=== PATIENT | female | born 1950 | race Caucasian/White ===

== ENCOUNTER 2025-02-07 11:35 | Outpatient (CLI) | payer MEDICARE, SELFPAY ==
--- NOTE | ~2025-02-07 | CT_ITS ---
EXAMINATION: CT LE LT wo con DATE: 02/07/2025 12:34 INDICATION: Left knee osteoarthritis for preoperative planning TECHNIQUE: High resolution computed tomography (CT) of the left lower extremity from the hip through the ankle was performed without intravenous contrast. Additional sagittal and coronal reconstructions were performed. Automated exposure control and iterative reconstruction technique were employed. The dose-length product was 1709.15 mGy-cm. COMPARISON: None FINDINGS: Alignment is normal. No fracture. Severe osteoarthritis at the left hip and at the medial compartment of the left knee were there some remodeling along the anterior aspect of the medial tibial plateau. Additional mild osteoarthritis at the lateral and patellofemoral compartments of the left knee. Small left hip and knee joint effusions. Moderate osteoarthritis at the second and third tarsal metatarsal joints with mild polyarticular osteoarthritis at the left ankle and remaining joints in the left earl t. IMPRESSION: 1. 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 Reviewed, dictated and finalized at location A. IMPRESSION: 1. Polyarticular osteoarthritis, severe at the medial compartment of the left k nee and at the left hip, both with small joint effusions.
--- NOTE | 2025-02-07 11:51 | ECG_ITS ---
Test Date: 2025-02-07 12:10:20 Measurements Intervals [place] Rate: 57 P: 19 ND: 182 QRS: -8 QRSD: 85 T: -3 QT: 395 QTc: 387 Interpretive Statements SINUS BRADYCARDIA BORDERLINE T WAVE ABNORMALITY- INFERIOR LEADS BORDERLINE ECG No previous ECG available for comparison Electronically Signed On 02-07-2025 12:55:31 CDT by Laci Fine D.O.
--- OUTSIDE RECORDS SUMMARY | 2025-02-07 13:09 | XMS_ITS | Encounter Summary ---
Author Organization [facility] Address [address] [place] [address] Phone Care Team Providers Care Cad Librarian Name Role Phone Yuni Resendiz APRN, CNP Primary Care [facility] Reason for Visit * Reason Comments Medication Refill Encounter Details Date Type Department Care Team (Late st Contact Info) Description 12/24/2021 Refill [facility] - [place] [address] [place] [address] Yuni Resendiz APRN, CNP [address] [place] [address] Medication Refill Social History Tobacco Use Types Packs/Day Years Used Date Smoking Tobacco: Former Cigarettes 0.5 27 1 - 11/07/2004 Smokeless Tobacco: Never Comments:chews nicorette gum Alcohol Use Standard Drinks/Week Comments No 0 (1 standard drink = 0.6 oz pur e alcohol) PHQ-2 Answer Date Recorded Total Score - Questions 1-9 1 11/09 Comments No Sex and Gender Information Value Date Recorded Sex Assigned at Not on file Legal Sex Female 10:48 PM CDT Gender Identity Not on file Sexual Orientation Not on file 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 Not on file Not on file Not on file documented as of this encounter Plan of Treatment Upcoming Encounters Date Type Department Care Team (Late st Contact Info) Description 03/08/2025 8:30 AM CDT Lab [facility] [place] [address] [place] [address] [facility] 03/15/2025 9:15 AM CDT Office Visit [facility] [place] [address] [facility] [place] [address] Yuni Resendiz APRN, HAT BLOCK MAKER [address] [place] [address] documented as of this encounter Visit Diagnoses Diagnosis Seasonal allergic rhinitis, unspecified trigger documented in this encounter Additional Health Concerns Infection Onset Date Last Indicated Resolved Time COVID - 19 01/16/2023 01/16/2023 01/26/2023 12:1 6 AM CDT COVID - 19 Confirmed 01/16/2023 01/16/202302/05/ 023 12:16 AM CDT Assessment Noted Time PHQ-9 Depression Total Score: 1 12/03/19 21 8:00 AM [employer] documented as of this encounter Care Teams Cad Librarian Relationship Specialty Start Date End Date Yuni Resendiz APRN, HAT BLOCK MAKER [address] [place] [address] PCP - General Advanced Practice Nurse 07/23/20 documented as of this encounter
--- OUTSIDE RECORDS SUMMARY | 2025-02-07 13:09 | XMS_ITS ---
Care Plan - [facility] Created on: February 07, 2025 ARLENE ENGLE : 1950 Sex: Female Author Organization [facility] Address [address] [place] [address] Phone Care Team Providers Care Gimp Buttonhole Machine Operator Name Role Phone LILIANA PATEL DO Unavailable [phone] MURALI MORRIS MD Unavailable [phone]
--- OUTSIDE RECORDS SUMMARY | 2025-02-07 13:09 | XMS_ITS | Clinical Summary ---
Author Organization [facility] Address [address] [place] [address] Care Team Providers Care Marine Water Tender Name Role Phone Unavailable Primary Care Provider Unavailabl e Source Comments [facility],non-owned Affiliates and Associated Physician Practices is amultiple site organization consisting of ambulatory clinics and hospital sitesin [place], [place], [place] and [place]. This disclosure is being madepursuant to the Care Everywhere program and may not contain all information available regarding this patient. Last updated 18.[facility] Allergies Active Allergy Reactions Criticality Noted Date Comments Paroxetine Psychiatric Medium 08/11/2017 Medications * Be aware that medications may not be up to date on this document. Alwaysverify current medications with the patient. Medication Sig Dispensed Refills Start Date End Date Status rosuvastatin (CRESTOR) 10 MG tablet Take 10 mg by mouth once daily Active lisinopril (PRINIVIL; ZESTRIL) 20 MG tablet Take 20 mg by mouth once daily Active amLODIPine (NORVASC) 5 MG tablet Take 5 mg by mouth once daily Active buPROPion XL 24hr (WELLBUTRIN-XL) 150 MG tablet Take 150 mg by mouth 05/26/2018 Active omeprazole EC (PRILOSEC OTC) 20 MG tablet Take 20 mg by mouth once daily 03/16/2019 Active raNITIdine HCl (ZANTAC PO) Active Active Problems No known active problems Social History Tobacco Use Types Packs/Day Years Used Date Smoking Tobacco: Former Smokeless Tobacco: Never Sex and Gender Information Value Date Recorded Sex Assigned at Not on file Gender Identity Not on file Sexual Orientation Not on file Last Filed Vital Signs Vital Sign Reading Time Taken Comments Blood Pressure 122/80 06/01/2019 2:48 PM CDT Pulse 86 06/01/2019 2:48 PM CDT Temperature 36.8 C (98.3 F) 06/01/2019 2:48 PM CDT Respiratory Rate 17 06/01/2019 2:48 PM CDT Oxygen Saturation - - Inhaled Oxygen Concentration - - Weight 70.3 kg (155 lb) 06/01/2019 2:48 PM CDT Height 152.4 cm (5') 06/01/2019 2:48 PM CDT Body Mass Index 30.27 06/01/2019 2:48 PM CDT Plan of Treatment Health Maintenance Due Date Last Done Comments BONE DENSITY TESTING 1950 COLOGUARD (AGES 45-75) - COLON CA SCREENING 1950 COLON MONITORING 1950 COLONOSCOPY - COLON CA SCREENING 1950 CT COLONOGRAPHY - COLON CA SCREENING 1950 Colorectal Cancer Screening 1950 FIT - COLON CA SCREENING 1950 FLEX SIG - COLON CA SCREENING 1950 MAMMOGRAM 1950 HEPATITIS C SCREENING 04/27/1968 DTAP/TDAP/TD VACCINES (1 - Tdap) 1969 PNEUMOCOCCAL VACCINE 50+ (1 of 1 - PCV) 2000 ZOSTER VACCINE (1 of 2) 2000 SCREENING FOR DIABETES 06/01/2019 COVID-19 VACCINE (1 - 2023- season) 2024 INFLUENZA VACCINE (#1) 2024 8, 08/11/2017, 08/18/2016, Additional history exists DEPRESSION SCREENING 11/08/2024 MEDICARE AWV CALENDAR YEAR 2024 Respiratory Syncytial Virus (RSV) Vaccine Pt: or over 60 yrs (1 - 1-dose 75+ series) 2025 HEPATITIS B VACCINE Aged Out No longe r eligible based on patient's age to complete this topic HIB VACCINE Aged Out No longer eligi ble based on patient's age to complete this topic HPV VACCINE Aged Out No longer eligi ble based on patient's age to complete this topic MENINGOCOCCAL (Group B) VACCINE SHARED DECISION-MAKING Aged Out No longer eligible based on patient's age to complete this topic MENINGOCOCCAL GROUPS A/C/Y/W VACCINE Aged Out No longer eligible based on patient's age to complete this topic
--- OUTSIDE RECORDS SUMMARY | 2025-02-07 13:09 | XMS_ITS | Referral Summary ---
Author Organization [facility] Address [address] [place] [address] Care Team Providers Care Biometrics Head Name Role Phone Jocelyn Vázquez MD Primary Care Provider [phone] Allergies Active Allergy Reactions Criticality Noted Date Comments Paroxetine Hcl Delusions Medium 08/11/2017 Sulfa (Sulfonamide Antibiotics) Unknown Low 08/11/2017 Just doesn't help (no allergic reaction) Medications b complex vitamins capsule Take 1 capsule by mouth daily. Active amLODIPine (NORVASC) 5 mg tablet Take 5 mg by mouth daily. Active lisinopril (PRINIVIL,ZESTRIL ) 20 mg tablet Take 20 mg by mouth daily. Active rosuvastatin (CRESTOR) 10 mg tablet Take 10 mg by mouth daily. Active aspirin 81 mg tablet Take 81 mg by mouth daily. Active fluticasone (FLONASE) 50 mcg/actuation nasal spray Administer 1 spray into each nostril daily. Active aspirin-calcium carbonate 81 mg-300 mg calcium(777 mg) tablet Take 81 mg by mouth. Active cyclobenzaprine (FLEXERIL) 10 mg tabletIndications :Lumbar spondylolysis Take 1 tablet (10 mg total) by mouth 3 (three) times a day as needed for muscle spasms. 30 tablet 7 Active omeprazole (PriLOSEC) 20 mg capsuleIndication s:Functional dyspepsia Take 1 capsule (20 mg total) by mouth daily as needed (heartburn or indigestion). 30 capsule 2 7 Active Active Problems Problem Noted Date Diagnosed Date Hyperlipidemia, mixed 08/11/2017 Assessment & Plan (08/11/2017 1:51 PM CDT): Labs for monitoring today Cont statin Essential hypertension 08/11/2017 Assessment & Plan (08/11/2017 1:51 PM CDT): Hypertension is controlled. Continue current treatment regimen. Blood pressure will be reassessed at the next regular appointment. Lumbar spondylolysis 08/11/2017 Overview (08/11/2017): MRI 10/2016 - diffuse lumbar DDD; disc bulging at multiple levels; multilevel facet OA bilaterally; mild secondary spinal stenosis at L4-5, L5-S1 along with some foraminal narrowing; minimal retrolisthesis L2 on L3 as well as anterolisthesis L4 on L5 and L5 on S1 Assessment & Plan (08/11/2017 1:55 PM CDT): Reviewed prior MRI from Oct 2016 Has done PT in the past, but it didn't help Pain mgmt injections did help, but now the pain is back Discussed importance of core stability in retirement relief of pain Handout given Refill flexeril Obesity (BMI 30-39.9) 08/11/2017 Assessment & Plan (08/11/2017 1:25 PM CDT): Obesity is newly identified. Discussed the patient's BMI. The BMI is above average; BMI management plan is completed. General weight loss/lifestyle modification strategies discussed (elicit support from others; identify saboteurs; non-food rewards, etc). BMI 33.0-33.9,adult 08/11/2017 Assessment & Plan (08/11/2017 1:25 PM CDT): BMI - discussed healthy diet, exercise and adequate sleep Elevated fasting glucose 08/11/2017 Assessment & Plan (08/11/2017 1:52 PM CDT): Has been controlled with metformin and diet changes in the past. Labs today for monitoring. Release for prior records. Heartburn 08/11/2017 Assessment & Plan (08/11/2017 1:52 PM CDT): Stable on as needed use of PPI Chronic constipation 08/11/2017 Immunizations Immunization Administration Dates Next Due Influenza, Quadrivalent, Spl it, Preservative Free, Intramuscular 08/11/2017 Influenza, Trivalent, High D ose, Split, Preservative Free, Intramuscular 08/18/2016,07/16/2015 Pneumococcal Polysaccharide PPV23 02/06/2009 Td, adsorbed 02/06/2010 Social History Tobacco Use Types Packs/Day Years Used Date Smoking Tobacco: Former Cigarettes 1 974 - 2003 Smokeless Tobacco: Never Alcohol Use Standard Drinks/Week Comments No 0 (1 standard drink = 0.6 oz pur e alcohol) Personal Safety Answer Date Recorded Getting School Help Needed Not on file 01/21 Comments Unknown Sex and Gender Information Value Date Recorded Sex Assigned at Not on file Legal Sex Female 5:09 PM [employer] Gender Identity Not on file Sexual Orientation Not on file Last Filed Vital Signs Vital Sign Reading Time Taken Comments Blood Pressure 126/74 08/11/2017 12:32 PM CDT Pulse 67 08/11/2017 12:32 PM CDT Temperature 36.3 C (97.3 F) 08/11/2017 12:32 PM CDT Respiratory Rate - - Oxygen Saturation - - Inhaled Oxygen Concentration - - Weight 75.8 kg (167 lb) 08/11/2017 12:32 PM CDT Height 149.9 cm (4' 11 ) 08/11/2017 12:32 PM CDT Body Mass Index 33.73 08/11/2017 12:32 PM CDT Plan of Treatment Not on file Insurance MEDICARE Care Teams Biometrics Head Relationship Specialty Start Date End Date Jocelyn Vázquez [place] [address] [address] [address] PCP - General Family Medicine 05/28/17
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
--- OUTSIDE RECORDS SUMMARY | 2025-02-07 13:09 | XMS_ITS | Encounter Summary ---
Author Organization [facility] Address [address] [place] [address] Phone Care Team Providers Care Commercial Collections Driver Name Role Phone Yuni Resendiz APRN, CNP Primary Care Chauncey espinal Reason for Visit * Reason Comments Medication Refill Encounter Details Date Type Department Care Team (Late st Contact Info) Description 05/13/2021 Refill [facility] [address] [place] [address] Evita Cid Rosalie, PAC [address] [place] [address] Medication Refill Social History Tobacco Use Types [...] on file documented as of this encounter Miscellaneous Notes * Telephone Encounter - Chino Guillory PAC - 05/13/2021 10:19 PM CDT Rx refill approved. * Telephone Encounter - Annamarie Bar RN - 05/13/2021 1:44 PM CDT Medication not on pt's current med list. Please advise. Medication failed the protocol, provider to review and approve the medication order if appropriate. Requested Prescriptions Pending Prescriptions Disp Refills rosuvastatin (CRESTOR) 10 MG Tablet [Pharmacy Med Name: ROSUVASTATIN 10MG] 90 Tablet 3 Sig: TAKE 1 TABLET BY MOUTH DAILY. Hmg CoA Reductase Inhibitors Protocol Failed - 05/13/2021 1:43 PM Failed - Active on medication list Passed - Visit with relevant provider in past 12 months or upcoming 90 days Recent Visits Date Type Provider Dept 03/07/21 Office Visit Yuni Resendiz APN, VALE [address] 12/20/20 Office Visit Yuni Resendiz APN, VALE [address] 12/03/20 Office Visit Yuni Resendiz APN, VALE [address] 07/26/20 Office Visit Yuni Resendiz APN, BUSINESS SERVICES SALES AGENT [address] Showing recent visits within past 365 days and meeting all other requirements Future Appointments No visits were found meeting these conditions. Showing future appointments within next 90 days and meeting all other requirements Passed - Lipid panel in past 12 months LDL Date Value Ref Range Status 11/29/2020 124 5 - 130 mg/dL Final HDL CHOLESTEROL Date Value Ref Range Status 11/29/2020 49.4 >40 mg/dL Final CHOLESTEROL Date Value Ref Range Status 11/29/2020 213 (H) <=200 mg/dL Final TRIGLYCERIDES Date Value Ref Range Status 11/29/2020 199 (H) <150 mg/dL Final VLDL Date Value Ref Range Status 11/29/2020 40 5 - 55 mg/dL Final CHOL/HDL RATIO Date Value Ref Range Status 11/29/2020 4.3 0.0 - 4.4 Final NON-HDL CHOLESTEROL Date Value Ref Range Status 11/29/2020 163.6 (H) <130 mg/dL Final * Telephone Encounter - Laurence Newell CMA - 05/13/2021 9:25 AM CDT Not a GI medication, forwarded to primary documented in this encounter Plan of Treatment Upcoming Encounters Date Type Department Care Team (Late st Contact Info) Description 03/08/2025 8:30 AM CDT Lab [facility] [place] [address] [place] [address] [facility] 03/15/2025 9:15 AM CDT Office Visit [facility] [place] [address] [place] [address] Yuni Resendiz APRN, BUSINESS SERVICES SALES AGENT [address] [place] [address] documented as of this encounter Visit Diagnoses Not on filedocumented in this encounter Additional Health Concerns Infection Onset Date Last Indicated Resolved Time COVID - 19 01/16/2023 01/16/2023 01/26/2023 12:1 6 AM CDT COVID - 19 Confirmed 01/16/2023 01/16/202302/05/ 023 12:16 AM CDT Assessment Noted Time PHQ-9 Depression Total Score: 1 12/03/19 21 8:00 AM PROGRAM SPECIALIST documented as of this encounter Care Teams Commercial Collections Driver Relationship Specialty Start Date End Date Yuni Resendiz APRN, BUSINESS SERVICES SALES AGENT [address] [place] [address] PCP - General Advanced Practice Nurse 07/23/20 documented as of this encounter
--- OUTSIDE RECORDS SUMMARY | 2025-02-07 13:09 | XMS_ITS | Clinical Summary ---
Author Organization [facility] Address [address] [place] [address] Phone Care Team Providers Care Schedule Analyst Name Role Phone LILIANA PATEL DO Unavailable [phone] MURALI MORRIS MD Unavailable [phone] Reason for Visit and Chief Complaint The Chief Complaint is: WWE, no c/o, no new partners Problems Includes: Problems addressed during this encounter and other active Problems All Visits Onset Date Resolved Date Provider Condition S tatus Skin Neoplasm Malignant 06/13/2020 SANDI REYES WHNP-BC Active Last Documented On 06/13/2020 9:06AM ; [facility] Note: Removed June 04, 2020 - Lucy Mulligan - [place], [place] - squamous cell ca URGE INCONTINENCE 06/03/2012 LYN MYERS M.D. Active Last Documented On 2 9:41AM ; [facility] Diabetes Mellitus 05/26/2012 SANDI REYES WHNP -BC Active Last Documented On 2 10:23AM ; [facility] Note: Type II Hyperlipidemia 05/22/2011 SANDI REYES WHNP-BC Active Last Documented On 1 10:34AM ; [facility] Hypertension Systemic 05/22/2011 SANDI REYES WHNP-BC Active Last Documented On 1 10:34AM ; [facility] Plan of Treatment - Follow-up visit 1 year or as needed - Last Documented On 06/19/2022 10:25AM ; [facility] - Clinical summary provided to patient - Last Documented On 06/19/2022 10:25AM ; [facility] Instructions to patient Instructions for patient : B reast Self Exam discussed Last Documented On 2 10:09AM ; [facility] Lose weight Last Documented On 2 10:10AM ; [facility] Education and Decision Aids were provided during visit for: Patient Education: Daily perez cium and vitamin D Last Documented On 2 10:09AM ; [facility] Patient Education: weight be aring exercise Last Documented On 2 10:09AM ; [facility] Assessments Includes: Assessments from this encounter Findings - NORMAL FEMALE EXAM [Z01.419 - Encounter for gynecological examination (general) (routine) without abnormal findings] - Last Documented On 06/19/2022 10:25AM ; [facility] - Screening Malig. Neoplasm Rectum [Z12.12 - Encounter for screening for malignant neoplasm of rectum] - Last Documented On 06/19/2022 10:25AM ; [facility] Instructions Includes: Instructions from this encounter Instructions to patient Instructions for patient : B reast Self Exam discussed Last Documented On 2 10:09AM ; [facility] Lose weight Last Documented On 2 10:10AM ; [facility] Education and Decision Aids were provided during visit for: Patient Education: Daily perez cium and vitamin D Last Documented On 2 10:09AM ; [facility] Patient Education: weight be aring exercise Last Documented On 2 10:09AM ; [facility] Medical Equipment - Implanted Devices Includes: Current Devices No Medical Equipment Recorded Medications Includes: Medications discussed during this encounter and other current Medications Discontinued / Stopped on this date on 06/18/2021 hydroCHLOROthiazide 12.5 MG Oral Capsule Provider: Diagnosis: Last Documented On 06/19/2022 10:12AM By Annalee Hale MA ; [facility] Current Medications (continue as prescribed) [facility] Magnesium 200 MG Oral Tablet Chewable 06/23/2023 Provider: Diagnosis: Last Documented On 06/23/2023 8:17AM By Cinthia URIARTE ; [facility] CeleBREX 100 MG Oral Capsule 06/19/2022 Provider: Diagnosis: Last Documented On 06/19/2022 10:12AM By Annalee Hale MA ; [facility] Flonase 50 MCG/ACT Nasal Suspension 06/19/2022 Provi tino: Diagnosis: Last Documented On 06/19/2022 10:13AM By Annalee Hale MA ; [facility] Omeprazole 20 MG Oral Tablet Delayed Release 06/19 Provider: Diagnosis: Last Documented On 06/19/2022 10:13AM By Annalee Hale MA ; [facility] Singulair 10 MG Oral Tablet 06/19/2022 Provider: Diagnosis: Last Documented On 06/19/2022 10:13AM By Annlaee Hale MA ; [facility] Montelukast Sodium 10 MG Oral Tablet 06/12/2022 Prov ider: YUNI THOMSON NP Diagnosis: Last Documented On 06/23/2023 8:18AM By Cinthia URIARTE ; [facility] buPROPion HCl ER (XL) 150 MG Oral Tablet Extended Release 24 Hour 05/12/2022 Provider: YUNI THOMSON NP Diagnosis: Last Documented On 06/23/2023 8:18AM By Cinthia URIARTE ; [facility] Ocuvite Eye + Multi Oral Tablet 06/13/2020 Provider: Diagnosis: Last Documented On 06/13/2020 8:53AM By REEMA URIARTE ; [facility] Adult Aspirin Regimen 81MG Oral Tablet Delayed Release 05/10/2019 Provider: Diagnosis: Last Documented On 05/10/2019 9:16AM By REEMA URIARTE ; [facility] EQL Vitamin D3 1000UNIT Oral Capsule 05/10/2019 Prov ider: Diagnosis: Last Documented On 05/10/2019 9:15AM By REEMA URIARTE ; [facility] Wellbutrin SR 150MG Oral Tablet Extended Release 12 Ho ur 05/10/2019 Provider: Diagnosis: Last Documented On 05/10/2019 9:15AM By REEMA URIARTE ; [facility] Crestor 10 MG OR TABS 04/09/2014 Provider: Diagnosis: Last Documented On 04/09/2014 8:34AM By REEMA URIARTE ; [facility] amLODIPine Besylate 10 MG OR TABS 05/12/2012 Provide r: Diagnosis: Last Documented On 2 2:12PM By DR. LYN MYERS ; [facility] Past Medications on file Vitamin D (Ergocalciferol) 1.25 MG (77234 UT) OR CAPS 06/20/2014 - 07/20/2014 Provider: SADNI MAYEN Diagnosis: VITAMIN D DEFICI ENCY NOS one po q week x 12 weeks, then call for labs Last Documented On 4 2:19PM By SADNI MAYEN ; [facility] Dialyvite Vitamin D3 Max 1.2 5 MG (29467 UT) OR TABS 06/20/2012 - 09/18/2012 Provider: SANDI MAYEN Diagnosis: one po q week x 12 weeks Last Documented On 2 10:45AM By SANDI MAYEN ; [facility] Estrace 0.1 MG/GM VA CREA 05/26/2012 - 05/21/2013 Prov ider: SANDI MAYEN Diagnosis: Insert vaginally 3x/week (1/2 applicator) Last Documented On 2 1:13PM By SANDI MAYEN ; [facility] Medications Administered Includes: Administered Medications from this encounter No Administered Medications Recorded Vital Signs Includes: Vital Signs from this encounter Vital Name 06/19/2022 10:10A Blood Pressure Sitting L 160/90 BP Cuff Size Large Temp-Temporal 97.3 Height (in) 59 Weight (lb) 167 Body Mass Index (kg/m2) 33.7 Body Surface Area (m2) 1.7 Last Documented: On 06/19/2022 10:17A M ; [facility] Results Includes: Results discussed during this encounter No Results Recorded For Specified Dates History of Present Illness Includes: History of Present Illness from this encounter TIM ENGLE is a 72 year old female. - Allergy list reviewed - Medication list reviewed - Primary Care Provider: Yuni Martinez Social History Description Last Updated Former smoker 06/18/2021 Last Documented On 2 10:09AM ; [facility] Not using alcohol 06/13/2020 Last Documented On 2 10:09AM ; [facility] Not using drugs 06/13/2020 Last Documented On 2 10:09AM ; [facility] Social history unchanged 06/13/2020 Last Documented On 2 10:09AM ; [facility] Lutheran: Mu-Ism 04/12/2017 Last Documented On 2 10:09AM ; [facility] Druze affiliation 04/12/2017 Last Documented On 2 10:09AM ; [facility] Smoking Status Unknown Procedures and Surgical History Includes: Procedures from this encounter Procedures Code Diagnosis Performing Provider Service L ocation Service Date low fat diet Last Documented On 2 10:10AM ; [facility] use of tobacco assessment performed 1000F Last Documented On 2 10:15AM ; [facility] patient screened for future fall risk: documentation of any fall with injury in past year 1100F Last Documented On 2 10:18AM ; [facility] review of medications documented 1160F Last Documented On 2 10:15AM ; [facility] Pap smear done 50913 Last Documented On 2 10:10AM ; [facility] history of cervical Pap smear 2019 08332 Last Documented On 2 10:15AM ; [facility] fecal occult blood test was negative 42361 Last Documented On 2 10:09AM ; [facility] patient recently had a dexa scan 05-25-19 Last Documented On 2 10:15AM ; [facility] Cervical Pap Smear performed Q0091 Last Documented On 2 10:10AM ; [facility] Surgical History Last Updated Surgical / procedural histor y cancer spot removed from her [id number] ~bilateral cateract 06/13/2020 Last Documented On 2 10:09AM ; [facility] History of tubal ligation 05/10/2019 Last Documented On 2 10:09AM ; [facility] History of appendectomy 04/12/2017 Last Documented On 2 10:09AM ; [facility] Medical History Includes: Medical History addressed during this encounter Description Last Updated Last pap smear date 201806/23/2023 Last Documented On 2 10:09AM ; [facility] History of screening mammogram was perfo rmed 06/17/2022 06/19/2022 Last Documented On 2 10:25AM ; [facility] History of cervical Pap smear 06/18 Last Documented On 2 10:09AM ; [facility] History of colonoscopy fiberoptic was pe rformed 201806/18/2021 Last Documented On 2 10:09AM ; [facility] No recent change in medical history 04/2020 Last Documented On 2 10:09AM ; [facility] History of a DXA of the lateral lumbar s pine was performed 05/25/2019 wnl 06/13/2020 Last Documented On 2 10:09AM ; [facility] History of complete colonoscopy 2019 Dr Agustin 06/13/2020 Last Documented On 2 10:09AM ; [facility] History of Pap smear done 05/10/201904/2020 Last Documented On 2 10:09AM ; [facility] LMP: 1992 06/13/2020 Last Documented On 2 10:09AM ; [facility] Result: normal 06/13/2020 Last Documented On 2 10:09AM ; [facility] History of type 2 diabetes mellitus diet controled 04/12/2017 Last Documented On 2 10:09AM ; [facility] Aborta 04/12/2017 Last Documented On 2 10:09AM ; [facility] 4 04/12/2017 Last Documented On 2 10:09AM ; [facility] History of benign essential hypertension 04/12/2017 Last Documented On 2 10:09AM ; [facility] History of hyperlipidemia 04/12/2017 Last Documented On 2 10:09AM ; [facility] History of menopause 04/12/2017 Last Documented On 2 10:09AM ; [facility] Para 4 04/12/2017 Last Documented On 2 10:09AM ; [facility] Status post tubal ligation 04/12/2017 Last Documented On 2 10:09AM ; [facility] Family History Includes: Family History addressed during this encounter Description Last Updated Maternal history of pure hypercholestero lemia Parents 06/13/2020 Last Documented On 2 10:09AM ; [facility] Maternal history of uterine cancer mom 0 06/13/2020 Last Documented On 2 10:09AM ; [facility] Paternal grandmother's histo ry of malignant neoplasm of the ovary paternal grandma 06/13/2020 Last Documented On 2 10:09AM ; [facility] Paternal history of diabetes mellitus Da d 06/13/2020 Last Documented On 2 10:09AM ; [facility] Paternal history of family history of he art disease Dad 06/13/2020 Last Documented On 2 10:09AM ; [facility] Paternal history of hypertension Dad 04/2020 Last Documented On 2 10:09AM ; [facility] mother had padgets 04/12/2017 Last Documented On 2 10:09AM ; [facility] Spouse name: Inez 05/22/2011 Last Documented On 2 10:09AM ; [facility] Family history of diabetes mellitus Dad 05/22/2011 Last Documented On 2 10:09AM ; [facility] Family history of hypercholesterolemia P arents 05/22/2011 Last Documented On 2 10:09AM ; [facility] Family history of hypertension Dad 05/22 Last Documented On 2 10:09AM ; [facility] Family history of uterine cancer mom Last Documented On 2 10:09AM ; [facility] Heart disease Dad 05/22/2011 Last Documented On 2 10:09AM ; [facility] Family history unchanged 05/22/2011 Last Documented On 2 10:09AM ; [facility] Family history of malignant neoplasm of the ovary paternal grandma 05/14/2010 Last Documented On 2 10:09AM ; [facility] Family history of Cancer 01/14/2010 Last Documented On 2 10:09AM ; [facility] Family history of Diabetes 01/14/2010 Last Documented On 2 10:09AM ; [facility] Family medical history of high blood pre ssure 01/14/2010 Last Documented On 2 10:09AM ; [facility] Review of Systems Includes: Review of Systems from this encounter Gastrointestinal: No pelvic pain. Genitourinary: No postmenopausal bleeding. No vaginal discharge. Neurological: No ataxia. Psychological: No fear of falling. Past Medical: No fall in the past 6 months. Mental Status Includes: Mental Status from this encounter No Mental Status Recorded Functional Status Includes: Functional Status from this encounter No Functional Status Recorded Physical Exam Includes: Physical Exam from this encounter Allergies Includes: Active Allergies Substance Type Reaction Onset Date Resolved Date Statu s Sulfa Antibiotics Allergy 04/09/2014 R esolved Last Documented On 9 9:14AM ; [facility] Encounters Encounter Provider Location Date Check-In Time Check-Out Time Diagnosis WELL WOMAN - ESTABLISHED PT SANDI REYES [facility] 06/19/20 22 10:07AM 10:29AM Screening Malig. Neoplasm Rectum,Normal Female Exam Insurance Includes: Active Insurance Policies Plan Name Member ID Group # Subscriber Relationship Effect robin Dates 1 - [facility]/MEDICARE ADV/AARP [id number] INEZ ENGLE M Clinical Notes Includes: Clinical Notes from this encounter No Clinical Notes Recorded
--- OUTSIDE RECORDS SUMMARY | 2025-02-07 13:09 | XMS_ITS | Encounter Summary ---
Author Organization [facility] Address [address] [place] [address] Phone Care Team Providers Care Car Porter Name Role Phone Yuni Resendiz APRN, CNP Primary Care P rovitino Reason for Visit * Reason Comments Medication Refill Encounter Details Date Type Department Care Team (Late st Contact Info) Description 02/15/2022 Refill [facility] - [place] [address] [place] [address] Yuni Resendiz APRN, CNP [address] [place] [address] Medication Refill Social History Tobacco [...] encounter Miscellaneous Notes * Telephone Encounter - Marlee Gardner RN - 02/16/2022 9:53 AM CDT Refill request too soon. documented in this encounter Plan of Treatment Upcoming Encounters Date Type Department Care Team (Late st Contact Info) Description 03/08/2025 8:30 AM CDT Lab [facility] [address] [place] [phone] [facility] 03/15/2025 9:15 AM CDT Office Visit [facility] [place] [address] [place] [address] Yuni Resendiz APRN, CUT OUT STITCHER [address] [place] [address] documented as of this encounter Visit Diagnoses Diagnosis Seasonal allergic rhinitis, unspecified trigger documented in this encounter Additional Health Concerns Infection Onset Date Last Indicated Resolved Time COVID - 19 01/16/2023 01/16/2023 01/26/2023 12:1 6 AM CDT COVID - 19 Confirmed 01/16/2023 01/16/2023 023 12:16 AM CDT Assessment Noted Time PHQ-9 Depression Total Score: 1 12/03/19 21 8:00 AM 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
--- OUTSIDE RECORDS SUMMARY | 2025-02-07 13:09 | XMS_ITS | Encounter Summary ---
Author Organization [facility] Address [address] [address] Care Team Providers Care Carbonator Name Role Phone Unavailable Primary Care Provider Unavailabl e Encounter Details Date Type Department Care Team (Late st Contact Info) Description 05/13/2020 Lab Requisition [facility] [address] [place] [address] [place] [address] [place] [address] Social History Tobacco Use Types Packs/Day Years Used Date Smoking Tobacco: Former Smokeless Tobacco: Never Sex and Gender Information Value Date Recorded Sex Assigned at Not on file Gender Identity Not on file Sexual Orientation Not on file documented as of this encounter Plan of Treatment Not on file documented as of this encounter Procedures Procedure Name Priority Date/Time Associated Diagnosis Comments DERMATOPATHOLOGY Routine 05/09/2020 12:0 0 AM CDT documented in this encounter Results * DERMATOPATHOLOGY (05/09/2020 12:00 AM CDT) Case Report Dermatopathology Report Case: [id number] Authorizing Provider: Kathya Thomas MD Collected: 05/09/2020 12:00 AM Ordering Location: [facility] Received: 05/13/2020 01:12 PM Pathologist: Jaswant Smith MD Specimen: Skin, nasal dorsum 0 1:01 PM CDT DERMATOPATHOLOGY LABORATORY Final Diagnosis Specimen A. 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 . 0 1:01 PM CDT DERMATOPATHOLOGY LABORATORY Gross Description Specimen A: Received is one formalin filled container labeled with the patient's name and designated nasal dorsum. The specimen consists of a shave biopsy measuring [id number]. Jar 0. 0 1:01 PM CDT DERMATOPATHOLOGY LABORATORY Microscopic Description Specimen A. SKIN, nasal dorsum: The epidermis shows parakeratosis, full thickness disorderly maturation of keratinocytes, mitoses at different levels, and dyskeratotic cells. The lesion extends to the base of the biopsy.COMMENT: An invasive squamous cell carcinoma cannot be ruled out. 0 1:01 PM CDT DERMATOPATHOLOGY LABORATORY Disclaimer An external and internal positive and negative controls are appropriate for the histochemical, immunohistochemical and immunofluorescence stain(s) in this case (if any), except where stated explicitly. The performance characteristics of the stain(s) cited in this report were developed and its performance characteristic determined by the Dermatopathology Laboratory at [facility], directed by Dr. Nicky Smith. These tests need not be, and therefore are not, approved by the [place] Food and Drug Administration. The tests are used for clinical purposes. Billing Codes Specimen Charges Stain Charges 04511 1 0 1:01 PM CDT DERMATOPATHOLOGY LABORATORY Embedded Images 0 1:01 PM CDT DERMATOPATHOLOGY LABORATORY Pathology/Cytolog y TISSUE SPECIMEN FROM SKIN / Unknown 05/09/2020 05/13/2020 1:12 PM CDT Kathya Thomas MD LAB - PATHOLOGY/C YTOLOGY ORDERABLES DERMATOPATHOLOGY LABORATORY [facility] - Department of Dermatology [employer] [place] [address], [facility] [phone] documented in this encounter Visit Diagnoses Not on filedocumented in this encounter
--- OUTSIDE RECORDS SUMMARY | 2025-02-07 13:09 | XMS_ITS ---
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 Active Last Documented On 2 9:41AM ; [facility] Diabetes Mellitus 05/26/2012 SANDI REYES WHNP -BC Active Last Documented On 2 10:23AM ; [facility] Note: Type II Hyperlipidemia 05/22/2011 SANDI REYES WHNP-BC Active Last Documented On 1 10:34AM ; [facility] Hypertension Systemic 05/22/2011 SANDI REYES WHNP-BC Active Last Documented On 1 10:34AM ; [facility] Plan of Treatment Findings Encounter Date Ordered Clinical summary pro vided to patient WELL WOMAN - ESTABLISHED PT with SANDI REYES WHNP-BC 06/23/2023 Last Documented On 3 8:31AM ; [facility] Ordered follow-up visit 1 ye ar or as needed WELL WOMAN - ESTABLISHED PT with SANDI REYES WHNP-BC 06/23/2023 Last Documented On 3 8:31AM ; [facility] Ordered Clinical summary pro vided to patient WELL WOMAN - ESTABLISHED PT with SANDI REYES WHNP-BC 06/19/2022 Last Documented On 2 10:25AM ; [facility] Ordered follow-up visit 1 ye ar or as needed WELL WOMAN - ESTABLISHED PT with SANDI REYES WHNP-BC 06/19/2022 Last Documented On 2 10:25AM ; [facility] Ordered follow-up visit 1 ye ar or as needed WELL WOMAN - ESTABLISHED PT with SANDI REYES WHNP-BC 06/18/2021 Last Documented On 1 9:14AM ; [facility] Ordered follow-up visit 1 ye ar or as needed ANNUAL HALFTONE OPERATOR EXAM with SANDI REYES WHNP-BC 06/13/2020 Last Documented On 0 9:07AM ; [facility] Ordered Clinical summary pro vided to patient ANNUAL HALFTONE OPERATOR EXAM with SANDI REYES WHNP-BC 05/10/2019 Last Documented On 9 9:32AM ; [facility] Ordered follow-up visit 1 ye ar or as needed ANNUAL HALFTONE OPERATOR EXAM with SANDI REYES WHNP-BC 05/10/2019 Last Documented On 9 9:32AM ; [facility] Ordered Clinical summary pro vided to patient ANNUAL HALFTONE OPERATOR EXAM with SANDI REYES WHNP-BC 04/12/2017 Last Documented On 7 11:01AM ; [facility] Ordered Transition in care, clinical summary provided ANNUAL HALFTONE OPERATOR EXAM with SANDI REYES WHNP-BC 04/12/2017 Last Documented On 7 11:01AM ; [facility] Requested Referred to: GI - [place] - screening colonoscopy due! ANNUAL HALFTONE OPERATOR EXAM with SANDI REYES [facility] 04/12/2017 Last Documented On 7 11:01AM ; [facility] Ordered Clinical summary pro vided to patient ANNUAL PHYSICAL EXAM with SANDI REYES [facility]- 04/10/2015 Last Documented On 5 8:26AM ; [facility] Ordered follow-up visit 1 ye ar or as needed ANNUAL PHYSICAL EXAM with SANDI REYES [facility]- 04/10/2015 Last Documented On 5 8:26AM ; [facility] Ordered Clinical summary pro vided to patient ANNUAL HALFTONE OPERATOR EXAM with SANDI REYES [facility]- 04/09/2014 Last Documented On 4 8:48AM ; [facility] Ordered follow-up visit 1 ye ar or as needed ANNUAL HALFTONE OPERATOR EXAM with SANDI REYES [facility]- 04/09/2014 Last Documented On 4 8:48AM ; [facility] Ordered Transition in care, clinical summary provided ANNUAL HALFTONE OPERATOR EXAM with SANDI REYES [facility] 04/09/2014 Last Documented On 4 8:48AM ; [facility] Enc. kegal exercises for mix ed incontinence - pt. is agreeable to consult with Dr. Myers for treatment options ANNUAL HALFTONE OPERATOR EXAM with SANDI REYES [facility] 05/26/2012 Last Documented On 2 11:51AM ; [facility] Ordered follow-up visit 1 ye ar or as needed ANNUAL HALFTONE OPERATOR EXAM with SANDI REYES [facility] 05/26/2012 Last Documented On 2 11:51AM ; 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 Referrals To Diagnosis Urologist KIMBERLEY GUTIERREZ Last Documented On 4 4:31PM ; [facility] Urologist KIMBERLEY PRICE MD MIXED INCONTI JUANNCE Last Documented On 4 4:12PM ; [facility] Instructions to patient Instructions for patient : B reast Self Exam discussed Last Documented On 3 8:07AM ; [facility] Lose weight Last Documented On 3 8:08AM ; [facility] Colonoscopy Handout given to patient Last Documented On 3 8:08AM ; [facility] Instructions for patient : B reast Self Exam discussed Last Documented On 2 10:09AM ; [facility] Lose weight Last Documented On 2 10:10AM ; [facility] Instructions for patient : B reast Self Exam discussed Last Documented On 1 8:55AM ; [facility] Lose weight Last Documented On 1 8:56AM ; [facility] Instructions for patient : B reast Self Exam discussed Last Documented On 0 8:45AM ; [facility] Colonoscopy Handout given to patient Last Documented On 0 8:47AM ; [facility] Instructions for patient : B reast Self Exam discussed Last Documented On 9 9:03AM ; [facility] Colonoscopy Handout given to patient Last Documented On 9 9:03AM ; [facility] Instructions for patient : B reast Self Exam discussed Last Documented On 7 10:36AM ; [facility] Lose weight Last Documented On 7 10:37AM ; [facility] Colonoscopy Handout given to patient Last Documented On 7 10:37AM ; [facility] Instructions for patient : B reast Self Exam discussed Last Documented On 5 8:01AM ; [facility] Lose weight Last Documented On 5 8:03AM ; [facility] Colonoscopy Handout given to patient Last Documented On 5 8:03AM ; [facility] Instructions for patient : B reast Self Exam discussed Last Documented On 4 8:30AM ; [facility] Lose weight Last Documented On 4 8:33AM ; [facility] Colonoscopy Handout given to patient Last Documented On 4 8:33AM ; [facility] Instructions for patient : B reast Self Exam discussed Last Documented On 2 10:05AM ; [facility] Lose weight Last Documented On 2 10:05AM ; [facility] Colonoscopy Handout given to patient Last Documented On 2 10:05AM ; [facility] Instructions for patient : B reast Self Exam discussed Last Documented On 1 10:33AM ; [facility] Lose weight Last Documented On 1 10:52AM ; [facility] Instructions for patient : B reast Self Exam discussed Last Documented On 0 9:03AM ; [facility] Colonoscopy Handout given to patient Last Documented On 0 9:03AM ; [facility] Education and Decision Aids were provided during visit for: Patient Education: Daily perez cium and vitamin D Last Documented On 3 8:07AM ; [facility] Patient Education: weight be aring exercise Last Documented On 3 8:07AM ; [facility] Patient Education: Daily perez cium and vitamin D Last Documented On 2 10:09AM ; [facility] Patient Education: weight be aring exercise Last Documented On 2 10:09AM ; [facility] Patient Education: Daily perez cium and vitamin D Last Documented On 1 8:55AM ; [facility] Patient Education: weight be aring exercise Last Documented On 1 8:55AM ; [facility] Patient Education: Daily perez cium and vitamin D Last Documented On 0 8:45AM ; [facility] Patient Education: weight be aring exercise Last Documented On 0 8:45AM ; [facility] Patient Education: Daily perez cium and vitamin D Last Documented On 9 9:03AM ; [facility] Patient Education: weight be aring exercise Last Documented On 9 9:03AM ; [facility] Patient Education: Daily perez cium and vitamin D Last Documented On 7 10:36AM ; [facility] Patient Education: weight be aring exercise Last Documented On 7 10:36AM ; [facility] Patient Education: Daily perez cium and vitamin D Last Documented On 5 8:01AM ; [facility] Patient Education: weight be aring exercise Last Documented On 5 8:01AM ; [facility] Patient Education: Daily perez cium and vitamin D Last Documented On 4 8:30AM ; [facility] Patient Education: weight be aring exercise Last Documented On 4 8:30AM ; [facility] Patient Education: Daily perez cium and vitamin D Last Documented On 2 10:05AM ; [facility] Patient Education: weight be aring exercise Last Documented On 2 10:05AM ; [facility] Patient Education: Daily perez cium and vitamin D Last Documented On 1 10:33AM ; [facility] Patient Education: weight be aring exercise Last Documented On 1 10:33AM ; [facility] Patient Education: Daily perez cium and vitamin D Last Documented On 0 9:03AM ; [facility] Patient Education: weight be aring exercise Last Documented On 0 9:03AM ; [facility] Assessments Includes: Assessments for all patient encounters Findings Encounter Date NORMAL FEMALE EXAM WELL WOMAN - ESTABLISHED PT w julianna REYES [facility] 06/23/2023 Last Documented On 3 8:31AM ; [facility] Screening Malig. Neoplasm Rectum WELL WO MAN - ESTABLISHED PT with SANDI REYES NP-BC 06/23/2023 Last Documented On 3 8:31AM ; [facility] NORMAL FEMALE EXAM WELL WOMAN - ESTABLISHED PT w julianna REYES NP-BC 06/19/2022 Last Documented On 2 10:25AM ; [facility] Screening Malig. Neoplasm Rectum WELL WO MAN - ESTABLISHED PT with SANDI REYES NP-BC 06/19/2022 Last Documented On 2 10:25AM ; [facility] NORMAL FEMALE EXAM WELL WOMAN - ESTABLISHED PT w julianna REYES WHNP-BC 06/18/2021 Last Documented On 1 9:14AM ; [facility] Screening Malig. Neoplasm Rectum WELL WO MAN - ESTABLISHED PT with SANDI REYES WHNP-BC 06/18/2021 Last Documented On 1 9:14AM ; [facility] NORMAL FEMALE EXAM ANNUAL HALFTONE OPERATOR EXAM with SANDI REYES WHNP-BC 06/13/2020 Last Documented On 0 9:07AM ; [facility] Screening Malig. Neoplasm Rectum ANNUAL HALFTONE OPERATOR EXAM with SANDIFAVIAN REYES WHNP-BC 06/13/2020 Last Documented On 0 9:07AM ; [facility] NORMAL FEMALE EXAM ANNUAL HALFTONE OPERATOR EXAM with SANDIFAVIAN REYES WHNP-BC 05/10/2019 Last Documented On 9 9:32AM ; [facility] NORMAL FEMALE EXAM ANNUAL HALFTONE OPERATOR EXAM with SANDIFAVIAN REYES WHNP-BC 04/12/2017 Last Documented On 7 11:01AM ; [facility] Screening Malig. Neoplasm Rectum ANNUAL HALFTONE OPERATOR EXAM with SANDIFAVIAN REYES WHNP-BC 04/12/2017 Last Documented On 7 11:01AM ; [facility] NORMAL FEMALE EXAM ANNUAL PHYSICAL EXAM with ASHLEY REYES WHNP-BC 04/10/2015 Last Documented On 5 8:26AM ; [facility] Screening Malig. Neoplasm Rectum ANNUAL PHYSICAL EXAM with SANDI REYES WHNP-BC 04/10/2015 Last Documented On 5 8:26AM ; [facility] NORMAL FEMALE EXAM ANNUAL HALFTONE OPERATOR EXAM with SANDI REYES WHNP-BC 04/09/2014 Last Documented On 4 8:48AM ; [facility] Screening Malig. Neoplasm Rectum ANNUAL HALFTONE OPERATOR EXAM with SANDIFAVIAN REYES WHNP-BC 04/09/2014 Last Documented On 4 8:48AM ; [facility] Urinary incontinence CONSULTATION with LYN MYERS M.D. 06/02/2012 Last Documented On 2 9:42AM ; [facility] NORMAL FEMALE EXAM ANNUAL HALFTONE OPERATOR EXAM with SANDI REYES WHNP-BC 05/26/2012 Last Documented On 2 11:51AM ; [facility] Screening Malig. Neoplasm Rectum ANNUAL HALFTONE OPERATOR EXAM with SANDI REYES [facility]- 05/26/2012 Last Documented On 2 11:51AM ; 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 Screening Malig. Neoplasm Rectum PROFESSOR OF MARKETING EXAM with Gabriela REYES [facility] 05/22/2011 Last Documented On 1 10:53AM ; [facility] NORMAL FEMALE EXAM PROFESSOR OF MARKETING EXAM with SANDI Keith HNP-BC 05/14/2010 Last Documented On 0 9:22AM ; [facility] Screening Malig. Neoplasm Rectum PROFESSOR OF MARKETING EXAM with Gabriela REYES [facility] 05/14/2010 Last Documented On 0 9:22AM ; [facility] Instructions Includes: Instructions for all patient encounters Instructions to patient Instructions for patient : B reast Self Exam discussed Last Documented On 3 8:07AM ; [facility] Lose weight Last Documented On 3 8:08AM ; [facility] Colonoscopy Handout given to patient Last Documented On 3 8:08AM ; [facility] Instructions for patient : B reast Self Exam discussed Last Documented On 2 10:09AM ; [facility] Lose weight Last Documented On 2 10:10AM ; [facility] Instructions for patient : B reast Self Exam discussed Last Documented On 1 8:55AM ; [facility] Lose weight Last Documented On 1 8:56AM ; [facility] Instructions for patient : B reast Self Exam discussed Last Documented On 0 8:45AM ; [facility] Colonoscopy Handout given to patient Last Documented On 0 8:47AM ; [facility] Instructions for patient : B reast Self Exam discussed Last Documented On 9 9:03AM ; [facility] Colonoscopy Handout given to patient Last Documented On 9 9:03AM ; [facility] Instructions for patient : B reast Self Exam discussed Last Documented On 7 10:36AM ; [facility] Lose weight Last Documented On 7 10:37AM ; [facility] Colonoscopy Handout given to patient Last Documented On 7 10:37AM ; [facility] Instructions for patient : B reast Self Exam discussed Last Documented On 5 8:01AM ; [facility] Lose weight Last Documented On 5 8:03AM ; [facility] Colonoscopy Handout given to patient Last Documented On 5 8:03AM ; [facility] Instructions for patient : B reast Self Exam discussed Last Documented On 4 8:30AM ; [facility] Lose weight Last Documented On 4 8:33AM ; [facility] Colonoscopy Handout given to patient Last Documented On 4 8:33AM ; [facility] Instructions for patient : B reast Self Exam discussed Last Documented On 2 10:05AM ; [facility] Lose weight Last Documented On 2 10:05AM ; [facility] Colonoscopy Handout given to patient Last Documented On 2 10:05AM ; [facility] Instructions for patient : B reast Self Exam discussed Last Documented On 1 10:33AM ; [facility] Lose weight Last Documented On 1 10:52AM ; [facility] Instructions for patient : B reast Self Exam discussed Last Documented On 0 9:03AM ; [facility] Colonoscopy Handout given to patient Last Documented On 0 9:03AM ; [facility] Education and Decision Aids were provided during visit for: Patient Education: Daily perez cium and vitamin D Last Documented On 3 8:07AM ; [facility] Patient Education: weight be aring exercise Last Documented On 3 8:07AM ; [facility] Patient Education: Daily perez cium and vitamin D Last Documented On 2 10:09AM ; [facility] Patient Education: weight be aring exercise Last Documented On 2 10:09AM ; [facility] Patient Education: Daily perez cium and vitamin D Last Documented On 1 8:55AM ; [facility] Patient Education: weight be aring exercise Last Documented On 1 8:55AM ; [facility] Patient Education: Daily perez cium and vitamin D Last Documented On 0 8:45AM ; [facility] Patient Education: weight be aring exercise Last Documented On 0 8:45AM ; [facility] Patient Education: Daily perez cium and vitamin D Last Documented On 9 9:03AM ; [facility] Patient Education: weight be aring exercise Last Documented On 9 9:03AM ; [facility] Patient Education: Daily perez cium and vitamin D Last Documented On 7 10:36AM ; [facility] Patient Education: weight be aring exercise Last Documented On 7 10:36AM ; [facility] Patient Education: Daily perez cium and vitamin D Last Documented On 5 8:01AM ; [facility] Patient Education: weight be aring exercise Last Documented On 5 8:01AM ; [facility] Patient Education: Daily perez cium and vitamin D Last Documented On 4 8:30AM ; [facility] Patient Education: weight be aring exercise Last Documented On 4 8:30AM ; [facility] Patient Education: Daily perez cium and vitamin D Last Documented On 2 10:05AM ; [facility] Patient Education: weight be aring exercise Last Documented On 2 10:05AM ; [facility] Patient Education: Daily perez cium and vitamin D Last Documented On 1 10:33AM ; [facility] Patient Education: weight be aring exercise Last Documented On 1 10:33AM ; [facility] Patient Education: Daily perez cium and vitamin D Last Documented On 0 9:03AM ; [facility] Patient Education: weight be aring exercise Last Documented On 0 9:03AM ; [facility] Medical Equipment - Implanted Devices Includes: Current and historical Devices No Medical Equipment Recorded Medications Includes: Current and historical Medications Current Medications (continue as prescribed) [facility] Magnesium 200 MG Oral Tablet Chewable 06/23/2023 Provider: Diagnosis: Last Documented On 06/23/2023 8:17AM By Cinthia URIARTE ; [facility] CeleBREX 100 MG Oral Capsule 06/19/2022 Provider: Diagnosis: Last Documented On 06/19/2022 10:12AM By Annalee Hale MA ; [facility] Flonase 50 MCG/ACT Nasal Suspension 06/19/2022 Provi tino: Diagnosis: Last Documented On 06/19/2022 10:13AM By Annalee Hale MA ; [facility] Omeprazole 20 MG Oral Tablet Delayed Release 06/19 Provider: Diagnosis: Last Documented On 06/19/2022 10:13AM By Annalee Hale MA ; [facility] Singulair 10 MG Oral Tablet 06/19/2022 Provider: Diagnosis: Last Documented On 06/19/2022 10:13AM By Annalee Hale MA ; [facility] Montelukast Sodium 10 MG Oral Tablet 06/12/2022 Prov ider: SONIA THOMSON NP Diagnosis: Last Documented On 06/23/2023 8:18AM By Cinthia URIARTE ; [facility] buPROPion HCl ER (XL) 150 MG Oral Tablet Extended Release 24 Hour 05/12/2022 Provider: SONIA THOMSON NP Diagnosis: Last Documented On 06/23/2023 8:18AM By Cinthia URIARTE ; [facility] Ocuvite Eye + Multi Oral Tablet 06/13/2020 Provider: Diagnosis: Last Documented On 06/13/2020 8:53AM By REEMA URIARTE ; [facility] Adult Aspirin Regimen 81MG Oral Tablet Delayed Release 05/10/2019 Provider: Diagnosis: Last Documented On 05/10/2019 9:16AM By REEMA URIARTE ; [facility] EQL Vitamin D3 1000UNIT Oral Capsule 05/10/2019 Prov ider: Diagnosis: Last Documented On 05/10/2019 9:15AM By REEMA URIARTE ; [facility] Wellbutrin SR 150MG Oral Tablet Extended Release 12 Ho ur 05/10/2019 Provider: Diagnosis: Last Documented On 05/10/2019 9:15AM By REEMA URIARTE ; [facility] Crestor 10 MG OR TABS 04/09/2014 Provider: Diagnosis: Last Documented On 04/09/2014 8:34AM By REEMA URIARTE ; [facility] amLODIPine Besylate 10 MG OR TABS 05/12/2012 Provide r: Diagnosis: Last Documented On 2 2:12PM By DR. LYN MYERS ; [facility] Past Medications on file hydroCHLOROthiazide 12.5 MG Oral Capsule 06/18/2021 - 06/19/2022 Provider: Diagnosis: Last Documented On 06/19/2022 10:12AM By Annalee Hale MA ; [facility] ChoiceFul Multivitamin Oral Tablet Chewable 06/13/2020 - 06/18/2021 Provider: Diagnosis: Last Documented On 06/18/2021 8:58AM By Annalee Hale MA ; [facility] Vitamin B12 1000MCG Oral Tablet 05/10/2019 - 06/18 Provider: Diagnosis: Last Documented On 06/18/2021 8:59AM By Annalee Hale MA ; [facility] raNITIdine HCl 15MG/ML Oral Syrup 05/10/2019 - 020 Provider: Diagnosis: Last Documented On 06/13/2020 8:53AM By REEMA URIARTE ; [facility] Vitamin D (Ergocalciferol) [id number] Oral Capsul e 04/14/2017 - 05/10/2019 Provider: Diagnosis: Last Documented On 05/10/2019 9:15AM By REEMA URIARTE ; [facility] Vitamin D (Ergocalciferol) 5 0000 UNIT Capsule, conventional 04/15/2015 - 04/12/2017 Provider: Diagnosis: Last Documented On 7 10:48AM By REEMA URIARTE ; [facility] Macrobid 100 MG Capsule, conventional 03/12/2015 - 01/2015 Provider: Diagnosis: for 7 days phoned to [facility]/ Last Documented On 04/10/2015 8:10AM By SANGEETHA URIARTE ; [facility] Diflucan 150 MG Tablet 03/12/2015 - 04/10/2015 Provide r: Diagnosis: 1 today repeat in 3 days phone to [facility] Last Documented On 04/10/2015 8:10AM By SANGEETHA URIARTE ; [facility] Vitamin D (Ergocalciferol) 1.25 MG (99688 UT) OR CAPS 06/20/2014 - 07/20/2014 Provider: SANDI MAYEN Diagnosis: VITAMIN D DEFICI ENCY NOS one po q week x 12 weeks, then call for labs Last Documented On 4 2:19PM By SANDI MAYEN ; [facility] Dialyvite Vitamin D3 Max 1.2 5 MG (40699 UT) OR TABS 06/20/2012 - 09/18/2012 Provider: SANDI MAYEN Diagnosis: one po q week x 12 weeks Last Documented On 2 10:45AM By SANDI MAYEN ; [facility] metformin 500mg OR TABS 05/26/2012 - 04/12/2017 Provid er: Diagnosis: Last Documented On 7 10:48AM By REEMA URIARTE ; [facility] Estrace 0.1 MG/GM VA CREA 05/26/2012 - 05/21/2013 Prov ider: SANDI BALNDON-BC Diagnosis: Insert vaginally 3x/week (1/2 applicator) Last Documented On 2 1:13PM By SANDI MAYEN ; [facility] Lisinopril POWD 05/12/2012 - 06/13/2020 Provider: Diagnosis: Last Documented On 06/13/2020 8:53AM By REEMA URIARTE ; [facility] amLODIPine Besylate 10 MG OR TABS 03/14/2012 - 014 Provider: Diagnosis: Last Documented On 04/09/2014 8:34AM By REEMA URIARTE ; [facility] Estrace 0.1 MG/GM VA CREA 06/19/2011 - 05/26/2012 Prov ider: SANDI BLANDON-BILLIE Diagnosis: Insert vaginally 3x/week (1/2 applicator) Last Documented On 2 1:12PM By SANDI MAYEN ; [facility] Estrace 0.1 MG/GM VA CREA 05/22/2011 - 06/19/2011 Prov ider: SANDI REYES WHNP-BC Diagnosis: Insert vaginally 3x/week (1/2 applicator) Last Documented On 1 2:28PM By SANDI MAYEN ; [facility] Cymbalta 60 MG OR CPEP 05/22/2011 - 04/12/2017 Provide r: Diagnosis: Last Documented On 7 10:48AM By REEMA URIARTE ; [facility] Diflucan 150 MG OR TABS 05/04/2011 - 05/26/2012 Provid er: SANDI Amna ERIC BLANDON-BC Diagnosis: Take one dose po x 1 . Last Documented On 2 10:20AM By REEMA URIARTE ; [facility] Edison 10-20 MG OR TABS 05/14/2010 - 04/09/2014 Provider : Diagnosis: Last Documented On 04/09/2014 8:34AM By REEMA URIARTE ; [facility] Diflucan 150 MG OR TABS 07/04/2009 - 05/04/2011 Provid er: Diagnosis: Last Documented On 1 10:43AM By SANDI MAYEN ; [facility] Medications Administered Includes: Administered Medications in patient's chart No Administered Medications Recorded Results Includes: Results from 02/08/2024 through 02/07/2025 No Results Recorded For Specified Dates History of Present Illness History of Present Illness not supported for this document type No History of Present Illness Recorded Social History Description Last Updated Not sexually active 06/23/2023 Last Documented On 3 8:31AM ; [facility] Former smoker 06/18/2021 Last Documented On 1 9:14AM ; [facility] Not using alcohol 06/13/2020 Last Documented On 0 9:07AM ; [facility] Not using drugs 06/13/2020 Last Documented On 0 9:07AM ; [facility] Holiness: Taoist 04/12/2017 Last Documented On 7 11:01AM ; [facility] Smoking Status Unknown Procedures and Surgical History Surgical History Last Updated Surgical / procedural histor 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 Last pap smear date 06/19/2022 06/23/2023 Last Documented On 3 8:31AM ; [facility] History of screening mammogram was perfo rmed 06/18/2023 06/23/2023 Last Documented On 3 8:31AM ; [facility] History of colonoscopy fiberoptic was pe rformed 201806/18/2021 Last Documented On 1 9:14AM ; [facility] History of a DXA of the lateral lumbar s pine was performed 05/25/2019 wnl 06/13/2020 Last Documented On 0 9:07AM ; [facility] LMP: 1992 06/13/2020 Last Documented On 0 9:07AM ; [facility] History of type 2 diabetes mellitus diet controled 04/12/2017 Last Documented On 7 11:01AM ; [facility] Aborta 04/12/2017 Last Documented On 7 11:01AM ; [facility] 4 04/12/2017 Last Documented On 7 11:01AM ; [facility] History of benign essential hypertension 04/12/2017 Last Documented On 7 11:01AM ; [facility] History of hyperlipidemia 04/12/2017 Last Documented On 7 11:01AM ; [facility] History of menopause 04/12/2017 Last Documented On 7 11:01AM ; [facility] Para 4 04/12/2017 Last Documented On 7 11:01AM ; [facility] Status post tubal ligation 04/12/2017 Last Documented On 7 11:01AM ; [facility] Family History Includes: Family History in patient's chart Description Last Updated Family history reviewed - unchanged [facility] e last visit 06/23/2023 Last Documented On 3 8:31AM ; [facility] Maternal history of pure hypercholestero lemia Parents 06/13/2020 Last Documented On 0 9:07AM ; [facility] Maternal history of uterine cancer mom 0 06/13/2020 Last Documented On 0 9:07AM ; [facility] Paternal grandmother's histo ry of malignant neoplasm of the ovary paternal grandma 06/13/2020 Last Documented On 0 9:07AM ; [facility] Paternal history of diabetes mellitus Da d 06/13/2020 Last Documented On 0 9:07AM ; [facility] Paternal history of family history of he art disease Dad 06/13/2020 Last Documented On 0 9:07AM ; [facility] Paternal history of hypertension Dad 04/2020 Last Documented On 0 9:07AM ; [facility] mother had padgets 04/12/2017 Last Documented On 7 11:01AM ; [facility] Family history of uterine cancer mom Last Documented On 1 10:53AM ; [facility] Heart disease Dad 05/22/2011 Last Documented On 1 10:53AM ; [facility] Family history of Cancer 01/14/2010 Last Documented On 0 3:56PM ; [facility] Review of Systems Review of Systems not supported for this document type No Review of Systems Recorded Mental Status No Mental Status Recorded Functional Status No Functional Status Recorded Physical Exam Physical Exam not supported for this document type No Physical Exam Recorded Immunizations Includes: Immunizations in patient's chart Vaccine Dose # Date Site Reaction(s) Status Source COVID-19 Moderna 1 01/10/2021 Complete (Re ported) Patient Last Documented On 2 2:11PM ; [facility] COVID-19 Moderna 2 02/07/2021 Left Deltoid Complet e (Reported) Patient Last Documented On 2 2:11PM ; [facility] Influenza (High dose ) PF 1 07/16/2015 Left Deltoid Complete (Reported) Patient Last Documented On 2 2:11PM ; [facility] Influenza (High dose ) PF 2 08/18/2016 Left Deltoid Complete (Reported) Patient Last Documented On 2 2:11PM ; [facility] Influenza (Quadrivalent)36 m o.& older PF 0.5ml (SD) 1 08/10/2018 Left Arm Complete (Reported) Patient Last Documented On 2 2:11PM ; [facility] Influenza (Quadrivalent)36 mo.& older PF 0.5ml (SD) 2 07/26/2019 Right Deltoid Complete (Reported) Patient Last Documented On 2 2:11PM ; [facility] Influenza (Quadrivalent)36 mo.& older PF 0.5ml (SD) 3 07/23/2020 Right Deltoid Complete (Reported) Patient Last Documented On 2 2:11PM ; [facility] PCV 13 (Prevnar) 1 07/26/2019 Left Deltoid Complet e (Reported) Patient Last Documented On 2 2:11PM ; [facility] Pneumococcal Polyvalent (PPV23) 1 02/06/2009 Complete (Reported) Patient Last Documented On 2 2:11PM ; [facility] Pneumococcal Polyvalent (PPV23) 2 11/30/2017 Right Deltoid Complete (Reported) Patie nt Last Documented On 2 2:11PM ; [facility] Td (Decavac) 1 02/06/2010 Complete (Report ed) Patient Last Documented On 2 2:11PM ; [facility] Allergies Includes: Active, inactive, and resolved Allergies Substance Type Reaction Onset Date Resolved Date Statu s Sulfa Antibiotics Allergy 04/09/2014 R esolved Last Documented On 9 9:14AM ; [facility] Insurance Includes: Active Insurance Policies Plan Name Member ID Group # Subscriber Relationship Effect robin Dates 1 - [facility]/MEDICARE ADV/[employer] [id number] INEZ ENGLE Clinical Notes Includes: Signed Clinical Notes starting from 11/27/2022 No Clinical Notes Recorded
--- OUTSIDE RECORDS SUMMARY | 2025-02-07 13:09 | XMS_ITS | Encounter Summary ---
Author Organization [facility] Address [address] [place] [address] Phone Care Team Providers Care Salesperson Hosiery Name Role Phone Yuni Resendiz APRN, CNP Primary [facility] Encounter Details Date Type Department Care Team (Late st Contact Info) Description 01/02/2025 Results Follow-Up [facility] - Primary Care - [place] [address] [place] [address] Yuni Resendiz APRN, CNP [address] [place] [address] Social History Tobacco Use Types Packs/Day Years Used Date Smoking Tobacco: Former Cigarettes 0.5 27 1 - 11/07/2004 Smokeless Tobacco: Never Comments:chews nicorette gum Alcohol Use Standard Drinks/Week Comments No 0 (1 standard drink = 0.6 oz pur e alcohol) [facility] Utilities Answer Date Recorded In the past 12 months has e electric, gas, oil, or water company threatened to shut off services in your home? Patient declined 12/30/2024 Social Connection and Isolation Panel [NHANES] A nswer Date Recorded In a typical week, how many times do you talk on the phone with family, friends, or neighbors? Patient declined 12/30/2024 How often do you get togethe r with friends or relatives? Patient declined 12/30/2024 How often do you attend faith or pentecostalism serv ices? Patient declined 12/30/2024 Do you belong to any clubs o r organizations such as faith groups, unions, fraternal or athletic groups, or school groups? Patient declined 12/30/2024 How often do you attend meet ings of the clubs or organizations you belong to? Patient declined 12/30/2024 Are you , , di vorced, , never , or living with a partner? Patient declined 12/30/2024 AUDIT-C Answer Date Recorded Q1: How often do you have a drink containing alcohol? Patient declined 12/30/2024 Q2: How many drinks containi ng alcohol do you have on a typical day when you are drinking? Patient does not drink Q3: How often do you have si x or more drinks on one occasion? Patient declined 12/30/2024 Overall Financial Resource Strain (CARDIA) Answe r Date Recorded How hard is it for you to pa y for the very basics like food, housing, medical care, and heating? Patient declined 12/30/2024 PHQ-2 Answer Date Recorded Total Score - Questions 1-9 0 08/09 [facility] - Occupational Stress Questionnaire Answer Date Recorded Do you feel stress - tense, restless, nervous, or anxious, or unable to sleep at night because your mind is troubled all the time - these days? Patient declined 12/30/2024 Exercise Vital Sign Answer Date Recorde d On average, how many days pe r week do you engage in moderate to strenuous exercise (like a brisk walk)? Patient declined On average, how many minutes do you engage in exercise at this level? Patient declined 12/30/2024 Hunger Vital Sign Answer Date Recorded Within the past 12 months, y ou worried that your food would run out before you got the money to buy more. Patient declined Within the past 12 months, t he food you bought just didn't last and you didn't have money to get more. Patient declined PRAPARE - Transportation Answer Date Re corded In the past 12 months, has l ack of transportation kept you from medical appointments or from getting medications? Patient declined 12/30/2024 In the past 12 months, has l ack of transportation kept you from meetings, work, or from getting things needed for daily living? Patient declined 12/30/2024 Housing Stability Vital Sign Answer Noé e Recorded In the last 12 months, was t here a time when you were not able to pay the mortgage or rent on time? No 02/10/2024 Number of Places Lived in the Last Year Not on f ile 02/10/2024 In the last 12 months, was t here a time when you did not have a steady place to sleep or slept in a chcf (including now)? No 02/10/2024 Housing Stability Vital Sign Answer Noé e Recorded In the last 12 months, was t here a time when you were not able to pay the mortgage or rent on time? Patient declined 12/30/19 Number of Times Moved in the Last Year Not on fi le 12/30/2024 At any time in the past 12 m [facility], were you homeless or living in a chcf (including now)? Patient declined 12/30/2024 Education Answer Date Recorded What is the highest level of school you have completed or the highest degree you have received? 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 Discussed importance of using chewable/liquid versus tablet or capsule. Suad verbalized understanding. 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 03/15/2025 9:15 AM CDT Office Visit [facility] - Primary Care - [place] [address] [place] [address] Yuni Resendiz APRN, CNP [address] [place] [address] documented as of this encounter Goals Goal Patient Goal Type Associated Problems Recent Progress Patient-Stated? Author Help patient manage hypertension Care Plan [facility] HYPERTENSION CONCERN (PATIENT NOT ON HIGH BLOOD PRESSURE MEDICATIONS) No Yuni Enciso APRN, VALE documented as of this encounter Visit Diagnoses Not on filedocumented in this encounter Additional Health Concerns Active Problems Noted Date Diagnosed Date [facility] HYPERTENSION CONCERN (P ATIENT NOT ON HIGH BLOOD PRESSURE MEDICATIONS) 10/02/2024 Assessment Noted Time PHQ-9 Depression Total Score: 0 09/05/20 24 11:31 AM CDT documented as of this encounter Care Teams Salesperson Hosiery Relationship Specialty Start Date End Date Yuni Resendiz APRN, CNP [address] [place] [address] PCP - General Advanced Practice Nurse 07/23/20 documented as of this encounter
--- OUTSIDE RECORDS SUMMARY | 2025-02-07 13:09 | XMS_ITS | Encounter Summary ---
Author Organization [facility] Address [address] [place] [address] Phone Care Team Providers Care Vocational Adviser Name Role Phone Yuni Resendiz APRN, CNP Primary Care P rovitino Reason for Visit * Reason Comments Medication Refill Encounter Details Date Type Department Care Team (Late st Contact Info) Description 04/27/2024 Refill [facility] - Primary Care - [place] [address] [place] [address] Yuni Resendiz APRN, CNP [address] [place] [address] Medication Refill Social History Tobacco Use Types Packs/Day Years Used Date Smoking Tobacco: Former Cigarettes 0.5 27 1 - 11/07/2004 Smokeless Tobacco: Never Comments:chews nicorette gum Alcohol Use Standard Drinks/Week Comments No 0 (1 standard drink = 0.6 oz pur e alcohol) [facility] Utilities Answer Date Recorded In the past 12 months has e electric, gas, oil, or water company threatened to shut off services in your home? No 02/10/2024 Social Connection and Isolat ion Panel [NHANES] Answer Date Recorded In a typical week, how many times do you talk on the phone with family, friends, or neighbors? More than three times a week 02/10/2024 How often do you get togethe r with friends or relatives? Once a week 02/10/2024 How often do you attend chur or presybeterian services? 1 to 4 times per year 02/10/2024 Do you belong to any clubs o r organizations such as gnosticism groups, unions, fraternal or athletic groups, or school groups? No 02/10/2024 How often do you attend meet ings of the clubs or organizations you belong to? Patient declined 02/10/2024 Are you , , di vorced, , never , or living with a partner? 02/10/2024 AUDIT-C Answer Date Recorded Q1: How often do you have a drink containing alcohol? Never 02/10/2024 Q2: How many drinks containi ng alcohol do you have on a typical day when you are drinking? Patient does not drink Q3: How often do you have si x or more drinks on one occasion? Never 02/10/2024 Overall Financial Resource Strain (CARDIA) Answe r Date Recorded How hard is it for you to pa y for the very basics like food, housing, medical care, and heating? Not hard at all 02/10/2024 PHQ-2 Answer Date Recorded Total Score - Questions 1-9 0 11/09 [facility] - Occupational Stress Questionnaire Answer Date Recorded Do you feel stress - tense, restless, nervous, or anxious, or unable to sleep at night because your mind is troubled all the time - these days? Not at all 02/10/2024 Exercise Vital Sign Answer Date Recorde d On average, how many days pe r week do you engage in moderate to strenuous exercise (like a brisk walk)? 3 days 02/10/2024 On average, how many minutes do you engage in exercise at this level? 10 min 02/10/2024 Hunger Vital Sign Answer Date Recorded Within the past 12 months, y ou worried that your food would run out before you got the money to buy more. Never true 02/10/20 24 Within the past 12 months, t he food you bought just didn't last and you didn't have money to get more. Never true 02/10/2024 PRAPARE - Transportation Answer Date Re corded In the past 12 months, has l ack of transportation kept you from medical appointments or from getting medications? No 02/2024 In the past 12 months, has l ack of transportation kept you from meetings, work, or from getting things needed for daily living? No 02/10/2024 Housing Stability Vital Sign Answer [...] place to sleep or slept in a retirement (including now)? No 02/10/2024 Education Answer Date Recorded What is the [...] encounter Miscellaneous Notes * Telephone Encounter - Yuni Resendiz APRN, CNP - 04/27/2024 1:29 PM CDT Refilled. * Telephone Encounter - Antonio Bal RN - 04/27/2024 8:31 AM CDT Medication failed the protocol, provider to review and approve the medication order if appropriate. Requested Prescriptions Pending Prescriptions Disp Refills buPROPion (WELLBUTRIN) 150 MG XL tablet [Pharmacy Med Name: BUPROPION HCL XL 150 MG TABLET] 90 Tablet 0 Sig: TAKE 1 TABLET BY MOUTH EVERY DAY IN THE MORNING Bupropion (6 Month Refill Only) Protocol Failed - 04/27/2024 12:50 AM Failed - Has an encounter in the past 6 months with a depression or anxiety visit diagnosis Passed - Visit with relevant provider in past 6 months or upcoming 90 days Recent Visits Date Type Provider Dept 04/20/24 Office Visit Antonella Gupta APRN, CNP [facility] 02/10/24 Office Visit Yuni Resendiz APRN, CNP [facility] 12/06/23 Office Visit Yuni Resendiz APRN, VALE [facility] Showing recent visits within past 182 days and meeting all other requirements Future Appointments Date Type Provider Dept 05/15/24 Appointment Clinic, [facility] Nurse [facility] 05/29/24 Appointment Lab, [facility] 06/05/24 Appointment Yuni Resendiz APRN, VALE [facility] Showing future appointments within next 90 days and meeting all other requirements Passed - Patient has established therapy with Bupropion for at least 6 months documented in this encounter Plan of Treatment Upcoming Encounters Date Type Department Care Team (Late st Contact Info) Description 03/08/2025 8:30 AM CDT Lab [facility] [address] [place] [address] [facility] 03/15/2025 9:15 AM CDT Office Visit [facility] [address] [place] [address] Yuni Resendiz APRN, CNP [address] [place] [address] documented as of this encounter Visit Diagnoses Diagnosis Anxiety with depression documented in this encounter Additional Health Concerns Assessment Noted Time PHQ-9 Depression Total Score: 0 12/06/19 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
--- OUTSIDE RECORDS SUMMARY | 2025-02-07 13:09 | XMS_ITS | Clinical Summary ---
Author Organization [facility] Address [address] [place] [address] Care Team Providers Care Mechanical Supervisor Name Role Phone Jocelyn Vázquez MD Primary Care Provider [phone] Allergies Active Allergy Reactions Criticality Noted Date [...] back Discussed importance of core stability in shelter relief of pain Handout given Refill flexeril [...] Pneumococcal Polysaccharide PPV23 02/06/2009 Td, adsorbed 02/06/2010 Surgical History Surgery Date Site/Laterality Comments TUBAL LIGATION APPENDECTOMY Medical History Medical History Date Comments Hypertension Hyperlipidemia Family History Medical History Relation Name Comments Heart disease Father Stroke Mother Uterine cancer Mother Ovarian cancer Paternal Grandmother Breast cancer Neg Hx Colon cancer Neg Hx Relation Name Status Comments Father Mother Paternal Grandmother Social History Tobacco Use Types Packs/Day Years Used Date Smoking Tobacco: Former Cigarettes 1 2003 Smokeless Tobacco: Never Alcohol Use Standard Drinks/Week Comments No 0 (1 standard drink = 0.6 oz pur e alcohol) Personal Safety Answer Date Recorded Getting School Help Needed Not on file 01/21 Comments Unknown Sex and Gender Information Value Date Recorded Sex Assigned at Not on file Legal Sex Female 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
--- OUTSIDE RECORDS SUMMARY | 2025-02-07 13:09 | XMS_ITS | Encounter Summary ---
Author Organization [facility] Address [address] [place] [address] Phone Care Team Providers Care Air Analysis Technician Name Role Phone Yuni Resendiz APRN, CNP Primary Care P rojanes Reason for Visit * Reason Comments Medication Refill Encounter Details Date Type Department Care Team (Late st Contact Info) Description 05/14/2021 Refill [facility] [address] [place] [address] uYni Resendiz APRN [place] [address] [place] [address] Medication Refill Social History Tobacco [...] encounter Miscellaneous Notes * Telephone Encounter - Annamarie Bar RN - 05/14/2021 11:54 AM CDT The original prescription was discontinued on 03/07/2021 by Yuni Resendiz APN, CNP for the following reason: Med List Clean Up documented in this encounter Plan of Treatment Upcoming Encounters Date Type Department Care Team (Late st Contact Info) Description 03/08/2025 8:30 AM CDT Lab [facility] [address] [place] [address] [facility] 03/15/2025 9:15 AM CDT Office Visit [facility] [address] [place] [address] Yuni Resendiz APRN, CNP [address] [place] [address] documented as of this encounter Visit Diagnoses Diagnosis Seasonal allergic rhinitis, unspecified trigger documented in this encounter Additional Health Concerns Infection Onset Date Last Indicated Resolved Time COVID - 19 01/16/2023 01/16/2023 01/26/2023 12:1 6 AM CDT COVID - 19 Confirmed 01/16/2023 01/16/202302/05/ 023 12:16 AM CDT Assessment Noted Time PHQ-9 Depression Total Score: 1 12/03/19 21 8:00 AM 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
--- OUTSIDE RECORDS SUMMARY | 2025-02-07 13:10 | XMS_ITS | Clinical Summary ---
Author Organization [facility] Address [address] [place] [address] Phone Care Team Providers Care Poultry Field Service Technician Name Role Phone LILIANA PATEL DO Unavailable [phone] MURALI MORRIS MD Unavailable [phone] Reason for Visit and Chief Complaint CHART UPDATE Problems Includes: Problems addressed during this encounter and other active Problems All Visits Onset Date Resolved Date Provider Condition S tatus Skin Neoplasm Malignant 06/13/2020 SANDI Amna ERIC WHNP-BC Active Last Documented On 06/13/2020 9:06AM ; [facility] Note: Removed June 04, 2020 - Lucy toth - [place], [place] - squamous cell ca URGE INCONTINENCE 06/03/2012 LYN MYERS M.D. Active Last Documented On 2 9:41AM ; [facility] Diabetes Mellitus 05/26/2012 SANDI REYES WHNP -BC Active Last Documented On 2 10:23AM ; [facility] Note: Type II Hyperlipidemia 05/22/2011 SANDI REYES WHNP-BC Active Last Documented On 1 10:34AM ; [facility] Hypertension Systemic 05/22/2011 SANDI Amna ERIC WHNP-BC Active Last Documented On 1 10:34AM ; [facility] Plan of Treatment No Plan of Treatment Recorded Assessments Includes: Assessments from this encounter No Assessments Recorded Medical Equipment - Implanted Devices Includes: Current Devices No Medical Equipment Recorded Medications Includes: Medications discussed during this encounter and other current Medications Current Medications (continue as prescribed) [facility] Magnesium 200 MG Oral Tablet Chewable 06/23/2023 Provider: Diagnosis: Last Documented On 06/23/2023 8:17AM By Cinthia URIARTE ; [facility] CeleBREX 100 MG Oral Capsule 06/19/2022 Provider: Diagnosis: Last Documented On 06/19/2022 10:12AM By Annalee Hale MA ; [facility] Flonase 50 MCG/ACT Nasal Suspension 06/19/2022 Provi tino: Diagnosis: Last Documented On 06/19/2022 10:13AM By Annalee Hale MA ; [facility] Omeprazole 20 MG Oral Tablet Delayed Release 06/19 Provider: Diagnosis: Last Documented On 06/19/2022 10:13AM By Annalee Hale MA ; [facility] Singulair 10 MG Oral Tablet 06/19/2022 Provider: Diagnosis: Last Documented On 06/19/2022 10:13AM By Annalee Hale MA ; [facility] Montelukast Sodium 10 MG Oral Tablet 06/12/2022 Prov ider: SONIA THOMSON NP Diagnosis: Last Documented On 06/23/2023 8:18AM By Cinthia URIARTE ; [facility] buPROPion HCl ER (XL) 150 MG Oral Tablet Extended Release 24 Hour 05/12/2022 Provider: SONIA THOMSON NP Diagnosis: Last Documented On 06/23/2023 8:18AM By Cinthia URIARTE ; [facility] Ocuvite Eye + Multi Oral Tablet 06/13/2020 Provider: Diagnosis: Last Documented On 06/13/2020 8:53AM By REEMA URIARTE ; [facility] Adult Aspirin Regimen 81MG Oral Tablet Delayed Release 05/10/2019 Provider: Diagnosis: Last Documented On 05/10/2019 9:16AM By REEMA URIARTE ; [facility] EQL Vitamin D3 1000UNIT Oral Capsule 05/10/2019 Prov ider: Diagnosis: Last Documented On 05/10/2019 9:15AM By REEMA URIARTE ; [facility] Wellbutrin SR 150MG Oral Tablet Extended Release 12 Ho ur 05/10/2019 Provider: Diagnosis: Last Documented On 05/10/2019 9:15AM By REEMA URIARTE ; [facility] Crestor 10 MG OR TABS 04/09/2014 Provider: Diagnosis: Last Documented On 04/09/2014 8:34AM By REEMA URIARTE ; [facility] amLODIPine Besylate 10 MG OR TABS 05/12/2012 Provide r: Diagnosis: Last Documented On 2 2:12PM By DR. LYN MYERS ; [facility] Medications Administered Includes: Administered Medications from this encounter No Administered Medications Recorded Results Includes: Results discussed during this encounter No Results Recorded For Specified Dates History of Present Illness Includes: History of Present Illness from this encounter No History of Present Illness Recorded Social History No Social History Recorded - Smoking Status Unknown Medical History Includes: Medical History addressed during this encounter No Medical History Recorded Family History Includes: Family History addressed during this encounter No Family History Recorded Review of Systems Includes: Review of Systems from this encounter No Review of Systems Recorded Mental Status Includes: Mental Status from this encounter No Mental Status Recorded Functional Status Includes: Functional Status from this encounter No Functional Status Recorded Physical Exam Includes: Physical Exam from this encounter No Physical Exam Recorded Immunizations Includes: Immunizations addressed during this encounter Vaccine Dose # Date Site Reaction(s) Status Source COVID-19 Moderna 1 01/10/2021 Complete (Re ported) Patient Last Documented On 2 2:11PM ; [facility] COVID-19 Moderna 2 02/07/2021 Left Deltoid Complet e (Reported) Patient Last Documented On 2 2:11PM ; [facility] Influenza (High dose ) PF 1 07/16/2015 Left Deltoid Complete (Reported) Patient Last Documented On 2 2:11PM ; [facility] Influenza (High dose ) PF 2 08/18/2016 Left Deltoid Complete (Reported) Patient Last Documented On 2 2:11PM ; [facility] Influenza (Quadrivalent)36 m o.& older PF 0.5ml (SD) 1 08/10/2018 Left Arm Complete (Reported) Patient Last Documented On 2 2:11PM ; [facility] Influenza (Quadrivalent)36 mo.& older PF 0.5ml (SD) 2 07/26/2019 Right Deltoid Complete (Reported) Patient Last Documented On 2 2:11PM ; [facility] Influenza (Quadrivalent)36 mo.& older PF 0.5ml (SD) 3 07/23/2020 Right Deltoid Complete (Reported) Patient Last Documented On 2 2:11PM ; [facility] PCV 13 (Prevnar) 1 07/26/2019 Left Deltoid Complet e (Reported) Patient Last Documented On 2 2:11PM ; [facility] Pneumococcal Polyvalent (PPV23) 1 02/06/2009 Complete (Reported) Patient Last Documented On 2 2:11PM ; [facility] Pneumococcal Polyvalent (PPV23) 2 11/30/2017 Right Deltoid Complete (Reported) Patie nt Last Documented On 2 2:11PM ; [facility] Td (Decavac) 1 02/06/2010 Complete (Report ed) Patient Last Documented On 2 2:11PM ; [facility] Allergies Includes: Active Allergies Substance Type Reaction Onset Date Resolved Date Statu s Sulfa Antibiotics Allergy 04/09/2014 R esolved Last Documented On 9 9:14AM ; [facility] Encounters Encounter Provider Location Date Check-In Time Check-Out Time Diagnosis CHART UPDATE MURALI MORRIS MD 01/21/2022 2:10PM 11:59PM Insurance Includes: Active Insurance Policies Plan Name Member ID Group # Subscriber Relationship Effect robin Dates 1 - [facility]/MEDICARE ADV/AARP [id number] INEZ ENGLE Clinical Notes Includes: Clinical Notes from this encounter No Clinical Notes Recorded
--- OUTSIDE RECORDS SUMMARY | 2025-02-07 13:10 | XMS_ITS | Encounter Summary ---
Author Organization [facility] Address [address] [place] [address] Phone Care Team Providers Care Communications Tower Climber Name Role Phone Yuni Resendiz APRN, CNP Primary Care P rovider Reason for Visit * Reason Comments Medication Refill Encounter Details Date Type Department Care Team (Late st Contact Info) Description 11/07/2023 Refill [facility] - Primary Care - [place] [address] [place] [address] Yuni Resendiz APRN, CNP [address] [place] [address] Medication Refill Social History Tobacco Use Types Packs/Day Years Used Date Smoking Tobacco: Former Cigarettes 0.5 27 1 - 11/07/2004 Smokeless Tobacco: Never Comments:chews nicorette gum Alcohol Use Standard Drinks/Week Comments No 0 (1 standard drink = 0.6 oz pur e alcohol) PHQ-2 Answer Date Recorded Total Score - Questions 1-9 0 04/2023 Education Answer Date Recorded What is the [...] encounter Miscellaneous Notes * Telephone Encounter - Antonio Bal RN - 11/09/2023 10:43 AM CST Refill requested too soon. TY OFFICER documented in this encounter Plan of Treatment Upcoming Encounters Date Type Department Care Team (Late st Contact Info) Description 03/08/2025 8:30 AM CDT Lab [facility] [address] [place] [address] [facility] 03/15/2025 9:15 AM CDT Office Visit [facility] [address] [place] [address] Yuni Resendiz, FREIGHT TRUCKER, FINANCIAL AIDS OFFICER [address] [place] [address] documented as of this encounter Visit Diagnoses Diagnosis Seasonal allergic rhinitis, unspecified trigger documented in this encounter Additional Health Concerns Assessment Noted Time PHQ-9 Depression Total Score: 0 11/13/19 23 8:00 AM SAFETY OFFICER documented as of this encounter Care Teams Communications Tower Climber Relationship Specialty Start Date End Date Yuni Resendiz APRN, FINANCIAL AIDS OFFICER [address] [place] [address] PCP - General Advanced Practice Nurse 07/23/20 documented as of this encounter
--- OUTSIDE RECORDS SUMMARY | 2025-02-07 13:10 | XMS_ITS | Clinical Summary ---
Author Organization [facility] Address [address] [place] [address] Phone Care Team Providers Care Panel Lay Up Worker Name Role Phone LILIANA PATEL DO Unavailable [phone] MURALI MORRIS MD Unavailable [phone] Reason for Visit and Chief Complaint [Patient Encounter] Problems Includes: Problems addressed during this encounter and other active Problems All Visits Onset Date Resolved Date Provider Condition S tatus Skin Neoplasm Malignant 06/13/2020 SANDI A ERIC WHNP-BC Active Last Documented On 06/13/2020 9:06AM ; [facility] Note: Removed June 04, 2020 - Lucy toth - [place], [place] - squamous cell ca URGE INCONTINENCE 06/03/2012 LYN MYERS M.D. Active Last Documented On 2 9:41AM ; [facility] Diabetes Mellitus 05/26/2012 SANDI Amna ERIC WHNP -BC Active Last Documented On 2 10:23AM ; [facility] Note: Type II Hyperlipidemia 05/22/2011 SANDI REYES WHNP-BC Active Last Documented On 1 10:34AM ; [facility] Hypertension Systemic 05/22/2011 SANDI Amna ERIC WHNP-BC Active Last Documented On 1 10:34AM ; [facility] Plan of Treatment No Plan of Treatment [...] On 06/23/2023 8:17AM By Cinthia URIARTE ; [facility] CeleBREX 100 MG Oral Capsule 06/19/2022 Provider: Diagnosis: Last Documented On 06/19/2022 10:12AM By Annalee Hale MA ; [facility] Flonase 50 MCG/ACT Nasal Suspension 06/19/2022 Provi tino: Diagnosis: Last Documented On 06/19/2022 10:13AM By Annalee Hale MA ; [facility] Omeprazole 20 MG Oral Tablet Delayed Release 06/19 Provider: Diagnosis: Last Documented On 06/19/2022 10:13AM By Annalee Hale MA ; [facility] Singulair 10 MG Oral Tablet 06/19/2022 Provider: Diagnosis: Last Documented On 06/19/2022 10:13AM By Annalee Hale MA ; [facility] Montelukast Sodium 10 MG Oral Tablet 06/12/2022 Prov ider: SONIA THOMSON NP Diagnosis: Last Documented On 06/23/2023 8:18AM By Cinthia URIARTE ; [facility] buPROPion HCl ER (XL) 150 MG Oral Tablet Extended Release 24 Hour 05/12/2022 Provider: SONIA THOMSON NP Diagnosis: Last Documented On 06/23/2023 8:18AM By Cinthia URIARTE ; [facility] Ocuvite Eye + Multi Oral Tablet 06/13/2020 Provider: Diagnosis: Last Documented On 06/13/2020 8:53AM By REEMA URIARTE ; [facility] Adult Aspirin Regimen 81MG Oral Tablet Delayed Release 05/10/2019 Provider: Diagnosis: Last Documented On 05/10/2019 9:16AM By REEMA URIARTE ; [facility] EQL Vitamin D3 1000UNIT Oral Capsule 05/10/2019 Prov ider: Diagnosis: Last Documented On 05/10/2019 9:15AM By REEMA URIARTE ; [facility] Wellbutrin SR 150MG Oral Tablet Extended Release 12 Ho ur 05/10/2019 Provider: Diagnosis: Last Documented On 05/10/2019 9:15AM By REEMA URIARTE ; [facility] Crestor 10 MG OR TABS 04/09/2014 Provider: Diagnosis: Last Documented On 04/09/2014 8:34AM By REEMA URIARTE ; [facility] amLODIPine Besylate 10 MG OR TABS 05/12/2012 Provide r: Diagnosis: Last Documented On 2 2:12PM By DR. LYN MYERS ; [facility] Medications Administered Includes: Administered Medications from this [...] from this encounter No Physical Exam Recorded Allergies Includes: Active Allergies Substance Type Reaction Onset Date Resolved Date Statu s Sulfa Antibiotics Allergy 04/09/2014 R esolved Last Documented On 9 9:14AM ; [facility] Encounters Encounter Provider Location Date Check-In Time Check-Out Time Diagnosis [Patient Encounter] SANDI Amna REYES GARY- 06/04/2021 1:27PM 11:59PM Insurance Includes: Active Insurance Policies Plan Name Member ID Group # Subscriber Relationship Effect robin Dates 1 - [facility]/MEDICARE ADV/AARP [id number] INEZ ENGLE Clinical Notes Includes: Clinical Notes from this encounter No Clinical Notes Recorded
--- OUTSIDE RECORDS SUMMARY | 2025-02-07 13:10 | XMS_ITS | Encounter Summary ---
Author Organization [facility] Address [address] [place] [address] Phone Care Team Providers Care Tile Layer Helper Name Role Phone Yuni Resendiz APRN, CNP Primary Care P rovider Encounter Details Date Type Department Care Team (Late st Contact Info) Description 11/25/2020 Telephone [facility] - [place] [address] [place] [address] Yuni Resendiz APRN, CNP [address] [place] [address] Social History Tobacco Use Types Packs/Day Years Used Date Smoking Tobacco: Former Cigarettes 0.5 27 1 - 11/07/2004 Smokeless Tobacco: Never Comments:chews nicorette gum Alcohol Use Standard Drinks/Week Comments No 0 (1 standard drink = 0.6 oz pur e alcohol) PHQ-2 Answer Date Recorded PHQ-2 Score 0 07/26/2020 Comments No Sex and Gender Information Value Date Recorded Sex Assigned at Not on file Legal Sex Female 10:48 PM CDT Gender Identity Not on file Sexual Orientation Not on file 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 No / Unsure 11/25/2020 1:12 PM PULLER THROUGH documented as of this encounter Miscellaneous Notes * Telephone Encounter - Alicia Sesay RN - 11/25/2020 2:20 PM PULLER THROUGH Attempted to call patient, no answer at this time. Left message to call back. ER THROUGH * Telephone Encounter - Alicia Sesay RN - 11/25/2020 2:19 PM PULLER THROUGH Images from the original note were not included. Yuni Resendiz APN, MEDICAL LEADER You 19 minutes ago (1:56 PM) Increase amlodpine to 10mg. Start hctz 12.5mg daily Restart celebrex - she was on it and had elevated BP and it is still elevated when off of it, then it most likely wasn't caused by it ER THROUGH documented in this encounter Plan of Treatment Upcoming Encounters Date Type Department Care Team (Late st Contact Info) Description 03/08/2025 8:30 AM CDT Lab [facility] [address] [place] [address] [facility] 03/15/2025 9:15 AM CDT Office Visit [facility] [place] [address] [place] [address] Yuni Resendiz, JOB CAPTAIN, MEDICAL LEADER [address] [place] [address] documented as of this encounter Visit Diagnoses Not on filedocumented in this encounter Additional Health Concerns Infection Onset Date Last Indicated Resolved Time COVID - 19 01/16/2023 01/16/202301/26/2023 12:1 6 AM CDT COVID - 19 Confirmed 01/16/2023 01/16/2023 023 12:16 AM CDT Assessment Noted Time PHQ-9 Depression Total Score: 0 07/26/20 20 8:00 AM CDT documented as of this encounter Care Teams Tile Layer Helper Relationship Specialty Start Date End Date Yuni Resendiz APRN, MEDICAL LEADER [address] [place] [address] PCP - General Advanced Practice Nurse 07/23/20 documented as of this encounter
--- OUTSIDE RECORDS SUMMARY | 2025-02-07 13:10 | XMS_ITS | Encounter Summary ---
Author Organization [facility] Address [address] [place] [address] Phone Care Team Providers Care Ship Wirer Name Role Phone Yuni Resendiz APRN, CNP Primary Care P rovider Reason for Visit * Reason Comments Medication Refill Encounter Details Date Type Department Care Team (Late st Contact Info) Description 03/30/2023 Refill [facility] - Primary Care - [place] [address] [place] [address] Yuni Resendiz APRN, CNP [address] [place] [address] Medication Refill Social History Tobacco [...] Exposure Response Date Recorded In the last 10 days, have yo u been in contact with someone who was confirmed or suspected to have Coronavirus/COVID-19? Unable to assess 03/26/2023 11:29 AM CDT documented as of this encounter Miscellaneous Notes * Telephone Encounter - Genevieve Vega RN - 03/30/2023 10:35 AM CDT Refill requested too soon. documented in this encounter Plan of Treatment Upcoming Encounters Date Type Department Care Team (Late st Contact Info) Description 03/08/2025 8:30 AM CDT [facility] [address] [address] [facility] 03/15/2025 9:15 AM CDT Office Visit [facility] [place] [address] [place] [address] Yuni Resendiz APRN, VALE [address] [place] [address] documented as of this encounter Visit Diagnoses Diagnosis Seasonal allergic rhinitis, unspecified trigger documented in this encounter Additional Health Concerns Assessment Noted Time PHQ-9 Depression Total Score: 0 11/13/19 23 8:00 AM FUR MIXER documented as of this encounter Care Teams Ship Wirer Relationship Specialty Start Date End Date Yuni Resendiz APRN, VALE [address] [place] [address] PCP - General Advanced Practice Nurse 07/23/20 documented as of this encounter
--- OUTSIDE RECORDS SUMMARY | 2025-02-07 13:10 | XMS_ITS | Encounter Summary ---
Author Organization [facility] Address [address] [place] [address] Phone Care Team Providers Care Metal Mold Dresser Name Role Phone Yuni Resendiz APRN, CNP Primary Care Chauncey espinal Reason for Visit * Reason Comments Medication Refill Encounter Details Date Type Department Care Team (Late st Contact Info) Description 09/06/2020 Refill [facility] [address] [place] [address] Evita Cid Rosalie, PAC [address] [place] [address] Medication Refill Social History Tobacco Use Types [...] Info) Description 03/08/2025 8:30 AM CDT Lab [facility] [place] [address] [place] [address] [facility] 03/15/2025 9:15 AM CDT Office Visit [facility] [place] [address] [place] [address] Yuni Resendiz APRN, VALE [address] [place] [address] documented as of this encounter Visit Diagnoses Not on filedocumented in this encounter Additional Health Concerns Infection Onset Date Last Indicated Resolved Time COVID - 19 01/16/2023 01/16/2023 01/26/2023 12:1 6 AM CDT COVID - 19 Confirmed 01/16/2023 01/16/2023 023 12:16 AM CDT Assessment Noted Time PHQ-9 Depression Total Score: 0 07/26/20 20 8:00 AM CDT documented as of this encounter Care Teams Metal Mold Dresser Relationship Specialty Start Date End Date Yuni Resendiz APRN, VALE [address] [place] [address] PCP - General Advanced Practice Nurse 07/23/20 documented as of this encounter
--- OUTSIDE RECORDS SUMMARY | 2025-02-07 13:10 | XMS_ITS | Encounter Summary ---
Author Organization [facility] Address [address] [place] [address] Phone Care Team Providers Care Sales Attendant Building Materials Name Role Phone Yuni Resendiz APRN, CNP [facility] Reason for Visit * Reason Comments Medication Refill Encounter Details Date Type Department Care Team (Late st Contact Info) Description 06/20/2022 Refill [facility] - Primary Care - [place] [address] [place] [address] Yuni Resendiz APRN, CNP [address] [place] [address] Medication Refill Social History Tobacco [...] was confirmed or suspected to have Coronavirus/COVID-19? No / Unsure 06/12/2022 1:51 PM CDT documented as of this encounter Plan of Treatment Upcoming Encounters Date Type Department Care Team (Late st Contact Info) Description 03/08/2025 8:30 AM CDT Lab [facility] [address] [place] [address] [facility] 03/15/2025 9:15 AM CDT Office Visit [facility] [place] [address] [place] [address] Yuni Resendiz APRN, CLIENT SUCCESS DIRECTOR [address] [place] [address] documented as of this encounter Visit Diagnoses Diagnosis Seasonal allergic rhinitis, unspecified trigger documented in this encounter Additional Health Concerns Infection Onset Date Last Indicated Resolved Time COVID - 19 01/16/2023 01/16/2023 01/26/2023 12:1 6 AM CDT COVID - 19 Confirmed 01/16/2023 01/16/202302/05/ 023 12:16 AM CDT Assessment Noted Time PHQ-9 Depression Total Score: 1 12/03/19 21 8:00 AM ELECTRIC RAZOR MECHANIC documented as of this encounter Care Teams Sales Attendant Building Materials Relationship Specialty Start Date End Date Yuni Resendiz APRN, CLIENT SUCCESS DIRECTOR [address] [place] [address] PCP - General Advanced Practice Nurse 07/23/20 documented as of this encounter
--- OUTSIDE RECORDS SUMMARY | 2025-02-07 13:10 | XMS_ITS | Clinical Summary ---
Author Organization [facility] Address [address] [place] [address] Phone Care Team Providers Care Carton Folder Name Role Phone Roman Fragoso DO Primary Care Provider Unavailabl e Allergies Active Allergy Reactions Criticality Noted Date Comments Sulfa (Sulfonamide Antibiotics) Unknown 06/08 Medications amLODIPine (NORVASC) 5 mg Oral tablet Take 5 mg by mouth daily. Active DULoxetine (CYMBALTA) 30 mg Oral CpDR Take 30 mg by mouth daily. Active rosuvastatin (CRESTOR) 10 mg Oral tablet Take 10 mg by mouth daily at bedtime. Active aspirin (LAISHA) 81 mg Oral TabIndications:D iffuse cystic mastopathy Take by mouth. Active lisinopril (PRINIVIL) 20 mg Oral tabletIndication s:Diffuse cystic mastopathy Take 20 mg by mouth daily. Active METFORMIN HCL (METFORMIN ORAL) Take by mouth. Active cholecalciferol, vitamin D3, 50,000 unit Tablet Take by mouth. Active Active Problems Patient Care Coordination No te Formatting of this note migh t be different from the original. Primary Care: Roman Fragoso DO Referring Provider: Estella Fernandez MD [address] [address] Other: Problem Noted Date Diagnosed Date Abnormal mammogram, unspecified 04/24/2015 Diffuse cystic mastopathy 06/23/2010 Unspecified essential hypertension Unspecified disorder of lipoid metabolism Family History Medical History Relation Name Comments Heart Disease Father Cancer Mother uterine Relation Name Status Comments Father Mother Social History Tobacco Use Types Packs/Day Years Used Date Smoking Tobacco: Former Tobacco Cessation:Counseling Given: No Comments:2004 Alcohol Use Standard Drinks/Week Comments Yes 0 (1 standard drink = 0.6 oz pur e alcohol) Comments No Sex and Gender Information Value Date Recorded Sex Assigned at Not on file Legal Sex Female 5:42 AM AUTOMOBILE SALESMAN Gender Identity Not on file Sexual Orientation Not on file Occupation Industry Job Start Date Job End Date Not on file Not on file Not on file Not on file Last Filed Vital Signs Vital Sign Reading Time Taken Comments Blood Pressure 118/75 04/19/2015 10:16 AM CDT Pulse 74 04/19/2015 10:16 AM CDT Temperature - - Respiratory Rate - - Oxygen Saturation - - Inhaled Oxygen Concentration - - Weight 81.6 kg (179 lb 12.8 oz) 015 10:16 AM CDT Height 160 cm (5' 3 ) 04/19/2015 10:16 AM CDT Body Mass Index 31.85 04/19/2015 10:16 AM CDT Plan of Treatment Health Maintenance Due Date Last Done Comments DTAP/TDAP/TD VACCINES (1 - Tdap) 1969 COLORECTAL SCREENING 1995 Colorectal Cancer Screening 1995 FIT-DNA Q 3 years 1995 FIT/FOBT Q 1 year 1995 Flex Sig/CT Colonography Q 5 years 1995 PNEUMOCOCCAL VACCINE 50+ YEA RS (1 of 1 - PCV) 2000 ZOSTER VACCINE (1 of 2) 2000 OSTEOPOROSIS SCREENING 2015 BREAST CANCER SCREENING 04/24/2017 04/24/20 16, 04/19/2015, 02/23/2014, Additional history exists INFLUENZA VACCINE (#1) 2024 RSV VACCINE (60+ or ) (1 - 1-dose 75+ series) 2025 Procedures Procedure Name Priority Date/Time Associated Diagnosis Comments MAMMO SCREEN BILAT W OR WO CAD Routine 04/24/2016 9:41 AM CDT Diffuse cystic mastopathy, unspecified laterality from Last 3 Months or Most Recently Relevant to Health Maintenance Results * MAMMO DIGITAL SCREEN BILAT (04/24/2016 9:41 AM CDT) Anatomical Region Laterality Modality Breast Bilateral Mammography Narrative 04/24/2016 2:20 PM CDT BILATERAL FULL-FIELD DIGITAL SCREENING MAMMOGRAM WITH COMPUTER AIDED DIAGNOSIS History: Annual screening exam. Technique: A bilateral full-field digital screening mammogram was performed. Computer aided detection was utilized. Comparison is made with the prior studies dated: 04/19/2015, 02/23/2014, 11/28/2012 Breast Composition: Scattered fibroglandular densities. Findings: No new dominant masses, areas of asymmetry, or suspicious clustered calcifications are identified within either breast. The overall breast parenchymal pattern is stable since the prior exam. CAD was utilized. Overall Assessment: Birads Category 1: Negative Recommendation: Annual mammography is recommended. Janeth Ames MD MAMMO ORDERABLES Final Resul t from Last 3 Months or Most Recently Relevant to Health Maintenance Insurance MEDICARE PART A AND B Care Teams Carton Folder Relationship Specialty Start Date End Date Rmoan Fragoso DO PCP - General 06/14/09
--- OUTSIDE RECORDS SUMMARY | 2025-02-07 13:10 | XMS_ITS | Encounter Summary ---
Author Organization [facility] Address [address] [place] [address] Phone Care Team Providers Care Coagulating Operator Name Role Phone Yuni Resendiz APRN, CNP Primary Care P rovider Reason for Visit * Reason Comments Medication Refill Encounter Details Date Type Department Care Team (Late st Contact Info) Description 02/01/2024 Refill [facility] Primary Care - [place] [address] [place] [address] Yuni Resendiz APRN, CNP [address] [place] [address] Medication Refill Social History Tobacco Use Types Packs/Day Years Used Date Smoking Tobacco: Former Cigarettes 0.5 27 1 - 11/07/2004 Smokeless Tobacco: Never Comments:chews nicorette gum Alcohol Use Standard Drinks/Week Comments No 0 (1 standard drink = 0.6 oz pur e alcohol) PHQ-2 Answer Date Recorded Total Score - Questions 1-9 0 11/09 Education Answer Date Recorded What is the [...] Info) Description 03/08/2025 8:30 AM CDT Lab [facility] [place] [address] [place] [address] [facility] 03/15/2025 9:15 AM CDT Office Visit [facility] [place] [address] [place] [address] Yuni Resendiz APRN, VALE [address] [place] [address] documented as of this encounter Visit Diagnoses Diagnosis Dyslipidemia Other and unspecified hyperlipidemia documented in this encounter Additional Health Concerns Assessment Noted Time PHQ-9 Depression Total Score: 0 12/06/19 24 3:04 PM CONTOUR SANDER documented as of this encounter Care Teams Coagulating Operator Relationship Specialty Start Date End Date Yuni Resendiz APRN, VALE [address] [place] [address] PCP - General Advanced Practice Nurse 07/23/20 documented as of this encounter
--- OUTSIDE RECORDS SUMMARY | 2025-02-07 13:10 | XMS_ITS | Clinical Summary ---
Author Organization [facility] Address [address] [place] [address] Phone Care Team Providers Care Senior Support Analyst Name Role Phone JORGE ALLEN LILIANA Salas Unavailable [phone] MURALI MORRIS MD Unavailable [phone] Reason for Visit and Chief Complaint The Chief Complaint is: WWE, no c/o, no new partners Problems Includes: Problems addressed during this encounter and other active Problems All Visits Onset Date Resolved Date Provider Condition S tatus Skin Neoplasm Malignant 06/13/2020 SANDI REYES WHNP-BC Active Last Documented On 06/13/2020 9:06AM ; [facility] Note: Removed June 04, 2020 - Lucy Mulligan - [place], [place] - squamous cell ca URGE INCONTINENCE 06/03/2012 LYN MYERS M.D. Active Last Documented On 2 9:41AM ; [facility] Diabetes Mellitus 05/26/2012 SANDI REYES WHNP -BC Active Last Documented On 2 10:23AM ; [facility] Note: Type II Hyperlipidemia 05/22/2011 SANDI REYES WHNP-BC Active Last Documented On 1 10:34AM ; [facility] Hypertension Systemic 05/22/2011 SANDI REYES WHNP-BC Active Last Documented On 1 10:34AM ; [facility] Plan of Treatment - Follow-up visit 1 year or as needed - Last Documented On 06/18/2021 9:14AM ; [facility] Per new ASCCP guidelines, pap was deferred today. This was d/w pt. and pt. is agreeable to this plan. - Last Documented On 06/18/2021 9:14AM ; [facility] Instructions to patient Instructions for patient : B reast Self Exam discussed Last Documented On 8:55AM ; [facility] Lose weight Last Documented On 8:56AM ; [facility] Education and Decision Aids were provided during visit for: Patient Education: Daily perez cium and vitamin D Last Documented On 8:55AM ; [facility] Patient Education: weight be aring exercise Last Documented On 8:55AM ; [facility] Assessments Includes: Assessments from this encounter Findings - NORMAL FEMALE EXAM [Z01.419 - Encounter for gynecological examination (general) (routine) without abnormal findings] - Last Documented On 06/18/2021 9:14AM ; [facility] - Screening Malig. Neoplasm Rectum [Z12.12 - Encounter for screening for malignant neoplasm of rectum] - Last Documented On 06/18/2021 9:14AM ; [facility] Instructions Includes: Instructions from this encounter Instructions to patient Instructions for patient : B reast Self Exam discussed Last Documented On 8:55AM ; [facility] Lose weight Last Documented On 8:56AM ; [facility] Education and Decision Aids were provided during visit for: Patient Education: Daily perez cium and vitamin D Last Documented On 8:55AM ; [facility] Patient Education: weight be aring exercise Last Documented On 8:55AM ; [facility] Medical Equipment - Implanted Devices Includes: Current Devices No Medical Equipment Recorded Medications Includes: Medications discussed during this encounter and other current Medications Discontinued / Stopped on this date on 06/13/2020 [employer] Multivitamin Oral Tablet Chewable Provider: Diagnosis: Last Documented On 06/18/2021 8:58AM By Annalee Hale MA ; [facility] Vitamin B12 1000MCG Oral Tablet Provi tino: Diagnosis: Last Documented On 06/18/2021 8:59AM By Annalee Hale MA ; [facility] Current Medications (continue as prescribed) [facility] Magnesium 200 MG Oral Tablet Chewable 06/23/2023 Provider: Diagnosis: Last Documented On 06/23/2023 8:17AM By Cinthia URIARTE ; [facility] CeleBREX 100 MG Oral Capsule 06/19/2022 Provider: Diagnosis: Last Documented On 06/19/2022 10:12AM By Annalee Hale MA ; [facility] Flonase 50 MCG/ACT Nasal Suspension 06/19/2022 Provi tino: Diagnosis: Last Documented On 06/19/2022 10:13AM By Annalee Hale MA ; [facility] Omeprazole 20 MG Oral Tablet Delayed Release 06/19 Provider: Diagnosis: Last Documented On 06/19/2022 10:13AM By Annalee Hale MA ; [facility] Singulair 10 MG Oral Tablet 06/19/2022 Provider: Diagnosis: Last Documented On 06/19/2022 10:13AM By Annalee Hale MA ; [facility] Montelukast Sodium 10 MG Oral Tablet 06/12/2022 Prov ider: YUNI THOMSON NP Diagnosis: Last Documented On 06/23/2023 8:18AM By Cinthia URIARTE ; [facility] buPROPion HCl ER (XL) 150 MG Oral Tablet Extended Release 24 Hour 05/12/2022 Provider: YUNI THOMSON NP Diagnosis: Last Documented On 06/23/2023 8:18AM By Cinthia URIARTE ; [facility] Ocuvite Eye + Multi Oral Tablet 06/13/2020 Provider: Diagnosis: Last Documented On 06/13/2020 8:53AM By REEMA URIARTE ; [facility] Adult Aspirin Regimen 81MG Oral Tablet Delayed Release 05/10/2019 Provider: Diagnosis: Last Documented On 05/10/2019 9:16AM By REEMA URIARTE ; [facility] EQL Vitamin D3 1000UNIT Oral Capsule 05/10/2019 Prov ider: Diagnosis: Last Documented On 05/10/2019 9:15AM By REEMA URIARTE ; [facility] Wellbutrin SR 150MG Oral Tablet Extended Release 12 Ho ur 05/10/2019 Provider: Diagnosis: Last Documented On 05/10/2019 9:15AM By REEMA URIARTE ; [facility] Crestor 10 MG OR TABS 04/09/2014 Provider: Diagnosis: Last Documented On 04/09/2014 8:34AM By REEMA URIARTE ; [facility] amLODIPine Besylate 10 MG OR TABS 05/12/2012 Provide r: Diagnosis: Last Documented On 2 2:12PM By DR. LYN MYERS ; [facility] Past Medications on file Vitamin D (Ergocalciferol) 1.25 MG (03295 UT) OR CAPS 06/20/2014 - 07/20/2014 Provider: SANDI MAYEN Diagnosis: VITAMIN D DEFICI ENCY NOS one po q week x 12 weeks, then call for labs Last Documented On 4 2:19PM By SANDI MAYEN ; [facility] Dialyvite Vitamin D3 Max 1.2 5 MG (54582 UT) OR TABS 06/20/2012 - 09/18/2012 Provider: SANDI MAYEN Diagnosis: one po q week x 12 weeks Last Documented On 2 10:45AM By SANDI MAYEN ; [facility] Estrace 0.1 MG/GM VA CREA 05/26/2012 - 05/21/2013 Prov ider: SANDI MAYEN Diagnosis: Insert vaginally 3x/week (1/2 applicator) Last Documented On 2 1:13PM By SANDI MAYEN ; [facility] Medications Administered Includes: Administered Medications from this encounter No Administered Medications Recorded Vital Signs Includes: Vital Signs from this encounter Vital Name 06/18/2021 08:55A Blood Pressure Sitting L 134/80 BP Cuff Size Regular Temp-Oral (F) 98 Height (in) 60 Weight (lb) 164 Body Mass Index (kg/m2) 32.0 Body Surface Area (m2) 1.7 Last Documented: On 06/18/2021 8:58AM ; [facility] Results Includes: Results discussed during this encounter THINPREP TIS PAP REFLEX HPV mRNA E6/E7 Q [employer] Ordered by SANDI MAYEN on 01/2019 Collected: 05/10/2019 Reported: 05/16/20 19 17:14 Last Documented On 9 8:19AM ; [facility] Reviewed by SANDI CERRATO NP-BC on 05/17/2019; All test results are final unless otherwise noted. COMMENT See Note None Last Documented On 05/17/2019 8:19AM ; [facility] Note: EXPLANATORY NOTE: The Pap is a screening test for cervical cancer. It is not a diagnostic test and is subject to false negative and false positive results. It is most reliable when a satisfactory sample, regularly obtained, is submitted with relevant clinical findings and history, and when the Pap result is evaluated along with historic and current clinical information. SOURCE: Cervix, Endocervix N (Normal) Last Documented On 9 8:19AM ; [facility] CLINICAL INFORMATION: Routine exam N (Normal) Last Documented On 9 8:19AM ; [facility] LMP: PM N (Normal) Last Documented On 9 8:19AM ; [facility] PREV. PAP: 2017 N (Normal) Last Documented On 9 8:19AM ; [facility] PREV. BX: NONE N (Normal) Last Documented On 9 8:19AM ; [facility] STATEMENT OF ADEQUACY: SATISFACTORY FOR EVALUATION N (Normal) Last Documented On 9 8:19AM ; [facility] INTERPRETATION/RESULT: Negative for intraepithelial lesion or malignancy. Atrophic pattern; predominantly parabasal cells None Last Documented On 9 8:19AM ; [facility] COMMENT: This Pap test has been evaluated with computer assisted technology. N (Normal) Last Documented On 9 8:19AM ; [facility] HAND TIRE TRIMMER: MEF, CT(ASCP) CT screening location: [place] [address] [place] [address] N (Normal) Last Documented On 9 8:19AM ; [facility] History of Present Illness Includes: History of Present Illness from this encounter HPI ARLENE ENGLE is a 71 year old female. - Allergy list reviewed - Medication reconciliation performed - Primary Care Provider: Yuni Rios Social History Description Last Updated Former smoker 06/18/2021 Last Documented On 1 9:14AM ; [facility] Non-smoker 06/13/2020 Last Documented On 1 8:55AM ; [facility] Not using alcohol 06/13/2020 Last Documented On 1 8:55AM ; [facility] Not using drugs 06/13/2020 Last Documented On 1 8:55AM ; [facility] Social history unchanged 06/13/2020 Last Documented On 1 8:55AM ; [facility] Smoking status : Former smoker 0 Last Documented On 1 8:55AM ; [facility] Quaker: Rastafarian 04/12/2017 Last Documented On 1 8:55AM ; [facility] Hindu affiliation 04/12/2017 Last Documented On 1 8:55AM ; [facility] Procedures and Surgical History Includes: Procedures from this encounter Procedures Code Diagnosis Performing Provider Service L ocation Service Date low fat diet Last Documented On 1 8:56AM ; [facility] use of tobacco assessment performed 1000F Last Documented On 1 9:02AM ; [facility] patient screened for future fall risk 3288F Last Documented On 1 9:02AM ; [facility] review of medications documented 1160F Last Documented On 1 9:02AM ; [facility] fecal occult blood test was negative 07356 Last Documented On 1 8:55AM ; [facility] patient recently had a dexa scan 2018 Last Documented On 1 9:02AM ; [facility] Surgical History Last Updated Surgical / procedural histor 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 06/13/2020 Last Documented On 1 8:55AM ; [facility] History of tubal ligation 05/10/2019 Last Documented On 1 8:55AM ; [facility] History of appendectomy 04/12/2017 Last Documented On 1 8:55AM ; [facility] Medical History Includes: Medical History addressed during this encounter Description Last Updated Last mammogram date: 06/12/2021 1 Last Documented On 1 9:14AM ; [facility] Last pap smear date 201806/18/2021 Last Documented On 1 9:14AM ; [facility] History of cervical Pap smear 06/18 Last Documented On 1 9:14AM ; [facility] History of colonoscopy fiberoptic was pe rformed 201806/18/2021 Last Documented On 1 9:14AM ; [facility] History of screening mammogram was perfo rmed 06/12/2021 06/18/2021 Last Documented On 1 9:14AM ; [facility] No recent change in medical history 04/2020 Last Documented On 1 8:55AM ; [facility] History of a DXA of the lateral lumbar s pine was performed 05/25/2019 wnl 06/13/2020 Last Documented On 1 8:55AM ; [facility] History of complete colonoscopy 2018 Dr Agustin 06/13/2020 Last Documented On 1 8:55AM ; [facility] History of Pap smear done 05/10/201904/2020 Last Documented On 1 8:55AM ; [facility] LMP: 1992 06/13/2020 Last Documented On 1 8:55AM ; [facility] Result: normal 06/13/2020 Last Documented On 1 8:55AM ; [facility] History of type 2 diabetes mellitus diet controled 04/12/2017 Last Documented On 1 8:55AM ; [facility] Aborta 04/12/2017 Last Documented On 1 8:55AM ; [facility] 4 04/12/2017 Last Documented On 1 8:55AM ; [facility] History of benign essential hypertension 04/12/2017 Last Documented On 1 8:55AM ; [facility] History of hyperlipidemia 04/12/2017 Last Documented On 1 8:55AM ; [facility] History of menopause 04/12/2017 Last Documented On 1 8:55AM ; [facility] Para 4 04/12/2017 Last Documented On 1 8:55AM ; [facility] Status post tubal ligation 04/12/2017 Last Documented On 1 8:55AM ; [facility] Family History Includes: Family History addressed during this encounter Description Last Updated Maternal history of pure hypercholestero lemia Parents 06/13/2020 Last Documented On 1 8:55AM ; [facility] Maternal history of uterine cancer mom 0 06/13/2020 Last Documented On 1 8:55AM ; [facility] Paternal grandmother's histo ry of malignant neoplasm of the ovary paternal grandma 06/13/2020 Last Documented On 1 8:55AM ; [facility] Paternal history of diabetes mellitus Da d 06/13/2020 Last Documented On 1 8:55AM ; [facility] Paternal history of family history of he art disease Dad 06/13/2020 Last Documented On 1 8:55AM ; [facility] Paternal history of hypertension Dad 04/2020 Last Documented On 1 8:55AM ; [facility] mother had padgets 04/12/2017 Last Documented On 1 8:55AM ; [facility] Spouse name: Inez 05/22/2011 Last Documented On 1 8:55AM ; [facility] Family history of diabetes mellitus Dad 05/22/2011 Last Documented On 1 8:55AM ; [facility] Family history of hypercholesterolemia P arents 05/22/2011 Last Documented On 1 8:55AM ; [facility] Family history of hypertension Dad 05/22 Last Documented On 1 8:55AM ; [facility] Family history of uterine cancer mom Last Documented On 1 8:55AM ; [facility] Heart disease Dad 05/22/2011 Last Documented On 1 8:55AM ; [facility] Family history unchanged 05/22/2011 Last Documented On 1 8:55AM ; [facility] Family history of malignant neoplasm of the ovary paternal grandma 05/14/2010 Last Documented On 1 8:55AM ; [facility] Family history of Cancer 01/14/2010 Last Documented On 1 8:55AM ; [facility] Family history of Diabetes 01/14/2010 Last Documented On 1 8:55AM ; [facility] Family medical history of high blood pre ssure 01/14/2010 Last Documented On 1 8:55AM ; [facility] Review of Systems Includes: Review of Systems from this encounter Gastrointestinal: No pelvic pain. Genitourinary: No postmenopausal bleeding. No vaginal discharge. Neurological: No ataxia. Psychological: No fear of falling. Past Medical: A fall in the past 6 months. A fall was one times in the [...] esolved Last Documented On 9 9:14AM ; [facility] Encounters Encounter Provider Location Date Check-In Time Check-Out Time Diagnosis WELL WOMAN - ESTABLISHED PT SANDI REYES [facility] 06/18/20 21 8:51AM 9:16AM Screening Malig. Neoplasm Rectum,Normal Female Exam Insurance Includes: Active Insurance Policies Plan Name Member ID Group # Subscriber Relationship Effect robin Dates 1 - [facility]/MEDICARE ADV/[employer] [id number] INEZ ENGLE Clinical Notes Includes: Clinical Notes from this encounter No Clinical Notes Recorded
--- OUTSIDE RECORDS SUMMARY | 2025-02-07 13:10 | XMS_ITS | Clinical Summary ---
Author Organization [facility] Address [address] [address] Phone Care Team Providers Care Colon Therapist Name Role Phone Yuni Resendiz APRN, VALE Primary Care P kylie Allergies Active Allergy Reactions Criticality Noted Date Comments Lisinopril Other (see Comments) 05/18/2024 COUGH Paroxetine Hallucinations Medium Sulfa Antibiotics Unknown 09/30/2015 Pt requests this medication to be on allergy list because it does not help her Medications Aspirin 81 MG Tablet Take 81 mg by mouth daily. Active latanoprost (XALATAN) 0.005 % Solution INSTILL ONE DROP IN EACH EYE ONCE DAILY AT BEDTIME 2 Active Cholecalciferol (Vitamin D3) 25 MCG (1000 UT) Capsule Take 2,000 Units by mouth. Active fluticasone (FLONASE) 50 MCG/ACT SuspensionIndicat ions:Seasonal allergic rhinitis, unspecified trigger 2 Sprays by Nasal route daily. Use in each nostril as directed. 48 mL 3 Active cetirizine (ZyrTEC) 10 MG Tablet Take 1 Tablet by mouth daily. 90 Tablet 1 4 Active [place]-3 Fatty Acids (FISH OIL PO) Take by mouth daily. Active MAGNESIUM PO Take by mouth daily. Active Calcium Carbonate (CALCIUM 500 PO) Take by mouth in the morning and at bedtime. Active rosuvastatin (CRESTOR) 20 MG TabletIndications :Dyslipidemia Take 1 Tablet by mouth daily. 90 Tablet 3 4 Active carvedilol (COREG) 12.5 MG TabletIndications :Essential hypertension Take 0.5 Tablets by mouth 2 times daily. 180 Tablet 3 4 Active nystatin (MYCOSTATIN) 006505 UNIT/GM OintmentIndicatio ns:Candidiasis of breast Apply 4 times daily. Apply to rash under breast until resolved. 30 g 1 4 Active diclofenac (VOLTAREN) 50 MG Tablet Delayed ResponseIndicatio ns:Chronic bilateral low back pain without sciatica,Lumbar spondylolysis,Chr onic pain of both lower extremities Take 1 Tablet by mouth 3 times daily. 270 Tablet 1 4 Active omeprazole (PriLOSEC) 20 MG CAPSULE DELAYED RELEASEIndication s:Gastroesophagea l reflux disease, unspecified whether esophagitis present TAKE 1 CAPSULE BY MOUTH EVERY DAY 90 Capsule 1 4 Active buPROPion (WELLBUTRIN) 150 MG XL tabletIndications :Anxiety with depression TAKE 1 TABLET BY MOUTH EVERY DAY IN THE MORNING 90 Tablet 1 4 Active losartan (COZAAR) 50 MG TabletIndications :Essential hypertension TAKE 1 TABLET BY MOUTH EVERY DAY 90 Tablet 1 4 Active montelukast (SINGULAIR) 10 MG TabletIndications :Seasonal allergic rhinitis, unspecified trigger TAKE 1 TABLET BY MOUTH EVERY DAY IN THE EVENING 90 Tablet 1 5 Active methylPREDNISolon e (MEDROL) 4 MG TabletIndications :ETD (Eustachian tube dysfunction), right 6 tabs day 1, 5 tabs day 2, 4 tabs day 3, 3 tabs day 4, 2 tabs day 5, 1 tab day 6 21 Tablet 5 01/09/20 25 Active Problems Problem Noted Date Diagnosed Date Arthralgia of both knees 09/05/2024 Atherosclerosis 05/20/2023 Tinnitus, bilateral 12/21/2018 Vertigo 12/21/2018 Vitamin D deficiency 03/02/2018 Diverticulitis 02/02/2018 Anxiety with depression 02/02/2018 Hyperglycemia 11/23/2017 Lumbar spondylolysis 08/11/2017 Overview (03/07/2021): MRI 10/2016 - diffuse lumbar DDD; disc bulging at multiple levels; multilevel facet OA bilaterally; mild secondary spinal stenosis at L4-5, L5-S1 along with some foraminal narrowing; minimal retrolisthesis L2 on L3 as well as anterolisthesis L4 on L5 and L5 on S1 Last Assessment & Plan: Reviewed prior MRI from Oct 2016 Has done PT in the past, but it didn't help Pain mgmt injections did help, but now the pain is back Discussed importance of core stability in custodial relief of pain Handout given Refill flexeril Osteopenia 04/09/2014 Overview (07/26/2020): Note: Dexa - pcp Dyslipidemia Seasonal allergic rhinitis Arthritis HTN (hypertension) Resolved Problems Problem Noted Date Diagnosed Date Resolved Date Arthralgia 12/06/2023 Encounters Date Type Department Care Team Description 01/03/[address] [facility] [address] [place] [address] Yuni Resendiz APRN, LICENSED VOCATIONAL NURSE Form Completion 01/02/2025 Telephone [facility] Call Center [address] [place] [phone] Yuni Resedniz BODY SHOP WORKER, LICENSED VOCATIONAL NURSE Form Completion 01/02/2025 Results Follow-Up [facility] [address] [place] [address] Yuni Resendiz APRN, LICENSED VOCATIONAL NURSE 01/01/2025 4:10 PM GENERAL INTERNAL MEDICINE DOCTOR Lab [facility] [address] [place] [address] Lab, [address] Neuropathy Discharge Disposition: Discharged to home or Selfcare 01/01/2025 2:00 PM GENERAL INTERNAL MEDICINE DOCTOR Office Visit [facility] [place] [address] Yuni Resendiz APRN, LICENSED VOCATIONAL NURSE ETD (Eustachian tube dysfunction), right (Primary Dx); Chronic bilateral low back pain without sciatica; Arthralgia of both knees; Neuropathy Discharge Disposition: Discharged to home or Selfcare 12/30/2024 Travel 12/02/2024 [facility]ill [facility] [address] [place] [address] Yuni Resendiz, MELANIE, LICENSED VOCATIONAL NURSE Medication Refill from Last 3 Months Immunizations Immunization Administration Dates Next Due COVID-19, MRNA, LNP-S, BIVAL ENT , PFIZER, 30 MCG/0.3 ML (12+ Y/O) 11/17/2022 Covid-19, Mrna, Lnp-s, PF, 1 00 mcg/0.5 mL Dose (Moderna) 10/20/2021,02/07/2021,01/10/2021 Covid-19, Mrna, Lnp-s, Pf, 3 0 Mcg/0.3 Ml Dose (Pfizer) 07/28/2024 Influenza Vaccine, Quadrivalent, PF 11/0 12/2020,07/23/2020,07/26/2019,2017,08/11/2017 Influenza, High-dose, Quadrivalent 07/28/2022 Influenza, Quadrivalent, Adjuvanted 07/15/2023 Influenza, Trivalent, Adjuvanted, PF 07/17/2024 Influenza, high-dose, trivalent, PF 07/16/2015 PUR FLU HIGH DOSE (FLUZONE) 08/18/2016 Pneumococcal Vaccine - 13 Valent 07/26/2019 Pneumococcal Vaccine Adult - 23 Valent 11/30/2017,02/06/2009 TD VACCINE 08/10/2023,02/06/2010 Zoster Vaccine Recombinant 03/01/2023,11/14/2022 Family History Medical History Relation Name Comments Diabetes Father Heart Attack Father Cancer Maternal Grandfather skin Cancer Mother uterine Stroke Mother Cancer Paternal Grandmother ovarian Hypertension Sister Relation Name Status Comments Father Maternal Grandfather Mother Paternal Grandmother Sister Social History Tobacco Use Types Packs/Day Years Used Date Smoking Tobacco: Former Cigarettes 0.5 27 1 - 11/07/2004 Smokeless Tobacco: Never Tobacco Cessation:Counseling Given: No Comments:chews nicorette gum Alcohol Use Standard Drinks/Week Comments No 0 (1 standard drink = 0.6 oz pur e alcohol) [facility] Utilities Answer Date Recorded In the [...] declined 12/30/2024 How often do you attend mu-ism or congregational serv ices? Patient declined 12/30/2024 Do you belong to any clubs o r organizations such as mu-ism groups, unions, fraternal or athletic groups, or [...] Total Score - Questions 1-9 0 08/09 [facility] of Occupat ional Health - Occupational Stress [...] in a retirement (including now)? No 02/10/2024 Housing Stability Vital Sign Answer Noé e Recorded In the last 12 months, was t here a time when you were not able to pay the mortgage or rent on time? Patient declined 12/30/19 25 Number of Times Moved in the Last Year Not on fi le 12/30/2024 At any time in the past 12 m [facility], were you homeless or living in a retirement (including now)? Patient declined 12/30/2024 Education Answer [...] Sign Reading Time Taken Comments Blood Pressure 128/84 01/01/2025 2:06 PM GENERAL INTERNAL MEDICINE DOCTOR Pulse 77 01/01/2025 2:06 PM GENERAL INTERNAL MEDICINE DOCTOR Temperature 36.2 C (97.2 F) 01/01/2025 2:06 PM GENERAL INTERNAL MEDICINE DOCTOR Respiratory Rate 18 01/01/2025 2:06 PM GENERAL INTERNAL MEDICINE DOCTOR Oxygen Saturation 93% 01/01/2025 2:06 PM GENERAL INTERNAL MEDICINE DOCTOR Inhaled Oxygen Concentration - - Weight 69.4 kg (153 lb) 01/01/2025 2:06 PM GENERAL INTERNAL MEDICINE DOCTOR Height 152.4 cm (5') 01/01/2025 2:06 PM GENERAL INTERNAL MEDICINE DOCTOR Body Mass Index 29.88 01/01/2025 2:06 PM GENERAL INTERNAL MEDICINE DOCTOR Plan of Treatment Upcoming Encounters Date Type Department Care Team (Late st Contact Info) Description 03/08/2025 8:30 AM CDT Lab [facility] [place] 2[facility] - [place] [address] [place] [phone] [facility] 03/15/2025 9:15 AM CDT Office Visit [facility] [place] 2[facility] - [place] [address] [place] [address] Yuni Resendiz APRN, LICENSED VOCATIONAL NURSE [address] [place], [place] [phone] Health Maintenance Due Date Last Done Comments TdaP Immunization 1950 Cologuard 2000 Immunochemical Fecal Occult Blood 2000 Hepatitis B Immunization (1 of 3 - Risk 3-dose series) 2010 Discussion re Stopping Mammograms 2025 Respiratory Syncytial Virus (RSV) Immunization (Adult) (1 - 1-dose 75+ series) 2025 Mammogram 07/03/2025 07/03/2024, 06/08, 06/17/2022, Additional history exists DEXA Bone Density 02/06/2026 02/07/2024, , 12/03/2016, Additional history exists Colonoscopy 01/16/2029 01/16/2019 Colorectal Cancer Screening 01/16/2029 01/16/2019 Pneumococcal Immunization (50+ years) Completed 07/26/2019, 11/30/2017, 02/06/2009 Pneumococcal Immunization Combined Discontinued 07/26/2019, 11/30/2017, 02/06/2009 Zoster Immunization Completed 03/01/2023, 3 Hepatitis C Virus (HCV) Screening Completed 05/13/2023 Influenza Immunization Completed 4, 07/15/2023, 07/28/2022, Additional history exists SARS-COV-2 Immunization Discontinued 07/28/20 24, 09/23/2023, 11/17/2022, Additional history exists Meningococcal Immunization (ACWY) Aged Out No longer eligible based on patient's age to complete this topic Rotavirus Immunization Aged Out No lo nger eligible based on patient's age to complete this topic Goals Goal Patient Goal Type Associated Problems Recent Progress Patient-Stated? Author Help patient manage hypertension Care Plan [facility]P HYPERTENSION CONCERN (PATIENT NOT ON HIGH BLOOD PRESSURE MEDICATIONS) No Yuni Enciso, BODY SHOP WORKER, LICENSED VOCATIONAL NURSE Procedures Procedure Name Priority Date/Time Associated Diagnosis Comments VITAMIN B12 Routine 01/01/2025 2:50 PM GENERAL INTERNAL MEDICINE DOCTOR Neuropathy FOLIC ACID (FOLATE) Routine 01/01/2025 2 :50 PM GENERAL INTERNAL MEDICINE DOCTOR Neuropathy MAMMOGRAM BILATERAL GENERIC 07/03/2024 12:00 AM CDT GUSTAVO BONE DENSITOMETRY AXIAL SKELETON Routine 02/07/2024 10:30 AM CDT Postmenopausal HEPATITIS C ANTIBODY Routine 05/13/2023 7:56 AM CDT Encounter for HCV screening test for low risk patient from Last 3 Months or Most Recently Relevant to Health Maintenance Results * VITAMIN B12 (01/01/2025 2:50 PM GENERAL INTERNAL MEDICINE DOCTOR) VITAMIN B12 272 213 - 816 pg/mL 01/02/2025 9:11 AM GENERAL INTERNAL MEDICINE DOCTOR [facility] Blood Venipuncture / Unknown 01/01/2025 2:50 PM GENERAL INTERNAL MEDICINE DOCTOR 01/01/2025 2:50 PM GENERAL INTERNAL MEDICINE DOCTOR Yuni Resendiz APRN, VALE CHEMISTRY ORDER CHELI Final Result Performing Organization Address [facility] de Phone Number [facility] [address] [place] [address] * FOLIC ACID (FOLATE) (01/01/2025 2:50 PM GENERAL INTERNAL MEDICINE DOCTOR) FOLATE 9.6 7.0 - 31.4 ng/mL 01/02/2025 9:11 AM GENERAL INTERNAL MEDICINE DOCTOR [facility] IS THE PATIENT REQUIRED TO BE FASTING? No 01/02/2025 9:11 AM GENERAL INTERNAL MEDICINE DOCTOR [facility] Blood Venipuncture / Unknown 01/01/2025 2:50 PM GENERAL INTERNAL MEDICINE DOCTOR 01/01/2025 2:50 PM GENERAL INTERNAL MEDICINE DOCTOR Yuni Resendiz APRN, VALE CHEMISTRY ORDER CHELI Final Result Performing Organization Address [facility] de Phone Number [facility] [address] [place] [address] * MAMMOGRAM BILATERAL MISCELLANEOUS (07/03/2024 12:00 AM CDT) 07/03/2024 us Provider Scan IMG MAMMO ORDERABLES Final Resul t Performing Organization Address [facility] de Phone Number SCAN * GUSTAVO BONE DENSITOMETRY AXIAL SKELETON (02/07/2024 10:30 AM CDT) Anatomical Region Laterality Modality BODY N/A Computed Radiogr aphy 02/07/2024 11:0 2 AM CDT Impressions 02/07/2024 11:05 AM CDT IMPRESSION: Low bone mass REFERENCE: Bone mineral density: T-Score: Normal (T-score above or = -1.0) Low bone mass (T-score between -1.0 and -2.5) replaces the previously used term osteopenia Osteoporosis (T-score = or below -2.5) Z-Score: Within the expected range for age (Z-score above -2.0) Below the expected range for age (Z-score is -2.0 or below) Please see below follow up recommendations. Medical evaluation for secondary causes of low bone mineral density may be appropriate. FRAX is a World Health Organization validated fracture risk assessment tool that calculates a person's 10 year probability of a major osteoporosis related fracture and hip fracture. According to the National Osteoporosis Foundation guidelines, postmenopausal women and men age 50 or older with low bone mass and a 10 year probability of a major osteoporosis related fracture = or greater than 20% or a 10 year probability of a hip fracture = or greater than 3% should be considered for pharmacological treatment for the prevention of osteoporosis. For further information, including treatment recommendations, please refer to the 2019 ISCD Official Positions (http://www.iscd.org) and the NOF's Clinician's Guide to Prevention and Treatment of Osteoporosis (http://www.nof.org/professionals/clinical-guidelines) Narrative 02/07/2024 11:05 AM CDT EXAM DESCRIPTION: GUSTAVO BONE DENSITOMETRY AXIAL SKELETON REASON FOR STUDY: 73 y/o year old F with given history of: Post menopausal status. Patient has taken/is taking vitamin-D, multivitamin and calcium. Flat Ironer/Model: [employer] Central (S/N [id number]) CLINICAL INFORMATION: Current height: 60 inches Maximum height: 63 inches Weight: 150 pounds Risk factors: Secondary osteoporosis. COMPARISON: 09/30/2021 FINDINGS: AP LUMBAR SPINE L1-L4: Total BMD is 1.357 g/cm2 T-score is 1.3 This is a 0.9% increase in comparison to prior exam which is not statistically significant. LEFT HIP: Total BMD is 0.773 g/cm2 T-score is -1.9 This is a 10.5% decrease in comparison to prior exam which is statistically significant. Femoral neck BMD is 0.770 g/cm2 T-score is -1.9 FRAX: 10 year risk for a major osteoporotic fracture is 12.2 %, 10 year risk for a hip fracture is 2.8 % THIS IS AN ELECTRONICALLY VERIFIED FINAL REPORT 02/07/2024 11:02 AM - Electronically signed by Birgit Umaña M.D. TW: TW Report ID: [id number] Reading Location: [place] [address] Procedure Note Birgit Umaña MD - 02/07/2024 EXAM DESCRIPTION: GUSTAVO BONE DENSITOMETRY AXIAL SKELETON REASON FOR STUDY: 73 y/o year old F with given history of: Post menopausal status. Patient has taken/is taking vitamin-D, multivitamin and calcium. Flat Ironer/Model: Body Central (S/N [id number]) CLINICAL INFORMATION: Current height: 60 inches Maximum height: 63 inches Weight: 150 pounds Risk factors: Secondary osteoporosis. COMPARISON: 09/30/2021 FINDINGS: AP LUMBAR SPINE L1-L4: Total BMD is 1.357 g/cm2 T-score is 1.3 This is a 0.9% increase in comparison to prior exam which is not statistically significant. LEFT HIP: Total BMD is 0.773 g/cm2 T-score is -1.9 This is a 10.5% decrease in comparison to prior exam which is statistically significant. Femoral neck BMD is 0.770 g/cm2 T-score is -1.9 FRAX: 10 year risk for a major osteoporotic fracture is 12.2 %, 10 year risk for a hip fracture is 2.8 % THIS IS AN ELECTRONICALLY VERIFIED FINAL REPORT 02/07/2024 11:02 AM - Electronically signed by Birgit Umaña M.D. TW: TW Report ID: [id number] Reading Location: [place] [address] IMPRESSION: Low bone mass REFERENCE: Bone mineral density: T-Score: Normal (T-score above or = -1.0) Low bone mass (T-score between -1.0 and -2.5) replaces the previously used term osteopenia Osteoporosis (T-score = or below -2.5) Z-Score: Within the expected range for age (Z-score above -2.0) Below the expected range for age (Z-score is -2.0 or below) Please see below follow up recommendations. Medical evaluation for secondary causes of low bone mineral density may be appropriate. FRAX is a World Health Organization validated fracture risk assessment tool that calculates a person's 10 year probability of a major osteoporosis related fracture and hip fracture. According to the National Osteoporosis Foundation guidelines, postmenopausal women and men age 50 or older with low bone mass and a 10 year probability of a major osteoporosis related fracture = or greater than 20% or a 10 year probability of a hip fracture = or greater than 3% should be considered for pharmacological treatment for the prevention of osteoporosis. For further information, including treatment recommendations, please refer to the 2019 ISCD Official Positions (http://www.iscd.org) and the NOF's Clinician's Guide to Prevention and Treatment of Osteoporosis (http://www.nof.org/professionals/clinical-guidelines) us Yuni Resendiz APRN, CNP IMG DEXA ORDERA BLES Final Result * HEPATITIS C ANTIBODY (05/13/2023 7:56 AM CDT) hepatitis C antibody 0.07 <1 S/CO [facility] ARCH [id number] B 05/14/2023 12:33 PM CDT [facility] Comment: Signal/Cutoff ratio < 0.79 is Nondetected Signal/Cutoff ratio 0.80-0.99 is Grayzone Signal/Cutoff ratio > 0.99 is Detected Supplemental assays are recommended if signal/cutoff ratio is >/=1.00. Signal/cutoff ratio result >/= 5.00 is 97% predictive of positivity for recombinant immunoblot assay (RIBA) and will be reported to the [place] Department of Public Health as required. Blood Venipuncture / Unknown 05/13/2023 7:56 AM CDT 05/13/2023 7:56 AM CDT us Yuni Resendiz APRN, CNP CHEMISTRY ORDER CHELI Final Result [facility] [address] [place] [address], [place] from Last 3 Months or Most Recently Relevant to Health Maintenance Additional Health Concerns Active Problems Noted Date Diagnosed Date [facility] (P ATIENT NOT ON HIGH BLOOD PRESSURE MEDICATIONS) 10/02/2024 Insurance MEDICARE C [facility] Care Teams Colon Therapist Relationship Specialty Start Date End Date Yuni Resendiz APRN, CNP [address] [place] [address] PCP - General Advanced Practice Nurse 07/23/20
--- OUTSIDE RECORDS SUMMARY | 2025-02-07 13:10 | XMS_ITS | Encounter Summary ---
Author Organization [facility] Address [address] [place] [address] Phone Care Team Providers Care Budget Clerk Name Role Phone Yuni Resendiz APRN, CNP Primary Care P rovider Reason for Visit * Reason Comments Medication Refill Encounter Details Date Type Department Care Team (Late st Contact Info) Description 01/21/2024 Refill [facility] - [place] [address] [place] [address] Yuni Resendiz APRN, CNP [address] [place] [address] Medication Refill Social History Tobacco [...] Telephone Encounter - Antonio Bal RN - 01/21/2024 8:51 AM CDT Medication(s) refilled and signed per [facility] Chronic Medication Refill Standing Order for Pediatricand Adult Patients. Requested Prescriptions Pending Prescriptions Disp Refills amLODIPine (NORVASC) 5 MG Tablet [Pharmacy Med Name: AMLODIPINE BESYLATE 5 MG TAB] 90 Tablet 1 Sig: TAKE 1 TABLET BY MOUTH EVERY DAY Calcium-Channel Blockers Protocol Passed - 01/21/2024 1:10 AM Passed - BP on record in the past year Clinician-entered: BP Readings from Last 3 Encounters: 12/06/23 132/86 08/10/23 142/82 07/29/23 148/88 Patient-entered: No data recorded Passed - Visit with relevant provider in past 12 months or upcoming 90 days Recent Visits Date Type Provider Dept 12/06/23 Office Visit Yuni Resendiz APRN, VALE [facility] 07/29/23 Office Visit Yuni Resendiz APRN, VALE [facility] 05/20/23 Office Visit Yuni Resendiz APRN, CNP [facility] 04/09/23 Office Visit Yuni Resendiz APRN, VALE [facility] 03/24/23 Office Visit Yuni Resendiz APRN, VALE [facility] Showing recent visits within past 365 days and meeting all other requirements Future Appointments No visits were found meeting these conditions. Showing future appointments within next 90 days and meeting all other requirements omeprazole (PriLOSEC) 20 MG CAPSULE DELAYED RELEASE [Pharmacy Med Name: OMEPRAZOLE DR 20 MG CAPSULE] 90 Capsule 1 Sig: TAKE 1 CAPSULE BY MOUTH EVERY DAY Proton Pump Inhibitors Protocol Passed - 01/21/2024 1:10 AM Passed - Visit with relevant provider in past 12 months or upcoming 90 days Recent Visits Date Type Provider Dept 12/06/23 Office Visit Yuni Resendiz APRN, CNP [facility] 07/29/23 Office Visit Yuni Resendiz APRN, CNP [facility] 05/20/23 Office Visit Yuni Resendiz APRN, CNP [facility] 04/09/23 Office Visit Yuni Resendiz APRN, CNP [facility] 03/24/23 Office Visit Yuni Resendiz APRN, CNP [facility] Showing recent visits within past 365 days and meeting all other requirements Future Appointments No visits were found meeting these conditions. Showing future appointments within next 90 days and meeting all other requirements documented in this encounter Plan of Treatment Upcoming Encounters Date Type Department Care Team (Late st Contact Info) Description 03/08/2025 8:30 AM CDT Lab [facility] [place] [facility] [place] [address] [place] [address] [facility] 03/15/2025 9:15 AM CDT Office Visit [facility] [place] [facility] [place] [address] [place] [address] Yuni Resendiz APRN, CNP [address] [place] [address] documented as of this encounter Visit Diagnoses Diagnosis Essential hypertension Unspecified essential hypertension Gastroesophageal reflux disease, unspecified whether esophagitis present documented in this encounter Additional Health Concerns Assessment Noted Time PHQ-9 Depression Total Score: 0 12/06/19 24 3:04 PM LEASE ADMINISTRATION ANALYST documented as of this encounter Care Teams Budget Clerk Relationship Specialty Start Date End Date Yuni Resendiz APRN, CNP [address] [place] [address] PCP - General Advanced Practice Nurse 07/23/20 documented as of this encounter
[2025-02-07 13:28] LABS: Hematocrit 46.6 % (37.0-47.0); Hemoglobin 15.2 g/dL (12.0-15.0)
[2025-02-07 13:38] LABS: Albumin Level 4.5 g/dL (3.5-5.1); Estimated Glomerular Filt Rate > 60; Glucose 101 mg/dL (65-110)
== END 2025-02-07 11:36 | disposition home or self-care (01) ==
PROVIDERS: PCP Nurse Practitioner; Visit Provider Orthopaedic Surgery
DX: M17.12 Unilateral primary osteoarthritis, left knee (principal); E78.5 Hyperlipidemia, unspecified; I10 Essential (primary) hypertension; M19.072 Primary osteoarthritis, left ankle and foot
CPT/HCPCS: 36415; 73700; 82040; 82565; 82947; 85014; 85018; 93005

== ENCOUNTER 2025-04-25 13:46 | Outpatient (CLI) | payer MEDICARE, SELFPAY ==
[2025-04-25 15:12] LABS: Basophils Percent Auto 0.5 % (0.2-1.2); Eosinophils Absolute Auto 0.2 K/mm3 (0-0.3); Eosinophils Percent Auto 3.2 % (0-4.4); Hematocrit 43.7 % (37.0-47.0); Hemoglobin 14.5 g/dL (12.0-15.0); Immature Granulocyte Absolute 0.02 K/mm3 (0.00-0.031); Immature Granulocyte Percent A 0.3 % (0-0.5); Lymphocytes Absolute Auto 1.67 K/mm3 (0.9-3.2); Lymphocytes Percent Auto 26.4 % (18.3-44.2); Mean Corpuscular HGB Conc 33.2 g/dl (32-36); Mean Corpuscular Hemoglobin 30.1 pg (26-34); Mean Corpuscular Volume 90.7 fl (80-100); Mean Platelet Volume 9.2 fl (7.4-10.4); Monocytes Absolute Auto 0.5 K/mm3 (0.1-0.6); Monocytes Percent Auto 8.1 % (2.6-8.5); Neutrophils Absolute Auto 3.9 K/mm3 (1.3-6.7); Neutrophils Percent Auto 61.5 % (45.5-73.1); Platelet Count Result 296 k/mm3 (150-375); Red Blood Count 4.82 M/mm3 (4.2-5.4); Red Cell Distribution Width 12.6 % (11.5-14.5); White Blood Count 6.3 K/mm3 (4.5-10.0)
[2025-04-25 15:27] LABS: Albumin Level 4.4 g/dL (3.5-5.1); Estimated Glomerular Filt Rate > 60; Glucose 100 mg/dL (65-110)
[2025-04-25 15:32] LABS: Urine Cotinine POSITIVE
--- OUTSIDE RECORDS SUMMARY | 2025-04-25 15:32 | XMS_ITS | Clinical Summary ---
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
--- OUTSIDE RECORDS SUMMARY | 2025-04-25 15:32 | XMS_ITS | Encounter Summary ---
Author Organization [facility] Address [address] [place] [address] Phone Care Team Providers Care Cvor Nurse Name Role Phone Yuni Resendiz APRN, CNP [facility] Reason for Visit * Reason Comments Medication Refill Encounter Details Date Type Department Care Team (Late st Contact Info) Description 04/27/2024 Refill [facility] - Primary Care - [place] [address] [place] [address] Yuni Resendiz APRN, CNP [address] [place] [address] Medication Refill Social History Tobacco Use Types Packs/Day Years Used Date Smoking Tobacco: Former Cigarettes 0.5 27 1 - 11/07/2004 Smokeless Tobacco: Never Comments:chews nicorette gum Alcohol Use Standard Drinks/Week Comments No 0 (1 standard drink = 0.6 oz pur e alcohol) [facility] Utilities Answer Date Recorded In the past 12 months has e electric, gas, oil, or water company threatened to shut off services in your home? No 02/10/2024 Social Connection and Isolation Panel Answer Date Recorded In a typical week, how many times do you talk on the phone with family, friends, or neighbors? More than three times a week 02/10/2024 How often do you get togethe r with friends or relatives? Once a week 02/10/2024 How often do you attend chur ch or lutheran services? 1 to 4 times per year 02/10/2024 Do you belong to any clubs o r organizations such as quaker groups, unions, fraternal or athletic groups, or [...] Total Score - Questions 1-9 0 11/09 [facility] [...] place to sleep or slept in a skilled nursing (including now)? No 02/10/2024 Education Answer Date [...] Dept 04/20/24 Office Visit Antonella Gupta APRN, VALE [facility] 02/10/24 Office Visit Yuni Resendiz APRN, VALE [facility] 12/06/23 Office Visit Yuni Resendiz APRN, VALE [facility] Showing recent visits within past 182 days and meeting all other requirements Future Appointments Date Type Provider Dept 05/15/24 Appointment Clinic, [facility] Nurse [facility] 05/29/24 Appointment Lab, [facility] 06/05/24 Appointment Yuni Resendiz APRN, VALE [facility] Showing future appointments within next 90 days and meeting all other requirements Passed - Patient has established therapy with Bupropion for at least 6 months documented in this encounter Plan of Treatment Upcoming Encounters Date Type Department Care Team (Late st Contact Info) Description 04/30/2025 11:00 AM CDT Clinical Support [facility] [place] [address] [place] [address] [facility] [place] 09/13/2025 8:40 AM STUDENT RECRUITER Lab [facility] [place] [address] [place] [address] [facility] 09/20/2025 9:30 AM STUDENT RECRUITER Office Visit [facility] [place] [address] Yuni Resendiz APRN, VALE [address] [facility] [place] [address] documented as of this encounter Visit Diagnoses Diagnosis Anxiety with depression documented in this encounter Additional Health Concerns Assessment Noted Time PHQ-9 Depression Total Score: 0 12/06/19 24 3:04 PM STUDENT RECRUITER documented as of this encounter Care Teams Cvor Nurse Relationship Specialty Start Date End Date Yuni Resendiz APRN, TEST CAR DRIVER [address] [place] [address] PCP - General Advanced Practice Nurse 07/23/20 documented as of this encounter
--- OUTSIDE RECORDS SUMMARY | 2025-04-25 15:32 | XMS_ITS | Referral Summary ---
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
--- OUTSIDE RECORDS SUMMARY | 2025-04-25 15:32 | XMS_ITS | Encounter Summary ---
Author Organization [facility] Address [address] [place] [address] Phone Care Team Providers Care Bed Manager Name Role Phone Yuni Resendiz APRN, CNP Primary Care Chauncey espinal Reason for Visit * Reason Comments Medication Refill Encounter Details Date Type Department Care Team (Late st Contact Info) Description 05/13/2021 Refill [facility] Center [address] [place] [address] Evita Cid April, PAC [address] [place] [address] Medication Refill Social History Tobacco Use Types [...] 03/07/21 Office Visit Yuni Resendiz APN, VALE [facility] 12/20/20 Office Visit Yuni Resendiz APN, VALE [facility] 12/03/20 Office Visit Yuni Resendiz APN, VALE [facility] 07/26/20 Office Visit Yuni Resendiz APN, VALE [facility] [address] Showing recent visits within past 365 [...] Description 04/30/2025 11:00 AM CDT Clinical Support [facility] [place] 2] [address] [place] [address] [facility] 09/13/2025 8:40 AM AMALGAMATOR Lab [facility] [place] 2] [address] [place] [address] [facility] 09/20/2025 9:30 AM AMALGAMATOR Office Visit [facility] [place]note 2[facility] [address] [place] [address] Yuni Resendiz APRN, STUDIO MUSICIAN [address] [place], [place] [id number] documented as of this encounter Visit Diagnoses Not on filedocumented in this encounter Additional Health Concerns Infection Onset Date Last Indicated Resolved Time COVID - 19 01/16/2023 01/16/2023 01/26/2023 12:1 6 AM CDT COVID - 19 Confirmed 01/16/2023 01/16/2023 023 12:16 AM CDT Assessment Noted Time PHQ-9 Depression Total Score: 1 12/03/19 8:00 AM AMALGAMATOR documented as of this encounter Care Teams Bed Manager Relationship Specialty Start Date End Date Yuni Resendiz APRN, STUDIO MUSICIAN [address] [place] [address] PCP - General Advanced Practice Nurse 07/23/20 documented as of this encounter
--- OUTSIDE RECORDS SUMMARY | 2025-04-25 15:32 | XMS_ITS | Encounter Summary ---
Author Organization [facility] Address [address] [place] [address] Phone Care Team Providers Care Forestry Fire Aid Name Role Phone Yuni Resendiz APRN, CNP Primary Care P rojanes Reason for Visit * Reason Comments Medication Refill Encounter Details Date Type Department Care Team (Late st Contact Info) Description 05/14/2021 Refill [facility] Center [address] [place] [address] Yuni Resendiz APRN SPRAY GUNNER [address] [place] [address] Medication Refill Social History Tobacco [...] 11:00 AM CDT Clinical Support [facility] [place] [facility] [place] [address] [place] [address] [facility] 09/13/2025 8:40 AM LABEL STITCHER Lab [facility] [place] [facility] [place] [address] [place] [address] [facility] 09/20/2025 9:30 AM LABEL STITCHER Office Visit [facility] [place] [facility] [place] [address] [place] [address] Yuni Resendiz APRN, CNP [address] [place] [address] documented as of this encounter Visit Diagnoses Diagnosis Seasonal allergic rhinitis, unspecified trigger documented in this encounter Additional Health Concerns Infection Onset Date Last Indicated Resolved Time COVID - 19 01/16/2023 01/16/2023 01/26/2023 12:1 6 AM CDT COVID - 19 Confirmed 01/16/2023 01/16/2023 023 12:16 AM CDT Assessment Noted Time PHQ-9 Depression Total Score: 1 12/03/19 21 8:00 AM LABEL STITCHER documented as of this encounter Care Teams Forestry Fire Aid Relationship Specialty Start Date End Date Yuni Resendiz APRN, CNP [address] [place] [address] PCP - General Advanced Practice Nurse 07/23/20 documented as of this encounter
--- OUTSIDE RECORDS SUMMARY | 2025-04-25 15:33 | XMS_ITS | Encounter Summary ---
Author Organization [facility] Address [address] [place] [address] Phone Care Team Providers Care Social Media Project Manager Name Role Phone Yuni Resendiz APRN, CNP Primary Care P kylie Encounter Details Date Type Department Care Team (Late st Contact Info) Description 03/08/2025 Results Follow-Up [facility] - Primary Care - [place] [address] [place] [address] Yuni Resendiz APRN, CNP [address] [place] [address] CMP (COMPREHENSIVE METABOLIC PANEL), LIPID PANEL, THYROID STIMULATING HORMONE (TSH), Additional followed-up results: 2 Social History Tobacco Use Types Packs/Day Years Used Date Smoking Tobacco: Former Cigarettes 0.5 27 1 - 11/07/2004 Smokeless Tobacco: Never Comments:chews nicorette gum Alcohol Use Standard Drinks/Week Comments No 0 (1 standard drink = 0.6 oz pur e alcohol) [facility] Utilities Answer Date Recorded In the past 12 months has [employer] electric, gas, oil, or water company threatened to shut off services in your home? Patient declined 12/30/2024 Social Connection and Isolation Panel Answer Date Recorded In a typical week, how many times do you talk on the phone with family, friends, or neighbors? Patient declined 12/30/2024 How often do you get togethe r with friends or relatives? Patient declined 12/30/2024 How often do you attend religion or jehovah's witness serv ices? Patient declined 12/30/2024 Do you belong to any clubs o r organizations such as religion groups, unions, fraternal or athletic groups, or [...] Total Score - Questions 1-9 0 08/09 [facility] - Occupational Stress Questionnaire Answer Date Recorded [...] place to sleep or slept in a senior living (including now)? No 02/10/2024 Housing Stability Vital Sign Answer Noé e Recorded In the last 12 months, was t here a time when you were not able to pay the mortgage or rent on time? Patient declined 12/30/19 25 Number of Times Moved in the Last Year Not on fi le 12/30/2024 At any time in the past 12 m [facility], were you homeless or living in a senior living (including now)? Patient declined 12/30/2024 Education Answer [...] Description 04/30/2025 11:00 AM CDT Clinical Support [facility] Primary Care - [place] [address] [place] [address] [facility] Yasajan YO 09/13/2025 8:40 AM BENCH CARPENTER Lab [facility] - Primary [facility] - [place] [address] [place] [address] [facility] 09/20/2025 9:30 AM BENCH CARPENTER Office Visit [facility] - Primary Care - [place] [address] [place] [address] Yuni Resendiz APRN, CNP [address] [facility] [place] [address] documented as of this encounter Goals Goal Patient Goal Type Associated Problems Recent Progress Patient-Stated? Author Help patient manage hypertension Care Plan [facility] HYPERTENSION CONCERN (PATIENT NOT ON HIGH BLOOD PRESSURE MEDICATIONS) No Yuni Enciso APRN, CNP documented as of this encounter Visit Diagnoses Not on filedocumented in this encounter Additional Health Concerns Active Problems Noted Date Diagnosed Date [facility] HYPERTENSION CONCERN (P ATIENT NOT ON HIGH BLOOD PRESSURE MEDICATIONS) 10/02/2024 Assessment Noted Time PHQ-9 Depression Total Score: 0 09/05/20 24 11:31 AM CDT documented as of this encounter Care Teams Social Media Project Manager Relationship Specialty Start Date End Date Yuni Resendiz APRN, CNP [address] [place] [address] PCP - General Advanced Practice Nurse 07/23/20 documented as of this encounter
--- OUTSIDE RECORDS SUMMARY | 2025-04-25 15:33 | XMS_ITS | Clinical Summary ---
Author Organization [facility] Address [address] [place] [address] Care Team Providers Care Portable Machine Sander Name Role Phone Unavailable Primary Care Provider Unavailabl e Source Comments [facility],non-owned Affiliates and Associated Physician Practices is amultiple site organization consisting of ambulatory clinics and hospital sitesin [place], [place], [place] and [place]. This disclosure is being madepursuant to the Care Everywhere program and may not contain all information available regarding this patient. Last updated 18.[facility] Allergies Active Allergy Reactions Criticality Noted Date Comments Paroxetine Psychiatric Medium 08/11/2017 Medications * Be aware that medications may not be up to date on this document. Alwaysverify current medications with the patient. rosuvastatin (CRESTOR) 10 MG tablet Take 10 [...] Date Smoking Tobacco: Former Smokeless Tobacco: Never Comments Unknown Sex and Gender Information Value Date Recorded Sex Assigned at Not on file Legal Sex Female 7:39 AM CDT Gender Identity Not on file Sexual [...] FOR DIABETES 06/01/2019 COVID-19 VACCINE (1 - season) 2024 DEPRESSION SCREENING 11/08/2024 Respiratory Syncytial Virus (RSV) Vaccine Pt: or over 60 yrs (1 - 1-dose 75+ series) 2025 INFLUENZA VACCINE (Season Ended) 2025 08/10/2018, 08/11/2017, 08/18/2016, Additional history exists HEPATITIS B VACCINE Aged Out No longe [...] on patient's age to complete this topic Insurance
--- OUTSIDE RECORDS SUMMARY | 2025-04-25 15:33 | XMS_ITS | Encounter Summary ---
Author Organization [facility] Address [address] [place] [address] Phone Care Team Providers Care Paperboard Machine Operator Name Role Phone Yuni Resendiz APRN, CNP [facility] Reason for Visit * Reason Comments Medication Refill Encounter Details Date Type Department Care Team (Late st Contact Info) Description 06/20/2022 Refill [facility] Primary Care - [place] [address] [place] [address] Yuni Resendiz APRN, CNP [address] [place] [address] Medication Refill Social History Tobacco [...] Description 04/30/2025 11:00 AM CDT Clinical Support [facility] [place] [address] [place] [address] [facility] Nurse [place] 09/13/2025 8:40 AM STOCK FITTER Lab [facility] [place] [address] [place] [address] [facility] 09/20/2025 9:30 AM STOCK FITTER Office Visit [facility] [place] [address] [place] [address] Yuni Resendiz APRN, MINE DEVELOPMENT ENGINEER [address] [place] [address] documented as of this encounter Visit Diagnoses Diagnosis Seasonal allergic rhinitis, unspecified trigger documented in this encounter Additional Health Concerns Infection Onset Date Last Indicated Resolved Time COVID - 19 01/16/2023 01/16/2023 01/26/2023 12:1 6 AM CDT COVID - 19 Confirmed 01/16/2023 01/16/2023 023 12:16 AM CDT Assessment Noted Time PHQ-9 Depression Total Score: 1 12/03/19 21 8:00 AM STOCK FITTER documented as of this encounter Care Teams Paperboard Machine Operator Relationship Specialty Start Date End Date Yuni Resendiz APRN, MINE DEVELOPMENT ENGINEER [address] [place] [address] PCP - General Advanced Practice Nurse 07/23/20 documented as of this encounter
--- OUTSIDE RECORDS SUMMARY | 2025-04-25 15:33 | XMS_ITS | Encounter Summary ---
Author Organization [facility] Address [address] [place] [address] Phone Care Team Providers Care Captain Room Service Name Role Phone Yuni Resendiz APRN, CNP [facility] Reason for Visit * Reason Comments Medication Refill Encounter Details Date Type Department Care Team (Late st Contact Info) Description 02/01/2024 Refill [facility] - Primary Care - [place] [address] [place] [address] Yuni Resendiz APRN, CNP [address] [place] [address] Medication Refill Social History Tobacco [...] Description 04/30/2025 11:00 AM CDT Clinical Support [facility] [address] [place] [address] [facility] 09/13/2025 8:40 AM TANK BUILDER AND ERECTOR Lab [facility] [address] [place] [address] [facility] 09/20/2025 9:30 AM TANK BUILDER AND ERECTOR Office Visit [facility] [address] [place] [address] Yuni Resendiz APRN, MUD JACK NOZZLE WORKER [address] [place] [address] documented as of this encounter Visit Diagnoses Diagnosis Dyslipidemia Other and unspecified hyperlipidemia documented in this encounter Additional Health Concerns Assessment Noted Time PHQ-9 Depression Total Score: 0 12/06/19 24 3:04 PM TANK BUILDER AND ERECTOR documented as of this encounter Care Teams Captain Room Service Relationship Specialty Start Date End Date Yuni Resenidz APRN, MUD JACK NOZZLE WORKER [address] [place] [address] PCP - General Advanced Practice Nurse 07/23/20 documented as of this encounter
--- OUTSIDE RECORDS SUMMARY | 2025-04-25 15:33 | XMS_ITS | Encounter Summary ---
Author Organization [facility] Address [address] [place] [address] Phone Care Team Providers Care Roaster Supervisor Name Role Phone Yuni Resendiz APRN, CNP Primary Care Chauncey espinal Reason for Visit * Reason Comments Medication Refill Encounter Details Date Type Department Care Team (Late st Contact Info) Description 09/06/2020 Refill [facility] [address] [place] [address] Evita Cid April, PAC [address] [place] [address] Medication Refill Social History Tobacco Use Types [...] Description 04/30/2025 11:00 AM CDT Clinical Support [facility] [place] [address] [place] [address] [facility], [facility] Nurse [place] 09/13/2025 8:40 AM JOB PRINTER APPRENTICE Lab [facility] [place] [address] [place] [address] [facility], [facility] 09/20/2025 9:30 AM JOB PRINTER APPRENTICE Office Visit [facility] [place] [address] [address] Yuni Resendiz APRN, MEDICAL BILLER [address] [place] [address] documented as of this encounter Visit Diagnoses Not on filedocumented in this encounter Additional Health Concerns Infection Onset Date Last Indicated Resolved Time COVID - 19 01/16/2023 01/16/2023 01/26/2023 12:1 6 AM CDT COVID - 19 Confirmed 01/16/2023 01/16/2023 023 12:16 AM CDT Assessment Noted Time PHQ-9 Depression Total Score: 0 07/26/20 20 8:00 AM CDT documented as of this encounter Care Teams Roaster Supervisor Relationship Specialty Start Date End Date Yuni Resendiz APRN, MEDICAL BILLER [address] [place] [address] PCP - General Advanced Practice Nurse 07/23/20 documented as of this encounter
--- OUTSIDE RECORDS SUMMARY | 2025-04-25 15:33 | XMS_ITS | Encounter Summary ---
Author Organization [facility] Address [address] [place] [place] [address] Phone Care Team Providers Care Electrostatic Powder Coating Technician Name Role Phone Yuni Resendiz APRN, CNP [facility] Reason for Visit * Reason Comments Medication Refill Encounter Details Date Type Department Care Team (Late st Contact Info) Description 04/24/2025 Refill [facility] - [place] [address] [place] [address] Yuni Resendiz APRN, CNP [address] [place] [address] Medication Refill Social History Tobacco Use Types Packs/Day Years Used Date Smoking Tobacco: Former Cigarettes 0.5 27 1 - 11/07/2004 Smokeless Tobacco: Never Comments:chews nicorette gum Alcohol Use Standard Drinks/Week Comments No 0 (1 standard drink = 0.6 oz pur e alcohol) [facility] Utilities Answer Date Recorded In the past 12 months has e electric, gas, oil, or water company threatened to shut off services in your home? Patient declined 12/30/2024 Social Connection and Isolation Panel Answer Date Recorded In a typical week, how many times do you talk on the phone with family, friends, or neighbors? Patient declined 03/13/2025 How often do you get togethe r with friends or relatives? Patient declined 03/13/2025 How often do you attend voodoo or lutheran serv ices? Patient declined 03/13/2025 Do you belong to any clubs o r organizations such as voodoo groups, unions, fraternal or athletic groups, or school groups? Patient declined 03/13/2025 How often do you attend meet ings of the clubs or organizations you belong to? Patient declined 03/13/2025 Are you , , di vorced, , never , or living with a partner? 03/13/2025 AUDIT-C Answer Date Recorded Q1: How often do you have a drink containing alcohol? Never 03/13/2025 Q2: How many drinks containi ng alcohol do you have on a typical day when you are drinking? Patient does not drink Q3: How often do you have si x or more drinks on one occasion? Never 03/13/2025 Overall Financial Resource Strain (CARDIA) Answe r Date Recorded How hard is it for you to pa y for the very basics like food, housing, medical care, and heating? Patient declined 03/13/2025 PHQ-2 Answer Date Recorded Total Score - Questions 1-9 0 1007/2024 [facility] - Occupational Stress Questionnaire Answer Date Recorded Do you feel stress - tense, restless, nervous, or anxious, or unable to sleep at night because your mind is troubled all the time - these days? Patient declined 03/13/2025 Exercise Vital Sign Answer Date Recorde d On average, how many days pe r week do you engage in moderate to strenuous exercise (like a brisk walk)? 1 day On average, how many minutes do you engage in exercise at this level? Patient declined 03/13/2025 Hunger Vital Sign Answer Date Recorded Within the past 12 months, y ou worried that your food would run out before you got the money to buy more. Patient declined Within the past 12 months, t he food you bought just didn't last and you didn't have money to get more. Patient declined 04/2025 PRAPARE - Transportation Answer Date Re corded In the past 12 months, has l ack of transportation kept you from medical appointments or from getting medications? Patient declined 03/13/2025 In the past 12 months, has l ack of transportation kept you from meetings, work, or from getting things needed for daily living? Patient declined 03/13/2025 Housing Stability Vital Sign Answer Noé e [...] place to sleep or slept in a custodial (including now)? No 02/10/2024 Housing Stability Vital Sign Answer Noé e Recorded In the last 12 months, was t here a time when you were not able to pay the mortgage or rent on time? No 04/01/2025 Number of Times Moved in the Last Year Not on fi le 04/01/2025 At any time in the past [address] [facility], were you homeless or living in a custodial (including now)? No 04/01/2025 Education Answer Date Recorded What is the [...] encounter Miscellaneous Notes * Telephone Encounter - Rosmery Peterson RN - 04/24/2025 7:54 AM CDT Medication(s) refilled and signed per [facility] Chronic Medication Refill Standing Order for Pediatricand Adult Patients. Requested Prescriptions Pending Prescriptions Disp Refills losartan (COZAAR) 50 MG Tablet [Pharmacy Med Name: LOSARTAN POTASSIUM 50 MG TAB] 90 Tablet 1 Sig: TAKE 1 TABLET BY MOUTH EVERY DAY ARB Protocol Passed - 04/24/2025 7:54 AM Passed - Serum potassium on record in past 12 months POTASSIUM Date Value Ref Range Status 03/08/2025 4.2 3.5 - 5.1 mmol/L Final Passed - BP on record in the past year Clinician-entered: BP Readings from Last 3 Encounters: 04/03/25 142/68 03/15/25 150/88 01/01/25 128/84 Patient-entered: No data recorded Passed - Visit with relevant provider in past year or upcoming 90 days Recent Visits Date Type Provider Dept 03/15/25 Office Visit Yuni Resendiz APRN, MANAGER GAS [facility] 01/01/25 Office Visit Yuni Resendiz ICT PROGRAMMER, MANAGER GAS [facility] 10/02/24 Office Visit Yuni Resendiz APRN, MANAGER GAS [facility] 09/05/24 Office Visit Yuni Resendiz ICT PROGRAMMER, MANAGER GAS [facility] 07/17/24 Office Visit Yuni Resendiz ICT PROGRAMMER, MANAGER GAS [facility] 07/06/24 Office Visit Yuni Resendiz ICT PROGRAMMER, MANAGER GAS [facility] 06/26/24 Office Visit Leatha Bolanos MD [facility] 06/05/24 Office Visit Yuni Resendiz ICT PROGRAMMER, MANAGER GAS [facility] 05/18/24 Office Visit Yuni Resendiz ICT PROGRAMMER, MANAGER GAS [facility] Showing recent visits within past 365 days and meeting all other requirements Future Appointments Date Type Provider Dept 04/30/25 Appointment Clinic, [facility] Nurse [facility] Showing future appointments within next 90 days and meeting all other requirements Passed - GFR on record in past 12 months GFR, EST. NONAFRICAN Date Value Ref Range Status 03/08/2025 >60 >=60 Final documented in this encounter Plan of Treatment Upcoming Encounters Date Type Department Care Team (Late st Contact Info) Description 04/30/2025 11:00 AM CDT Clinical Support [facility] [place] [address] [place] [address] [facility] Nurse [place] 09/13/2025 8:40 AM JIG BORE TOOL MAKER Lab [facility] [address] [place] [address] [facility] 09/20/2025 9:30 AM JIG BORE TOOL MAKER Office Visit [facility] [place] [address] [place] [address] Yuni Resendiz APRN, CNP [address] [place] [address] documented as of this encounter Goals Goal Patient Goal Type Associated Problems Recent Progress Patient-Stated? Author Help patient manage hypertension Care Plan [facility] HYPERTENSION CONCERN (PATIENT NOT ON HIGH BLOOD PRESSURE MEDICATIONS) No Yuni Enciso APRN, MANAGER GAS documented as of this encounter Visit Diagnoses Diagnosis Essential hypertension Unspecified essential hypertension documented in this encounter Additional Health Concerns Active Problems Noted Date Diagnosed Date [facility] HYPERTENSION CONCERN (P ATIENT NOT ON HIGH BLOOD PRESSURE MEDICATIONS) 10/02/2024 Assessment Noted Time PHQ-9 Depression Total Score: 0 09/05/20 24 11:31 AM CDT documented as of this encounter Care Teams Electrostatic Powder Coating Technician Relationship Specialty Start Date End Date Yuni Resendiz APRN, CNP [address] [place] [address] PCP - General Advanced Practice Nurse 07/23/20 documented as of this encounter
--- OUTSIDE RECORDS SUMMARY | 2025-04-25 15:33 | XMS_ITS | Encounter Summary ---
Author Organization [facility] Address [address] [place] [address] Phone Care Team Providers Care Director Alliance Marketing Name Role Phone Yuni Resendiz APRN, CNP Primary Care P rojanes Encounter Details Date Type Department Care Team (Late st Contact Info) Description 11/25/2020 Telephone [facility] [place] [address] [place] [address] Yuni Resendiz APRN, CNP [address] [place] [address] Social History Tobacco Use Types [...] COVID-19? No / Unsure 11/25/2020 1:12 PM BARGE LOADER documented as of this encounter Miscellaneous Notes * Telephone Encounter - Alicia Sesay RN - 11/25/2020 2:20 PM BARGE LOADER Attempted to call patient, no answer at this time. Left message to call back. E LOADER * Telephone Encounter - Alicia Sesay RN - 11/25/2020 2:19 PM BARGE LOADER Images from the original note were not included. Yuni Resendiz APN, PRICING LEAD You 19 minutes ago (1:56 PM) Increase amlodpine to 10mg. Start hctz 12.5mg daily Restart celebrex - she was on it and had elevated BP and it is still elevated when off of it, then it most likely wasn't caused by it E LOADER documented in this encounter Plan of Treatment Upcoming Encounters Date Type Department Care Team (Late st Contact Info) Description 04/30/2025 11:00 AM CDT Clinical Support [facility] [place] [address] [place] [address] [facility] Nurse [place] 09/13/2025 8:40 AM BARGE LOADER Lab [facility] [place] [address] [place] [address] [facility], [facility] 09/20/2025 9:30 AM BARGE LOADER Office Visit [facility] [place] [address] [place] [address] Yuni Resendiz APRN, PRICING LEAD [address] [place] [address] documented as of this encounter Visit Diagnoses Not on filedocumented in this encounter Additional Health Concerns Infection Onset Date Last Indicated Resolved Time COVID - 19 01/16/2023 01/16/2023 01/26/2023 12:1 6 AM CDT COVID - 19 Confirmed 01/16/2023 01/16/2023 023 12:16 AM CDT Assessment Noted Time PHQ-9 Depression Total Score: 0 07/26/20 20 8:00 AM CDT documented as of this encounter Care Teams Director Alliance Marketing Relationship Specialty Start Date End Date Yuni Resendiz APRN, PRICING LEAD [address] [place] [address] PCP - General Advanced Practice Nurse 07/23/20 documented as of this encounter
--- OUTSIDE RECORDS SUMMARY | 2025-04-25 15:33 | XMS_ITS | Encounter Summary ---
Author Organization [facility] Address [address] [place] [place] [address] Phone Care Team Providers Care Medical Facilities Section Director Name Role Phone Yuni Resendiz APRN, CNP Primary Care P [facility] Reason for Visit * Reason Comments Medication Refill Encounter Details Date Type Department Care Team (Late st Contact Info) Description 01/21/2024 Refill [facility] - Primary Care - [place] [address] [place] [address] Yuni Resendiz APRN, CNP [address] [place] [address] Medication Refill Social History Tobacco [...] encounter Miscellaneous Notes * Telephone Encounter - Valeriano, Antonio F, RN - 01/21/2024 8:51 AM CDT Medication(s) [facility] Medication Refill Standing Order for Pediatricand [...] 12/06/23 Office Visit Yuni Resendiz APRN, [facility] 07/29/23 Office Visit Yuni Resendiz APRN, [facility] 05/20/23 Office Visit Yuni Resendiz APRN, [facility] 04/09/23 Office Visit Yuni Resendiz APRN, [facility] 03/24/23 Office Visit Yuni Resendiz APRN, [facility] Showing recent visits within past 365 [...] 12/06/23 Office Visit [facility] 07/29/23 Office Visit Yuni Resendiz APRN, CNP [facility] 05/20/23 Office Visit Yuni Resendiz APRN, CNP [facility] 04/09/23 Office Visit Yuni Resendiz APRN, CNP [facility] 03/24/23 Office Visit Yuni Resendiz APRN, CNP [facility] Showing recent visits within past 365 days and meeting all other requirements Future Appointments No visits were found meeting these conditions. Showing future appointments within next 90 days and meeting all other requirements documented in this encounter Plan of Treatment Upcoming Encounters Date Type Department Care Team (Late st Contact Info) Description 04/30/2025 11:00 AM CDT Clinical Support [facility] [place] [address] [place] [address] [facility] 09/13/2025 8:40 AM RATOPRINTER Lab [facility] [address] [place] [address] [facility] 09/20/2025 9:30 AM RATOPRINTER Office Visit [facility] [address] [place] [address] Yuni Resendiz APRN, CNP [address] [place] [address] documented as of this encounter Visit Diagnoses Diagnosis Essential hypertension Unspecified essential hypertension Gastroesophageal reflux disease, unspecified whether esophagitis present documented in this encounter Additional Health Concerns Assessment Noted Time PHQ-9 Depression Total Score: 0 12/06/19 24 3:04 PM RATOPRINTER documented as of this encounter Care Teams Medical Facilities Section Director Relationship Specialty Start Date End Date Yuni Resendiz APRN, SYSTEM CONTROLLER [address] [place] [address] PCP - General Advanced Practice Nurse 07/23/20 documented as of this encounter
--- OUTSIDE RECORDS SUMMARY | 2025-04-25 15:33 | XMS_ITS | Encounter Summary ---
Author Organization [facility] Address [address] [place] [address] Care Team Providers Care Grievance Manager Name Role Phone Unavailable Primary Care Provider Unavailabl e Encounter Details Date Type Department Care Team (Late st Contact Info) Description 05/13/2020 Lab Requisition [facility] DermPath Lab [address] [place] [address] [place] [address] [place] [address] Social History Tobacco Use Types Packs/Day Years [...] AM CDT) Case Report Dermatopathology Report Case: [id number] Authorizing Provider: Kathya Thomas MD Collected: 05/09/2020 12:00 AM Ordering Location: [facility] Derm[facility] Lab Received: 05/13/2020 01:12 PM Pathologist: Jaswant Smith MD Specimen: Skin, nasal dorsum 0 1:01 PM CDT DERMATOPATHOLOGY LABORATORY Final Diagnosis Specimen A. 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 . 0 1:01 PM CDT DERMATOPATHOLOGY LABORATORY Gross Description Specimen A: Received is one formalin filled container labeled with the patient's name and designated nasal dorsum. The specimen consists of a shave biopsy measuring [id number]. Jar 0. 0 1:01 PM CDT DERMATOPATHOLOGY [...] characteristic determined by the Dermatopathology Laboratory at [facility], directed by Dr. Nicky Smith. These tests need not be, and therefore are not, approved by the [place] Food and Drug Administration. The tests are used for clinical purposes. Billing Codes Specimen Charges Stain Charges 70682 1 0 1:01 PM CDT DERMATOPATHOLOGY LABORATORY Embedded Images 0 1:01 PM CDT DERMATOPATHOLOGY LABORATORY Pathology/Cytolog y TISSUE SPECIMEN FROM SKIN / Unknown 05/09/2020 05/13/2020 1:12 PM CDT Kathya Thomas MD LAB - PATHOLOGY/CYTOLOGY ORDERABLES Final Result DERMATOPATHOLOGY LABORATORY [facility] - Department of Dermatology [facility]/[address] [phone] documented in this encounter Visit Diagnoses Not on filedocumented in this encounter
--- OUTSIDE RECORDS SUMMARY | 2025-04-25 15:33 | XMS_ITS | Encounter Summary ---
Author Organization [facility] Address [address] [place] [address] Phone Care Team Providers Care Ambulance Attendant Name Role Phone Yuni Resendiz APRN, CNP Primary Care [facility] Reason for Visit * Reason Comments Medication Refill Encounter Details Date Type Department Care Team (Late st Contact Info) Description 03/30/2023 Refill [facility] - Primary Care - [place] [address] [place] [address] Yuni Resendiz APRN, CNP [address] [place] [address] Medication Refill Social History Tobacco [...] Description 04/30/2025 11:00 AM CDT Clinical Support [facility] [place] [address] [place] [address] [facility] 09/13/2025 8:40 AM FOUR SLIDE MACHINE SETTER Lab [facility] [place] [address] [place] [address] [facility] 09/20/2025 9:30 AM FOUR SLIDE MACHINE SETTER Office Visit [facility] [place] [address] [place] [address] Yuni Resendiz APRN, ADMIN PROG COORD [address] [place] [address] documented as of this encounter Visit Diagnoses Diagnosis Seasonal allergic rhinitis, unspecified trigger documented in this encounter Additional Health Concerns Assessment Noted Time PHQ-9 Depression Total Score: 0 11/13/19 23 8:00 AM FOUR SLIDE MACHINE SETTER documented as of this encounter Care Teams Ambulance Attendant Relationship Specialty Start Date End Date Yuni Resendiz APRN, ADMIN PROG COORD [address] [place] [address] PCP - General Advanced Practice Nurse 07/23/20 documented as of this encounter
--- OUTSIDE RECORDS SUMMARY | 2025-04-25 15:33 | XMS_ITS | Encounter Summary ---
Author Organization [facility] Address [address] [place] [address] Phone Care Team Providers Care Escape Wheel Tooth Cutter Name Role Phone Yuni Resendiz APRN, CNP [facility] Reason for Visit * Reason Comments Medication Refill Encounter Details Date Type Department Care Team (Late st Contact Info) Description 12/24/2021 Refill [facility] [place] [address] [place] [address] Yuni Resendiz APRN, CNP [address] [place] [address] Medication Refill Social History Tobacco [...] Description 04/30/2025 11:00 AM CDT Clinical Support [facility] [place] [address] [place] [address] [facility], [facility] Nurse [place] 09/13/2025 8:40 AM CORPORATE SAFETY COORDINATOR Lab [facility] [place] [address] [place] [address] [facility] 09/20/2025 9:30 AM CORPORATE SAFETY COORDINATOR Office Visit [facility] [place] [address] [place] [address] Yuni Resendiz APRN, EQUAL OPPORTUNITY ASSISTANT [address] [place] [address] documented as of this encounter Visit Diagnoses Diagnosis Seasonal allergic rhinitis, unspecified trigger documented in this encounter Additional Health Concerns Infection Onset Date Last Indicated Resolved Time COVID - 19 01/16/2023 01/16/2023 01/26/2023 12:1 6 AM CDT COVID - 19 Confirmed 01/16/2023 01/16/2023 023 12:16 AM CDT Assessment Noted Time PHQ-9 Depression Total Score: 1 12/03/19 21 8:00 AM CORPORATE SAFETY COORDINATOR documented as of this encounter Care Teams Escape Wheel Tooth Cutter Relationship Specialty Start Date End Date Yuni Resendiz APRN, EQUAL OPPORTUNITY ASSISTANT [address] [place] [address] PCP - General Advanced Practice Nurse 07/23/20 documented as of this encounter
--- OUTSIDE RECORDS SUMMARY | 2025-04-25 15:33 | XMS_ITS | Encounter Summary ---
Author Organization [facility] Address [address] [place] [address] Phone Care Team Providers Care Organ Tuner Electronic Name Role Phone Yuni Resendiz APRN, CNP Primary [facility] Reason for Visit * Reason Comments Medication Refill Encounter Details Date Type Department Care Team (Late st Contact Info) Description 02/15/2022 Refill [facility] [place] [address] [place] [address] Yuni Resendiz APRN, CNP [address] [place] [address] Medication Refill Social History Tobacco [...] Description 04/30/2025 11:00 AM CDT Clinical Support [facility] [address] [place] [address] [facility] 09/13/2025 8:40 AM COMPUTER TAPE LIBRARIAN Lab [facility] [address] [place] [address] [facility] 09/20/2025 9:30 AM COMPUTER TAPE LIBRARIAN Office Visit [facility] [address] [facility] [place] [address] Yuni Resendiz APRN, ASSAULT AMPHIBIOUS VEHICLE OFFICER [address] [facility] [place] [address] documented as of this encounter Visit Diagnoses Diagnosis Seasonal allergic rhinitis, unspecified trigger documented in this encounter Additional Health Concerns Infection Onset Date Last Indicated Resolved Time COVID - 19 01/16/2023 01/16/2023 01/26/2023 12:1 6 AM CDT COVID - 19 Confirmed 01/16/2023 01/16/2023 023 12:16 AM CDT Assessment Noted Time PHQ-9 Depression Total Score: 1 12/03/19 21 8:00 AM COMPUTER TAPE LIBRARIAN documented as of this encounter Care Teams Organ Tuner Electronic Relationship Specialty Start Date End Date Yuni Resendiz APRN, ASSAULT AMPHIBIOUS VEHICLE OFFICER [address] [place] [address] PCP - General Advanced Practice Nurse 07/23/20 documented as of this encounter
--- OUTSIDE RECORDS SUMMARY | 2025-04-25 15:33 | XMS_ITS | Clinical Summary ---
Author Organization [facility] Address [address] [address] Phone Care Team Providers Care Reconciliation Specialist Name Role Phone Yuni Resendiz APRN, VALE [...] IN EACH EYE ONCE DAILY AT BEDTIME 10/08/20 22 Active Cholecalciferol (Vitamin D3) 25 MCG (1000 UT) Capsule Take 2,000 Units by mouth. Active fluticasone (FLONASE) 50 MCG/ACT SuspensionIndic ations:Seasonal allergic rhinitis, unspecified trigger 2 Sprays by Nasal route daily. Use in each nostril as directed. 48 mL 05/05/20 23 Active cetirizine (ZyrTEC) 10 MG Tablet Take 1 Tablet by mouth daily. 90 Tablet 1 01/11/20 24 Active [place]-3 Fatty Acids (FISH OIL PO) Take by mouth daily. Active MAGNESIUM PO Take by mouth daily. Active Calcium Carbonate (CALCIUM 500 PO) Take by mouth in the morning and at bedtime. Active nystatin (MYCOSTATIN) 697907 UNIT/GM OintmentIndicat ions:Candidiasi s of breast Apply 4 times daily. Apply to rash under breast until resolved. 30 g 1 07/17/20 24 Active diclofenac (VOLTAREN) 50 MG Tablet Delayed ResponseIndicat ions:Chronic bilateral low back pain without sciatica,Lumbar spondylolysis,C hronic pain of both lower extremities Take 1 Tablet by mouth 3 times daily. 270 Tablet 1 10/02/20 24 Active Additional Information Patient not taking.Reported on 04/04/2025 omeprazole (PriLOSEC) 20 MG CAPSULE DELAYED RELEASEIndicati ons:Gastroesoph ageal reflux disease, unspecified whether esophagitis present TAKE 1 CAPSULE BY MOUTH EVERY DAY 90 Capsule 1 10/06/20 24 Active montelukast (SINGULAIR) 10 MG TabletIndicatio ns:Seasonal allergic rhinitis, unspecified trigger TAKE 1 TABLET BY MOUTH EVERY DAY IN THE EVENING 90 Tablet 1 12/02/19 25 Active buPROPion (WELLBUTRIN) 150 MG XL tabletIndicatio ns:Anxiety with depression TAKE 1 TABLET BY MOUTH EVERY DAY IN THE MORNING 90 Tablet 1 03/19/20 25 Active rosuvastatin (CRESTOR) 20 MG TabletIndicatio ns:Dyslipidemia TAKE 1 TABLET BY MOUTH EVERY DAY 90 Tablet 2 03/29/20 25 Active celecoxib (CeleBREX) 200 MG Capsule Take 1 Capsule by mouth 2 times daily. 180 Capsule 3 04/05/20 25 Active carvedilol (COREG) 12.5 MG TabletIndicatio ns:Primary hypertension Take 1 Tablet by mouth 2 times daily. 180 Tablet 3 04/04/20 25 Active losartan (COZAAR) 50 MG TabletIndicatio ns:Essential hypertension TAKE 1 TABLET BY MOUTH EVERY DAY 90 Tablet 1 04/24/20 25 Active rosuvastatin (CRESTOR) 20 MG TabletIndicatio ns:Dyslipidemia Take 1 Tablet by mouth daily. 90 Tablet 3 06/05/20 24 2024 Discontinued carvedilol (COREG) 12.5 MG TabletIndicatio ns:Essential hypertension Take 0.5 Tablets by mouth 2 times daily. 180 Tablet 3 07/17/20 24 2024 Discontinued(D ose adjustment) losartan (COZAAR) 50 MG TabletIndicatio ns:Essential hypertension TAKE 1 TABLET BY MOUTH EVERY DAY 90 Tablet 1 11/06/20 24 2024 Discontinued celecoxib (CeleBREX) 200 MG Capsule Take 200 mg by mouth 2 times daily. 2024 Discontinued(R eorder) Active Problems Problem Noted Date Diagnosed Date [...] back Discussed importance of core stability in [facility] relief of pain Handout given Refill flexeril Osteopenia 04/09/2014 Overview (07/26/2020): Note: Dexa - pcp Dyslipidemia Seasonal allergic rhinitis Arthritis HTN (hypertension) Resolved Problems Problem Noted Date Diagnosed Date Resolved Date Arthralgia 12/06/2023 Encounters Date Type Department Care Team Description 04/24/2025 Refill [facility] - [place] - [place] [address] [place] [address] Yuni Resendiz APRN, VALE Medication Refill 04/03/2025 11:20 AM CDT Clinical Support [facility] - Primary Care - [place] [address] [place] [phone] [facility] Nurse Primary hypertension (Primary Dx) Discharge Disposition: Discharged to home or Selfcare 04/01/2025 Travel 03/28/2025 Refill [place] [address] [place] [address] Yuni Resendiz APRN, CNP Medication Refill 03/19/2025 Refill [place] [address] [place] [address] Yuni Resendiz APRN, CNP Medication Refill 03/15/2025 9:15 AM CDT Office Visit [place] [address] [place] [address] Yuni Resendiz APRN, CNP Primary hypertension (Primary Dx); Dyslipidemia; Vitamin D deficiency; Seasonal allergic rhinitis, unspecified trigger; Hyperglycemia; Anxiety with depression; Neuropathy Discharge Disposition: Discharged to home or Selfcare 03/13/2025 Travel 03/08/2025 8:30 AM CDT Lab [place] [address] [place] [place] [address] [facility] Primary hypertension; Dyslipidemia; Arthralgia of both knees; Anxiety with depression; Chronic bilateral low back pain without sciatica; IFG (impaired fasting glucose); Vitamin D deficiency; Vitamin B 12 deficiency Discharge Disposition: Discharged to home or Selfcare 03/08/2025 Results Follow-Up [place] [address] [facility] [place] [address] Yuni Resendiz APRN, CNP CMP (COMPREHENSIVE METABOLIC PANEL), LIPID PANEL, THYROID STIMULATING HORMONE (TSH), Additional followed-up results: 2 03/06/2025 Travel from Last 3 Months Immunizations Immunization Administration Dates Next Due COVID-19, MRNA, LNP-S, BIVAL ENT , PFIZER, 30 MCG/0.3 ML (12+ Y/O) 11/17/2022 Covid-19, Mrna, Lnp-s, PF, 1 00 mcg/0.5 mL Dose (Moderna) 10/20/2021,02/07/2021,01/10/2021 Covid-19, Mrna, Lnp-s, Pf, 3 0 Mcg/0.3 Ml Dose (Pfizer) 07/28/2024 Covid-19, Mrna, Lnp-s, Pf, Luis-sucrose, 30 Mcg/0.3 Ml (Pfizer) 07/28/2024 Influenza Vaccine, Quadrivalent, PF 11/0 [...] drink = 0.6 oz pur e alcohol) [facility] Utilities Answer Date Recorded In the past 12 months has [employer], gas, oil, or water [employer] threatened to shut off services in your home? Patient declined 12/30/2024 Social Connection and Isolation Panel Answer Date Recorded In a typical week, how many times do you talk on the phone with family, friends, or neighbors? Patient declined 03/13/2025 How often do you get togethe r with friends or relatives? Patient declined 03/13/2025 How often do you attend episcopalian or islam serv ices? Patient declined 03/13/2025 Do you belong to any clubs o r organizations such as episcopalian groups, unions, fraternal or athletic groups, or [...] Recorded Total Score - Questions 1-9 0 10/2 07/2024 [facility] - Occupational Stress Questionnaire Answer Date Recorded [...] place to sleep or slept in a fci (including now)? No 02/10/2024 Housing Stability Vital Sign Answer Noé e Recorded In the last 12 months, was t here a time when you were not able to pay the mortgage or rent on time? No 04/01/2025 Number of Times Moved in the Last Year Not on fi le 04/01/2025 At any time in the past 12 [facility], were you homeless or living in a fci (including now)? No 04/01/2025 Education Answer Date [...] Sign Reading Time Taken Comments Blood Pressure 142/68 04/03/2025 11:15 AM CDT Pulse 52 04/03/2025 11:15 AM CDT Temperature 36.5 C (97.7 F) 03/15/2025 9:10 AM CDT Respiratory Rate 18 03/15/2025 9:10 AM CDT Oxygen Saturation 99% 04/03/2025 11:15 AM CDT Inhaled Oxygen Concentration - - Weight 72.1 kg (159 lb) 03/15/2025 9:10 AM CDT Height 152.4 cm (5') 03/15/2025 9:10 AM CDT Body Mass Index 31.05 03/15/2025 9:10 AM CDT Plan of Treatment Upcoming Encounters Date Type Department Care Team (Late st Contact Info) Description 04/30/2025 11:00 AM CDT Clinical Support [facility] [address] [place] [phone] [facility] Nurse [place] 09/13/2025 8:40 AM WOOD GRINDER Lab [facility] [address] [place] [phone] [facility] 09/20/2025 9:30 AM WOOD GRINDER Office Visit [facility] [address] [place] [phone] Yuni Resendiz APRN, PIPE FINISHING SUPERVISOR [address] [place], [place] [phone] Health Maintenance Due Date Last Done Comments TdaP Immunization 1950 Cologuard 1995 Immunochemical Fecal Occult Blood 1995 Hepatitis B Immunization (1 of 3 - Risk 3-dose series) 2010 Discussion re Stopping Mammograms 2025 Respiratory Syncytial Virus (RSV) Immunization (Adult) (1 - 1-dose 75+ series) 2025 Mammogram 07/03/2025 07/03/2024, 08, 06/17/2022, Additional history exists DEXA Bone Density 02/06/2026 02/07/2024, , 12/03/2016, Additional history exists Colonoscopy 01/16/2029 01/16/2019 Colorectal Cancer Screening 01/16/2029 Pneumococcal Immunization (50+ years) Completed 07/26/2019, 11/30/2017, 02/06/2009 Pneumococcal Immunization Combined Discontinued 07/26/2019, 11/30/2017, 02/06/2009 Zoster Immunization Completed 03/01/2023, Hepatitis C Virus (HCV) Screening Completed 05/13/2023 Influenza Immunization Completed , 07/15/2023, 07/28/2022, Additional history exists SARS-COV-2 Immunization Discontinued 07/28/20 24, 07/28/2024, 09/23/2023, Additional history exists Human Papillomavirus (HPV) Immunization Aged Out No longer eligible based on patient's age to complete this topic Meningococcal Immunization (ACWY) Aged Out No longer eligible based on patient's age to complete this topic Rotavirus Immunization Aged Out No lo nger eligible based on patient's age to complete this topic Goals Goal Patient Goal Type Associated Problems Recent Progress Patient-Stated? Author Help patient manage hypertension Care Plan [facility]P HYPERTENSION CONCERN (PATIENT NOT ON HIGH BLOOD PRESSURE MEDICATIONS) No Yuni Enciso, PERSONAL COMPUTER SPECIALIST, PIPE FINISHING SUPERVISOR Procedures Procedure Name Priority Date/Time Associated Diagnosis Comments CBC WITH AUTO DIFFERENTIAL Routine 03/08/2025 8:24 AM CDT Primary hypertension Dyslipidemia Arthralgia of both knees Anxiety with depression Chronic bilateral low back pain without sciatica VITAMIN B12 Routine 03/08/2025 8:24 AM CDT Vitamin B 12 deficiency VITAMIN D, 25 HYDROXY TOTAL Routine 03/08/2025 8:24 AM CDT Vitamin D deficiency HEMOGLOBIN A1C W/ ESTIMATED GLUCOSE Routine 03/08/2025 8:24 AM CDT IFG (impaired fasting glucose) THYROID STIMULATING HORMONE (TSH) Routine 03/08/2025 8:24 AM CDT Primary hypertension Dyslipidemia Arthralgia of both knees Anxiety with depression Chronic bilateral low back pain without sciatica LIPID PANEL Routine 03/08/2025 8:24 AM CDT Primary hypertension Dyslipidemia Arthralgia of both knees Anxiety with depression Chronic bilateral low back pain without sciatica COMPLETE BLOOD COUNT (CBC) WITH DIFF Routine 03/08/2025 8:24 AM CDT Primary hypertension Dyslipidemia Arthralgia of both knees Anxiety with depression Chronic bilateral low back pain without sciatica CMP (COMPREHENSIVE METABOLIC PANEL) Routine 03/08/2025 8:24 AM CDT Primary hypertension Dyslipidemia Arthralgia of both knees Anxiety with depression Chronic bilateral low back pain without sciatica EKG SCAN 02/07/2025 12:00 AM CDT GLUCOSE 02/07/2025 12:00 AM CDT LAB - MISCELLANEOUS 02/07/2025 1 2:00 AM CDT HEMOGLOBIN & HEMATOCRIT (H&H) 02/07/2025 12:[address] - LOWER EXTREMITY 02/07/2025 12:00 AM CDT XR - LOWER EXTREMITY 01/29/2025 12:00 AM CDT MAMMOGRAM BILATERAL GENERIC 07/03/2024 12:00 AM CDT GUSTAVO BONE DENSITOMETRY AXIAL SKELETON Routine 02/07/2024 10:30 AM CDT Postmenopausal HEPATITIS C ANTIBODY Routine 05/13/2023 7:56 AM CDT Encounter for HCV screening test for low risk patient from Last 3 Months or Most Recently Relevant to Health Maintenance Results * VITAMIN D, 25 HYDROXY TOTAL (03/08/2025 8:24 AM CDT) VITAMIN D, 25 HYDROX 43.8 ng/mL 03/08/2025 1:28 PM CDT [facility] Blood Venipuncture / Unknown 03/08/2025 8:24 AM CDT 03/08/2025 8:24 AM CDT Narrative [facility] - 03/08/2025 1:28 PM CDT Published reference ranges for Vitamin D vary depending on time and place and method of testing, and on patient's age, sex, ethnicity and levels of other measured analytes such as parathormone, calcium and phosphorus. The result should be evaluated in conjunction with clinical findings and suspicions. [place] [employer] and Endocrine Clinical Practice Guidelines: Status Vitamin D levels (ng/mL) Deficient <=20 At risk of inadequacy 21-29 Sufficient 30-100 Centers of Disease Control and Prevention Guidelines: Status Vitamin D levels (ng/mL) Deficient <13 At risk of inadequacy 13-19 Sufficient 20-50 Possibly harmful >50 References: [place] [employer], 2010 Dietary reference intakes for calcium and vitamin D. [place]: The National Academies Press. Yousif Michaud, Lani Corona, Venus ISBELL, et al., Evaluation, treatment, and prevention of Vitamin D deficiency: an Endocrinology Clinical Practice Guideline. JCEM 2011 96: 7 2734-8090. Leslie A, Jareth C, Fifi D, et al., Vitamin D Status: [place], 0561-9695, [facility] data brief, no. 59, MD Jeremie: [facility] for [facility] Statistics. 2011. Yuni Resendiz APRN, VALE CHEMISTRY ORDER CHELI Final Result Performing Organization Address City/[facility]/ZIP Co de Phone Number [facility] [address] [place] [address] * HEMOGLOBIN A1C W/ ESTIMATED GLUCOSE (03/08/2025 8:24 AM CDT) HGB-A1C 6.0 4.0 - 6.0 % 03/08/2025 1:[address] [facility] Est Average Glucose 125.5 mg/dL 03/08/2025 1:[address] [facility] Blood Venipuncture / Unknown 03/08/2025 8:24 AM CDT 03/08/2025 8:[address] [facility] - 03/08/2025 1:01 PM CDT HEMOGLOBIN A1C: DIABETIC PATIENTS: WELL-CONTROLLED: 6.2 - 7.0 INTERMEDIATE WELL-CONTROLLED: 7.0 - 9.0 POORLY-CONTROLLED: >9.0 Specimens containing greater than 5% of Hemoglobin F may result in lower than expected % HbA1C results. us Yuni Resendiz APRN, VALE CHEMISTRY ORDER CHELI Final Result Performing Organization Address City/[facility]/ZIP Co de Phone Number [facility] [address] [place] [address] * (ABNORMAL) CBC WITH AUTO DIFFERENTIAL (03/08/2025 8:24 AM CDT) WBC 5.29 4.00 - 12.00 10(3)/mcL 03/08/2025 12:38 PM CDT [facility] RBC 4.74 3.80 - 5.30 10(6)/[facility] 03/08/2025 12:[address] [facility] HEMOGLOBIN (HGB) 14.5 12.0 - 15.8 g/dL 03/08/2025 12:[address] [facility] HEMATOCRIT (HCT) 44.3 36.0 - 47.0 % 03/08/2025 12:38 PM CDT [facility] MCV 93.5 82.0 - 96.0 fL 03/08/2025 12:[address] [facility] MCH 30.6 26.0 - 34.0 pg 03/08/2025 12:[address] [facility] MCHC 32.7 31.0 - 36.0 g/dL 03/08/2025 12:[address] [facility] PLATELET COUNT 319 140 - 440 10(3)/[facility] 03/08/2025 12:[address] [facility] RDW 12.7 11.8 - 15.5 % 03/08/2025 12:[address] [facility] MPV 9.6(L) 9.7 - 12.4 fL 03/08/2025 12:[address] [facility] NEUTROPHILS 65.2 47.0 - 73.0 % 03/08/2025 12:38 PM CDT [facility] LYMPHOCYTES 22.1 18.0 - 42.0 % 03/08/2025 12:[address] [facility] MONOCYTES 8.1 4.0 - 12.0 % 03/08/2025 12:[address] [facility] EOSINOPHILS 3.8 0.0 - 5.0 % 03/08/2025 12:[address] [facility] BASOPHILS 0.8 0.0 - 1.0 % 03/08/2025 12:[address] [facility] ABSOLUTE NEUTROPHILS 3.45 1.60 - 7.70 10(3)/mcL 03/08/2025 12:38 PM CDT [facility] ABSOLUTE LYMPHOCYTES 1.17(L) 1.30 - 3.20 10(3)/[facility] 03/08/2025 12:38 PM CDT [facility] ABSOLUTE MONOCYTES 0.43 0.20 - 1.00 10(3)/[facility] 03/08/2025 12:38 PM CDT [facility] ABSOLUTE EOSINOPHIL 0.20 0.00 - 0.40 10(3)/[facility] 03/08/2025 12:38 PM CDT [facility] ABSOLUTE BASOPHILS 0.04 0.00 - 0.10 10(3)/[facility] 03/08/2025 12:38 PM CDT [facility] NRBC PER 100 WBC 0 03/08/20 12:38 PM CDT [facility] Blood Venipuncture / Unknown 03/08/2025 8:24 AM CDT 03/08/2025 8:24 AM CDT us Yuni Resendiz APRN, VALE HEMATOLOGY ORDE RABLES Final Result [facility] [address] [place] [address] * (ABNORMAL) VITAMIN B12 (03/08/2025 8:24 AM CDT) VITAMIN B12 1,113(H) 213 - 816 pg/mL 03/08/2025 1:28 PM CDT [facility] Blood Venipuncture / Unknown 03/08/2025 8:24 AM CDT 03/08/2025 8:24 AM CDT us Yuni Resendiz APRN, PIPE FINISHING SUPERVISOR CHEMISTRY ORDER CHELI Final Result [facility] [address] [place] [address] * THYROID STIMULATING HORMONE (TSH) (03/08/2025 8:24 AM CDT) TSH 2.572 0.300 - 5.000 mIU/L 03/08/2025 1:[address] [facility] Blood Venipuncture / Unknown 03/08/2025 8:24 AM CDT 03/08/2025 8:24 AM CDT us Yuni Resendiz PERSONAL COMPUTER SPECIALIST, PIPE FINISHING SUPERVISOR CHEMISTRY ORDER CHELI Final Result [facility] [address] [place] [address] * (ABNORMAL) LIPID PANEL (03/08/2025 8:24 AM CDT) CHOLESTEROL 195 <200 mg/dL 03/08/2025 1:[address] [facility] TRIGLYCERIDES 106 <150 mg/dL 03/08/2025 1:[address] [facility] HDL CHOLESTEROL 53 >40 mg/dL 1:[address] [facility] LDL 121 <130 mg/dL 03/08/2025 1:[address] [facility] VLDL 21 10 - 50 mg/dL 03/08/2025 1:[address] [facility] CHOL/HDL RATIO 3.7 0.0 - 4.4 03/08/2025 1:[address] [facility] NON-HDL CHOLESTEROL 142(H) <130 mg/dL 03/08/2025 1:[address] [facility] IS THE PATIENT REQUIRED TO BE FASTING? Yes 03/08/2025 1:[address] [facility] HAS THE PATIENT BEEN FASTING? Yes 03/08/2025 1:[address] [facility] Blood Venipuncture / Unknown 03/08/2025 8:24 AM CDT 03/08/2025 8:24 AM CDT us Yuni Resendiz APRN, CNP CHEMISTRY ORDER CHELI Final Result [facility] [address] [place] [address] * (ABNORMAL) CMP (COMPREHENSIVE METABOLIC PANEL) (03/08/2025 8:24 AM CDT) SODIUM 137 136 - 145 mmol/L 03/08/2025 1:[address] [facility] POTASSIUM 4.2 3.5 - 5.1 mmol/L 03/08/2025 1:[address] [facility] CHLORIDE 105 98 - 107 mmol/L 03/08/2025 1:[address] [facility] CO2, VENOUS 25 22 - 30 mmol/L 03/08/2025 1:[address] [facility] ANION GAP 11.2 <18.0 mmol/L 03/08/2025 1:[address] [facility] GLUCOSE 120(H) 70 - 99 mg/dL 03/08/2025 1:[address] [facility] BUN 15 10 - 20 mg/dL 03/08/2025 1:[address] [facility] CREATININE, BLOOD 0.77 0.60 - 1.00 mg/dL 03/08/2025 1:[address] [facility] BUN/CREATININE RATIO 19 12 - 20 ratio 03/08/2025 1:[address] [facility] TOTAL PROTEIN 6.6 6.0 - 8.0 g/dL 03/08/2025 1:[address] [facility] ALBUMIN 3.9 3.5 - 5.0 g/dL 03/08/2025 1:[address] [facility] A/G RATIO 1.4 1.0 - 2.2 03/08/2025 1:06 PM CDT [facility] CALCIUM 8.9 8.7 - 10.5 mg/dL 03/08/2025 1:06 PM CDT [facility] T BILI 0.4 0.2 - 1.2 mg/dL 03/08/2025 1:06 PM CDT [facility] SGOT (AST) 25 <43 U/L 03/08/2025 1:06 PM CDT [facility] SGPT (ALT) 20 <56 U/L 03/08/2025 1:06 PM CDT [facility] ALKALINE PHOSPHATASE 67 40 - 150 U/L 03/08/2025 1:[address] [facility] IS THE PATIENT REQUIRED TO BE FASTING? No 03/08/2025 1:[address] [facility] GFR, ESTIMATED >60 >=60 03/08/2025 1:[address] [facility] Comment: Creatinine Clearance is the preferred criteria for selecting drug dose adjustments in renally impaired patients. The GFR is provided as additional pertinent clinical information. GFR is reported in mL/min/1.73 sq m. Calculation based on the Chronic Kidney Disease Epidemiology Collaboration (CKD- EPI) equation refit without adjustment for race. GFR, EST. >60 >=60 025 1:[address] [facility] GFR, EST. NONAFRICAN >60 >=60 03/08/2025 1:[address] [facility] Blood Venipuncture / Unknown 03/08/2025 8:24 AM CDT 03/08/2025 8:24 AM CDT us Yuni Resendiz APRN, CNP CHEMISTRY ORDER CHELI Final Result [facility] [address] [place] [address] * EKG SCAN (02/07/2025 12:00 AM CDT) 02/07/2025 us Provider Scan IMG ECG ORDERABLES Final Result Performing Organization Address [facility] de Phone Number RESULTING AGENCY * CT - LOWER EXTREMITY (02/07/2025 12:00 AM CDT) 02/07/2025 us Provider Scan IMG CT ORDERABLES Final Result Performing Organization Address [facility] de Phone Number SCAN * LAB - MISCELLANEOUS (02/07/2025 12:00 AM CDT) 02/07/2025 us Provider Scan CHEMISTRY ORDERABLES Final Resul t Performing Organization Address [facility] de Phone Number SCAN * HEMOGLOBIN & HEMATOCRIT (H&H) (02/07/2025 12:00 AM CDT) 02/07/2025 us Provider Scan HEMATOLOGY ORDERABLES Final Resu lt Performing Organization Address [facility] de Phone Number SCAN * GLUCOSE (02/07/2025 12:00 AM CDT) 02/07/2025 us Provider Scan CHEMISTRY ORDERABLES Final Resul t Performing Organization Address [facility] de Phone Number SCAN * XR - LOWER EXTREMITY (01/29/2025 12:00 AM CDT) 01/29/2025 us Provider Scan IMG DIAGNOSTIC ORDERABLES Final Result Performing Organization Address [facility] de Phone Number SCAN * MAMMOGRAM BILATERAL MISCELLANEOUS (07/03/2024 12:00 AM CDT) 07/03/2024 us Provider Scan IMG MAMMO ORDERABLES Final Resul t SCAN * [facility] BONE DENSITOMETRY AXIAL SKELETON (02/07/2024 10:30 AM [...] Narrative 02/07/2024 11:05 AM CDT EXAM DESCRIPTION: [facility] BONE DENSITOMETRY AXIAL SKELETON REASON FOR STUDY: 73 y/o year old F with given history of: Post menopausal status. Patient has taken/is taking vitamin-D, multivitamin and calcium. Drawer Upfitter/Model: [employer] (S/N [id number]) CLINICAL INFORMATION: Current height: 60 inches Maximum [...] Birgit Umaña M.D. TW: TW Report ID: [id number] Reading Location: [place] [address] Procedure Note Birgit Umaña MD - 02/07/2024 EXAM DESCRIPTION: GUSTAVO BONE DENSITOMETRY AXIAL SKELETON REASON FOR STUDY: 73 y/o year old F with given history of: Post menopausal status. Patient has taken/is taking vitamin-D, multivitamin and calcium. Drawer Upfitter/Model: [employer] (S/N [id number]) CLINICAL INFORMATION: Current height: 60 inches Maximum [...] Birgit Umaña M.D. TW: TW Report ID: [id number] Reading Location: [id number] IMPRESSION: Low bone mass REFERENCE: Bone mineral [...] to Prevention and Treatment of Osteoporosis (http://www.nof.org/professionals/clinical-guidelines) Yuni Resendiz APRN, CNP IMG DEXA ORDERA BLES Final Result * HEPATITIS C ANTIBODY (05/13/2023 7:56 AM CDT) hepatitis C antibody 0.07 <1 S/[facility] ARCH [id number] B 05/14/2023 12:33 PM CDT [facility] Comment: Signal/Cutoff ratio < 0.79 is Nondetected Signal/Cutoff ratio 0.80-0.99 is Grayzone Signal/Cutoff ratio > 0.99 is Detected Supplemental assays are recommended if signal/cutoff ratio is >/=1.00. Signal/cutoff ratio result >/= 5.00 is 97% predictive of positivity for recombinant immunoblot assay (RIBA) and will be reported to the [place] Department of Public Health as required. Blood Venipuncture / Unknown 05/13/2023 7:56 AM CDT 05/13/2023 7:56 AM CDT us Yuni Resendiz APRN, CNP CHEMISTRY ORDER CHELI Final Result [facility] [address] [place] [address], [place] from Last 3 Months or Most Recently Relevant to Health Maintenance Additional Health Concerns Active Problems Noted Date Diagnosed Date MCCP HYPERTENSION CONCERN (P ATIENT NOT ON HIGH BLOOD PRESSURE MEDICATIONS) 10/02/2024 Insurance MEDICARE C [employer] [place] MED[employer] Care Teams Reconciliation Specialist Relationship Specialty Start Date End Date Yuni Resendiz APRN, PIPE FINISHING SUPERVISOR [address] [place] [address] PCP - General Advanced Practice Nurse 07/23/20
--- OUTSIDE RECORDS SUMMARY | 2025-04-25 15:33 | XMS_ITS | Encounter Summary ---
Author Organization [facility] Address [address] [place] [address] Phone Care Team Providers Care Chief Architect Name Role Phone Yuni Resendiz APRN, CNP [facility] Reason for Visit * Reason Comments Medication Refill Encounter Details Date Type Department Care Team (Late st Contact Info) Description 11/07/2023 Refill [facility] - Primary Care - [place] [address] [place] [address] Yuni Resendiz APRN, CNP [address] [place] [address] Medication Refill Social History Tobacco [...] Miscellaneous Notes * Telephone Encounter - Antonio Bla RN - 11/09/2023 10:43 AM CST Refill requested too soon. RGRADUATE ADVISOR documented in this encounter Plan of Treatment Upcoming Encounters Date Type Department Care Team (Late st Contact Info) Description 04/30/2025 11:00 AM CDT Clinical Support [facility] [place] [address] [place] [address] [facility] 09/13/2025 8:40 AM UNDERGRADUATE ADVISOR Lab [facility] [place] [address] [place] [address] [facility] 09/20/2025 9:30 AM UNDERGRADUATE ADVISOR Office Visit [facility] [place] [address] [facility] [place] [address] Yuni Resendiz APRN, VALE [address] [place] [address] documented as of this encounter Visit Diagnoses Diagnosis Seasonal allergic rhinitis, unspecified trigger documented in this encounter Additional Health Concerns Assessment Noted Time PHQ-9 Depression Total Score: 0 11/13/19 23 8:00 AM UNDERGRADUATE ADVISOR documented as of this encounter Care Teams Chief Architect Relationship Specialty Start Date End Date Yuni Resendiz APRN, VALE [address] [place] [address] PCP - General Advanced Practice Nurse 07/23/20 documented as of this encounter
--- OUTSIDE RECORDS SUMMARY | 2025-04-25 15:33 | XMS_ITS | Clinical Summary ---
Author Organization [facility] Address [address] [place] [address] Phone Care Team Providers Care Stonecutter Assistant Name Role Phone Roman Fragoso DO Primary [...] DO Referring Provider: Estella Fernandez MD [address] [address] Other: Problem Noted Date Diagnosed Date Abnormal [...] on file Legal Sex Female 5:42 AM GARAGE ATTENDANT Gender Identity Not on file Sexual Orientation [...] 10:16 AM CDT Height 160 cm (5' 3) 04/19/2015 10:16 AM CDT Body Mass Index [...] MEDICARE PART A AND B Care Teams Stonecutter Assistant Relationship Specialty Start Date End Date Roman Fragoso DO PCP - General 06/14/09
[2025-04-25 16:24] LABS: MRSA (PCR) NOT DETECTED (NOT DETECTE)
== END 2025-04-25 13:47 | disposition home or self-care (01) ==
LOC: ANHSURGERY 13:52
PROVIDERS: Visit Provider Orthopaedic Surgery
DX: Z01.812 Encounter for preprocedural laboratory examination (principal); M17.12 Unilateral primary osteoarthritis, left knee
CPT/HCPCS: 80307; 82040; 82565; 82947; 83036; 85025; 87641

== ENCOUNTER 2025-05-28 11:48 | Outpatient (CLI) | payer MEDICARE, SELFPAY ==
--- OUTSIDE RECORDS SUMMARY | 2025-05-28 11:51 | XMS_ITS | Clinical Summary ---
Author Organization [facility] Address [address] [place] [address] Care Team Providers Care Chaperone Name Role Phone Jocelyn Vázquez MD Primary Care Provider [phone] Allergies Active Allergy Reactions Criticality Noted Date [...] on file Legal Sex Female 5:09 PM WELL SERVICE PUMP EQUIPMENT OPERATOR Gender Identity Not on file Sexual [...] Not on file Insurance MEDICARE Care Teams Chaperone Relationship Specialty Start Date End Date Jocelyn Vázquez [place] [address] [address] PCP - General Family Medicine 05/28/17
--- OUTSIDE RECORDS SUMMARY | 2025-05-28 11:51 | XMS_ITS | Encounter Summary ---
Author Organization [facility] Address [address] [place] [address] Phone Care Team Providers Care Actor Understudy Name Role Phone Yuni Resendiz APRN, CNP [facility] Antonio Bal RN Unavailable Unavailable Reason for Visit * Reason Comments Medication Refill Encounter Details Date Type Department Care Team (Late st Contact Info) Description 05/14/2021 Refill [facility] [address] [place] [address] Yuni Resendiz APRN, TELECOMMUNICATIONS FACILITY EXAMINER [address] [place] [address] Medication Refill Social History Tobacco [...] Care Team (Late st Contact Info) Description 06/15/2025 9:00 AM CDT Clinical Support [facility] [place] [address] [place] [address] [facility] 09/13/2025 8:40 AM ACCOUNT SERVICES REPRESENTATIVE Lab [facility] - [address] [id number] [facility] 09/20/2025 9:30 AM ACCOUNT SERVICES REPRESENTATIVE Office Visit [facility] [place] [address] [place] [address] Yuni Resendiz APRN, CNP [address] [place], [place] [id number] documented as of this encounter Visit Diagnoses Diagnosis Seasonal allergic rhinitis, unspecified trigger documented in this encounter Additional Health Concerns Infection Onset Date Last Indicated Resolved Time COVID - 19 01/16/2023 01/16/2023 01/26/2023 12:1 6 AM CDT COVID - 19 Confirmed 01/16/2023 01/16/202302/05/ 023 12:16 AM CDT Assessment Noted Time PHQ-9 Depression Total Score: 1 12/03/19 21 8:00 AM ACCOUNT SERVICES REPRESENTATIVE documented as of this encounter Care Teams Actor Understudy Relationship Specialty Start Date End Date Yuni Resendiz APRN, CNP [address] [place] [address] PCP - General Advanced Practice Nurse 07/23/20 Antonio Bal, RN [place] Registered Nurse 05/24/25 documented as of this encounter
--- OUTSIDE RECORDS SUMMARY | 2025-05-28 11:51 | XMS_ITS | Referral Summary ---
Author Organization [facility] Address [address] [place] [address] Care Team Providers Care Jail Keeper Name Role Phone Jocelyn Vázquez MD Primary Care Provider [phone] Allergies Active Allergy Reactions Criticality Noted Date [...] back Discussed importance of core stability in penitentiary relief of pain Handout given Refill flexeril [...] on file Legal Sex Female 5:09 PM INDEPENDENT LIVING INSTRUCTOR Gender Identity Not on file Sexual Orientation [...] Not on file Insurance MEDICARE Care Teams Jail Keeper Relationship Specialty Start Date [place] Date Jocelyn Vázquez [place] [address] [address] PCP - General Family Medicine 05/28/17
--- OUTSIDE RECORDS SUMMARY | 2025-05-28 11:51 | XMS_ITS | Encounter Summary ---
Author Organization [facility] Address [address] [place] [address] Phone Care Team Providers Care Ground Support Agent Name Role Phone Yuni Resendiz APRN, CNP Primary Care P [facility] Antonio Bal RN Unavailable Unavailable Reason for Visit * Reason Comments Medication Refill Encounter Details Date Type Department Care Team (Late st Contact Info) Description 04/27/2024 Refill [facility] - [place] [address] [place] [address] Yuni Resendiz APRN, CNP [address] [place] [address] Medication Refill Social History Tobacco Use Types Packs/Day Years Used Date Smoking Tobacco: Former Cigarettes 0.5 27 1 - 11/07/2004 Smokeless Tobacco: Never Comments:chews nicorette gum Alcohol Use Standard Drinks/Week Comments No 0 (1 standard drink = 0.6 oz pur e alcohol) [facility] Utilities Answer Date Recorded In the past 12 months has [employer] electric, gas, oil, or water company threatened [...] How often do you attend chur or episcopal services? 1 to 4 times per year 02/10/2024 Do you belong to any clubs o r organizations such as amish groups, unions, fraternal or athletic groups, or [...] Total Score - Questions 1-9 0 11/09 [facility] - Occupational Stress Questionnaire Answer Date [...] place to sleep or slept in a alf (including now)? No 02/10/2024 Education Answer Date [...] 04/20/24 Office Visit Antonella Gupta APRN, VALE [facility] 02/10/24 Office Visit Yuni Resendiz APRN, VALE [facility] 12/06/23 Office Visit Yuni Resendiz APRN, VALE [facility] Showing recent visits within past 182 days and meeting all other requirements Future Appointments Date Type Provider Dept 05/15/24 Appointment Clinic, [facility] Nurse [facility] 05/29/24 Appointment Lab, [facility] 06/05/24 Appointment Yuni Resendiz APRN, VALE [facility] Showing future appointments within next 90 days and meeting all other requirements Passed - Patient has established therapy with Bupropion for at least 6 months documented in this encounter Plan of Treatment Upcoming Encounters Date Type Department Care Team (Late st Contact Info) Description 06/15/2025 9:00 AM CDT Clinical Support [facility] [place] [address] [place] [address] [facility] [place] 09/13/2025 8:40 AM WELDER Lab [facility] [place] [address] [facility] 09/20/2025 9:30 AM WELDER Office Visit [facility] [place] [address] [place] [address] Yuni Resendiz APRN, VALE [address] [place] [address] documented as of this encounter Visit Diagnoses Diagnosis Anxiety with depression documented in this encounter Additional Health Concerns Assessment Noted Time PHQ-9 Depression Total Score: 0 12/06/19 24 3:04 PM WELDER documented as of this encounter Care Teams Ground Support Agent Relationship Specialty Start Date End Date Yuni Resendiz APRN, COMPLEX MANAGER [address] [place] [address] PCP - General Advanced Practice Nurse 07/23/20 Antonio Bal, RN [place] Registered Nurse 05/24/25 documented as of this encounter
--- OUTSIDE RECORDS SUMMARY | 2025-05-28 11:51 | XMS_ITS | Encounter Summary ---
Author Organization [facility] Address [address] [place] [address] Phone Care Team Providers Care Electrical Logger Name Role Phone Yuni Resendiz APRN, CNP Primary Care [facility] Antonio Bal RN Unavailable Unavailable Reason for Visit * Reason Comments Medication Refill Encounter Details Date Type Department Care Team (Late st Contact Info) Description 05/13/2021 Refill [facility] [address] [place], [place] [id number] Evita Cid Rosalie, PAC [address] [place] [address] Medication Refill Social History Tobacco Use Types [...] 03/07/21 Office Visit Yuni Resendiz APN, VALE [facility] 12/20/20 Office Visit Yuni Resendiz APN, VALE [facility] 12/03/20 Office Visit Yuni Resendiz APN, VALE [facility] 07/26/20 Office Visit Yuni Resendiz APN, VALE [facility] Showing recent visits within past 365 [...] Description 06/15/2025 9:00 AM CDT Clinical Support [facility] [address] [place] [address] [facility] 09/13/2025 8:40 AM SURFACE BOSS Lab [facility] [address] [place] [phone] [facility] 09/20/2025 9:30 AM SURFACE BOSS Office Visit [facility] [address] [place] [address] Yuni Resendiz, OXYACETYLENE CUTTER, DIRECT SUPPORT [facility] [address] [place] [address] documented as of this encounter Visit Diagnoses Not on filedocumented in this encounter Additional Health Concerns Infection Onset Date Last Indicated Resolved Time COVID - 19 01/16/2023 01/16/2023 01/26/2023 12:1 6 AM CDT COVID - 19 Confirmed 01/16/2023 01/16/2023 023 12:16 AM CDT Assessment Noted Time PHQ-9 Depression Total Score: 1 12/03/19 8:00 AM SURFACE BOSS documented as of this encounter Care Teams Electrical Logger Relationship Specialty Start Date End Date Yuni Resendiz, OXYACETYLENE CUTTER, DIRECT SUPPORT [facility] [address] [place] [address] PCP - General Advanced Practice Nurse 07/23/20 Antonio Bal RN [place] Registered Nurse 05/24/25 documented as of this encounter
--- OUTSIDE RECORDS SUMMARY | 2025-05-28 11:52 | XMS_ITS | Clinical Summary ---
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
--- OUTSIDE RECORDS SUMMARY | 2025-05-28 11:52 | XMS_ITS | Encounter Summary ---
Author Organization [facility] Address [address] [place] [address] Phone Care Team Providers Care Small Craft Operator Name Role Phone Yuni Resendiz APRN, CNP Primary Care P [facility] Antonio Bal RN Unavailable Unavailable Reason for Visit * Reason Comments Medication Refill Encounter Details Date Type Department Care Team (Late st Contact Info) Description 01/21/2024 Refill [facility] - Primary Care - [place] [address] [place] [address] Yuni Resendiz APRN, CNP [address] [place] [address] Medication Refill Social History Tobacco [...] encounter Miscellaneous Notes * Telephone Encounter - Valeriano Antonio So RN - 01/21/2024 8:51 AM CDT Medication(s) refilled and signed per [facility] Chronic Medication Refill Standing Order for Pediatricand [...] 12/06/23 Office Visit Yuni Resendiz APRN, [facility] 07/29/23 Office Visit Yuni Resendiz APRN, CNP [facility] 05/20/23 Office Visit Yuni Resendiz APRN, CNP [facility] 04/09/23 Office Visit Yuni Resendiz APRN, CNP [facility] 03/24/23 Office Visit Yuni Resendiz APRN, VALE [facility] Showing recent visits within past 365 [...] 12/06/23 Office Visit Yuni Resendiz APRN, CNP [facility] 07/29/23 Office Visit Yuni Resendiz APRN, CNP [facility] 05/20/23 Office Visit Yuni Resendiz APRN, CNP [facility] 04/09/23 Office Visit Yuni Resendiz APRN, [facility] 03/24/23 Office Visit Yuni Resendiz APRN, VALE [facility] Showing recent visits within past 365 days and meeting all other requirements Future Appointments No visits were found meeting these conditions. Showing future appointments within next 90 days and meeting all other requirements documented in this encounter Plan of Treatment Upcoming Encounters Date Type Department Care Team (Late st Contact Info) Description 06/15/2025 9:00 AM CDT Clinical Support [facility] [place] [address] [place] [address] [facility] 09/13/2025 8:40 AM ORACLE PROGRAMMER ANALYST Lab [facility] [place] [address] [place] [address] [facility] 09/20/2025 9:30 AM ORACLE PROGRAMMER ANALYST Office Visit [facility] [address] [place] [address] Yuni Resendiz APRN, CNP [address] [place] [address] documented as of this encounter Visit Diagnoses Diagnosis Essential hypertension Unspecified essential hypertension Gastroesophageal reflux disease, unspecified whether esophagitis present documented in this encounter Additional Health Concerns Assessment Noted Time PHQ-9 Depression Total Score: 0 12/06/19 24 3:04 PM ORACLE PROGRAMMER ANALYST documented as of this encounter Care Teams Small Craft Operator Relationship Specialty Start Date End Date Yuni Resendiz, JOB ESTIMATOR, [employer] [place] [address] [place] [address] PCP - General Advanced Practice Nurse 07/23/20 Antonio Bal, RN [place] Registered Nurse 05/24/25 documented as of this encounter
--- OUTSIDE RECORDS SUMMARY | 2025-05-28 11:52 | XMS_ITS | Clinical Summary ---
Author Organization [facility] Address [address], [address] [address] Phone Care Team Providers Care Drug Room Operator Name Role Phone Yuni Resendiz APRN, VALE Primary Care P kylie Antonio Bal RN Unavailable Unavailable Allergies Active Allergy Reactions Criticality Noted Date [...] daily. 90 Tablet 1 01/11/20 24 Active [place]-3 Fatty Acids (FISH OIL PO) Take by mouth daily. Active MAGNESIUM PO Take by mouth daily. Active Calcium Carbonate (CALCIUM 500 PO) Take by mouth in the morning and at bedtime. Active nystatin (MYCOSTATIN) [id number] UNIT/GM OintmentIndicat ions:Candidiasi s of breast Apply [...] DAY 90 Capsule 1 10/06/20 24 Active buPROPion (WELLBUTRIN) 150 MG XL tabletIndicatio [...] daily. 180 Capsule 3 04/05/20 25 Active losartan (COZAAR) 100 MG TabletIndicatio ns:Essential hypertension Take 1 Tablet by mouth daily. 90 Tablet 3 04/26/20 25 Active amLODIPine (NORVASC) 10 MG TabletIndicatio ns:Primary hypertension Take 1 Tablet by mouth daily. 90 Tablet 3 05/24/20 25 Active carvedilol (COREG) 12.5 MG TabletIndicatio ns:Primary hypertension Take 0.5 Tablets by mouth 2 times daily. 90 Tablet 3 05/24/20 25 Active montelukast (SINGULAIR) 10 MG TabletIndicatio ns:Seasonal allergic rhinitis, unspecified trigger TAKE 1 TABLET BY MOUTH EVERY DAY IN THE EVENING 90 Tablet 1 05/28/20 25 Active montelukast (SINGULAIR) 10 MG TabletIndicatio ns:Seasonal allergic rhinitis, unspecified trigger TAKE 1 TABLET BY MOUTH EVERY DAY IN THE EVENING 90 Tablet 1 12/02/19 25 2024 Discontinued carvedilol (COREG) 12.5 MG TabletIndicatio ns:Primary hypertension Take 1 Tablet by mouth 2 times daily. 180 Tablet 3 04/04/20 25 2024 Discontinued(D ose adjustment) carvedilol (COREG) 12.5 MG TabletIndicatio ns:Primary hypertension Take 1 Tablet by mouth daily. 90 Tablet 3 05/24/20 25 2024 Discontinued Active Problems Problem Noted Date Diagnosed Date [...] Encounters Date Type Department Care Team Description 05/26/2025 Refill [facility] [place] [address] Yuni Resendiz, COLD WORK OPERATOR, PLUMBER SUPERVISOR Medication Refill 05/24/2025 9:00 AM CDT Clinical Support [facility] [place] [address] [facility] Nurse Primary hypertension Discharge Disposition: Discharged to home or Selfcare 05/24/2025 Travel 04/26/2025 3:40 PM CDT Clinical Support [facility] [place] [address] [address] [facility] Nurse Essential hypertension (Primary Dx) Discharge Disposition: Discharged to home or Selfcare 04/26/2025 Travel 04/24/2025 Refill [facility] [place] [address] [place] [address] Yuni Resendiz APRN, PLUMBER SUPERVISOR Medication Refill 04/03/2025 11:20 AM CDT Clinical Support [facility] [place] [address] [facility] Nurse Primary hypertension (Primary Dx) Discharge Disposition: Discharged to home or Selfcare 04/01/2025 Travel 03/28/2025 Refill [facility] [place] [address] [place] [address] Yuni Resendiz APRN, PLUMBER SUPERVISOR Medication Refill 03/19/2025 Refill [facility] [place] [address] [place] [address] Yuni Resendiz APRN, PLUMBER SUPERVISOR Medication Refill 03/15/2025 9:15 AM CDT Office Visit [facility] [place] [address] [place] [address] Yuni Resendiz APRN, PLUMBER SUPERVISOR Primary hypertension (Primary Dx); Dyslipidemia; Vitamin D deficiency; Seasonal allergic rhinitis, unspecified trigger; Hyperglycemia; Anxiety with depression; Neuropathy Discharge Disposition: Discharged to home or Selfcare 03/13/2025 Travel 03/08/2025 8:30 AM CDT Lab [facility] [place] [address] [place] [id number] Lab, [facility] Primary hypertension; Dyslipidemia; Arthralgia of both knees; Anxiety with depression; Chronic bilateral low back pain without sciatica; IFG (impaired fasting glucose); Vitamin D deficiency; Vitamin B 12 deficiency Discharge Disposition: Discharged to home or Selfcare 03/08/2025 Results Follow-Up [facility] [place] [address] [place] [address] Yuni Resendiz, COLD WORK OPERATOR, PLUMBER SUPERVISOR CMP (COMPREHENSIVE METABOLIC PANEL), LIPID PANEL, THYROID [...] drink = 0.6 oz pur e alcohol) [facility] Answer Date Recorded In the past 12 months has [employer], gas, oil, or water [employer] threatened to shut off services in your home? Patient declined 12/30/2024 Social Connection and Isolation Panel Answer Date Recorded In a typical week, how many times do you talk on the phone with family, friends, or neighbors? Patient declined 03/13/2025 How often do you get togethe r with friends or relatives? Patient declined 03/13/2025 How often do you attend faith or worship serv ices? Patient declined 03/13/2025 Do you [...] Score - Questions 1-9 0 10/2 07/2024 [facility] - Occupational Stress Questionnaire Answer Date Recorded [...] place to sleep or slept in a halfway (including now)? No 02/10/2024 Housing Stability Vital Sign Answer Noé e Recorded In the last 12 months, was t here a time when you were not able to pay the mortgage or rent on time? No 04/01/2025 Number of Times Moved in the Last Year Not on fi le 04/01/2025 At any time in the past 12 m [facility], were you homeless or living in a halfway (including now)? No 04/01/2025 Education Answer Date [...] Sign Reading Time Taken Comments Blood Pressure 170/74 05/24/2025 8:46 AM CDT Pulse 55 05/24/2025 8:46 AM CDT Temperature 36.5 C (97.7 F) 03/15/2025 9:10 AM CDT Respiratory Rate 16 05/24/2025 8:46 AM CDT Oxygen Saturation 97% 05/24/2025 8:46 AM CDT Inhaled Oxygen Concentration - - Weight 72.1 kg (159 lb) 03/15/2025 9:10 AM CDT Height 152.4 cm (5') 03/15/2025 9:10 AM CDT Body Mass Index 31.05 03/15/2025 9:10 AM CDT Plan of Treatment Upcoming Encounters Date Type Department Care Team (Late st Contact Info) Description 06/15/2025 9:00 AM CDT Clinical Support [facility] [place] [address] [place] [address] [facility] 09/13/2025 8:40 AM ANALYTICAL TECHNICIAN Lab [facility] [place] [address] [place] [address] [facility] 09/20/2025 9:30 AM ANALYTICAL TECHNICIAN Office Visit [facility] [place] [address] [place] [address] Yuni Resendiz APRN, PLUMBER SUPERVISOR [address] [place] [address] Health Maintenance Due Date Last Done Comments [...] 06/17/2022, Additional history exists SARS-COV-2 Immunization Discontinued 07/28/20, 07/28/2024, 09/23/2023, Additional history exists Human Papillomavirus [...] Type Associated Problems Recent Progress Patient-Stated? Author Track and Manage My Blood Pressure Patient Goals On track(2024 12:50 PM CDT) No Antonio Bal, RN Note: Follow Up Date 06/14/25 - check blood pressure daily - choose a place to take my blood pressure (home, clinic or office, retail store) - write blood pressure results in a log or diary or enter in an patrick Why is this important? You may not be able to feel high blood pressure, but it can still hurt your body. High blood pressure can cause heart or kidney problems. It can also cause a stroke. Making lifestyle changes like losing a little weight or eating less salt will help. Checking your blood pressure at home and at different times of the day can help to control blood pressure. If the doctor prescribes medicine remember to take it the way the doctor ordered. Call the office if you cannot afford the medicine or if you have questions about it. Notes: Hypertension Monitored Care Plan Hypertension (Hypertension) On track(2024 12:45 PM CDT) Antonio Patrick, RN Note: Evidence-based guidance: Promote initial use of ambulatory blood pressure measurements (for 3 days) to rule out white-coat effect; identify masked hypertension and presence or absence of nocturnal dipping of blood pressure. Encourage continued use of home blood pressure monitoring and recording in blood pressure log; include symptoms of hypotension or potential medication side effects in log. Review blood pressure measurements taken inside and outside of the provider office; establish baseline and monitor trends; compare to target ranges or patient goal. Share overall cardiovascular risk with patient; encourage changes to lifestyle risk factors, including reductions in alcohol consumption, use of nicotine products, obesity or overweight, inadequate exercise, poor dietary habits and stress. Notes: Disease Progression Prevented or Minimized Care Plan Disease Progression (Hypertension) On track(2024 12:46 PM CDT) Antonio Patrick, RN Note: Evidence-based guidance: Tailor lifestyle advice to individual; review progress regularly; give frequent encouragement and respond positively to incremental successes. Assess for and promote awareness of worsening disease or development of comorbidity. Prepare patient for use of pharmacologic therapy that may include diuretic, beta-britney, beta-britney/thiazide combination, angiotensin-converting enzyme inhibitor, renin-angiotensin britney or calcium-channel britney. Expect periodic adjustments to pharmacologic therapy; manage side effects. Promote DASH (dietary approaches to stop hypertension) diet, which is a diet that includes primarily plant-based foods and a moderate sodium restriction; plant- based foods include fruits, vegetables, whole grains, beans and legumes, low-fat dairy and lean meats. Consider moderate reduction in sodium intake by avoiding the addition of salt to prepared foods and limiting processed meats, canned soup, frozen meals and salty snacks. Promote a regular, daily exercise goal of 150 minutes per week of moderate exercise based on tolerance, ability and patient choice; consider referral to physical therapist, community wellness and/or activity program. Encourage limiting sedentary activity, such as recreational screen time, to no more than 2 hours per day. Promote tobacco cessation and smoke-free environment. Review sources of stress; explore current coping strategies and encourage use of mindfulness, yoga, progressive relaxation, meditation or exercise to manage stress. Notes: Procedures Procedure Name Priority Date/Time Associated Diagnosis [...] 43.8 ng/mL 03/08/2025 1:28 PM CDT [facility] Blood Venipuncture / Unknown 03/08/2025 8:24 AM CDT 03/08/2025 8:24 AM CDT Narrative [facility] - 03/08/2025 1:28 PM CDT Published reference ranges for Vitamin D vary depending on time and place and method of testing, and on patient's age, sex, ethnicity and levels of other measured analytes such as parathormone, calcium and phosphorus. The result should be evaluated in conjunction with clinical findings and suspicions. [place] [employer] and [employer]ocrine Clinical Practice Guidelines: Status Vitamin D levels (ng/mL) Deficient <=20 At risk of inadequacy 21-29 Sufficient 30-100 Centers of Disease Control and Prevention Guidelines: Status Vitamin D levels (ng/mL) Deficient <13 At risk of inadequacy 13-19 Sufficient 20-50 Possibly harmful >50 References: [place] [employer], 2010 Dietary reference intakes for calcium and vitamin D. [place]: The National Academies Press. Yousif M, Lani N, Venus ISBELL, et al., Evaluation, treatment, and prevention of Vitamin D deficiency: an Endocrinology Clinical Practice Guideline. JCEM 2011 96: 7 6830-8227. Leslie A, Jareth C, Fifi D, et al., Vitamin D Status: [place], 6984-3969, MDHS data brief, no. 59, [place]: National Center for Health Statistics. 2011. Yuni Resendiz APRN, CNP CHEMISTRY ORDER CHELI Final Result [facility] [address] [place] [address] * HEMOGLOBIN A1C W/ ESTIMATED GLUCOSE (03/08/2025 8:24 AM CDT) [facility] HGB-A1C 6.0 4.0 - 6.0 % 03/08/2025 1:01 PM CDT [facility] Est Average Glucose 125.5 mg/dL 03/08/2025 1:01 PM CDT [facility] Blood Venipuncture / Unknown 03/08/2025 8:24 AM CDT 03/08/2025 8:24 AM CDT Narrative [facility] - 03/08/2025 1:01 PM CDT HEMOGLOBIN A1C: DIABETIC PATIENTS: WELL-CONTROLLED: 6.2 - 7.0 INTERMEDIATE WELL-CONTROLLED: 7.0 - 9.0 POORLY-CONTROLLED: >9.0 Specimens containing greater than 5% of Hemoglobin F may result in lower than expected % HbA1C results. Yuni Resendiz APRN, PLUMBER SUPERVISOR CHEMISTRY ORDER CHELI Final Result [facility] [address] [place] [address] * (ABNORMAL) CBC WITH AUTO DIFFERENTIAL (03/08/2025 8:24 AM CDT) [facility] WBC 5.29 4.00 - 12.00 10(3)/mcL 03/08/2025 12:38 PM CDT [facility] RBC 4.74 3.80 - 5.30 10(6)/mcL 03/08/2025 12:38 PM CDT [facility] HEMOGLOBIN (HGB) 14.5 12.0 - 15.8 g/dL 03/08/2025 12:38 PM CDT [facility] HEMATOCRIT (HCT) 44.3 36.0 - 47.0 % 03/08/2025 12:38 PM CDT [facility] MCV 93.5 82.0 - 96.0 fL 03/08/2025 12:38 PM CDT [facility] MCH 30.6 26.0 - 34.0 pg 03/08/2025 12:38 PM CDT [facility] MCHC 32.7 31.0 - 36.0 g/dL 03/08/2025 12:38 PM CDT [facility] PLATELET COUNT 319 140 - 440 10(3)/[facility] 03/08/2025 12:38 PM CDT [facility] RDW 12.7 11.8 - 15.5 % 03/08/2025 12:38 PM CDT [facility] MPV 9.6(L) 9.7 - 12.4 fL 03/08/2025 12:38 PM CDT [facility] NEUTROPHILS 65.2 47.0 - 73.0 % 03/08/2025 12:38 PM CDT [facility] LYMPHOCYTES 22.1 18.0 - 42.0 % 03/08/2025 12:38 PM CDT [facility] MONOCYTES 8.1 4.0 - 12.0 % 03/08/2025 12:38 PM CDT [facility] EOSINOPHILS 3.8 0.0 - 5.0 % 03/08/2025 12:38 PM CDT [facility] BASOPHILS 0.8 0.0 - 1.0 % 03/08/2025 12:38 PM CDT [facility] ABSOLUTE NEUTROPHILS 3.45 1.60 - 7.70 10(3)/[facility] 03/08/2025 12:38 PM CDT [facility] ABSOLUTE LYMPHOCYTES 1.17(L) 1.30 - 3.20 10(3)/[facility] 03/08/2025 12:38 PM CDT [facility] ABSOLUTE MONOCYTES 0.43 0.20 - 1.00 10(3)/[facility] 03/08/2025 12:38 PM CDT [facility] ABSOLUTE EOSINOPHIL 0.20 0.00 - 0.40 10(3)/[facility] 03/08/2025 12:38 PM CDT [facility] ABSOLUTE BASOPHILS 0.04 0.00 - 0.10 10(3)/[facility] 03/08/2025 12:38 PM CDT [facility] NRBC PER 100 WBC 0 03/08/20 12:38 PM CDT [facility] Blood Venipuncture / Unknown 03/08/2025 8:24 AM CDT 03/08/2025 8:24 AM CDT us Yuni Resendiz APRN, PLUMBER SUPERVISOR HEMATOLOGY ORDE RABLES Final Result Performing Organization Address City/[facility]/ZIP Co de Phone Number [facility] [address] [place] [address] * (ABNORMAL) VITAMIN B12 (03/08/2025 8:24 AM CDT) VITAMIN B12 1,113(H) 213 - 816 pg/mL 03/08/2025 1:28 PM CDT [facility] Blood Venipuncture / Unknown 03/08/2025 8:24 AM CDT 03/08/2025 8:24 AM CDT us Yuni Resendiz APRN, PLUMBER SUPERVISOR CHEMISTRY ORDER CHELI Final Result Performing Organization Address [facility] Co de Phone Number [facility] [address] [place] [address] * THYROID STIMULATING HORMONE (TSH) (03/08/2025 8:24 AM CDT) Pathologist [facility] TSH 2.572 0.300 - 5.000 mIU/L 03/08/2025 1:20 PM CDT [facility] Blood Venipuncture / Unknown 03/08/2025 8:24 AM CDT 03/08/2025 8:24 AM CDT us Yuni Resendiz COLD WORK OPERATOR, PLUMBER SUPERVISOR CHEMISTRY ORDER CHELI Final Result [facility] [address] [place] [address] * (ABNORMAL) LIPID PANEL (03/08/2025 8:24 AM CDT) CHOLESTEROL 195 <200 mg/dL 03/08/2025 1:06 PM CDT [facility] TRIGLYCERIDES 106 <150 mg/dL 03/08/2025 1:06 PM CDT [facility] HDL CHOLESTEROL 53 >40 mg/dL 1:06 PM CDT [facility] LDL 121 <130 mg/dL 03/08/2025 1:06 PM CDT [facility] VLDL 21 10 - 50 mg/dL 03/08/2025 1:06 PM CDT [facility] CHOL/HDL RATIO 3.7 0.0 - 4.4 03/08/2025 1:06 PM CDT [facility] NON-HDL CHOLESTEROL 142(H) <130 mg/dL 03/08/2025 1:06 PM CDT [facility] IS THE PATIENT REQUIRED TO BE FASTING? Yes 03/08/2025 1:06 PM CDT [facility] HAS THE PATIENT BEEN FASTING? Yes 03/08/2025 1:06 PM CDT [facility] Blood Venipuncture / Unknown 03/08/2025 8:24 AM CDT 03/08/2025 8:24 AM CDT Yuni Resendiz APRN, CNP CHEMISTRY ORDER CHELI Final Result [facility] [address] [place] [address] * (ABNORMAL) CMP (COMPREHENSIVE METABOLIC PANEL) (03/08/2025 8:24 AM CDT) SODIUM 137 136 - 145 mmol/L 03/08/2025 1:06 PM CDT [facility] POTASSIUM 4.2 3.5 - 5.1 mmol/L 03/08/2025 1:06 PM [facility] CHLORIDE 105 98 - 107 mmol/L 03/08/2025 1:06 PM [facility] CO2, VENOUS 25 22 - 30 mmol/L 03/08/2025 1:06 PM [facility] ANION GAP 11.2 <18.0 mmol/L 03/08/2025 1:06 PM [facility] GLUCOSE 120(H) 70 - 99 mg/dL 03/08/2025 1:06 PM T [facility] BUN 15 10 - 20 mg/dL 03/08/2025 1:06 PM [facility] CREATININE, BLOOD 0.77 0.60 - 1.00 mg/dL 03/08/2025 1:06 PM [facility] BUN/CREATININE RATIO 19 12 - 20 ratio 03/08/2025 1:06 PM [facility] TOTAL PROTEIN 6.6 6.0 - 8.0 g/dL 03/08/2025 1:06 PM [facility] ALBUMIN 3.9 3.5 - 5.0 g/dL 03/08/2025 1:06 PM [facility] A/G RATIO 1.4 1.0 - 2.2 03/08/2025 1:06 PM [facility] CALCIUM 8.9 8.7 - 10.5 mg/dL 03/08/2025 1:06 PM [facility] T BILI 0.4 0.2 - 1.2 mg/dL 03/08/2025 1:06 PM [facility] SGOT (AST) 25 <43 U/L 03/08/2025 1:06 PM [facility] SGPT (ALT) 20 <56 U/L 03/08/2025 1:06 PM [facility] ALKALINE PHOSPHATASE 67 40 - 150 U/L 03/08/2025 1:06 PM [facility] IS THE PATIENT REQUIRED TO BE FASTING? No 03/08/2025 1:06 PM CDT [facility] GFR, ESTIMATED >60 >=60 03/08/2025 1:06 PM CDT [facility] Comment: Creatinine Clearance is the preferred criteria for selecting drug dose adjustments in renally impaired patients. The GFR is provided as additional pertinent clinical information. GFR is reported in mL/min/1.73 sq m. Calculation based on the Chronic Kidney Disease Epidemiology Collaboration (CKD- EPI) equation refit without adjustment for race. GFR, EST. >60 >=60 025 1:06 PM CDT [facility] GFR, EST. NONAFRICAN >60 >=60 03/08/2025 1:06 PM CDT [facility] Blood Venipuncture / Unknown 03/08/2025 8:24 AM CDT 03/08/2025 8:24 AM CDT Yuni Resendiz APRN, PLUMBER SUPERVISOR CHEMISTRY ORDER CHELI Final Result Performing Organization Address [facility] Co de Phone Number [facility] [address] [place] [address] * MAMMOGRAM BILATERAL MISCELLANEOUS (07/03/2024 12:00 AM [...] has taken/is taking vitamin-D, multivitamin and calcium. Mathematics Professor/Model: ObserveIT (S/N [id number]) CLINICAL INFORMATION: Current height: 60 inches Maximum [...] Birgit Umaña M.D. TW: TW Report ID: [id number] Reading Location: [place] [address] Procedure Note Birgit Umaña MD - 02/07/2024 EXAM DESCRIPTION: GUSTAVO BONE DENSITOMETRY AXIAL SKELETON REASON FOR STUDY: 73 y/o year old F with given history of: Post menopausal status. Patient has taken/is taking vitamin-D, multivitamin and calcium. Mathematics Professor/Model: ObserveIT (S/N [id number]) CLINICAL INFORMATION: Current height: 60 inches Maximum [...] Birgit Umaña M.D. TW: TW Report ID: [id number] Reading Location: [place] [address] IMPRESSION: Low bone mass REFERENCE: Bone mineral [...] CDT) hepatitis C antibody 0.07 <1 S/CO [facility] ARCH [id number] 05/14/2023 12:33 PM CDT [facility] Comment: Signal/Cutoff ratio < 0.79 is Nondetected Signal/Cutoff ratio 0.80-0.99 is Grayzone Signal/Cutoff ratio > 0.99 is Detected Supplemental assays are recommended if signal/cutoff ratio is >/=1.00. Signal/cutoff ratio result >/= 5.00 is 97% predictive of positivity for recombinant immunoblot assay (RIBA) and will be reported to the [place] Department of Public Health as required. Blood Venipuncture / Unknown 05/13/2023 7:56 AM CDT 05/13/2023 7:56 AM CDT Yuni Resendiz APRN, CNP CHEMISTRY ORDER CHELI Final Result [facility] [address] [place] [address], [place] from Last 3 Months or Most Recently Relevant to Health Maintenance Additional Health Concerns Active Problems Noted Date Diagnosed Date Hypertension (Hypertension) 05/24/2025 Disease Progression (Hypertension) 05/24/2025 Insurance [employer] [facility] [facility] Care Teams Drug Room Operator Relationship Specialty Start Date End Date Yuni Resendiz APRN, PLUMBER SUPERVISOR [address] [place] [address] PCP - General Advanced Practice Nurse 07/23/20 Antonio Bal, RN [place] Registered Nurse 05/24/25
--- OUTSIDE RECORDS SUMMARY | 2025-05-28 11:52 | XMS_ITS | Encounter Summary ---
Author Organization [facility] Address [address] [place] [address] Phone Care Team Providers Care Soaker Hides Name Role Phone Yuni Resendiz APRN, CNP Primary Care P [facility] Antonio Bal RN Unavailable Unavailable Reason for Visit * Reason Comments Medication Refill Encounter Details Date Type Department Care Team (Late st Contact Info) Description 06/20/2022 Refill [facility] - [place] [address] [place] [address] Yuni Resendiz APRN, CNP [address] [place] [address] Medication Refill Social History Tobacco [...] Description 06/15/2025 9:00 AM CDT Clinical Support [facility] [address] [place] [address] [facility] Nurse [place] 09/13/2025 8:40 AM DAIRY STORE MANAGER Lab [facility] [address] [place] [address] [facility] 09/20/2025 9:30 AM DAIRY STORE MANAGER Office Visit [facility] [address] [place] [address] Yuni Resendiz APRN, NET SORTER [address] [place] [address] documented as of this encounter Visit Diagnoses Diagnosis Seasonal allergic rhinitis, unspecified trigger documented in this encounter Additional Health Concerns Infection Onset Date Last Indicated Resolved Time COVID - 19 01/16/2023 01/16/2023 01/26/2023 12:1 6 AM CDT COVID - 19 Confirmed 01/16/2023 01/16/2023 023 12:16 AM CDT Assessment Noted Time PHQ-9 Depression Total Score: 1 12/03/19 21 8:00 AM DAIRY STORE MANAGER documented as of this encounter Care Teams Soaker Hides Relationship Specialty Start Date End Date Yuni Resendiz APRN, NET SORTER [address] [place] [address] PCP - General Advanced Practice Nurse 07/23/20 Antonio Bal, RN [place] Registered Nurse 05/24/25 documented as of this encounter
--- OUTSIDE RECORDS SUMMARY | 2025-05-28 11:52 | XMS_ITS | Encounter Summary ---
Author Organization [facility] Address [address] [place] [address] Phone Care Team Providers Care Candy Supervisor Name Role Phone Yuni Resendiz APRN, CNP Primary Care P [facility] Antonio Bal RN Unavailable Unavailable Reason for Visit * Reason Comments Medication Refill Encounter Details Date Type Department Care Team (Late st Contact Info) Description 11/07/2023 Refill [facility] - Primary Care - [place] [address] [place] [address] Yuni Resendiz APRN, CNP [address] [place] [address] Medication Refill Social History Tobacco [...] 10:43 AM CST Refill requested too soon. N ASSISTANT documented in this encounter Plan of Treatment Upcoming Encounters Date Type Department Care Team (Late st Contact Info) Description 06/15/2025 9:00 AM CDT Clinical Support [facility] [address] [place] [address] [facility] 09/13/2025 8:40 AM ADMIN ASSISTANT Lab [facility] [address] [place] [address] [facility] 09/20/2025 9:30 AM ADMIN ASSISTANT Office Visit [facility] [address] [place] [address] Yuni Resendiz APRN, MANUFACTURING WEAVER [address] [place] [address] documented as of this encounter Visit Diagnoses Diagnosis Seasonal allergic rhinitis, unspecified trigger documented in this encounter Additional Health Concerns Assessment Noted Time PHQ-9 Depression Total Score: 0 11/13/19 23 8:00 AM ADMIN ASSISTANT documented as of this encounter Care Teams Candy Supervisor Relationship Specialty Start Date End Date Yuni Resendiz APRN, MANUFACTURING WEAVER [address] [place] [address] PCP - General Advanced Practice Nurse 07/23/20 Antonio Bal, RN [place] Registered Nurse 05/24/25 documented as of this encounter
--- OUTSIDE RECORDS SUMMARY | 2025-05-28 11:52 | XMS_ITS ---
Care Plan Created on: May 28, 2025 Lucy Nair : 1950 Sex: Female Author Organization [facility] Address [address], [address] [address] Phone Care Team Providers Care Mud Jack Operator Name Role Phone Yuni Resendiz APRN, VALE Primary Care P kyl[place] Antonio Bal RN Unavailable Unavailable Active Problems Problem Noted Date Diagnosed Date [...] Refill flexeril Osteopenia 04/09/2014 Overview (07/26/2020): Note: [place] - pcp Dyslipidemia Seasonal allergic rhinitis Arthritis HTN (hypertension) Resolved Problems Problem Noted Date Diagnosed Date Resolved Date Arthralgia 12/06/2023 Additional Health Concerns Active Problems Noted Date Diagnosed Date Hypertension (Hypertension) 05/24/2025 Disease Progression (Hypertension) 05/24/2025 Goals Goal Patient Goal Type Associated Problems [...] Hypertension (Hypertension) On track(2024 12:45 PM CDT) Antonoi Patrick, RN Note: Evidence-based guidance: Promote initial [...] meditation or exercise to manage stress. Notes: Interventions Care Plan Interventions Intervention Entry Date Outcome Alleviate Barriers to Hypertension Treatment 05/24/2025 Note:Care Management Activities: t- complementary therapy use encouraged - difficulty of making life-long changes acknowledged - healthy diet promoted - healthy family lifestyle promoted - medical nutrition therapy provided - medication side effects managed - patient response to treatment assessed - quality of sleep assessed - reduction of dietary sodium encouraged - reduction in sedentary behavior encouraged - response to pharmacologic therapy monitored - sleep hygiene techniques encouraged Notes: Identify and Monitor Blood Pressure Elevation 05/24/2025 Note:Care Management Activities: t- blood pressure equipment and technique reviewed - blood pressure trends reviewed - cardiovascular risk reviewed - home or ambulatory blood pressure monitoring encouraged Notes: Related Goals and Interventions Goal Associated Intervent ions Hypertension Monitored Identify and Cari tor Blood Pressure Elevation Disease Progression Prevented or Minimiz ed Alleviate Barriers to Hypertension Treatment
--- OUTSIDE RECORDS SUMMARY | 2025-05-28 11:52 | XMS_ITS | Encounter Summary ---
Author Organization [facility] Address [address] [place] [address] Phone Care Team Providers Care Spindraw Operator Name Role Phone Yuni Resendiz APRN, CNP Primary Care P [facility] Antonio Bal RN Unavailable Unavailable Reason for Visit * Reason Comments Medication Refill Encounter Details Date Type Department Care Team (Late st Contact Info) Description 03/30/2023 Refill [facility] - Primary Care - [place] [address] [place] [address] Yuni Resendiz APRN, CNP [address] [place] [address] Medication Refill Social History Tobacco [...] Description 06/15/2025 9:00 AM CDT Clinical Support [facility] [address] [place] [address] [facility] 09/13/2025 8:40 AM SHOPPING INSPECTOR Lab [address] [address] [facility] 09/20/2025 9:30 AM SHOPPING INSPECTOR Office Visit [facility] [address] [place] [address] Yuni Resendiz APRN, VALE [address] [place] [address] documented as of this encounter Visit Diagnoses Diagnosis Seasonal allergic rhinitis, unspecified trigger documented in this encounter Additional Health Concerns Assessment Noted Time PHQ-9 Depression Total Score: 0 11/13/19 23 8:00 AM SHOPPING INSPECTOR documented as of this encounter Care Teams Spindraw Operator Relationship Specialty Start Date End Date Yuni Resendiz APRN, MOTOR ASSEMBLER [address] [place] [address] PCP - General Advanced Practice Nurse 07/23/20 Antonio Bal, RN [place] Registered Nurse 05/24/25 documented as of this encounter
--- OUTSIDE RECORDS SUMMARY | 2025-05-28 11:52 | XMS_ITS ---
Author Organization [facility] Address [address] [facility], [address] [address] Phone Care Team Providers Care Operations Vocational Instructor Name Role Phone Yuni Resendiz APRN, VALE Primary Care Chauncey espinal Antonio Bal RN Unavailable Unavailable Nurse Clinic Status:Enrolled (Active) Start date:05/24/2025 Enrollment date:05/24/2025 Enrollment reason:Referred by provider Current support & services provided:Hypertension Management Case Team Name Relationship Phone Antonio Bal RN(Responsible Staff) Registered Nurse Continued Care and Services Coordination
--- OUTSIDE RECORDS SUMMARY | 2025-05-28 11:52 | XMS_ITS | Encounter Summary ---
Author Organization [facility] Address [address] [place] [address] Phone Care Team Providers Care Engineering Professor Name Role Phone Yuni Resendiz APRN, CNP Primary Care P [facility] Antonio Bal RN Unavailable Unavailable Reason for Visit * Reason Comments Medication Refill Encounter Details Date Type Department Care Team (Late st Contact Info) Description 12/24/[address] [facility] - Primary Care - [place] [address] [place] [address] Yuni Resendiz APRN, CNP [address] [place] [address] Medication Refill Social History Tobacco [...] Description 06/15/2025 9:00 AM CDT Clinical Support [facility] [place] [address] [place] [address] Clinic, [facility] Nurse [place] 09/13/2025 8:40 AM ELECTROPLATER Lab [facility] [address] [place] [address] [facility], [facility] 09/20/2025 9:30 AM ELECTROPLATER Office Visit [facility] [place] [address] [place] [address] Yuni Resendiz APRN, TRAFFIC REPRESENTATIVE [address] [place] [address] documented as of this encounter Visit Diagnoses Diagnosis Seasonal allergic rhinitis, unspecified trigger documented in this encounter Additional Health Concerns Infection Onset Date Last Indicated Resolved Time COVID - 19 01/16/2023 01/16/2023 01/26/2023 12:1 6 AM CDT COVID - 19 Confirmed 01/16/2023 01/16/2023 023 12:16 AM CDT Assessment Noted Time PHQ-9 Depression Total Score: 1 12/03/19 21 8:00 AM ELECTROPLATER documented as of this encounter Care Teams Engineering Professor Relationship Specialty Start Date End Date Yuni Resendiz APRN, TRAFFIC REPRESENTATIVE [address] [place] [address] PCP - General Advanced Practice Nurse 07/23/20 Antonio Bal, RN [place] Registered Nurse 05/24/25 documented as of this encounter
--- OUTSIDE RECORDS SUMMARY | 2025-05-28 11:52 | XMS_ITS | Encounter Summary ---
Author Organization [facility] Address [address] [place] [address] Phone Care Team Providers Care Gang Knife Fish Chopper Name Role Phone Yuni Resendiz APRN, CNP Primary Care Chauncey espinal Antonio Bal RN Unavailable Unavailable Reason for Visit * Reason Comments Medication Refill Encounter Details Date Type Department Care Team (Late st Contact Info) Description 09/06/2020 Refill [facility] [address] [place] [address] Evita Cid Rosalie, PAC [address] [place] [address] Medication Refill Social History Tobacco Use Types [...] Description 06/15/2025 9:00 AM CDT Clinical Support [facility] [place] [address] [place] [address] Clinic, [facility] Nurse [place] 09/13/2025 8:40 AM TRAVELING PHLEBOTOMIST Lab [facility][note 3] - [place] [address] [place] [address] [facility], [facility] 09/20/2025 9:30 AM TRAVELING PHLEBOTOMIST Office Visit [facility][note 3] - [place] [address] [place] [address] Yuni Resendiz APRN, DIRECTOR OPERATIONS BROADCAST [address] [place] [address] documented as of this encounter Visit Diagnoses Not on filedocumented in this encounter Additional Health Concerns Infection Onset Date Last Indicated Resolved Time COVID - 19 01/16/2023 01/16/2023 01/26/2023 12:1 6 AM CDT COVID - 19 Confirmed 01/16/2023 01/16/2023 023 12:16 AM CDT Assessment Noted Time PHQ-9 Depression Total Score: 0 07/26/20 20 8:00 AM CDT documented as of this encounter Care Teams Gang Knife Fish Chopper Relationship Specialty Start Date End Date Yuni Resendiz APRN, DIRECTOR OPERATIONS BROADCAST [address] [place] [address] PCP - General Advanced Practice Nurse 07/23/20 Antonio Bal, RN [place] Registered Nurse 05/24/25 documented as of this encounter
--- OUTSIDE RECORDS SUMMARY | 2025-05-28 11:52 | XMS_ITS | Encounter Summary ---
Author Organization [facility] Address [address] [place] [address] Phone Care Team Providers Care Production Drilling Machine Operator Name Role Phone Yuni Resendiz APRN, CNP Primary Care P [place] Antonio Bal RN Unavailable Unavailable Encounter Details Date Type Department Care Team (Late st Contact Info) Description 11/25/2020 Telephone [facility] - [place] [address] [place] [address] Yuni Resendiz APRN, CNP [address] [place] [address] Social History Tobacco Use Types [...] COVID-19? No / Unsure 11/25/2020 1:12 PM FLY WINDER documented as of this encounter Miscellaneous Notes * Telephone Encounter - Alicia Sesay RN - 11/25/2020 2:20 PM FLY WINDER Attempted to call patient, no answer at this time. Left message to call back. WINDER * Telephone Encounter - Alicia Sesay RN - 11/25/2020 2:19 PM FLY WINDER Images from the original note were not included. Yuni Resendiz, HOMEWORKER, EMAIL CAMPAIGN MANAGER You 19 minutes ago (1:56 PM) Increase amlodpine to 10mg. Start hctz 12.5mg daily Restart celebrex - she was on it and had elevated BP and it is still elevated when off of it, then it most likely wasn't caused by it WINDER documented in this encounter Plan of Treatment Upcoming Encounters Date Type Department Care Team (Late st Contact Info) Description 06/15/2025 9:00 AM CDT Clinical Support [facility] [place] [address] [place] [address] [facility] Nurse [place] 09/13/2025 8:40 AM FLY WINDER Lab [facility] [place] [address] [place] [address] [facility] 09/20/2025 9:30 AM FLY WINDER Office Visit [facility] [place] [address] [place] [address] Yuni Resendiz, NURSE RN BSN, EMAIL CAMPAIGN MANAGER [address] [place] [address] documented as of this encounter Visit Diagnoses Not on filedocumented in this encounter Additional Health Concerns Infection Onset Date Last Indicated Resolved Time COVID - 19 01/16/2023 01/16/2023 01/26/2023 12:1 6 AM CDT COVID - 19 Confirmed 01/16/2023 01/16/2023 023 12:16 AM CDT Assessment Noted Time PHQ-9 Depression Total Score: 0 07/26/20 20 8:00 AM CDT documented as of this encounter Care Teams Production Drilling Machine Operator Relationship Specialty Start Date End Date Yuni Resendiz APRN, EMAIL CAMPAIGN MANAGER [address] [place] [address] PCP - General Advanced Practice Nurse 07/23/20 Antonio Bal RN [place] Registered Nurse 05/24/25 documented as of this encounter
--- OUTSIDE RECORDS SUMMARY | 2025-05-28 11:52 | XMS_ITS | Encounter Summary ---
Author Organization [facility] Address [address] [place] [address] Care Team Providers Care Route Driver Name Role Phone Unavailable Primary Care Provider Unavailabl e Encounter Details Date Type Department Care Team (Late st Contact Info) Description 05/13/2020 Lab Requisition [facility] [address] [place] [address] [place] [address] [place] [address] Social History Tobacco Use Types Packs/Day Years [...] AM CDT) Case Report Dermatopathology Report Case: [id number] Authorizing Provider: Kathya Thomas MD Collected: 05/09/2020 12:00 AM Ordering Location: [facility] Received: 05/13/2020 01:12 PM [...] specimen consists of a shave biopsy measuring [id number]. Jar 0. 0 1:01 PM CDT DERMATOPATHOLOGY [...] characteristic determined by the Dermatopathology Laboratory at [facility], directed by Dr. Nicky Smith. These tests need not be, and therefore are not, approved by the [place] Food and Drug Administration. The tests are used for clinical purposes. Billing Codes Specimen Charges Stain Charges 97931 1 0 1:01 PM CDT DERMATOPATHOLOGY LABORATORY Embedded Images 0 1:01 PM CDT DERMATOPATHOLOGY LABORATORY Pathology/Cytolog y TISSUE SPECIMEN FROM SKIN / Unknown 05/09/2020 05/13/2020 1:12 PM CDT Kathya Thomas MD LAB - PATHOLOGY/CYTOLOGY ORDERABLES Final Result DERMATOPATHOLOGY LABORATORY [facility] - Department of Dermatology [facility]/[address] [phone] documented in this encounter Visit Diagnoses Not on filedocumented in this encounter
--- OUTSIDE RECORDS SUMMARY | 2025-05-28 11:52 | XMS_ITS | Encounter Summary ---
Author Organization [facility] Address [address] [place] [address] Phone Care Team Providers Care Parcel Post Clerk Name Role Phone Yuni Resendiz APRN, CNP Primary Care P [facility] Antonio Bal RN Unavailable Unavailable Reason for Visit * Reason Comments Medication Refill Encounter Details Date Type Department Care Team (Late st Contact Info) Description 05/26/2025 Refill [facility] - Primary Care - [place] [address] [place] [address] Yuni Resendiz APRN, CNP [address] [place] [address] Medication Refill Social History Tobacco Use Types Packs/Day Years Used Date Smoking Tobacco: Former Cigarettes 0.5 27 1 - 11/07/2004 Smokeless Tobacco: Never Comments:chews nicorette gum Alcohol Use Standard Drinks/Week Comments No 0 (1 standard drink = 0.6 oz pur e alcohol) [facility] Utilities Answer Date Recorded In the past 12 months has [employer] electric, gas, oil, or water company threatened [...] declined 03/13/2025 How often do you attend synagogue or denominational serv ices? Patient declined 03/13/2025 Do you belong to any clubs o r organizations such as synagogue groups, unions, fraternal or athletic groups, or [...] Total Score - Questions 1-9 0 08/09 [facility] - [...] place to sleep or slept in a jail (including now)? No 02/10/2024 Housing Stability Vital Sign Answer Noé e Recorded In the last 12 months, was t here a time when you were not able to pay the mortgage or rent on time? No 04/01/2025 Number of Times Moved in the Last Year Not on fi le 04/01/2025 At any time in the past 12 m [facility], were you homeless or living in a jail (including now)? No 04/01/2025 Education Answer Date [...] Telephone Encounter - Rosmery Peterson RN - 05/28/2025 10:14 AM CDT Medication(s) refilled and signed per [facility] Chronic Medication Refill Standing Order for Pediatricand Adult Patients. Requested Prescriptions Pending Prescriptions Disp Refills montelukast (SINGULAIR) 10 MG Tablet [Pharmacy Med Name: MONTELUKAST SOD 10 MG TABLET] 90 Tablet 1 Sig: TAKE 1 TABLET BY MOUTH EVERY DAY IN THE EVENING Leukotriene Inhibitors Protocol Passed - 05/28/2025 10:14 AM Passed - Visit with relevant provider in past 12 months or upcoming 90 days Recent Visits Date Type Provider Dept 03/15/25 Office Visit Yuni Resendiz APRN, VALE [facility] 01/01/25 Office Visit Yuni Resendiz APRN, VALE [facility] 10/02/24 Office Visit Yuni Resendiz APRN, VALE [facility] 09/05/24 Office Visit Yuni Resendiz APRN, VALE [facility] [facility] 07/17/24 Office Visit Yuni Resendiz APRN, VALE [facility] 07/06/24 Office Visit Yuni Resendiz APRN, VALE [facility] 06/26/24 Office [facility]24 [facility] Showing recent visits within past 365 days and meeting all other requirements Future Appointments Date Type Provider Dept 06/15/25 Appointment Clinic [facility] Nurse [facility] Showing future appointments within next 90 days and meeting all other requirements documented in this encounter Plan of Treatment Upcoming Encounters Date Type Department Care Team (Late st Contact Info) Description 06/15/2025 9:00 AM CDT Clinical Support [facility] [place] [address] [place] [address] [facility] [place] 09/13/2025 8:40 AM WILDLIFE CONSERVATION OFFICER Lab [facility] [place] [address] [place] [address] [facility] [place] 09/20/2025 9:30 AM WILDLIFE CONSERVATION OFFICER Office Visit [facility] [address] [place] [address] Yuni Resendiz APRN, ICT QUALITY ASSURANCE ENGINEER [address] [place] [address] documented as of this encounter Goals Goal Patient Goal Type Associated Problems Recent Progress Patient-Stated? Author Track and Manage My Blood Pressure Patient Goals On track(2024 12:50 PM CDT) Antonio Patrick, RN Note: Follow Up Date 06/14/25 - [...] Progression (Hypertension) On track(2024 12:46 PM CDT) No Antonio Bal, RN Note: Evidence-based guidance: Tailor lifestyle advice [...] meditation or exercise to manage stress. Notes: documented as of this encounter Visit Diagnoses Diagnosis Seasonal allergic rhinitis, unspecified trigger documented in this encounter Additional Health Concerns Active Problems Noted Date Diagnosed Date Hypertension (Hypertension) 05/24/2025 Disease Progression (Hypertension) 05/24/2025 Assessment Noted Time PHQ-9 Depression Total Score: 0 09/05/20 24 11:31 AM CDT documented as of this encounter Care Teams Parcel Post Clerk Relationship Specialty Start Date End Date Yuni Resendiz, BLOCK SEALER, ICT QUALITY ASSURANCE ENGINEER [address] [place] [address] PCP - General Advanced Practice Nurse 07/23/20 Antonio Bal RN [place] Registered Nurse 05/24/25 documented as of this encounter
--- OUTSIDE RECORDS SUMMARY | 2025-05-28 11:52 | XMS_ITS | Clinical Summary ---
Author Organization [facility] Address [address] [place] [address] Care Team Providers Care Tavern Car Attendant Name Role Phone Unavailable Primary Care Provider Unavailabl e Source Comments [facility],non-owned Affiliates and Associated Physician Practices is amultiple site organization consisting of ambulatory clinics and hospital sitesin [place], [place], [place] and [place]. This disclosure is being madepursuant to the Care Everywhere program and may not contain all information available regarding this patient. Last updated 18.[facility] [employer] Allergies Active Allergy Reactions Criticality Noted Date [...]
--- OUTSIDE RECORDS SUMMARY | 2025-05-28 11:52 | XMS_ITS | Encounter Summary ---
Author Organization [facility] Address [address] [place] [address] Phone Care Team Providers Care Director Of Orthopedics Name Role Phone Yuni Resendiz APRN, CNP Primary Care P [facility] Antonio Bal RN Unavailable Unavailable Reason for Visit * Reason Comments Medication Refill Encounter Details Date Type Department Care Team (Late st Contact Info) Description 02/01/2024 Refill [facility] - Primary Care - [place] [address] [place] [address] Yuni Resendiz APRN, CNP [address] [place] [address] Medication Refill Social History Tobacco [...] AM CDT Clinical Support [facility] [place] [address] [place] [address] [facility], [facility] Nurse [place] 09/13/2025 8:40 AM THERAPEUTIC DIETITIAN Lab [facility] [place] [address] [place] [address] [facility] 09/20/2025 9:30 AM THERAPEUTIC DIETITIAN Office Visit [facility] [place] [address] [place] [address] Yuni Resendiz APRN, FIELD OPERATIONS FARM MANAGER [address] [place] [address] documented as of this encounter Visit Diagnoses Diagnosis Dyslipidemia Other and unspecified hyperlipidemia documented in this encounter Additional Health Concerns Assessment Noted Time PHQ-9 Depression Total Score: 0 12/06/19 24 3:04 PM THERAPEUTIC DIETITIAN documented as of this encounter Care Teams Director Of Orthopedics Relationship Specialty Start Date End Date Yuni Resendiz APRN, FIELD OPERATIONS FARM MANAGER [address] [place] [address] PCP - General Advanced Practice Nurse 07/23/20 Antonio Bal, RN [place] Registered Nurse 05/24/25 documented as of this encounter
--- OUTSIDE RECORDS SUMMARY | 2025-05-28 11:52 | XMS_ITS | Encounter Summary ---
Author Organization [facility] Address [address] [place] [address] Phone Care Team Providers Care Soft Sugar Supervisor Name Role Phone Yuni Resendiz APRN, CNP Primary Care [facility] Antonio Bal RN Unavailable Unavailable Reason for Visit * Reason Comments Medication Refill Encounter Details Date Type Department Care Team (Late st Contact Info) Description 02/15/2022 Refill [facility] - Primary Care - [place] [address] [place] [address] Yuni Resendiz APRN, CNP [address] [place] [address] Medication Refill Social History Tobacco [...] Description 06/15/2025 9:00 AM CDT Clinical Support [facility] [address] [place] [address] [facility] 09/13/2025 8:40 AM PRODUCTION TOOL ENGINEER Lab [facility] [address] [place] [address] [facility] 09/20/2025 9:30 AM PRODUCTION TOOL ENGINEER Office Visit [facility] [address] [place] [address] Yuni Resendiz APRN, VALE [address] [place] [address] documented as of this encounter Visit Diagnoses Diagnosis Seasonal allergic rhinitis, unspecified trigger documented in this encounter Additional Health Concerns Infection Onset Date Last Indicated Resolved Time COVID - 19 01/16/2023 01/16/2023 01/26/2023 12:1 6 AM CDT COVID - 19 Confirmed 01/16/2023 01/16/2023 023 12:16 AM CDT Assessment Noted Time PHQ-9 Depression Total Score: 1 12/03/19 21 8:00 AM PRODUCTION TOOL ENGINEER documented as of this encounter Care Teams Soft Sugar Supervisor Relationship Specialty Start Date End Date Yuni Resendiz APRN, CLINICAL TRIAL EDUCATOR [address] [place] [address] PCP - General Advanced Practice Nurse 07/23/20 Antonio Bal, RN [place] Registered Nurse 05/24/25 documented as of this encounter
== END 2025-05-28 11:49 | disposition home or self-care (01) ==
PROVIDERS: Visit Provider Orthopaedic Surgery
DX: Z79.899 Other long term (current) drug therapy (principal)
CPT/HCPCS: 80307

== ENCOUNTER 2025-07-27 11:42 | Outpatient (CLI) | payer MEDICARE, SELFPAY ==
--- NOTE | ~2025-07-27 | XR_ITS ---
EXAMINATION: XR knee LT min 4V, 07/27/2025 12:02 CDT HISTORY: LT KNEE primary osteoarthritis; PRE-OP SURGERY AUG. COMPARISON: No comparisons available. Findings: No acute fracture or malalignment. Severe tricompartmental degenerative changes with small effusion Soft tissues unremarkable. Impression: No acute fracture or malalignment. Reviewed, dictated and finalized at location A. Impression: No acute fracture or malalignment.
--- OUTSIDE RECORDS SUMMARY | 2025-07-27 11:48 | XMS_ITS | Encounter Summary ---
Author Organization [facility] Address [address] [place] [address] Care Team Providers Care Policy Analyst Name Role Phone Unavailable Primary Care Provider Unavailabl e Encounter Details Date Type Department Care Team (Late st Contact Info) Description 05/13/2020 Lab Requisition [facility] DermPath Lab [address] [place] [address] [place] [address] [place] [address] Social History Tobacco Use Types Packs/Day Years [...] AM CDT) Case Report Dermatopathology Report Case: [id number] Authorizing Provider: Kathya Thomas MD Collected: 05/09/2020 12:00 AM Ordering Location: [facility] DermPath Lab Received: 05/13/2020 01:12 [...] specimen consists of a shave biopsy measuring [id number]. Jar 0. 0 1:01 PM CDT DERMATOPATHOLOGY [...] characteristic determined by the Dermatopathology Laboratory at [facility], directed by Dr. Nicky Smith. These tests need not be, and therefore are not, approved by the [place] Food and Drug Administration. The tests are used for clinical purposes. Billing Codes Specimen Charges Stain Charges 60476 1 0 1:01 PM CDT DERMATOPATHOLOGY LABORATORY Embedded Images 0 1:01 PM CDT DERMATOPATHOLOGY LABORATORY Pathology/Cytolog y TISSUE SPECIMEN FROM SKIN / Unknown 05/09/2020 05/13/2020 1:12 PM CDT Kathya Thomas MD LAB - PATHOLOGY/CYTOLOGY ORDERABLES Final Result DERMATOPATHOLOGY LABORATORY [facility] - Department of Dermatology [facility]/[address] [phone] documented in this encounter Visit Diagnoses Not on filedocumented in this encounter
--- OUTSIDE RECORDS SUMMARY | 2025-07-27 11:48 | XMS_ITS | Encounter Summary ---
Author Organization [facility] Address [address] [place] [address] Phone Care Team Providers Care Undergraduate Intern Name Role Phone Yuni Resendiz APRN, CNP Primary Care P [facility] Antonio Bal RN Unavailable Unavailable Reason for Visit * Reason Comments Medication Refill Encounter Details Date Type Department Care Team (Late st Contact Info) Description 11/07/2023 Refill [facility] - Primary Care - [place] [address] [place] [address] Yuni Resendiz APRN, CNP [address] [place] [address] Medication Refill Social History Tobacco [...] 10:43 AM CST Refill requested too soon. BRAKEMAN documented in this encounter Plan of Treatment Upcoming Encounters Date Type Department Care Team (Late st Contact Info) Description 08/07/2025 9:00 AM CDT Clinical Support [facility] [address] [place] [address] 09/13/2025 8:40 AM YARD BRAKEMAN Lab [facility] [place] [address] [place] [address] 09/20/2025 9:30 AM YARD BRAKEMAN Office Visit [facility] [address] [place] [address] Yuni Resendiz APRN, VALE [address] [place] [address] documented as of this encounter Visit Diagnoses Diagnosis Seasonal allergic rhinitis, unspecified trigger documented in this encounter Additional Health Concerns Assessment Noted Time PHQ-9 Depression Total Score: 0 11/13/19 23 8:00 AM YARD BRAKEMAN documented as of this encounter Care Teams Undergraduate Intern Relationship Specialty Start Date End Date Yuni Resendiz APRN, VALE [address] [place] [address] PCP - General Advanced Practice Nurse 07/23/20 Antonio Bal, RN [place] Registered Nurse 05/24/25 documented as of this encounter
--- OUTSIDE RECORDS SUMMARY | 2025-07-27 11:48 | XMS_ITS | Clinical Summary ---
Author Organization [facility] Address [address] [place] [address] Care Team Providers Care Fan Mail Clerk Name Role Phone Jocelyn Vázquez MD Primary Care Provider [phone] Allergies Active Allergy Reactions Criticality Noted Date [...] back Discussed importance of core stability in correction relief of pain Handout given Refill flexeril [...] on file Legal Sex Female 5:09 PM CLARIFIER Gender Identity Not on file Sexual Orientation [...] Not on file Insurance MEDICARE Care Teams Fan Mail Clerk Relationship Specialty Start Date End Date Jocelyn Vázquez [place] [address] [address] [address] PCP - General Family Medicine 05/28/17
--- OUTSIDE RECORDS SUMMARY | 2025-07-27 11:48 | XMS_ITS | Encounter Summary ---
Author Organization [facility] Address [address] [place] [address] Phone Care Team Providers Care Petrophysical Engineer Name Role Phone Yuni Resendiz APRN, CNP Primary Care P [facility] Antonio Bal RN Unavailable Unavailable Reason for Visit * Reason Comments Medication Refill Encounter Details Date Type Department Care Team (Late st Contact Info) Description 03/30/2023 Refill [facility] Primary Care - [place] [address] [place] [address] Yuni Resendiz APRN, CNP [address] [place] [address] Medication Refill Social History Tobacco [...] Description 08/07/2025 9:00 AM CDT Clinical Support [facility] [place] [address] [place] [address] 09/13/2025 8:40 AM REPORT MANAGER Lab [facility] [place] [address] [address] 09/20/2025 9:30 AM REPORT MANAGER Office Visit [facility] [place] [address] [place] [address] Yuni Resendiz APRN, TOGGLE PRESS FOLDER AND FEEDER [address] [place] [address] documented as of this encounter Visit Diagnoses Diagnosis Seasonal allergic rhinitis, unspecified trigger documented in this encounter Additional Health Concerns Assessment Noted Time PHQ-9 Depression Total Score: 0 11/13/19 8:00 AM REPORT MANAGER documented as of this encounter Care Teams Petrophysical Engineer Relationship Specialty Start Date End Date Yuni Resendiz APRN, TOGGLE PRESS FOLDER AND FEEDER [address] [place] [address] PCP - General Advanced Practice Nurse 07/23/20 Antonio Bal, RN [place] Registered Nurse 05/24/25 documented as of this encounter
--- OUTSIDE RECORDS SUMMARY | 2025-07-27 11:49 | XMS_ITS | Clinical Summary ---
Author Organization [facility] Address [address] [place] [address] Care Team Providers Care Professional Golf Tournament Player Name Role Phone Unavailable Primary Care Provider Unavailabl e Source Comments [facility],non-owned Affiliates and Associated Physician Practices is amultiple site organization consisting of ambulatory clinics and hospital sitesin [place], [place], [place] and [place]. This disclosure is being madepursuant to the Care Everywhere program and may not contain all information available regarding this patient. Last updated 18.[facility] Allergies Active Allergy Reactions Criticality Noted Date [...] of 2) 2000 SCREENING FOR DIABETES 06/01/2019 DEPRESSION SCREENING 11/08/2024 Respiratory Syncytial Virus (RSV) Vaccine Pt: or over 60 yrs (1 - 1-dose 75+ series) 2025 COVID-19 VACCINE ( - season) 2025 INFLUENZA VACCINE (#1) 2025 8, 08/11/2017, [...]
--- OUTSIDE RECORDS SUMMARY | 2025-07-27 11:49 | XMS_ITS | Clinical Summary ---
Author Organization [facility] Address [address] [place] [address] Phone Care Team Providers Care Hydrostatic Tubing Tester Name Role Phone Roman Fragoso DO Primary [...] DO Referring Provider: Estella Fernandez MD [address] [address] Other: Problem Noted Date Diagnosed Date Abnormal [...] on file Legal Sex Female 5:42 AM MENTAL HEALTH PROFESSIONAL Gender Identity Not on file Sexual Orientation [...] series) 2025 INFLUENZA VACCINE (#1) 2025 Insurance [facility] OPT[employer] PPO [id number] MEDICARE PART A AND B Care Teams Hydrostatic Tubing Tester Relationship Specialty Start Date End Date Roman Fragoso DO PCP - General 06/14/09
--- OUTSIDE RECORDS SUMMARY | 2025-07-27 11:49 | XMS_ITS | Encounter Summary ---
Author Organization [facility] Address [address] [place] [address] Phone Care Team Providers Care Outpatient Coder Name Role Phone Yuni Resendiz APRN, CNP Primary Care P [facility] Antonio Bal RN Unavailable Unavailable Reason for Visit * Reason Comments Medication Refill Encounter Details Date Type Department Care Team (Late st Contact Info) Description 01/21/2024 Refill [facility] - Primary Care - [place] [address] [place] [address] Yuni Resendiz APRN, CNP [address] [place] [address] Medication Refill Social History Tobacco [...] 12/06/23 Office Visit Yuni Resendiz APRN, VALE [facility] 07/29/23 Office Visit Yuni Resendiz APRN, CNP [facility] 05/20/23 Office Visit Yuni Resendiz APRN, CNP [facility] 04/09/23 Office Visit Yuni Resendiz APRN, CNP [facility] 03/24/23 Office Visit Yuni Resendiz APRN, VALE [facility] Showing recent visits within past [...] 12/06/23 Office Visit Yuni Resendiz APRN, CNP [facility] 07/29/23 Office Visit Yuni Resendiz APRN, CNP [facility] 05/20/23 Office Visit Yuni Resendiz APRN, CNP [facility] 04/09/23 Office Visit Yuni Resendiz APRN, VALE [facility] 03/24/23 Office Visit Yuni Resendiz APRN, VALE [facility] Showing recent visits within past 365 days and meeting all other requirements Future Appointments No visits were found meeting these conditions. Showing future appointments within next 90 days and meeting all other requirements documented in this encounter Plan of Treatment Upcoming Encounters Date Type Department Care Team (Late st Contact Info) Description 08/07/2025 9:00 AM CDT Clinical Support [facility] [place] [address] [place] [address] 09/13/2025 8:40 AM CERTIFIED SKI PATROLLER Lab [facility] [address] [place] [address] 09/20/2025 9:30 AM CERTIFIED SKI PATROLLER Office Visit [facility] [place] [address] [place] [address] Yuni Resendiz APRN, CNP [address] [place] [address] documented as of this encounter Visit Diagnoses Diagnosis Essential hypertension Unspecified essential hypertension Gastroesophageal reflux disease, unspecified whether esophagitis present documented in this encounter Additional Health Concerns Assessment Noted Time PHQ-9 Depression Total Score: 0 12/06/19 24 3:04 PM CERTIFIED SKI PATROLLER documented as of this encounter Care Teams Outpatient Coder Relationship Specialty Start Date End Date Yuni Resendiz, PLANT PROPAGATOR, TOBACCO DRUMMER [address] [place] [address] PCP - General Advanced Practice Nurse 07/23/20 Antonio Bal, RN [place] Registered Nurse 05/24/25 documented as of this encounter
--- OUTSIDE RECORDS SUMMARY | 2025-07-27 11:49 | XMS_ITS | Encounter Summary ---
Author Organization [facility] Address [address] [place] [address] Phone Care Team Providers Care Facilities Maintenance Supervisor Name Role Phone Yuni Resendiz APRN, CNP Primary Care P [facility] Antonio Bal RN Unavailable Unavailable Encounter Details Date Type Department Care Team (Late st Contact Info) Description 11/25/2020 Telephone [facility] - [place] [address] [place] [address] Yuni Resendiz APRN, CNP [address] [place] [address] Social History Tobacco Use Types [...] COVID-19? No / Unsure 11/25/2020 1:12 PM ACQUISITION ASSOCIATE documented as of this encounter Miscellaneous Notes * Telephone Encounter - Alicia Sesay RN - 11/25/2020 2:20 PM ACQUISITION ASSOCIATE Attempted to call patient, no answer at this time. Left message to call back. ISITION ASSOCIATE * Telephone Encounter - Alicia Sesay RN - 11/25/2020 2:19 PM ACQUISITION ASSOCIATE Images from the original note were not included. Yuni Resendiz APN, SIEBEL DEVELOPER You 19 minutes ago (1:56 PM) Increase amlodpine to 10mg. Start hctz 12.5mg daily Restart celebrex - she was on it and had elevated BP and it is still elevated when off of it, then it most likely wasn't caused by it ISITION ASSOCIATE documented in this encounter Plan of Treatment Upcoming Encounters Date Type Department Care Team (Late st Contact Info) Description 08/07/2025 9:00 AM CDT Clinical Support [facility] - [place] [address] [place] [address] 09/13/2025 8:40 AM ACQUISITION ASSOCIATE Lab [facility] [place] [address] [place] [address] 09/20/2025 9:30 AM ACQUISITION ASSOCIATE Office Visit [facility] [place] [address] [place] [address] Yuni Resendiz, PHP MYSQL WEB DEVELOPER, SIEBEL DEVELOPER [address] [place] [address] documented as of this encounter Visit Diagnoses Not on filedocumented in this encounter Additional Health Concerns Infection Onset Date Last Indicated Resolved Time COVID - 19 01/16/2023 01/16/2023 01/26/2023 12:1 6 AM CDT COVID - 19 Confirmed 01/16/2023 01/16/2023 023 12:16 AM CDT Assessment Noted Time PHQ-9 Depression Total Score: 0 07/26/20 20 8:00 AM CDT documented as of this encounter Care Teams Facilities Maintenance Supervisor Relationship Specialty Start Date End Date Yuni Resendiz, PHP MYSQL WEB DEVELOPER, SIEBEL DEVELOPER [address] [place] [address] PCP - General Advanced Practice Nurse 07/23/20 Antonio Bal RN [place] Registered Nurse 05/24/25 documented as of this encounter
--- OUTSIDE RECORDS SUMMARY | 2025-07-27 11:49 | XMS_ITS | Encounter Summary ---
Author Organization [facility] Address [address] [place] [address] Phone Care Team Providers Care Literacy Coach Name Role Phone Yuni Resendiz APRN, CNP Primary Care P [facility] Antonio Bal RN Unavailable Unavailable Reason for Visit * Reason Comments Medication Refill Encounter Details Date Type Department Care Team (Late st Contact Info) Description 02/01/2024 Refill [facility] - Primary Care - [place] [address] [place] [address] Yuni Resendiz APRN, CNP [address] [place] [address] Medication Refill Social History Tobacco [...] Support [facility] [address] [place] [address] 09/13/2025 8:40 AM STRAIGHTENING PRESS OPERATOR Lab [facility] [address] [place] [address] 09/20/2025 9:30 AM STRAIGHTENING PRESS OPERATOR Office Visit [facility] [address] [place] [address] Yuni Resendiz APRN, AUTOMOTIVE METALSMITH [address] [place] [address] documented as of this encounter Visit Diagnoses Diagnosis Dyslipidemia Other and unspecified hyperlipidemia documented in this encounter Additional Health Concerns Assessment Noted Time PHQ-9 Depression Total Score: 0 12/06/19 24 3:04 PM STRAIGHTENING PRESS OPERATOR documented as of this encounter Care Teams Literacy Coach Relationship Specialty Start Date End Date Yuni Resendiz APRN, AUTOMOTIVE METALSMITH [address] [place] [address] PCP - General Advanced Practice Nurse 07/23/20 Antonio Bal, RN [place] Registered Nurse 05/24/25 documented as of this encounter
--- OUTSIDE RECORDS SUMMARY | 2025-07-27 11:49 | XMS_ITS ---
Author Organization [facility] Address [address] [facility], [address] [address] Phone Care Team Providers Care Screening Nurse Name Role Phone Yuni Resendiz APRN, VALE Primary Care [facility] Antonio Bal RN Unavailable Unavailable Nurse Clinic Status:Enrolled (Active) Start date:05/24/2025 Enrollment date:05/24/2025 Enrollment reason:Referred by provider Current support & services provided:Hypertension Management Case Team Name Relationship Phone Antonio Bal RN(Responsible Staff) Registered Nurse Continued Care and Services Coordination
--- OUTSIDE RECORDS SUMMARY | 2025-07-27 11:49 | XMS_ITS | Encounter Summary ---
Author Organization [facility] Address [address] [place] [address] Phone Care Team Providers Care Superintendent Plant Name Role Phone Yuni Resendiz APRN, CNP Primary Care P [facility] Antonio Bal RN Unavailable Unavailable Reason for Visit * Reason Comments Medication Refill Encounter Details Date Type Department Care Team (Late st Contact Info) Description 05/14/2021 Refill [facility] [address] [place] [address] Yuni Resendiz APRN, DRILLING FIELD SPECIALIST [address] [place] [address] Medication Refill Social History Tobacco [...] Description 08/07/2025 9:00 AM CDT Clinical Support [facility] [place] [address] [place] [address] 09/13/2025 8:40 AM COUNTER MAKER Lab [facility] [place] [address] [place] [address] 09/20/2025 9:30 AM COUNTER MAKER Office Visit [facility] [place] [address] [place] [address] Yuni Resendiz APRN, CNP [address] [place] [address] documented as of this encounter Visit Diagnoses Diagnosis Seasonal allergic rhinitis, unspecified trigger documented in this encounter Additional Health Concerns Infection Onset Date Last Indicated Resolved Time COVID - 19 01/16/2023 01/16/2023 01/26/2023 12:1 6 AM CDT COVID - 19 Confirmed 01/16/2023 01/16/2023 023 12:16 AM CDT Assessment Noted Time PHQ-9 Depression Total Score: 1 12/03/19 21 8:00 AM COUNTER MAKER documented as of this encounter Care Teams Superintendent Plant Relationship Specialty Start Date End Date Yuni Resendiz APRN, CNP [address] [place] [address] PCP - General Advanced Practice Nurse 07/23/20 Antonio Bal RN [place] Registered Nurse 05/24/25 documented as of this encounter
--- OUTSIDE RECORDS SUMMARY | 2025-07-27 11:49 | XMS_ITS | Encounter Summary ---
Author Organization [facility] Address [address] [place] [address] Phone Care Team Providers Care Mold Cooler Name Role Phone Yuni Resendiz APRN, CNP Primary Care P [facility] Antonio Bal RN Unavailable Unavailable Reason for Visit * Reason Comments Medication Refill Encounter Details Date Type Department Care Team (Late st Contact Info) Description 06/20/2022 Refill [facility] - Primary Care - [place] [address] [place] [address] Yuni Resendiz APRN, CNP [address] [place] [address] Medication Refill Social History Tobacco [...] CDT [facility] [address] [place] [address] 09/13/2025 8:40 AM HOME THEATER SPECIALIST Lab [facility] [place] [address] [place] [address] 09/20/2025 9:30 AM HOME THEATER SPECIALIST Office Visit [facility] [address] [place] [address] Yuni Resendiz APRN, PATHOLOGY TECHNICIAN [address] [place] [address] documented as of this encounter Visit Diagnoses Diagnosis Seasonal allergic rhinitis, unspecified trigger documented in this encounter Additional Health Concerns Infection Onset Date Last Indicated Resolved Time COVID - 19 01/16/2023 01/16/2023 01/26/2023 12:1 6 AM CDT COVID - 19 Confirmed 01/16/2023 01/16/2023 023 12:16 AM CDT Assessment Noted Time PHQ-9 Depression Total Score: 1 12/03/19 21 8:00 AM HOME THEATER SPECIALIST documented as of this encounter Care Teams Mold Cooler Relationship Specialty Start Date End Date Yuni Resendiz APRN, PATHOLOGY TECHNICIAN [address] [place] [address] PCP - General Advanced Practice Nurse 07/23/20 Antonio Bal, RN [place] Registered Nurse 05/24/25 documented as of this encounter
--- OUTSIDE RECORDS SUMMARY | 2025-07-27 11:49 | XMS_ITS | Encounter Summary ---
Author Organization [facility] Address [address] [place] [address] Phone Care Team Providers Care Virtual Classroom Manager Name Role Phone Yuni Resendiz APRN, CNP Primary Care P [facility] Antonio Bal RN Unavailable Unavailable Reason for Visit * Reason Comments Medication Refill Encounter Details Date Type Department Care Team (Late st Contact Info) Description 04/27/2024 Refill [facility] - Primary Care - [place] [address] [place] [address] Yuni Resendiz APRN, CNP [address] [place] [address] Medication Refill Social History Tobacco Use Types Packs/Day Years Used Date Smoking Tobacco: Former Cigarettes 0.5 27 1 - 11/07/2004 Smokeless Tobacco: Never Comments:chews nicorette gum Alcohol Use Standard Drinks/Week Comments No 0 (1 standard drink = 0.6 oz pur e alcohol) [facility] Utilities Answer Date Recorded In the past 12 months has [employer] electric, gas, oil, or water company threatened [...] How often do you attend chur or mu-ism services? 1 to 4 times per year 02/10/2024 Do you belong to any clubs o r organizations such as taoist groups, unions, fraternal or athletic groups, or [...] Total Score - Questions 1-9 0 11/09 [facility] - Occupational Stress Questionnaire Answer Date [...] 04/20/24 Office Visit Antonella Gupta APRN, [facility] 02/10/24 Office Visit Yuni Resendiz APRN, [facility] 12/06/23 Office Visit Yuni Resendiz APRN, [facility] Showing recent visits within past 182 days and meeting all other requirements Future Appointments Date Type Provider Dept 05/15/24 Appointment Clinic, [facility] [place] Nurse [facility] 05/29/24 Appointment Lab, [facility] 06/05/24 Appointment Yuni Resendiz APRN, [facility] Showing future appointments within next 90 days and meeting all other requirements Passed - Patient has established therapy with Bupropion for at least 6 months documented in this encounter Plan of Treatment Upcoming Encounters Date Type Department Care Team (Late st Contact Info) Description 08/07/2025 9:00 AM CDT Clinical Support [facility] [place] [address] 09/13/2025 8:40 AM ESTATE TAX EXAMINER Lab [facility] [place] [address] [place] [address] 09/20/2025 9:30 AM ESTATE TAX EXAMINER Office Visit [facility] [place] [address] Yuni Resendiz APRN, CNP [address] [place] [address] documented as of this encounter Visit Diagnoses Diagnosis Anxiety with depression documented in this encounter Additional Health Concerns Assessment Noted Time PHQ-9 Depression Total Score: 0 12/06/19 24 3:04 PM ESTATE TAX EXAMINER documented as of this encounter Care Teams Virtual Classroom Manager Relationship Specialty Start Date End Date Yuni Resendiz CLINICAL DATA MANAGEMENT MANAGER, PROGRAMMER OR ANALYST [address] [place] [address] PCP - General Advanced Practice Nurse 07/23/20 Antonio Bal, RN [place] Registered Nurse 05/24/25 documented as of this encounter
--- OUTSIDE RECORDS SUMMARY | 2025-07-27 11:49 | XMS_ITS | Encounter Summary ---
Author Organization [facility] Address [address] [place] [address] Phone Care Team Providers Care Chiller Tender Name Role Phone Yuni Resendiz APRN, CNP Primary Care [facility] Antonio Bal RN Unavailable Unavailable Reason for Visit * Reason Comments Medication Refill Encounter Details Date Type Department Care Team (Late st Contact Info) Description 05/13/2021 Refill [facility] [address] [place] [id number] Evita Cid Rosalie, PAC [address] [place] [address] Medication Refill Social History Tobacco Use Types [...] 03/07/21 Office Visit Yuni Resendiz APN, VALE [facility] [address] 12/20/20 Office Visit Yuni Resendiz APN, VALE [facility] [address] 12/03/20 Office Visit Yuni Resendiz APN, VALE [facility] [address] 07/26/20 Office Visit Yuni Resendiz APN, VALE [facility] [address] Showing recent visits within past 365 [...] Description 08/07/2025 9:00 AM CDT [facility] [address] [place] [address] 09/13/2025 8:40 AM CLOTH PRINTING UTILITY WORKER Lab [facility] [address] [place] [address] 09/20/2025 9:30 AM CLOTH PRINTING UTILITY WORKER Office Visit [facility] [address] [place] [address] Yuni Resendiz APRN, MANAGER WORK [address] [place] [address] documented as of this encounter Visit Diagnoses Not on filedocumented in this encounter Additional Health Concerns Infection Onset Date Last Indicated Resolved Time COVID - 19 01/16/2023 01/16/2023 01/26/2023 12:1 6 AM CDT COVID - 19 Confirmed 01/16/2023 01/16/2023 023 12:16 AM CDT Assessment Noted Time PHQ-9 Depression Total Score: 1 12/03/19 21 8:00 AM CLOTH PRINTING UTILITY WORKER documented as of this encounter Care Teams Chiller Tender Relationship Specialty Start Date End Date Yuni Resendiz DIVIDING MACHINE OPERATOR HELPER, MANAGER WORK [address] [place] [address] PCP - General Advanced Practice Nurse 07/23/20 Antonio Bal, RN [place] Registered Nurse 05/24/25 documented as of this encounter
--- OUTSIDE RECORDS SUMMARY | 2025-07-27 11:49 | XMS_ITS ---
Care Plan Created on: July 27, 2025 Lucy Nair : 1950 Sex: Female Author Organization [facility] Address [address], [address] [address] Phone Care Team Providers Care Transit Coach Operator Name Role Phone Yuni Resendiz APRN, VALE Primary Care P [facility] Antonio Bal RN Unavailable Unavailable Active Problems Problem Noted Date Diagnosed Date Type 2 diabetes mellitus wit hout complication, without long-term current use of insulin 07/17/2025 Arthralgia of both knees 09/05/2024 Atherosclerosis 05/20/2023 [...] back Discussed importance of core stability in half-way relief of pain Handout given Refill flexeril [...] My Blood Pressure Patient Goals On track(2024 1:37 PM CDT) Antonio Patrick, RN Note: Follow [...] (Hypertension) On track(2024 12:46 PM CDT) Antonio Patrick RN Note: Evidence-based guidance: Tailor lifestyle advice [...]
--- OUTSIDE RECORDS SUMMARY | 2025-07-27 11:49 | XMS_ITS | Encounter Summary ---
Author Organization [facility] Address [address] [place] [address] Phone Care Team Providers Care Groundman/Lineman Name Role Phone Yuni Resendiz APRN, CNP Primary Care P [facility] Antonio Bal RN Unavailable Unavailable Reason for Visit * Reason Comments Medication Refill Encounter Details Date Type Department Care Team (Late st Contact Info) Description 02/15/2022 Refill [facility] - Primary Care - [place] [address] [place] [address] Yuni Resendiz APRN, CNP [address] [place] [address] Medication Refill Social History Tobacco [...] Description 08/07/2025 9:00 AM CDT Clinical Support [facility] [place] [address] [place] [address] 09/13/2025 8:40 AM FIRE CONTROL TECHNICIAN Lab [facility] [place] [address] [place] [address] 09/20/2025 9:30 AM FIRE CONTROL TECHNICIAN Office Visit [facility] [place] [address] [place] [address] Yuni Resendiz APRN, FLIGHT ENGINEER PERFORMANCE QUALIFIED [address] [place] [address] documented as of this encounter Visit Diagnoses Diagnosis Seasonal allergic rhinitis, unspecified trigger documented in this encounter Additional Health Concerns Infection Onset Date Last Indicated Resolved Time COVID - 19 01/16/2023 01/16/2023 01/26/2023 12:1 6 AM CDT COVID - 19 Confirmed 01/16/2023 01/16/202302/05/ 023 12:16 AM CDT Assessment Noted Time PHQ-9 Depression Total Score: 1 12/03/19 21 8:00 AM FIRE CONTROL TECHNICIAN documented as of this encounter Care Teams Groundman/Lineman Relationship Specialty Start Date End Date Yuni Resendiz APRN, FLIGHT ENGINEER PERFORMANCE QUALIFIED [address] [place] [address] PCP - General Advanced Practice Nurse 07/23/20 Antonio Bal, RN [place] Registered Nurse 05/24/25 documented as of this encounter
--- OUTSIDE RECORDS SUMMARY | 2025-07-27 11:49 | XMS_ITS | Encounter Summary ---
Author Organization [facility] Address [address] [place] [place] [address] Phone Care Team Providers Care Aircraft Detail Draftsperson Name Role Phone Yuni Resendiz APRN, CNP Primary Care P [facility] Antonio Bal RN Unavailable Unavailable Reason for Visit * Reason Comments Medication Refill Encounter Details Date Type Department Care Team (Late st Contact Info) Description 12/24/2021 Refill [facility] - [place] [address] [place] [address] Yuni Resendiz APRN, CNP [address] [place] [address] Medication Refill Social History Tobacco [...] Description 08/07/2025 9:00 AM CDT Clinical Support [facility] [place] [place] [address] 09/13/2025 8:40 AM DIRECTOR MANUFACTURING ENGINEERING Lab [facility] [place] [address] [place] [address] 09/20/2025 9:30 AM DIRECTOR MANUFACTURING ENGINEERING Office Visit [facility] [place] [address] Yuni Resendiz APRN, RESTAURANT SUPERVISOR [address] [place] [address] documented as of this encounter Visit Diagnoses Diagnosis Seasonal allergic rhinitis, unspecified trigger documented in this encounter Additional Health Concerns Infection Onset Date Last Indicated Resolved Time COVID - 19 01/16/2023 01/16/2023 01/26/2023 12:1 6 AM CDT COVID - 19 Confirmed 01/16/2023 01/16/2023 023 12:16 AM CDT Assessment Noted Time PHQ-9 Depression Total Score: 1 12/03/19 21 8:00 AM DIRECTOR MANUFACTURING ENGINEERING documented as of this encounter Care Teams Aircraft Detail Draftsperson Relationship Specialty Start Date End Date Yuni Resendiz APRN, RESTAURANT SUPERVISOR [address] [place] [address] PCP - General Advanced Practice Nurse 07/23/20 Antonio Bal, RN [place] Registered Nurse 05/24/25 documented as of this encounter
--- OUTSIDE RECORDS SUMMARY | 2025-07-27 11:49 | XMS_ITS | Encounter Summary ---
Author Organization [facility] Address [address] [place] [address] Phone Care Team Providers Care Automatic Hemmer Name Role Phone Yuni Resendiz APRN, CNP Primary Care [place] espinal Antonio Bal RN Unavailable Unavailable Reason for Visit * Reason Comments Medication Refill Encounter Details Date Type Department Care Team (Late st Contact Info) Description 09/06/2020 Refill [facility] [address] [place] [address] Evita Cid Rosalie, PAC [address] [place] [address] Medication Refill Social History Tobacco Use Types [...] AM CDT Clinical Support [facility] [place] [address] [place] [address] 09/13/2025 8:40 AM STATIC BALANCER Lab [facility] [place] [address] [address] 09/20/2025 9:30 AM STATIC BALANCER Office Visit [facility] [place] [address] [place] [address] Yuni Resendiz APRN, RETAIL COVERAGE MERCHANDISER [address] [place] [address] documented as of this encounter Visit Diagnoses Not on filedocumented in this encounter Additional Health Concerns Infection Onset Date Last Indicated Resolved Time COVID - 19 01/16/2023 01/16/2023 01/26/2023 12:1 6 AM CDT COVID - 19 Confirmed 01/16/2023 01/16/2023 023 12:16 AM CDT Assessment Noted Time PHQ-9 Depression Total Score: 0 07/26/20 20 8:00 AM CDT documented as of this encounter Care Teams Automatic Hemmer Relationship Specialty Start Date End Date Yuni Resendiz APRN, RETAIL COVERAGE MERCHANDISER [address] [place] [address] PCP - General Advanced Practice Nurse 07/23/20 Antonio Bal, RN [place] Registered Nurse 05/24/25 documented as of this encounter
--- OUTSIDE RECORDS SUMMARY | 2025-07-27 11:49 | XMS_ITS | Clinical Summary ---
Author Organization [facility] Address [address], [address] [address] Phone Care Team Providers Care Library Associate Name Role Phone Yuni Resendiz APRN, VALE [...] mouth daily. 90 Tablet 1 4 Active [place]-3 Fatty Acids (FISH OIL PO) Take by mouth daily. Active MAGNESIUM PO Take by mouth daily. Active Calcium Carbonate (CALCIUM 500 PO) Take by mouth in the morning and at bedtime. Active nystatin (MYCOSTATIN) 727487 UNIT/GM OintmentIndicatio ns:Candidiasis of breast Apply 4 times daily. Apply to rash under breast until resolved. 30 g 1 4 Active rosuvastatin (CRESTOR) 20 MG TabletIndications :Dyslipidemia TAKE 1 TABLET BY MOUTH EVERY DAY 90 Tablet 2 5 Active celecoxib (CeleBREX) 200 MG Capsule Take 1 Capsule by mouth 2 times daily. 180 Capsule 3 5 Active amLODIPine (NORVASC) 10 MG TabletIndications :Primary hypertension Take 1 Tablet by mouth daily. 90 Tablet 3 5 Active carvedilol (COREG) 12.5 MG TabletIndications :Primary hypertension Take 0.5 Tablets by mouth 2 times daily. 90 Tablet 3 5 Active montelukast (SINGULAIR) 10 MG TabletIndications :Seasonal allergic rhinitis, unspecified trigger TAKE 1 TABLET BY MOUTH EVERY DAY IN THE EVENING 90 Tablet 1 5 Active omeprazole (PriLOSEC) 20 MG CAPSULE DELAYED RELEASEIndication s:Gastroesophagea l reflux disease, unspecified whether esophagitis present TAKE 1 CAPSULE BY MOUTH EVERY DAY 90 Capsule 1 5 Active olmesartan medoxomil (BENICAR) 40 MG TabletIndications :Primary hypertension Take 1 Tablet by mouth daily. 90 Tablet 1 5 Active buPROPion (WELLBUTRIN) 300 MG TABLET SR 24 HR XL tabletIndications :Anxiety with depression Take 1 Tablet by mouth every morning. 90 Tablet 1 5 Active diclofenac (VOLTAREN) 50 MG Tablet Delayed ResponseIndicatio ns:Chronic bilateral low back pain without sciatica,Lumbar spondylolysis,Chr onic pain of both lower extremities Take 1 Tablet by mouth 3 times daily. 270 Tablet 1 4 07/17/20 25 Discontinu ed(Med List Clean Up) buPROPion (WELLBUTRIN) 150 MG XL tabletIndications :Anxiety with depression TAKE 1 TABLET BY MOUTH EVERY DAY IN THE MORNING 90 Tablet 1 5 07/17/20 25 Discontinu ed(Reorder ) losartan (COZAAR) 100 MG TabletIndications :Essential hypertension Take 1 Tablet by mouth daily. 90 Tablet 3 5 07/17/20 25 Discontinu ed(Alterna te therapy) Active Problems Problem Noted Date Diagnosed Date [...] Encounters Date Type Department Care Team Description 07/17/2025 10:15 AM CDT Office Visit [facility] - [place] [address] [place] [address] Yuni Resendiz APRN, LEGAL PARAPROFESSIONAL Primary hypertension (Primary Dx); Encounter for immunization; Type 2 diabetes mellitus without complication, without long-term current use of insulin; Arthritis; Anxiety with depression; Dyslipidemia Discharge Disposition: Discharged to home or Selfcare 07/17/2025 Travel 06/15/2025 9:00 AM CDT [facility] [address] [place] [address] Primary hypertension (Primary Dx) Discharge Disposition: Discharged to home or Selfcare 06/15/2025 Travel 06/15/2025 Refill [facility] [place] [address] [place] [address] Yuni Resendiz APRN, VALE Medication Refill 05/26/2025 Refill [facility] [place] [address] [place] [address] Yuni Resendiz APRN, VALE Medication Refill 05/24/2025 9:00 AM CDT Clinical Support [facility] [place] [address] [place] [address] Primary hypertension Discharge Disposition: Discharged to home or Selfcare 05/24/2025 Travel 04/26/2025 3:40 PM CDT Clinical Support [facility] [place] [address] Essential hypertension (Primary Dx) Discharge Disposition: Discharged to home or Selfcare 04/26/2025 Travel from Last 3 Months Immunizations Immunization [...] Quadrivalent, Adjuvanted 07/15/2023 Influenza, Trivalent, Adjuvanted, PF 07/17/2025, 07/17/2024 Influenza, high-dose, trivalent, PF 07/16/2015 PUR [...] drink = 0.6 oz pur e alcohol) [facility] Utilities Answer Date Recorded In the past 12 months has GREE, gas, oil, or water [employer] threatened to shut off services in your home? Patient declined 12/30/2024 Social Connection and Isolation Panel Answer Date Recorded In a typical week, how many times do you talk on the phone with family, friends, or neighbors? Patient declined 03/13/2025 How often do you get togethe r with friends or relatives? Patient declined 03/13/2025 How often do you attend yazidism or jewish serv ices? Patient declined 03/13/2025 Do you belong to any clubs o r organizations such as yazidism groups, unions, fraternal or athletic groups, or [...] Recorded Total Score - Questions 1-9 0 /0 07/2025 [facility] - Occupational Stress Questionnaire Answer Date Recorded [...] a skilled nursing (including now)? No 02/10/2024 Housing Stability Vital [...] were you homeless or living in a skilled nursing (including now)? No 04/01/2025 Education Answer Date [...] Sign Reading Time Taken Comments Blood Pressure 160/80 07/17/2025 10:10 AM CDT Pulse 95 07/17/2025 10:10 AM CDT Temperature 36.4 C (97.5 F) 07/17/2025 10:10 AM CDT Respiratory Rate 18 07/17/2025 10:10 AM CDT Oxygen Saturation 97% 07/17/2025 10:10 AM CDT Inhaled Oxygen Concentration - - Weight 72.6 kg (160 lb) 07/17/2025 10:10 AM CDT Height 152.4 cm (5') 07/17/2025 10:10 AM CDT Body Mass Index 31.25 07/17/2025 10:10 AM CDT Plan of Treatment Upcoming Encounters Date Type Department Care Team (Late st Contact Info) Description 08/07/2025 9:00 AM CDT Clinical Support [facility] [place] [address] 09/13/2025 8:40 AM PATIENT SERVICE REP Lab [facility] [place] [address] 09/20/2025 9:30 AM PATIENT SERVICE REP Office Visit [facility] [place] [address] [place] [id number] Yuni Resendiz APRN, LEGAL PARAPROFESSIONAL [address] [place] [address] Health Maintenance Due Date Last Done Comments Diabetes: Eye Exam 1950 Diabetes: Foot Exam 1950 TdaP Immunization 1950 Cologuard 1995 Immunochemical Fecal Occult Blood 1995 Hepatitis B Immunization (1 of 3 - Risk 3-dose series) 2010 Respiratory Syncytial Virus (RSV) Immunization (Adult) (1 - 1-dose 75+ series) 2025 Diabetes: Hemoglobin A1c 09/08/2025 025, 08/28/2024, 11/19/2023, Additional history exists DEXA Bone Density 02/06/2026 02/07/2024, , 12/03/2016, Additional history exists Diabetes: Nephropathy Screening 03/08/2026 03/08/2025, 08/28/2024, 05/29/2024, Additional history exists Colonoscopy 01/16/2029 01/16/2019 Colorectal Cancer Screening 01/16/2029 Pneumococcal Immunization (50+ years) Completed 07/26/2019, 11/30/2017, 02/06/2009 Pneumococcal Immunization Combined Discontinued 07/26/2019, 11/30/2017, 02/06/2009 Zoster Immunization Completed 03/01/2023, Hepatitis C Virus (HCV) Screening Completed 05/13/2023 SARS-COV-2 Immunization Discontinued 07/28/20 24, 07/28/2024, 09/23/2023, Additional history exists Mammogram Discontinued 07/10/2025, 06/09, 06/17/2022, Additional history exists Influenza Immunization Completed , 07/17/2024, 07/15/2023, Additional history exists Human Papillomavirus (HPV) Immunization [...] Procedure Name Priority Date/Time Associated Diagnosis Comments MAMMOGRAM BILATERAL GENERIC 07/10/2025 12:00 AM CDT CMP (COMPREHENSIVE METABOLIC PANEL) Routine 03/08/2025 8:24 AM CDT Primary hypertension Dyslipidemia Arthralgia of both knees Anxiety with depression Chronic bilateral low back pain without sciatica HEMOGLOBIN A1C W/ ESTIMATED GLUCOSE Routine 03/08/2025 8:24 AM CDT IFG (impaired fasting glucose) GUSTAVO BONE DENSITOMETRY AXIAL SKELETON Routine 02/07/2024 10:30 AM CDT Postmenopausal HEPATITIS C ANTIBODY Routine 05/13/2023 7:56 AM CDT Encounter for HCV screening test for low risk patient from Last 3 Months or Most Recently Relevant to Health Maintenance Results * MAMMOGRAM BILATERAL GENERIC (07/10/2025 12:00 AM CDT) 07/10/2025 us Provider Scan IMG MAMMO ORDERABLES Final Resul t SCAN * HEMOGLOBIN A1C W/ ESTIMATED GLUCOSE (03/08/2025 8:24 AM CDT) HGB-A1C 6.0 4.0 - 6.0 % 03/08/2025 1:01 PM CDT [facility] Est Average Glucose 125.5 mg/dL 03/08/2025 1:01 PM CDT [facility] Blood Venipuncture / Unknown 03/08/2025 8:24 AM CDT 03/08/2025 8:24 AM CDT Narrative [facility] - 03/08/2025 1:01 PM CDT HEMOGLOBIN A1C: DIABETIC PATIENTS: WELL-CONTROLLED: 6.2 - 7.0 INTERMEDIATE WELL-CONTROLLED: 7.0 - 9.0 POORLY-CONTROLLED: >9.0 Specimens containing greater than 5% of Hemoglobin F may result in lower than expected % HbA1C results. Yuni Resendiz APRN, CNP CHEMISTRY ORDER CHELI Final Result Performing Organization Address City/[facility]/ZIP Co de Phone Number [facility] [address] [place] [address] * (ABNORMAL) CMP (COMPREHENSIVE METABOLIC PANEL) (03/08/2025 8:24 AM CDT) SODIUM 137 136 - 145 mmol/L 03/08/2025 1:06 PM CDT [facility] POTASSIUM 4.2 3.5 - 5.1 mmol/L 03/08/2025 1:06 PM CDT [facility] CHLORIDE 105 98 - 107 mmol/L 03/08/2025 1:06 PM CDT [facility] CO2, VENOUS 25 22 - 30 mmol/L 03/08/2025 1:06 PM CDT [facility] ANION GAP 11.2 <18.0 mmol/L 03/08/2025 1:06 PM [facility] GLUCOSE 120(H) 70 - 99 mg/dL 03/08/2025 1:06 PM [facility] BUN 15 10 - 20 mg/dL 03/08/2025 1:06 PM [facility] CREATININE, BLOOD 0.77 0.60 - 1.00 mg/dL 03/08/2025 1:06 PM [facility] BUN/CREATININE RATIO 19 12 - 20 ratio 03/08/2025 1:06 PM [facility] TOTAL PROTEIN 6.6 6.0 - 8.0 g/dL 03/08/2025 1:06 PM [facility] ALBUMIN 3.9 3.5 - 5.0 g/dL 03/08/2025 1:06 PM [facility] A/G RATIO 1.4 1.0 - 2.2 03/08/2025 1:06 PM [facility] CALCIUM 8.9 8.7 - 10.5 mg/dL 03/08/2025 1:06 PM [facility] T BILI 0.4 0.2 - 1.2 mg/dL 03/08/2025 1:06 PM [facility] SGOT (AST) 25 <43 U/L 03/08/2025 1:06 PM [facility] SGPT (ALT) 20 <56 U/L 03/08/2025 1:06 PM [facility] ALKALINE PHOSPHATASE 67 40 - 150 U/L 03/08/2025 1:06 PM [facility] IS THE PATIENT REQUIRED TO BE FASTING? No 03/08/2025 1:06 PM [facility] GFR, ESTIMATED >60 >=60 03/08/2025 1:06 PM [facility] Comment: Creatinine Clearance is the preferred criteria for selecting drug dose adjustments in renally impaired patients. The GFR is provided as additional pertinent clinical information. GFR is reported in mL/min/1.73 sq m. Calculation based on the Chronic Kidney Disease Epidemiology Collaboration (CKD- EPI) equation refit without adjustment for race. GFR, EST. >60 >=60 025 1:06 PM CDT [facility] GFR, EST. NONAFRICAN >60 >=60 03/08/2025 1:06 PM CDT [facility] Blood Venipuncture / Unknown 03/08/2025 8:24 AM CDT 03/08/2025 8:24 AM CDT us Yuni Resendiz APRN, CNP CHEMISTRY ORDER CHELI Final Result [facility] [address] [place] [address] * GUSTAVO BONE DENSITOMETRY AXIAL SKELETON (02/07/2024 [...] Narrative 02/07/2024 11:05 AM CDT EXAM DESCRIPTION: [facility] BONE DENSITOMETRY AXIAL SKELETON REASON FOR STUDY: 73 y/o year old F with given history of: Post menopausal status. Patient has taken/is taking vitamin-D, multivitamin and calcium. Product Safety Coordinator/Model: Sanibel Sunglass (S/N [id number]) CLINICAL INFORMATION: Current height: 60 inches Maximum [...] Electronically signed by Birgit Umaña M.D. TW: GRAZYNA Report ID: [id number] Reading Location: [id number] Procedure Note Birgit Umaña MD - 02/07/2024 EXAM DESCRIPTION: [facility] BONE DENSITOMETRY AXIAL SKELETON REASON FOR STUDY: 73 y/o year old F with given history of: Post menopausal status. Patient has taken/is taking vitamin-D, multivitamin and calcium. Product Safety Coordinator/Model: Sanibel Sunglass (S/N [id number]) CLINICAL INFORMATION: Current height: 60 inches Maximum [...] Electronically signed by Birgit Umaña M.D. TW: GRAZYNA Report ID: [id number] Reading Location: [place] [address] IMPRESSION: Low bone mass REFERENCE: Bone mineral [...] and Treatment of Osteoporosis (http://www.nof.org/professionals/clinical-guidelines) us Yuni E Huelskoetter [employer]IGH SCHOOL FRENCH TEACHER, LEGAL PARAPROFESSIONAL IMG DEXA ORDERA BLES Final Result * HEPATITIS C ANTIBODY (05/13/2023 7:56 AM CDT) hepatitis C antibody 0.07 <1 S/CO [facility] ARCH [id number] 05/14/2023 12:33 PM CDT [facility] Comment: Signal/Cutoff ratio < 0.79 is Nondetected Signal/Cutoff ratio 0.80-0.99 is Grayzone Signal/Cutoff ratio > 0.99 is Detected Supplemental assays are recommended if signal/cutoff ratio is >/=1.00. Signal/cutoff ratio result >/= 5.00 is 97% predictive of positivity for recombinant immunoblot assay (RIBA) and will be reported to the [place] Department of Public Health as required. Blood Venipuncture / Unknown 05/13/2023 7:56 AM CDT 05/13/2023 7:56 AM CDT Yuni Resendiz APRN, CNP CHEMISTRY ORDER CHELI Final Result [facility] [address] [place] [address], from Last 3 Months or Most Recently Relevant to Health Maintenance Additional Health Concerns Active Problems Noted Date Diagnosed Date Hypertension (Hypertension) 05/24/2025 Disease Progression (Hypertension) 05/24/2025 Insurance [facility] [place] [facility] Care Teams Library Associate Relationship Specialty Start Date End Date Yuni Resendiz APRN, LEGAL PARAPROFESSIONAL [address] [place] [address] PCP - General Advanced Practice Nurse 07/23/20 Antonio Bal, RN [place] Registered Nurse 05/24/25
== END 2025-07-27 11:43 | disposition home or self-care (01) ==
PROVIDERS: Visit Provider Physician Assistant Surgical
DX: M17.12 Unilateral primary osteoarthritis, left knee (principal); M25.462 Effusion, left knee
CPT/HCPCS: 73564

== ENCOUNTER 2025-08-01 10:03 | Outpatient (CLI) | payer MEDICARE, SELFPAY ==
[2025-08-01 10:40] LABS: Hematocrit 43.6 % (37.0-47.0); Hemoglobin 14.3 g/dL (12.0-15.0); Immature Granulocyte Percent A 0.3 % (0-0.5); Lymphocytes Absolute Auto 1.16 K/mm3 (0.9-3.2); Mean Corpuscular HGB Conc 32.8 g/dl (32-36); Mean Corpuscular Hemoglobin 29.9 pg (26-34); Mean Corpuscular Volume 91.2 fl (80-100); Nucleated Red Blood Cells Absolute Auto 0.000 K/mm3 (0.0-0.012); Nucleated Red Blood Cells Perc 0.0 % (0.0-0.2); Platelet Count Result 303 k/mm3 (150-375); Red Blood Count 4.78 M/mm3 (4.2-5.4); White Blood Count 6.0 K/mm3 (4.5-10.0)
[2025-08-01 10:53] LABS: Hemoglobin A1C 6.1 % (<5.7)
[2025-08-01 11:02] LABS: Albumin Level 4.4 g/dL (3.5-5.1); Estimated Glomerular Filt Rate > 60; Glucose 110 mg/dL (65-110)
--- OUTSIDE RECORDS SUMMARY | 2025-08-01 11:02 | XMS_ITS ---
Care Plan Created on: August 01, 2025 Lucy Nair : 1950 Sex: Female Author Organization [facility] Address [address], [address] [address] Phone Care Team Providers Care Dovetailer Name Role Phone Yuni Resendiz APRN, VALE [...] back Discussed importance of core stability in senior care relief of pain Handout given Refill flexeril [...]
--- OUTSIDE RECORDS SUMMARY | 2025-08-01 11:02 | XMS_ITS | Encounter Summary ---
Author Organization [facility] Address [address] [place] [address] Phone Care Team Providers Care Department Specialist Name Role Phone Yuni Resendiz APRN, CNP Primary Care [facility] Antonio Bal RN Unavailable Unavailable Reason for Visit * Reason Comments Medication Refill Encounter Details Date Type Department Care Team (Late st Contact Info) Description 03/30/2023 Refill [facility] - [place] [address] [place] [address] Yuni Resendiz APRN, CNP [address] [place] [address] Medication Refill Social History Tobacco [...] Description 08/07/2025 9:00 AM CDT Clinical Support [facility] [place] [address] [place] [address] 09/13/2025 8:40 AM COMMODITY LOAN CLERK Lab [facility] [place] [address] [address] 09/20/2025 9:30 AM COMMODITY LOAN CLERK Office Visit [facility] [place] [address] [place] [address] Yuni Resendiz APRN, RECRUITMENT INTERN [address] [place] [address] documented as of this encounter Visit Diagnoses Diagnosis Seasonal allergic rhinitis, unspecified trigger documented in this encounter Additional Health Concerns Assessment Noted Time PHQ-9 Depression Total Score: 0 11/13/19 8:00 AM COMMODITY LOAN CLERK documented as of this encounter Care Teams Department Specialist Relationship Specialty Start Date End Date Yuni Resendiz APRN, RECRUITMENT INTERN [address] [place] [address] PCP - General Advanced Practice Nurse 07/23/20 Antonio Bal, RN [place] Registered Nurse 05/24/25 documented as of this encounter
--- OUTSIDE RECORDS SUMMARY | 2025-08-01 11:02 | XMS_ITS | Clinical Summary ---
Author Organization [facility] Address [address] [place] [address] Care Team Providers Care Chef & Owner Name Role Phone Jocelyn Vázquez MD Primary Care Provider [phone] Allergies Active Allergy Reactions Criticality Noted Date [...] back Discussed importance of core stability in nursing home relief of pain Handout given Refill flexeril [...] on file Legal Sex Female 5:09 PM MATERIAL HANDLER 2ND SHIFT Gender Identity Not on file Sexual Orientation [...] Not on file Insurance MEDICARE Care Teams Chef & Owner Relationship Specialty Start Date End Date Jocelyn Vázquez [place] [address] [address] [address] PCP - General Family Medicine 05/28/17
--- OUTSIDE RECORDS SUMMARY | 2025-08-01 11:02 | XMS_ITS | Encounter Summary ---
Author Organization [facility] Address [address] [facility] [place] [address] Care Team Providers Care Nurse Orthopaedic Name Role Phone Unavailable Primary Care Provider Unavailabl e Encounter Details Date Type Department Care Team (Late st Contact Info) Description 05/13/2020 Lab Requisition [facility] [address] [place] [address] [place] [address] [place] [address] Social History Tobacco Use Types Packs/Day Years [...] AM CDT) Case Report Dermatopathology Report Case: [id number] Authorizing Provider: Kathya Thomas MD Collected: 05/09/2020 12:00 AM Ordering Location: [facility] Received: 05/13/2020 01:12 PM [...] specimen consists of a shave biopsy measuring [id number]. Jar 0. 0 1:01 PM CDT DERMATOPATHOLOGY [...] determined by the Dermatopathology Laboratory at [facility], directed by Dr. Nicky Smith. These tests need not be, and therefore are not, approved by the [place] Food and Drug Administration. The tests are used for clinical purposes. Billing Codes Specimen Charges Stain Charges 96147 1 0 1:01 PM CDT DERMATOPATHOLOGY LABORATORY Embedded Images 0 1:01 PM CDT DERMATOPATHOLOGY LABORATORY Pathology/Cytolog y TISSUE SPECIMEN FROM SKIN / Unknown 05/09/2020 05/13/2020 1:12 PM CDT Kathya Thomas MD LAB - PATHOLOGY/CYTOLOGY ORDERABLES Final Result DERMATOPATHOLOGY LABORATORY [facility] - Department of Dermatology [facility]/[address] [phone] documented in this encounter Visit Diagnoses Not on filedocumented in this encounter
--- OUTSIDE RECORDS SUMMARY | 2025-08-01 11:02 | XMS_ITS | Encounter Summary ---
Author Organization [facility] Address [address] [place] [address] Phone Care Team Providers Care Emblem Drawer In Name Role Phone Yuni Resendiz APRN, CNP Primary Care Chauncey espinal Antonio Bal RN Unavailable Unavailable Reason for Visit * Reason Comments Medication Refill Encounter Details Date Type Department Care Team (Late st Contact Info) Description 09/06/2020 Refill [facility] [address] [place] [address] Evita Cid Rosalie, PAC [address] [place] [address] Medication Refill Social History Tobacco Use Types [...] Description 08/07/2025 9:00 AM CDT Clinical Support [facility] [place] [address] [place] [address] 09/13/2025 8:40 AM FINANCIAL REPORTING DIRECTOR Lab [facility] [place] [address] [address] 09/20/2025 9:30 AM FINANCIAL REPORTING DIRECTOR Office Visit [facility] [place] [address] [place] [address] Yuni Resendiz APRN, CLIENT RESOLUTION SPECIALIST [address] [place] [address] documented as of this encounter Visit Diagnoses Not on filedocumented in this encounter Additional Health Concerns Infection Onset Date Last Indicated Resolved Time COVID - 19 01/16/2023 01/16/2023 01/26/2023 12:1 6 AM CDT COVID - 19 Confirmed 01/16/2023 01/16/2023 023 12:16 AM CDT Assessment Noted Time PHQ-9 Depression Total Score: 0 07/26/20 20 8:00 AM CDT documented as of this encounter Care Teams Emblem Drawer In Relationship Specialty Start Date End Date Yuni Resendiz APRN, CLIENT RESOLUTION SPECIALIST [address] [place] [address] PCP - General Advanced Practice Nurse 07/23/20 Antonio Bal, RN [place] Registered Nurse 05/24/25 documented as of this encounter
--- OUTSIDE RECORDS SUMMARY | 2025-08-01 11:02 | XMS_ITS | Encounter Summary ---
Author Organization [facility] Address [address] [place] [address] Phone Care Team Providers Care Felt Cutter Name Role Phone Yuni Resendiz APRN, CNP Primary Care P [facility] Antonio Bal RN Unavailable Unavailable Reason for Visit * Reason Comments Medication Refill Encounter Details Date Type Department Care Team (Late st Contact Info) Description 02/01/2024 Refill [facility] - [place] [address] [place] [address] Yuni Resendiz APRN, CNP [address] [place] [address] Medication Refill Social History Tobacco [...] 08/07/2025 9:00 AM CDT Clinical Support [facility] [address] [place] [address] 09/13/2025 8:40 AM FIRE FIGHTERS DISPATCHER Lab [facility] [address] [place] [address] 09/20/2025 9:30 AM FIRE FIGHTERS DISPATCHER Office Visit [facility] [address] [place] [address] Yuni Resendiz APRN, FUSE ASSEMBLER [address] [place] [address] documented as of this encounter Visit Diagnoses Diagnosis Dyslipidemia Other and unspecified hyperlipidemia documented in this encounter Additional Health Concerns Assessment Noted Time PHQ-9 Depression Total Score: 0 12/06/19 24 3:04 PM FIRE FIGHTERS DISPATCHER documented as of this encounter Care Teams Felt Cutter Relationship Specialty Start Date End Date Yuni Resendiz APRN, FUSE ASSEMBLER [address] [place] [address] PCP - General Advanced Practice Nurse 07/23/20 Antonio Bal, RN [place] Registered Nurse 05/24/25 documented as of this encounter
--- OUTSIDE RECORDS SUMMARY | 2025-08-01 11:02 | XMS_ITS | Encounter Summary ---
Author Organization [facility] Address [address] [place] [address] Phone Care Team Providers Care Computer Aided Drafter Name Role Phone Yuni Resendiz APRN, CNP Primary Care P [facility] Antonio Bal RN Unavailable Unavailable Reason for Visit * Reason Comments Medication Refill Encounter Details Date Type Department Care Team (Late st Contact Info) Description 04/27/2024 Refill [facility] - Primary Care - [place] [address] [place] [address] Yuni Resendiz APRN, CNP [address] [place] [address] Medication Refill Social History Tobacco Use Types Packs/Day Years Used Date Smoking Tobacco: Former Cigarettes 0.5 27 1 - 11/07/2004 Smokeless Tobacco: Never Comments:chews nicorette gum Alcohol Use Standard Drinks/Week Comments No 0 (1 standard drink = 0.6 oz pur e alcohol) [facility] Utilities Answer Date Recorded In the past 12 months has lettrs electric, gas, oil, or water company threatened [...] How often do you attend chur or buddhism services? 1 to 4 times per year 02/10/2024 Do you belong to any clubs o r organizations such as restorationist groups, unions, fraternal or athletic groups, or [...] Total Score - Questions 1-9 0 11/09 [facility] - Occupational Stress Questionnaire Answer [...] place to sleep or slept in a mcfp (including now)? No 02/10/2024 Education Answer Date [...] 04/20/24 Office Visit Antonella Gupta APRN, [facility] 02/10/24 Office Visit Yuni Resendiz APRN, [facility] 12/06/23 Office Visit Yuni Resendiz APRN, [facility] Showing recent visits within past 182 days and meeting all other requirements Future Appointments Date Type Provider Dept 05/15/24 Appointment Clinic, [facility] Nurse [facility] 05/29/24 Appointment Lab, [facility] 06/05/24 Appointment Yuni Resendiz APRN, VAL[facility] Showing future appointments within next 90 days and meeting all other requirements Passed - Patient has established therapy with Bupropion for at least 6 months documented in this encounter Plan of Treatment Upcoming Encounters Date Type Department Care Team (Late st Contact Info) Description 08/07/2025 9:00 AM CDT Clinical Support [facility] [place] [address] 09/13/2025 8:40 AM STAMP PAD FINISHER Lab [facility] [place] [address] [place] [address] 09/20/2025 9:30 AM STAMP PAD FINISHER Office Visit [facility] [place] [address] Yuni Resendiz APRN, CNP [address] [place] [address] documented as of this encounter Visit Diagnoses Diagnosis Anxiety with depression documented in this encounter Additional Health Concerns Assessment Noted Time PHQ-9 Depression Total Score: 0 12/06/19 24 3:04 PM STAMP PAD FINISHER documented as of this encounter Care Teams Computer Aided Drafter Relationship Specialty Start Date End Date Yuni Resendiz JEWELRY MAKING INSTRUCTOR, PIN ATTACHER [address] [place] [address] PCP - General Advanced Practice Nurse 07/23/20 Antonio Bal, RN [place] Registered Nurse 05/24/25 documented as of this encounter
--- OUTSIDE RECORDS SUMMARY | 2025-08-01 11:02 | XMS_ITS | Encounter Summary ---
Author Organization [facility] Address [address] [place] [address] Phone Care Team Providers Care Baby Sitter Name Role Phone Yuni Resendiz APRN, CNP Primary Care P [facility] Antonio Bal RN Unavailable Unavailable Reason for Visit * Reason Comments Medication Refill Encounter Details Date Type Department Care Team (Late st Contact Info) Description 12/24/2021 Refill [facility] - Primary Care - [place] [address] [place] [address] Yuni Resendiz APRN, CNP [address] [place] [address] Medication Refill Social History Tobacco [...] Description 08/07/2025 9:00 AM CDT Clinical Support [facility] [address] [place] [address] 09/13/2025 8:40 AM LAND SURVEYOR Lab [facility] [place] [address] [place] [address] 09/20/2025 9:30 AM LAND SURVEYOR Office Visit [facility] [place] [address] Yuni Resendiz APRN, SET UP / OPERATOR [address] [place] [address] documented as of this encounter Visit Diagnoses Diagnosis Seasonal allergic rhinitis, unspecified trigger documented in this encounter Additional Health Concerns Infection Onset Date Last Indicated Resolved Time COVID - 19 01/16/2023 01/16/2023 01/26/2023 12:1 6 AM CDT COVID - 19 Confirmed 01/16/2023 01/16/2023 023 12:16 AM CDT Assessment Noted Time PHQ-9 Depression Total Score: 1 12/03/19 21 8:00 AM LAND SURVEYOR documented as of this encounter Care Teams Baby Sitter Relationship Specialty Start Date End Date Yuni Resendiz APRN, SET UP / OPERATOR [address] [place] [address] PCP - General Advanced Practice Nurse 07/23/20 Antonio Bal, RN [place] Registered Nurse 05/24/25 documented as of this encounter
--- OUTSIDE RECORDS SUMMARY | 2025-08-01 11:02 | XMS_ITS | Encounter Summary ---
Author Organization [facility] Address [address] [place] [address] Phone Care Team Providers Care Air Traffic Supervisor Name Role Phone Yuni Resendiz APRN, CNP Primary Care P [facility] Antonio Bal RN Unavailable Unavailable Reason for Visit * Reason Comments Medication Refill Encounter Details Date Type Department Care Team (Late st Contact Info) Description 02/15/2022 Refill [facility] - Primary Care - [place] [address] [place] [address] Yuni Resendiz APRN, CNP [address] [place] [address] Medication Refill Social History Tobacco [...] [facility] [place] [address] [place] [address] 09/13/2025 8:40 AM TOOL MECHANIC Lab [facility] - [place] [address] [place] [address] 09/20/2025 9:30 AM TOOL MECHANIC Office Visit [facility] - [place] [address] [place] [address] Yuni Resendiz APRN, SAMPLER TESTER [address] [place] [address] documented as of this encounter Visit Diagnoses Diagnosis Seasonal allergic rhinitis, unspecified trigger documented in this encounter Additional Health Concerns Infection Onset Date Last Indicated Resolved Time COVID - 19 01/16/2023 01/16/2023 01/26/2023 12:1 6 AM CDT COVID - 19 Confirmed 01/16/2023 01/16/202302/05/ 023 12:16 AM CDT Assessment Noted Time PHQ-9 Depression Total Score: 1 12/03/19 21 8:00 AM TOOL MECHANIC documented as of this encounter Care Teams Air Traffic Supervisor Relationship Specialty Start Date End Date Yuni Resendiz APRN, SAMPLER TESTER [address] [place] [address] PCP - General Advanced Practice Nurse 07/23/20 Antonio Bal, RN [place] Registered Nurse 05/24/25 documented as of this encounter
--- OUTSIDE RECORDS SUMMARY | 2025-08-01 11:02 | XMS_ITS | Encounter Summary ---
Author Organization [facility] Address [address] [place] [address] Phone Care Team Providers Care Pipe Fitter Marine Name Role Phone Yuni Resendiz APRN, CNP Primary Care P [facility] Antonio Bal RN Unavailable Unavailable Encounter Details Date Type Department Care Team (Late st Contact Info) Description 11/25/2020 Telephone [facility] - [address] [place] [address] Yuni Resendiz APRN, CNP [address] [place] [address] Social History Tobacco Use Types [...] COVID-19? No / Unsure 11/25/2020 1:12 PM ENVIRONMENTAL CONSERVATION PROFESSOR documented as of this encounter Miscellaneous Notes * Telephone Encounter - Alicia Sesay RN - 11/25/2020 2:20 PM ENVIRONMENTAL CONSERVATION PROFESSOR Attempted to call patient, no answer at this time. Left message to call back. RONMENTAL CONSERVATION PROFESSOR * Telephone Encounter - Alicia Sesay RN - 11/25/2020 2:19 PM ENVIRONMENTAL CONSERVATION PROFESSOR Images from the original note were not included. Yuni Resendiz APN, PROJECT MANAGEMENT MANAGER You 19 minutes ago (1:56 PM) Increase amlodpine to 10mg. Start hctz 12.5mg daily Restart celebrex - she was on it and had elevated BP and it is still elevated when off of it, then it most likely wasn't caused by it RONMENTAL CONSERVATION PROFESSOR documented in this encounter Plan of Treatment Upcoming Encounters Date Type Department Care Team (Late st Contact Info) Description 08/07/2025 9:00 AM CDT Clinical Support [facility] - [place] [address] [place] [address] 09/13/2025 8:40 AM ENVIRONMENTAL CONSERVATION PROFESSOR Lab [facility] - [place] [address] [place] [address] 09/20/2025 9:30 AM ENVIRONMENTAL CONSERVATION PROFESSOR Office Visit [facility] [place] [address] [place] [address] Yuni Resendiz, STEEL ENGRAVER, PROJECT MANAGEMENT MANAGER [address] [place] [address] documented as of this encounter Visit Diagnoses Not on filedocumented in this encounter Additional Health Concerns Infection Onset Date Last Indicated Resolved Time COVID - 19 01/16/2023 01/16/2023 01/26/2023 12:1 6 AM CDT COVID - 19 Confirmed 01/16/2023 01/16/2023 023 12:16 AM CDT Assessment Noted Time PHQ-9 Depression Total Score: 0 07/26/20 20 8:00 AM CDT documented as of this encounter Care Teams Pipe Fitter Marine Relationship Specialty Start Date End Date Yuni Resendiz, STEEL ENGRAVER, PROJECT MANAGEMENT MANAGER [address] [place] [address] PCP - General Advanced Practice Nurse 07/23/20 Antonio Bal RN [place] Registered Nurse 05/24/25 documented as of this encounter
--- OUTSIDE RECORDS SUMMARY | 2025-08-01 11:02 | XMS_ITS | Clinical Summary ---
Author Organization [facility] Address [address], [address] [address] Phone Care Team Providers Care Broadcast Maintenance Engineer Name Role Phone Yuni Resendiz APRN, VALE [...] mouth daily. 90 Tablet 1 4 Active [place]-3 Fatty Acids (FISH OIL PO) Take by mouth daily. Active MAGNESIUM PO Take by mouth daily. Active Calcium Carbonate (CALCIUM 500 PO) Take by mouth in the morning and at bedtime. Active nystatin (MYCOSTATIN) 299585 UNIT/GM OintmentIndicatio ns:Candidiasis of breast Apply 4 [...] Description 07/17/2025 10:15 AM CDT Office Visit [facility] - Primary Care - [place] [address] [place] [address] Yuni Resendiz APRN, RIG MANAGER Primary hypertension (Primary Dx); Encounter for immunization; Type 2 diabetes mellitus without complication, without long-term current use of insulin; Arthritis; Anxiety with depression; Dyslipidemia Discharge Disposition: Discharged to home or Selfcare 07/17/2025 Travel 06/15/2025 9:00 AM CDT [facility] [address] [place] [address] Primary hypertension (Primary Dx) Discharge Disposition: Discharged to home or Selfcare 06/15/2025 Travel 06/15/[address] [facility] [address] [place] [address] Yuni Resendiz APRN, VALE Medication Refill 05/26/[address] [facility] [address] [place] [address] Yuni Resendiz APRN, VALE Medication Refill 05/24/2025 9:00 AM CDT Clinical Support [facility] - [place] [place] [address] Primary hypertension Discharge Disposition: Discharged to home or Selfcare 05/24/2025 Travel from Last 3 Months Immunizations Immunization [...] drink = 0.6 oz pur e alcohol) [facility] Otto Clave Answer Date Recorded In the past 12 months has [employer], gas, oil, or water [employer] threatened to shut off services in your home? Patient declined 12/30/2024 Social Connection and Isolation Panel Answer Date Recorded In a typical week, how many times do you talk on the phone with family, friends, or neighbors? Patient declined 03/13/2025 How often do you get togethe r with friends or relatives? Patient declined 03/13/2025 How often do you attend sikh or gnosticism serv ices? Patient declined 03/13/2025 Do you belong to any clubs o r organizations such as sikh groups, unions, fraternal or athletic groups, or [...] Recorded Total Score - Questions 1-9 0 09/0 07/2025 [facility] - Occupational [...] in a fpc (including now)? No 02/10/2024 Housing Stability Vital Sign Answer Noé e Recorded In the last 12 months, was t here a time when you were not able to pay the mortgage or rent on time? No 04/01/2025 Number of Times Moved in the Last Year Not on fi le 04/01/2025 At any time in the past 12 m [place], were you homeless or living in a fpc (including now)? No 04/01/2025 Education Answer Date [...] Hospital - [place] [address] [place] [address] 09/13/2025 8:40 AM PLANTING MACHINE OPERATOR Lab [facility] - [place] [address] [place] [address] 09/20/2025 9:30 AM PLANTING MACHINE OPERATOR Office Visit [facility] - [place] [address] [place] [address] [address] Yuni Resendiz, CHIEF DEPUTY SHERIFF, RIG MANAGER [address] [place] [address] Health Maintenance Due Date Last Done Comments Diabetes: Eye Exam 1950 Diabetes: Foot Exam 1950 TdaP Immunization 1950 Cologuard 1995 Immunochemical Fecal Occult Blood 1995 Hepatitis B Immunization (1 of 3 - Risk 3-dose series) 2010 Medicare Initial AWV G0438 04/08/2016 Respiratory Syncytial Virus (RSV) Immunization (Adult) (1 [...] (HCV) Screening Completed 05/13/2023 SARS-COV-2 Immunization Discontinued 07/28/20, 07/28/2024, 09/23/2023, Additional history exists Mammogram Discontinued [...] W/ ESTIMATED GLUCOSE (03/08/2025 8:24 AM CDT) Pathologist [facility] HGB-A1C 6.0 4.0 - 6.0 % 03/08/2025 1:01 PM CDT [facility] Est Average Glucose 125.5 mg/dL 03/08/2025 1:01 PM CDT [facility] Blood Venipuncture / Unknown 03/08/2025 8:24 AM CDT 03/08/2025 8:24 AM CDT Narrative [facility] - 03/08/2025 1:01 PM CDT HEMOGLOBIN A1C: DIABETIC PATIENTS: WELL-CONTROLLED: 6.2 - 7.0 INTERMEDIATE WELL-CONTROLLED: 7.0 - 9.0 POORLY-CONTROLLED: >9.0 Specimens containing greater than 5% of Hemoglobin F may result in lower than expected % HbA1C results. Yuni Resendiz APRN, RIG MANAGER CHEMISTRY ORDER CHELI Final Result [facility] [address] [place] [address] * (ABNORMAL) CMP (COMPREHENSIVE METABOLIC PANEL) (03/08/2025 8:24 AM CDT) [facility] SODIUM 137 136 - 145 mmol/L 03/08/2025 1:06 PM CDT [facility] POTASSIUM 4.2 3.5 - 5.1 mmol/L 03/08/2025 1:06 PM CDT [facility] CHLORIDE 105 98 - 107 mmol/L 03/08/2025 1:06 PM CDT [facility] CO2, VENOUS 25 22 - 30 mmol/L 03/08/2025 1:06 PM CDT [facility] ANION GAP 11.2 <18.0 mmol/L 03/08/2025 1:06 PM CDT [facility] GLUCOSE 120(H) 70 - 99 mg/dL 03/08/2025 1:06 PM CDT [facility] BUN 15 10 - 20 mg/dL 03/08/2025 1:[address] [facility] CREATININE, BLOOD 0.77 0.60 - 1.00 mg/dL 03/08/2025 1:[address] [facility] BUN/CREATININE RATIO 19 12 - 20 ratio 03/08/2025 1:[address] [facility] TOTAL PROTEIN 6.6 6.0 - 8.0 g/dL 03/08/2025 1:[address] [facility] ALBUMIN 3.9 3.5 - 5.0 g/dL 03/08/2025 1:[address] [facility] A/G RATIO 1.4 1.0 - 2.2 03/08/2025 1:[address] [facility] CALCIUM 8.9 8.7 - 10.5 mg/dL 03/08/2025 1:[address] [facility] T BILI 0.4 0.2 - 1.2 mg/dL 03/08/2025 1:[address] [facility] SGOT (AST) 25 <43 U/L 03/08/2025 1:[address] [facility] SGPT (ALT) 20 <56 U/L 03/08/2025 1:[address] [facility] ALKALINE PHOSPHATASE 67 40 - 150 U/L 03/08/2025 1:[address] [facility] IS THE PATIENT REQUIRED TO BE FASTING? No 03/08/2025 1:[address] [facility] GFR, ESTIMATED >60 >=60 03/08/2025 1:[address] [facility] Comment: Creatinine Clearance is the preferred criteria for selecting drug dose adjustments in renally impaired patients. The GFR is provided as additional pertinent clinical information. GFR is reported in mL/min/1.73 sq m. Calculation based on the Chronic Kidney Disease Epidemiology Collaboration (CKD- EPI) equation refit without adjustment for race. GFR, EST. >60 >=60 025 1:[address] [facility] GFR, EST. NONAFRICAN >60 >=60 03/08/2025 1:06 PM CDT [facility] Blood Venipuncture / Unknown 03/08/2025 8:24 AM CDT 03/08/2025 8:24 AM CDT us Yuni Resendiz APRN, CNP CHEMISTRY ORDER CHELI Final Result [facility] [address] [place] [address] * [facility] BONE DENSITOMETRY AXIAL SKELETON (02/07/2024 [...] Narrative 02/07/2024 11:05 AM CDT EXAM DESCRIPTION: [facility] BONE DENSITOMETRY AXIAL SKELETON REASON FOR STUDY: 73 y/o year old F with given history of: Post menopausal status. Patient has taken/is taking vitamin-D, multivitamin and calcium. Commutator Inspector/Model: [employer] (S/N [id number]) CLINICAL INFORMATION: Current height: 60 inches Maximum [...] Birgit Umaña M.D. TW: TW Report ID: [id number] Reading Location: [id number] Procedure Note Birgit Umaña MD - 02/07/2024 EXAM DESCRIPTION: [facility] BONE DENSITOMETRY AXIAL SKELETON REASON FOR STUDY: 73 y/o year old F with given history of: Post menopausal status. Patient has taken/is taking vitamin-D, multivitamin and calcium. Commutator Inspector/Model: [employer] (S/N [id number]) CLINICAL INFORMATION: Current height: 60 inches Maximum [...] Birgit Umaña M.D. TW: GRAZYNA Report ID: [id number] Reading Location: [place] [address] IMPRESSION: Low bone mass REFERENCE: Bone mineral [...] of Osteoporosis (http://www.nof.org/professionals/clinical-guidelines) Yuni Resendiz APRN, CNP IMGunner DEXA ORDERA BLES Final Result * HEPATITIS C ANTIBODY (05/13/2023 7:56 AM CDT) hepatitis C antibody 0.07 <1 S/CO [facility] ARCH [id number] B 05/14/2023 12:33 PM CDT [facility] Comment: Signal/Cutoff ratio < 0.79 is [...] ORDER CHELI Final Result Performing Organization Address City/State/[facility] Co de Phone Number [facility] [address] [place] [address], [place] from Last 3 Months or Most Recently Relevant to Health Maintenance Additional Health Concerns Active Problems Noted Date Diagnosed Date Hypertension (Hypertension) 05/24/2025 Disease Progression (Hypertension) 05/24/2025 Insurance MEDICARE C [facility] GENERIC [place] MEDPAY Care Teams Broadcast Maintenance Engineer Relationship Specialty Start Date End Date Yuni Resendiz APRN, RIG MANAGER [address] [place] [address] PCP - General Advanced Practice Nurse 07/23/20 Antonio Bal, RN [place] Registered Nurse 05/24/25
--- OUTSIDE RECORDS SUMMARY | 2025-08-01 11:02 | XMS_ITS | Clinical Summary ---
Author Organization [facility] Address [address] [place] [address] Phone Care Team Providers Care Leather Scraper Name Role Phone Roman Fragoso DO Primary [...] Referring Provider: Estella Fernandez MD [address] [address] Other: Problem Noted Date Diagnosed Date Abnormal [...] on file Legal Sex Female 5:42 AM EHR TRAINER Gender Identity Not on file Sexual Orientation [...] series) 2025 INFLUENZA VACCINE (#1) 2025 Insurance [facility] OPTIONS PPO [id number] MEDICARE PART A AND B Care Teams Leather Scraper Relationship Specialty Start Date End Date Roman Fragoso DO PCP - General 06/14/09
--- OUTSIDE RECORDS SUMMARY | 2025-08-01 11:02 | XMS_ITS | Encounter Summary ---
Author Organization [facility] Address [address] [place] [address] Phone Care Team Providers Care Lead Technologist In Cytogenetics Name Role Phone Yuni Resendiz APRN, CNP Primary Care P [facility] Antonio Bal RN Unavailable Unavailable Reason for Visit * Reason Comments Medication Refill Encounter Details Date Type Department Care Team (Late st Contact Info) Description 06/20/2022 Refill [facility] - Primary Care - [place] [address] [place] [address] Yuni Resendiz APRN, CNP [address] [place] [address] Medication Refill Social History Tobacco [...] Description 08/07/2025 9:00 AM CDT [facility] [address] [place] [address] 09/13/2025 8:40 AM HAZARDOUS MATERIALS DRIVER Lab [facility] - [place] [address] [place] [address] 09/20/2025 9:30 AM HAZARDOUS MATERIALS DRIVER Office Visit [facility] [address] [place] [address] Yuni Resendiz APRN, HEARING AID FITTER [address] [place] [address] documented as of this encounter Visit Diagnoses Diagnosis Seasonal allergic rhinitis, unspecified trigger documented in this encounter Additional Health Concerns Infection Onset Date Last Indicated Resolved Time COVID - 19 01/16/2023 01/16/2023 01/26/2023 12:1 6 AM CDT COVID - 19 Confirmed 01/16/2023 01/16/2023 023 12:16 AM CDT Assessment Noted Time PHQ-9 Depression Total Score: 1 12/03/19 21 8:00 AM HAZARDOUS MATERIALS DRIVER documented as of this encounter Care Teams Lead Technologist In Cytogenetics Relationship Specialty Start Date End Date Yuni Resendiz APRN, HEARING AID FITTER [address] [place] [address] PCP - General Advanced Practice Nurse 07/23/20 Antonio Bal, RN [place] Registered Nurse 05/24/25 documented as of this encounter
--- OUTSIDE RECORDS SUMMARY | 2025-08-01 11:02 | XMS_ITS | Encounter Summary ---
Author Organization [facility] Address [address] [place] [address] Phone Care Team Providers Care Sandblaster Supervisor Name Role Phone Yuni Resendiz APRN, CNP Primary Care P [facility] Antonio Bal RN Unavailable Unavailable Reason for Visit * Reason Comments Medication Refill Encounter Details Date Type Department Care Team (Late st Contact Info) Description 01/21/2024 Refill [facility] - Primary [facility] - [place] [address] [place] [address] Yuni Resendiz APRN, CNP [address] [place] [address] Medication Refill Social History Tobacco [...] 12/06/23 Office Visit Yuni Resendiz APRN, VALE [facility] Office Visit Yuni Resendiz APRN, CNP [facility] 05/20/23 Office Visit Yuni Resendiz APRN, CNP [facility] 04/09/23 Office Visit Yuni Resendiz APRN, CNP [facility] 03/24/23 Office Visit Yuni Resendiz APRN, VALE [facility] Showing recent visits within past 365 days [...] 12/06/23 Office Visit [facility]uni Resendiz [facility]N, CNP [facility]23 Office Visit Yuni Resendiz APRN, CNP [facility] 05/20/23 Office Visit Yuni Resendiz APRN, CNP [facility]23 Office Visit Yuni Resendiz APRN, VALE [facility] 03/24/23 Office Visit Yuni Resendiz APRN, VALE [facility] Showing recent visits within past 365 days and meeting all other requirements Future Appointments No visits were found meeting these conditions. Showing future appointments within next 90 days and meeting all other requirements documented in this encounter Plan of Treatment Upcoming Encounters Date Type Department Care Team (Late st Contact Info) Description 08/07/2025 9:00 AM CDT Clinical Support [facility] - [place] [address] [place] [address] 09/13/2025 8:40 AM QUILL MACHINE TENDER [facility] [address] [place] [address] 09/20/2025 9:30 AM QUILL MACHINE TENDER Office Visit [facility] [place] [address] [place] [address] Yuni Resendiz APRN, CNP [address] [place] [address] documented as of this encounter Visit Diagnoses Diagnosis Essential hypertension Unspecified essential hypertension Gastroesophageal reflux disease, unspecified whether esophagitis present documented in this encounter Additional Health Concerns Assessment Noted Time PHQ-9 Depression Total Score: 0 12/06/19 24 3:04 PM QUILL MACHINE TENDER documented as of this encounter Care Teams Sandblaster Supervisor Relationship Specialty Start Date End Date Yuni Resendiz, DATA VISUALIZATION DEVELOPER, FLANGING MACHINE OPERATOR [address] [place] [address] PCP - General Advanced Practice Nurse 07/23/20 Antonio Bal, RN [place] Registered Nurse 05/24/25 documented as of this encounter
--- OUTSIDE RECORDS SUMMARY | 2025-08-01 11:02 | XMS_ITS ---
Author Organization [facility] Address [address] [facility], [address] [address] Phone Care Team Providers Care Er Medical Technician Name Role Phone Yuni Resendiz APRN, VALE Primary Care Chauncey espinal Antonio Bal RN Unavailable Unavailable Nurse Clinic Status:Enrolled (Active) Start date:05/24/2025 Enrollment date:05/24/2025 Enrollment reason:Referred by provider Current support & services provided:Hypertension Management Case Team Name Relationship Phone Antonio Bal RN(Responsible Staff) Registered Nurse Continued Care and Services Coordination
--- OUTSIDE RECORDS SUMMARY | 2025-08-01 11:02 | XMS_ITS | Clinical Summary ---
Author Organization [facility] Address [address] [place] [address] Care Team Providers Care Road Repairer Name Role Phone Unavailable Primary Care Provider Unavailabl e Source Comments [facility],non-owned Affiliates and Associated Physician Practices is amultiple site organization consisting of ambulatory clinics and hospital sitesin [place], [place], [place] and [place]. This disclosure is being madepursuant to the Care Everywhere program and may not contain all information available regarding this patient. Last updated 18.[facility] [employer] Allergies Active Allergy Reactions Criticality Noted Date [...]
--- OUTSIDE RECORDS SUMMARY | 2025-08-01 11:02 | XMS_ITS | Encounter Summary ---
Author Organization [facility] Address [address] [place] [address] Phone Care Team Providers Care Bridge Construction Inspector Name Role Phone Yuni Resendiz APRN, CNP Primary Care P [facility] Antonio Bal RN Unavailable Unavailable Reason for Visit * Reason Comments Medication Refill Encounter Details Date Type Department Care Team (Late st Contact Info) Description 11/07/2023 Refill [facility] - Primary Care - [place] [address] [place] [address] Yuni Resendiz APRN, CNP [address] [place] [address] Medication Refill Social History Tobacco [...] 10:43 AM CST Refill requested too soon. H AGENT documented in this encounter Plan of Treatment Upcoming Encounters Date Type Department Care Team (Late st Contact Info) Description 08/07/2025 9:00 AM CDT Clinical Support [facility] [place] [address] [place] [address] 09/13/2025 8:40 AM YOUTH AGENT Lab [facility] [place] [address] [place] [address] 09/20/2025 9:30 AM YOUTH AGENT Office Visit [facility] [address] [place] [address] Yuni Resendiz APRN, VALE [address] [place] [address] documented as of this encounter Visit Diagnoses Diagnosis Seasonal allergic rhinitis, unspecified trigger documented in this encounter Additional Health Concerns Assessment Noted Time PHQ-9 Depression Total Score: 0 11/13/19 23 8:00 AM YOUTH AGENT documented as of this encounter Care Teams Bridge Construction Inspector Relationship Specialty Start Date End Date Yuni Resendiz APRN, VALE [address] [place] [address] PCP - General Advanced Practice Nurse 07/23/20 Antonio Bal, RN [place] Registered Nurse 05/24/25 documented as of this encounter
--- OUTSIDE RECORDS SUMMARY | 2025-08-01 11:02 | XMS_ITS | Encounter Summary ---
Author Organization [facility] Address [address] [place] [address] Phone Care Team Providers Care Carpet Inspector Finished Name Role Phone Yuni Resendiz APRN, CNP Primary Care P [facility] Antonio Bal RN Unavailable Unavailable Reason for Visit * Reason Comments Medication Refill Encounter Details Date Type Department Care Team (Late st Contact Info) Description 05/14/2021 Refill [facility] [address] [place] [address] Yuni Resendiz APRN, MACHINE COIL ASSEMBLER [address] [place] [address] Medication Refill Social History Tobacco [...] 08/07/2025 9:00 AM CDT Clinical Support [facility] - [place] [address] [place] [address] 09/13/2025 8:40 AM ELECTRICAL MAINTENANCE TECHNICIAN Lab [facility] [place] [address] [place] [address] 09/20/2025 9:30 AM ELECTRICAL MAINTENANCE TECHNICIAN Office Visit [facility] - [place] [address] [place] [address] Yuni Resendiz APRN, CNP [address] [place] [address] documented as of this encounter Visit Diagnoses Diagnosis Seasonal allergic rhinitis, unspecified trigger documented in this encounter Additional Health Concerns Infection Onset Date Last Indicated Resolved Time COVID - 19 01/16/2023 01/16/2023 01/26/2023 12:1 6 AM CDT COVID - 19 Confirmed 01/16/2023 01/16/2023 023 12:16 AM CDT Assessment Noted Time PHQ-9 Depression Total Score: 1 12/03/19 21 8:00 AM ELECTRICAL MAINTENANCE TECHNICIAN documented as of this encounter Care Teams Carpet Inspector Finished Relationship Specialty Start Date End Date Yuni Resendiz APRN, CNP [address] [place] [address] PCP - General Advanced Practice Nurse 07/23/20 Antonio Bal RN [place] Registered Nurse 05/24/25 documented as of this encounter
--- OUTSIDE RECORDS SUMMARY | 2025-08-01 11:02 | XMS_ITS | Encounter Summary ---
Author Organization [facility] Address [address] [place] [address] Phone Care Team Providers Care Commercial Representative Name Role Phone Yuni Resendiz APRN, CNP Primary Care Chauncey espinal Antonio Bal RN Unavailable Unavailable Reason for Visit * Reason Comments Medication Refill Encounter Details Date Type Department Care Team (Late st Contact Info) Description 05/13/2021 Refill [facility] [address] [place] [id number] Evita Cid Rosalie, PAC [address] [place] [address] Medication Refill Social History Tobacco Use Types [...] 03/07/21 Office Visit Yuni Resendiz APN, VALE [address] [address] 12/20/20 Office Visit Yuni Resendiz APN, VALE [address] 12/03/20 Office Visit Yuni Resendiz APN, VALE [address] 07/26/20 Office Visit Yuni Resendiz APN, VALE [address] Showing recent visits within past 365 [...] Description 08/07/2025 9:00 AM CDT [facility] [address] [place] [address] 09/13/2025 8:40 AM MACHINE PULLER AND LASTER Lab [facility] [address] [place] [address] 09/20/2025 9:30 AM MACHINE PULLER AND LASTER Office Visit [facility] [address] [place] [address] Yuni Resendiz APRN, RN [facility] [address] [place] [address] documented as of this encounter Visit Diagnoses Not on filedocumented in this encounter Additional Health Concerns Infection Onset Date Last Indicated Resolved Time COVID - 19 01/16/2023 01/16/2023 01/26/2023 12:1 6 AM CDT COVID - 19 Confirmed 01/16/2023 01/16/2023 023 12:16 AM CDT Assessment Noted Time PHQ-9 Depression Total Score: 1 12/03/19 21 8:00 AM MACHINE PULLER AND LASTER documented as of this encounter Care Teams Commercial Representative Relationship Specialty Start Date End Date Yuni Resendiz RESTORATION SILVERSMITH, RN [facility] [address] [place] [address] PCP - General Advanced Practice Nurse 07/23/20 Antonio Bal, RN [place] Registered Nurse 05/24/25 documented as of this encounter
[2025-08-01 11:51] LABS: MRSA (PCR) NOT DETECTED (NOT DETECTE)
== END 2025-08-01 10:04 | disposition home or self-care (01) ==
LOC: ANHSURGERY 10:08
PROVIDERS: Visit Provider Orthopaedic Surgery
DX: M17.12 Unilateral primary osteoarthritis, left knee (principal); Z01.818 Encounter for other preprocedural examination
CPT/HCPCS: 80307; 82040; 82565; 82947; 83036; 85025; 86850; 86900; 86901; 87641

== ENCOUNTER 2025-08-09 00:50 | Day surgery (SDC) | payer MEDICARE, SELFPAY ==
[2025-04-25 14:12] VITALS: BP 156/84; PULSE 54; RESP 16; TEMP 36.7; O2SAT 96; BMI 31.6
--- NOTE | 2025-04-25 14:41 | PC.NURSE ---
Addendum entered by Karla Landrum RN 07/27/25 15:31: PT interviewed, no change in status, some meds changed and reconciled, rest of assessment unchanged. New info given to pt JRRN Addendum entered by Karla Landrum RN 07/27/25 15:30: Report to the Outpatient Waiting Room, entrance under the green pavilion located off [facility], at time __1100am on date _08/09/25 . Planned Procedure Time: _1:00pm .? Time changes happen often and if your time is changed the preop area will call you the afternoon before. - You and your visitor will be asked to self-screen and do not enter if you have any COVID symptoms. Please call surgeon if you need to reschedule. - A mask is optional within the hospital at this time. Patients may have clear liquids (water, carbonated beverages, clear teas, apple juice) until 3 hours prior to surgery with a maximum of 20 ounces. - No food from midnight until time of surgery and no smoking, or chewing tobacco (or any form of nicotine). No chewing gum, candy or mints. (10:00am) Take only the following medications with a SIP of water on the morning of surgery: Coreg, Amlodipine, Buproprion, Celebrex ok per Dr Kim DO NOT STOP ANY OF YOUR OTHER PRESCRIPTION MEDICATIONS PRIOR TO SURGERY EXCEPT THE FOLLOWING Hold all vitamins and supplements for 7 days per anesthesiologist. Date to take last dose 08/01/25 Medications to discontinue per physician ____Aspirin and Fish oil, NSAIDS, Motrin, Advil for [address] Kim Date to take last dose___08/01/25 Original Note: Report to the Outpatient Waiting Room, entrance under the green pavilion located off [address], at time __0830am on date _05/22/25 . Planned Procedure Time: _10:30am .? Time changes happen often and if your time is changed the preop area will call you the afternoon before. - You and your visitor will be asked to self-screen and do not enter if you have any COVID symptoms. Please call surgeon if you need to reschedule. - A mask is optional within the hospital at this time. Patients may have clear liquids (water, carbonated beverages, clear teas, apple juice) until 3 hours prior to surgery with a maximum of 20 ounces. - No food from midnight until time of surgery and no smoking, or chewing tobacco (or any form of nicotine). No chewing gum, candy or mints. (07:30am) - Take only the following medications with a SIP of water on the morning of surgery: Coreg and Buproprion. Celebrex ok per Dr Kim DO NOT STOP ANY OF YOUR OTHER PRESCRIPTION MEDICATIONS PRIOR TO SURGERY EXCEPT THE FOLLOWING Hold all vitamins and supplements for 3 days per anesthesiologist. Date to take last dose 05/18/25 Medications to discontinue per physician ____Aspirin and Fish oil, NSAIDS, Motrin, Advil for [address] Kim Date to take last dose___05/13/25 Please no make-up, nail occitan, hairspray, perfume, deodorant, or body powder the day of surgery.? No jewelry (including any body piercings) or valuables the day of surgery, leave them at home.? Please take a shower or bath the night before, or the morning of, surgery with an antibacterial soap.(GOLD DIAL)? Wear comfortable, loose fitting clothing.? Cell phone av specialist, overnight bag,, tennis shoes, walker - Jewelry must be removed prior to entering the operating room.? Rings and piercings that are not removed may be cut off. - The hospital will not accept responsibility for valuables.? - Please leave all valuables, including medications, at home the day of surgery. If you are going home after surgery, a licensed commercial front load driver must drive you home.? - NO public transportation without another adult if you receive anesthesia. - We recommend that an adult stay with you for 24 hours following discharge. - We also recommend that you do not drive, make important decision, drink alcoholic beverages, or take any drugs that were not prescribed by your health care provider for at least 24 hours after your discharge time. Follow any additional instructions given to you from your surgeon. Telephone instructions given to ___Patient and asked if any additional questions and then verbalized understanding. Patient advised to call surgeon office or pre surgery nurse liaison [phone] if any additional questions.
--- OUTSIDE RECORDS SUMMARY | 2025-05-22 00:52 | XMS_ITS | Encounter Summary ---
Author Organization [facility] Address [address] [place] [address] Phone Care Team Providers Care Tank Truck Operator Name Role Phone Yuni Resendiz APRN, CNP Primary Care P rojanes Reason for Visit * Reason Comments Medication Refill Encounter Details Date Type Department Care Team (Late st Contact Info) Description 05/14/2021 Refill [facility] [address] [place] [address] Yuni Resendiz APRN INFORMATION SYSTEMS SECURITY ANALYST [address] [place] [address] Medication Refill Social History Tobacco [...] Care Team (Late st Contact Info) Description 05/24/2025 9:00 AM CDT Education [facility] [address] [place] [address] [facility] 09/13/2025 8:40 AM PAPERHANGER SUPERVISOR Lab [facility] [address] [place] [address] [facility] 09/20/2025 9:30 AM PAPERHANGER SUPERVISOR Office Visit [facility] [address] [place] [address] Yuni Resendiz APRN, CNP [address] [place] [address] documented as of this encounter Visit Diagnoses Diagnosis Seasonal allergic rhinitis, unspecified trigger documented in this encounter Additional Health Concerns Infection Onset Date Last Indicated Resolved Time COVID - 19 01/16/2023 01/16/2023 01/26/2023 12:1 6 AM CDT COVID - 19 Confirmed 01/16/2023 01/16/2023 023 12:16 AM CDT Assessment Noted Time PHQ-9 Depression Total Score: 1 12/03/19 21 8:00 AM PAPERHANGER SUPERVISOR documented as of this encounter Care Teams Tank Truck Operator Relationship Specialty Start Date End Date Yuni Resendiz APRN, VALE [address] [place] [address] PCP - General Advanced Practice Nurse 07/23/20 documented as of this encounter
--- OUTSIDE RECORDS SUMMARY | 2025-05-22 00:52 | XMS_ITS | Encounter Summary ---
Author Organization [facility] Address [address] [place] [address] Phone Care Team Providers Care Senior Project Accountant Name Role Phone Yuni Resendiz APRN, CNP Primary Care P [facility] Reason for Visit * Reason Comments Medication Refill Encounter Details Date Type Department Care Team (Late st Contact Info) Description 04/27/2024 Refill [facility] - Primary Care - [place] [address] [place] [address] Yuni Resendiz APRN, CNP [address] [place] [address] Medication Refill Social History Tobacco Use Types Packs/Day Years Used Date Smoking Tobacco: Former Cigarettes 0.5 27 1 - 11/07/2004 Smokeless Tobacco: Never Comments:chews nicorette gum Alcohol Use Standard Drinks/Week Comments No 0 (1 standard drink = 0.6 oz pur e alcohol) [facility] Utilities Answer Date Recorded In [...] often do you attend chur ch or rastafarian services? 1 to 4 times per year 02/10/2024 Do you belong to any clubs o r organizations such as confucianism groups, unions, fraternal or athletic groups, or [...] Total Score - Questions 1-9 0 11/09 [facility] - Occupational Stress [...] place to sleep or slept in a fpc (including now)? No 02/10/2024 Education Answer Date [...] encounter Miscellaneous Notes * Telephone Encounter - Ynui Resendiz APRN, CNP - 04/27/2024 1:29 PM [...] 04/20/24 Office Visit Antonella Gupta APRN, VALE [facility] 02/10/24 Office Visit Yuni Resendiz APRN, VALE [facility] 12/06/23 Office Visit Yuni Resendiz APRN, VALE [facility] Showing recent visits within past 182 days and meeting all other requirements Future Appointments Date Type Provider Dept 05/15/24 Appointment Clinic, [facility] Nurse [facility] 05/29/24 App[address] Lab, [facility] 06/05/24 Appointment Yuni Resendiz APRN, VALE [facility] Showing future appointments within next 90 days and meeting all other requirements Passed - Patient has established therapy with Bupropion for at least 6 months documented in this encounter Plan of Treatment Upcoming Encounters Date Type Department Care Team (Late st Contact Info) Description 05/24/2025 9:00 AM CDT Education [facility] [place] [address] [place] [address] [facility] [place] 09/13/2025 8:40 AM TAB CUTTER Lab [facility] [place] [address] [place] [address] [facility] 09/20/2025 9:30 AM TAB CUTTER Office Visit [facility] - [address] [place] [address] Yuni Resendiz APRN, VALE [address] [place] [address] documented as of this encounter Visit Diagnoses Diagnosis Anxiety with depression documented in this encounter Additional Health Concerns Assessment Noted Time PHQ-9 Depression Total Score: 0 12/06/19 24 3:04 PM TAB CUTTER documented as of this encounter Care Teams Senior Project Accountant Relationship Specialty Start Date End Date Yuni Resendiz APRN, VALE [address] [place] [address] PCP - General Advanced Practice Nurse 07/23/20 documented as of this encounter
--- OUTSIDE RECORDS SUMMARY | 2025-05-22 00:52 | XMS_ITS | Encounter Summary ---
Author Organization [facility] Address [address] [place] [address] Phone Care Team Providers Care Aviation Operations Specialist Name Role Phone Yuni Resendiz APRN, CNP [facility] Reason for Visit * Reason Comments Medication Refill Encounter Details Date Type Department Care Team (Late st Contact Info) Description 01/21/2024 Refill [facility] - Primary Care - [place] [address] [place] [address] Yuni Resendiz APRN, CNP [address] [place] [address] Medication Refill Social History Tobacco [...] 12/06/23 Office Visit Yuni Resendiz APRN, VALE [facility] 07/29/23 Office Visit Yuni Resendiz APRN, VALE [facility] 05/20/23 Office Visit Yuni Resendiz APRN, VALE [facility] 04/09/23 Office Visit Yuni Resendiz APRN, VALE [facility] 03/24/23 Office Visit Yuni Resendiz APRN, VALE [facility] Showing recent visits within past 365 [...] 12/06/23 Office Visit [facility]N, [facility]NP [facility] 07/[facility]/23 Office Visit Yuni [facility]N, CNP [facility] 05/20/23 Office Visit Yuni Resendiz APRN, CNP [facility] 04/09/23 Office Visit Yuni Resendiz APRN, CNP [facility] 03/24/23 Office Visit Yuni Resendiz APRN, CNP [facility] Showing recent visits within past 365 days and meeting all other requirements Future Appointments No visits were found meeting these conditions. Showing future appointments within next 90 days and meeting all other requirements documented in this encounter Plan of Treatment Upcoming Encounters Date Type Department Care Team (Late st Contact Info) Description 05/24/2025 9:00 AM CDT Education [facility] [address] [place] [address] [facility] 09/13/2025 8:40 AM FIBER LOCKING SUPERVISOR Lab [facility] [place] [address] [place] [address] [facility] 09/20/2025 9:30 AM FIBER LOCKING SUPERVISOR Office Visit [facility] [place] [address] [place] [address] Yuni Resendiz APRN, CNP [address] [place] [address] documented as of this encounter Visit Diagnoses Diagnosis Essential hypertension Unspecified essential hypertension Gastroesophageal reflux disease, unspecified whether esophagitis present documented in this encounter Additional Health Concerns Assessment Noted Time PHQ-9 Depression Total Score: 0 12/06/19 24 3:04 PM FIBER LOCKING SUPERVISOR documented as of this encounter Care Teams Aviation Operations Specialist Relationship Specialty Start Date End Date Yuni Resendiz APRN, RECREATION FACILITIES SUPERVISOR [address] [place] [address] PCP - General Advanced Practice Nurse 07/23/20 documented as of this encounter
--- OUTSIDE RECORDS SUMMARY | 2025-05-22 00:52 | XMS_ITS | Encounter Summary ---
Author Organization [facility] Address [address] [place] [address] Phone Care Team Providers Care Firestopper Technician Name Role Phone uYni Resendiz APRN, CNP Primary Care [facility] Reason for Visit * Reason Comments Medication Refill Encounter Details Date Type Department Care Team (Late st Contact Info) Description 02/15/2022 Refill [facility] - [place] [address] [place] [address] Yuni Resendiz APRN, CNP [address] [place] [address] Medication Refill Social History Tobacco [...] Info) Description 05/24/2025 9:00 AM CDT Education [facility] [address] [place] [address] [facility] 09/13/2025 8:40 AM WORM GROWER Lab [facility] [address] [place] [address] [facility] 09/20/2025 9:30 AM WORM GROWER Office Visit [facility] [address] [place] [address] Yuni Resendiz APRN, GUARDIAN AD LITEM [address] [place] [address] documented as of this encounter Visit Diagnoses Diagnosis Seasonal allergic rhinitis, unspecified trigger documented in this encounter Additional Health Concerns Infection Onset Date Last Indicated Resolved Time COVID - 19 01/16/2023 01/16/2023 01/26/2023 12:1 6 AM CDT COVID - 19 Confirmed 01/16/2023 01/16/2023 023 12:16 AM CDT Assessment Noted Time PHQ-9 Depression Total Score: 1 12/03/19 21 8:00 AM WORM GROWER documented as of this encounter Care Teams Firestopper Technician Relationship Specialty Start Date End Date Yuni Resendiz APRN, GUARDIAN AD LITEM [address] [place] [address] PCP - General Advanced Practice Nurse 07/23/20 documented as of this encounter
--- OUTSIDE RECORDS SUMMARY | 2025-05-22 00:52 | XMS_ITS | Encounter Summary ---
Author Organization [facility] Address [address] [place] [address] Phone Care Team Providers Care Bursar Name Role Phone Yuni Resendiz APRN, CNP [facility] Reason for Visit * Reason Comments Medication Refill Encounter Details Date Type Department Care Team (Late st Contact Info) Description 12/24/2021 Refill [facility] - [place] [address] [place] [address] Yuni Resendzi APRN, CNP [address] [place] [address] Medication Refill Social History Tobacco [...] Info) Description 05/24/2025 9:00 AM CDT Education [facility] [place] [address] [place] [address] [facility], [facility] Nurse [place] 09/13/2025 8:40 AM POWER SAW OPERATOR Lab [facility] [place] [address] [place] [address] [facility], [facility] 09/20/2025 9:30 AM POWER SAW OPERATOR Office Visit [facility] [place] [address] [place] [address] Yuni Resendiz APRN, MAINTENANCE SHOP CLERK [address] [place] [address] documented as of this encounter Visit Diagnoses Diagnosis Seasonal allergic rhinitis, unspecified trigger documented in this encounter Additional Health Concerns Infection Onset Date Last Indicated Resolved Time COVID - 19 01/16/2023 01/16/2023 01/26/2023 12:1 6 AM CDT COVID - 19 Confirmed 01/16/2023 01/16/2023 023 12:16 AM CDT Assessment Noted Time PHQ-9 Depression Total Score: 1 12/03/19 21 8:00 AM POWER SAW OPERATOR documented as of this encounter Care Teams Bursar Relationship Specialty Start Date End Date Yuni Resendiz APRN, MAINTENANCE SHOP CLERK [address] [place] [address] PCP - General Advanced Practice Nurse 07/23/20 documented as of this encounter
--- OUTSIDE RECORDS SUMMARY | 2025-05-22 00:52 | XMS_ITS | Encounter Summary ---
Author Organization [facility] Address [address] [place] [address] Phone Care Team Providers Care Sales Marketing Name Role Phone Yuni Resendiz APRN, CNP Primary [facility] P [facility] Reason for Visit * Reason Comments Medication Refill Encounter Details Date Type Department Care Team (Late st Contact Info) Description 06/20/2022 Refill [facility] - [place] [address] [place] [address] Yuni Resendiz APRN, CNP [address] [place] [address] Medication Refill Social History Tobacco [...] Info) Description 05/24/2025 9:00 AM CDT Education [facility] [place] [address] [place] [address] [facility], [facility] 09/13/2025 8:40 AM SUPPLY CHAIN DESIGN MANAGER Lab [facility] [place] [address] [place] [address] [facility], [facility] 09/20/2025 9:30 AM SUPPLY CHAIN DESIGN MANAGER Office Visit [facility] [place] [address] [place] [address] Yuni Resendiz APRN, WEAVER APPRENTICE [address] [place] [address] documented as of this encounter Visit Diagnoses Diagnosis Seasonal allergic rhinitis, unspecified trigger documented in this encounter Additional Health Concerns Infection Onset Date Last Indicated Resolved Time COVID - 19 01/16/2023 01/16/2023 01/26/2023 12:1 6 AM CDT COVID - 19 Confirmed 01/16/2023 01/16/2023 023 12:16 AM CDT Assessment Noted Time PHQ-9 Depression Total Score: 1 12/03/19 21 8:00 AM SUPPLY CHAIN DESIGN MANAGER documented as of this encounter Care Teams Sales Marketing Relationship Specialty Start Date End Date Yuni Resendiz APRN, WEAVER APPRENTICE [address] [place] [address] PCP - General Advanced Practice Nurse 07/23/20 documented as of this encounter
--- OUTSIDE RECORDS SUMMARY | 2025-05-22 00:52 | XMS_ITS | Encounter Summary ---
Author Organization [facility] Address [address] [place] [address] Phone Care Team Providers Care Neurology Physician Assistant Name Role Phone Yuni Resendiz APRN, CNP [facility] Reason for Visit * Reason Comments Medication Refill Encounter Details Date Type Department Care Team (Late st Contact Info) Description 11/07/2023 Refill [facility] - Primary Care - [place] [address] [place] [address] Yuni Resendiz APRN, CNP [address] [place] [address] Medication Refill Social History Tobacco [...] 10:43 AM CST Refill requested too soon. NISTRATIVE DIETITIAN documented in this encounter Plan of Treatment Upcoming Encounters Date Type Department Care Team (Late st Contact Info) Description 05/24/2025 9:00 AM CDT Education [facility] [place] [address] [place] [address] [facility], [facility] 09/13/2025 8:40 AM ADMINISTRATIVE DIETITIAN Lab [facility] [place] [address] [place] [address] [facility] 09/20/2025 9:30 AM ADMINISTRATIVE DIETITIAN Office Visit [facility] [place] [address] [facility] [place] [place] [address] Yuni Resendiz APRN, VALE [address] [place] [address] documented as of this encounter Visit Diagnoses Diagnosis Seasonal allergic rhinitis, unspecified trigger documented in this encounter Additional Health Concerns Assessment Noted Time PHQ-9 Depression Total Score: 0 11/13/19 23 8:00 AM ADMINISTRATIVE DIETITIAN documented as of this encounter Care Teams Neurology Physician Assistant Relationship Specialty Start Date End Date Yuni Resendiz APRN, LABORATORY MACHINIST [address] [place] [address] PCP - General Advanced Practice Nurse 07/23/20 documented as of this encounter
--- OUTSIDE RECORDS SUMMARY | 2025-05-22 00:52 | XMS_ITS | Encounter Summary ---
Author Organization [facility] Address [address] [facility] [place] [address] Care Team Providers Care Drink Box Mechanic Name Role Phone Unavailable Primary Care Provider Unavailabl e Encounter Details Date Type Department Care Team (Late st Contact Info) Description 05/13/2020 Lab Requisition [facility] [address] [place] [address] [place] [address] [place] [address] Social History Tobacco Use Types Packs/Day Years [...] AM CDT) Case Report Dermatopathology Report Case: [id number] Authorizing Provider: Kathya Thomas MD Collected: 05/09/2020 12:00 AM Ordering Location: [facility] Received: 05/13/2020 01:12 PM Pathologist: [...] specimen consists of a shave biopsy measuring [id number]. Jar 0. 0 1:01 PM CDT DERMATOPATHOLOGY [...] characteristic determined by the Dermatopathology Laboratory at [facility], directed by Dr. Nicky Smith. These tests need not be, and therefore are not, approved by the [place] Food and Drug Administration. The tests are used for clinical purposes. Billing Codes Specimen Charges Stain Charges 64656 1 0 1:01 PM CDT DERMATOPATHOLOGY LABORATORY Embedded Images 0 1:01 PM CDT DERMATOPATHOLOGY LABORATORY Pathology/Cytolog y TISSUE SPECIMEN FROM SKIN / Unknown 05/09/2020 05/13/2020 1:12 PM CDT Kathya Thomas MD LAB - PATHOLOGY/CYTOLOGY ORDERABLES Final Result DERMATOPATHOLOGY LABORATORY [facility] - Department of Dermatology [facility]/[address] [phone] documented in this encounter Visit Diagnoses Not on filedocumented in this encounter
--- OUTSIDE RECORDS SUMMARY | 2025-05-22 00:52 | XMS_ITS | Encounter Summary ---
Author Organization [facility] Address [address] [place] [address] Phone Care Team Providers Care Hotel Director Name Role Phone Yuni Resendiz APRN, CNP Primary Care [facility] Reason for Visit * Reason Comments Medication Refill Encounter Details Date Type Department Care Team (Late st Contact Info) Description 05/13/2021 Refill [facility] [address] [place] [address] Evita iCd Rosalie, PAC [address] [place] [address] Medication Refill Social History Tobacco Use Types [...] 03/07/21 Office Visit Yuni Resendiz APN, VALE [facility] [address] 12/20/20 Office Visit Yuni Resendiz APN, VALE [facility] [address] 12/03/20 Office Visit Yuni Resendiz APN, VALE [facility] [address] 07/26/20 Office Visit Yuni Resendiz APN, VALE [facility] [address] Showing recent visits within past 365 [...] Info) Description 05/24/2025 9:00 AM CDT Education [facility] [address] [place] [address] [facility] 09/13/2025 8:40 AM OSTEOPATHIC RESIDENT Lab [facility] [address] [place] [address] [facility] 09/20/2025 9:30 AM OSTEOPATHIC RESIDENT Office Visit [facility] [address] [place] [address] Yuni Resendiz APRN, CERTIFIED PHARMACIST ASSISTANT [address] [place], [place] [address] documented as of this encounter Visit Diagnoses Not on filedocumented in this encounter Additional Health Concerns Infection Onset Date Last Indicated Resolved Time COVID - 19 01/16/2023 01/16/2023 01/26/2023 12:1 6 AM CDT COVID - 19 Confirmed 01/16/2023 01/16/2023 023 12:16 AM CDT Assessment Noted Time PHQ-9 Depression Total Score: 1 12/03/19 21 8:00 AM OSTEOPATHIC RESIDENT documented as of this encounter Care Teams Hotel Director Relationship Specialty Start Date End Date Yuni Resendiz APRN, CERTIFIED PHARMACIST ASSISTANT [address], [place] [address] PCP - General Advanced Practice Nurse 07/23/20 documented as of this encounter
--- OUTSIDE RECORDS SUMMARY | 2025-05-22 00:52 | XMS_ITS | Referral Summary ---
Author Organization [facility] Address [address] [place] [address] Care Team Providers Care Tortilla Maker Name Role Phone Jocelyn Vázquez MD Primary Care Provider [phone] Allergies Active Allergy Reactions Criticality Noted Date [...] on file Legal Sex Female 5:09 PM AEGIS CONSOLE OPERATOR TRACK Gender Identity Not on file Sexual Orientation [...] Not on file Insurance MEDICARE Care Teams Tortilla Maker Relationship Specialty Start Date End Date Jocelyn Vázquez [place] [address] [address] PCP - General Family Medicine 05/28/17
--- OUTSIDE RECORDS SUMMARY | 2025-05-22 00:52 | XMS_ITS | Encounter Summary ---
Author Organization [facility] Address [address] [place] [address] Phone Care Team Providers Care Mechanical Design Engineer Name Role Phone Yuni Resendiz APRN, CNP Primary Care Chauncey espinal Reason for Visit * Reason Comments Medication Refill Encounter Details Date Type Department Care Team (Late st Contact Info) Description 09/06/2020 Refill [facility] [address] [place] [address] Evita Cid Rosalie, PAC [address] [place] [address] Medication Refill Social History Tobacco Use Types [...] Info) Description 05/24/2025 9:00 AM CDT Education [facility] [address] [place] [address] [facility] Nurse [place] 09/13/2025 8:40 AM RECOVERY ASSISTANT Lab [facility] [place] [address] [place] [address] [facility], [facility] 09/20/2025 9:30 AM RECOVERY ASSISTANT Office Visit [facility] [address] [place] [address] Yuni Resendiz APRN, VALE [address] [place] [address] documented as of this encounter Visit Diagnoses Not on filedocumented in this encounter Additional Health Concerns Infection Onset Date Last Indicated Resolved Time COVID - 19 01/16/2023 01/16/2023 01/26/2023 12:1 6 AM CDT COVID - 19 Confirmed 01/16/2023 01/16/2023 023 12:16 AM CDT Assessment Noted Time PHQ-9 Depression Total Score: 0 07/26/20 20 8:00 AM CDT documented as of this encounter Care Teams Mechanical Design Engineer Relationship Specialty Start Date End Date Yuni Resendiz APRN, CERTIFIED SOLID WASTE FACILITY OPERATOR [address] [place] [address] PCP - General Advanced Practice Nurse 07/23/20 documented as of this encounter
--- OUTSIDE RECORDS SUMMARY | 2025-05-22 00:52 | XMS_ITS | Encounter Summary ---
Author Organization [facility] Address [address] [place] [place] [address] Phone Care Team Providers Care Ribbon Sweatband Operator Name Role Phone Yuni Resendiz APRN, CNP Primary Care [facility] Reason for Visit * Reason Comments Medication Refill Encounter Details Date Type Department Care Team (Late st Contact Info) Description 03/30/2023 [facility]ill [facility] - [place] [address] [place] [address] Yuni Resendiz APRN, CNP [address] [place] [address] Medication Refill Social History Tobacco [...] Info) Description 05/24/2025 9:00 AM CDT Education [facility] [address] [place] [address] [facility] 09/13/2025 8:40 AM COMPUTER SCIENCE INTERN Lab [facility] [address] [place] [address] [facility] 09/20/2025 9:30 AM COMPUTER SCIENCE INTERN Office Visit [facility] [address] [place] [address] Yuni Resendiz APRN, LETTER STAMPING MACHINE OPERATOR [address] [place] [address] documented as of this encounter Visit Diagnoses Diagnosis Seasonal allergic rhinitis, unspecified trigger documented in this encounter Additional Health Concerns Assessment Noted Time PHQ-9 Depression Total Score: 0 11/13/19 23 8:00 AM COMPUTER SCIENCE INTERN documented as of this encounter Care Teams Ribbon Sweatband Operator Relationship Specialty Start Date End Date Yuni Resendiz APRN, LETTER STAMPING MACHINE OPERATOR [address] [place] [address] PCP - General Advanced Practice Nurse 07/23/20 documented as of this encounter
--- OUTSIDE RECORDS SUMMARY | 2025-05-22 00:52 | XMS_ITS | Encounter Summary ---
Author Organization [facility] Address [address] [place] [address] Phone Care Team Providers Care Middle School Math Teacher Name Role Phone Yuni Resendiz APRN, CNP Primary Care P [facility] Reason for Visit * Reason Comments Medication Refill Encounter Details Date Type Department Care Team (Late st Contact Info) Description 02/01/2024 Refill [facility] - [place] [address] [place] [address] Yuni Resendiz APRN, CNP [address] [place] [address] Medication Refill Social History Tobacco [...] Info) Description 05/24/2025 9:[address] [facility] [address] [place] [address] [facility] Nurse [place] 09/13/2025 8:40 AM STEAM SERVICE INSPECTOR Lab [facility] [address] [place] [address] [facility] 09/20/2025 9:30 AM STEAM SERVICE INSPECTOR Office Visit [facility] [address] [place] [address] Yuni Resendiz APRN, SENIOR MANAGING DIRECTOR [address] [place] [address] documented as of this encounter Visit Diagnoses Diagnosis Dyslipidemia Other and unspecified hyperlipidemia documented in this encounter Additional Health Concerns Assessment Noted Time PHQ-9 Depression Total Score: 0 12/06/19 24 3:04 PM STEAM SERVICE INSPECTOR documented as of this encounter Care Teams Middle School Math Teacher Relationship Specialty Start Date End Date Yuni Resendiz APRN, SENIOR MANAGING DIRECTOR [address] [place] [address] PCP - General Advanced Practice Nurse 07/23/20 documented as of this encounter
--- OUTSIDE RECORDS SUMMARY | 2025-05-22 00:52 | XMS_ITS | Clinical Summary ---
Author Organization [facility] Address [address] [address] Phone Care Team Providers Care Income Tax Administrator Name Role Phone Yuni Resendiz APRN, VALE [...] daily. 90 Tablet 1 01/11/20 24 Active Montour-3 Fatty Acids (FISH OIL PO) Take by mouth daily. Active MAGNESIUM PO Take by mouth daily. Active Calcium Carbonate (CALCIUM 500 PO) Take by mouth in the morning and at bedtime. Active nystatin (MYCOSTATIN) 957396 UNIT/GM OintmentIndicat ions:Candidiasi s of breast Apply [...] Tablet 3 04/04/20 25 Active losartan (COZAAR) 100 MG TabletIndicatio ns:Essential hypertension Take 1 Tablet by mouth daily. 90 Tablet 3 04/26/20 25 Active losartan (COZAAR) 50 MG TabletIndicatio ns:Essential hypertension TAKE 1 TABLET BY MOUTH EVERY DAY 90 Tablet 1 11/06/20 24 2024 Discontinued losartan (COZAAR) 50 MG TabletIndicatio ns:Essential hypertension TAKE 1 TABLET BY MOUTH EVERY DAY 90 Tablet 1 04/24/20 25 2024 Discontinued(D ose adjustment) Active Problems Problem Noted Date Diagnosed Date [...] back Discussed importance of core stability in meterman relief of pain Handout given Refill flexeril Osteopenia 04/09/2014 Overview (07/26/2020): Note: Dexa - pcp Dyslipidemia Seasonal allergic rhinitis Arthritis HTN (hypertension) Resolved Problems Problem Noted Date Diagnosed Date Resolved Date Arthralgia 12/06/2023 Encounters Date Type Department Care Team Description 04/26/2025 3:40 PM CDT Clinical Support [facility] [place] [address] [place] [address] [facility] [place] Essential hypertension (Primary Dx) Discharge Disposition: Discharged to home or Selfcare 04/26/2025 Travel 04/24/2025 Refill [facility] [place] [address] [place] [address] Yuni Resendiz APRN, VALE Medication Refill 04/03/2025 11:20 AM CDT Clinical Support [facility] [place] [address] [place] [address] Clinic, [facility] Nurse Primary hypertension (Primary Dx) Discharge Disposition: Discharged to home or Selfcare 04/01/2025 Travel 03/28/2025 Refill [place] [address] [place] [address] Yuni Resendiz APRN, CNP Medication Refill 03/19/2025 Refill [place] [address] [place] [address] Yuni Resendiz APRN, CNP Medication Refill 03/15/2025 9:15 AM CDT Office Visit [place] [address] [place] [address] Yuni Resendiz APRN, CNP Primary hypertension (Primary Dx); Dyslipidemia; Vitamin D deficiency; Seasonal allergic rhinitis, unspecified trigger; Hyperglycemia; Anxiety with depression; Neuropathy Discharge Disposition: Discharged to home or Selfcare 03/13/2025 Travel 03/08/2025 8:30 AM CDT Lab [place] [address] [place] [address] [facility] Primary hypertension; Dyslipidemia; Arthralgia of both knees; Anxiety with depression; Chronic bilateral low back pain without sciatica; IFG (impaired fasting glucose); Vitamin D deficiency; Vitamin B 12 deficiency Discharge Disposition: Discharged to home or Selfcare 03/08/2025 Results Follow-Up [place] [address] [place] [address] Yuni Resendiz APRN, CNP CMP (COMPREHENSIVE METABOLIC [...] drink = 0.6 oz pur e alcohol) [facility] Utilities Answer Date Recorded In the past 12 months has [employer], gas, oil, or water [employer] threatened to shut off services in your home? Patient declined 12/30/2024 Social Connection and Isolation Panel Answer Date Recorded In a typical week, how many times do you talk on the phone with family, friends, or neighbors? Patient declined 03/13/2025 How often do you get togethe r with friends or relatives? Patient declined 03/13/2025 How often do you attend zoroastrian or adventist serv ices? Patient declined 03/13/2025 Do you belong to any clubs o r organizations such as zoroastrian groups, unions, fraternal or athletic groups, or [...] Recorded Total Score - Questions 1-9 0 102 07/2024 [facility] - Occupational Stress Questionnaire Answer Date [...] place to sleep or slept in a prison (including now)? No 02/10/2024 Housing Stability Vital Sign Answer Noé e Recorded In the last 12 months, was t here a time when you were not able to pay the mortgage or rent on time? No 04/01/2025 Number of Times Moved in the Last Year Not on fi le 04/01/2025 At any time in the past 12 m [facility], were you homeless or living in a prison (including now)? No 04/01/2025 Education Answer Date [...] Sign Reading Time Taken Comments Blood Pressure 152/72 04/26/2025 3:25 PM CDT Pulse 57 04/26/2025 3:25 PM CDT Temperature 36.5 C (97.7 F) 03/15/2025 9:10 AM CDT Respiratory Rate 18 03/15/2025 9:10 AM CDT Oxygen Saturation 97% 04/26/2025 3:25 PM CDT Inhaled Oxygen Concentration - - Weight 72.1 kg (159 lb) 03/15/2025 9:10 AM CDT Height 152.4 cm (5') 03/15/2025 9:10 AM CDT Body Mass Index 31.05 03/15/2025 9:10 AM CDT Plan of Treatment Upcoming Encounters Date Type Department Care Team (Late st Contact Info) Description 05/24/2025 9:00 AM CDT Education [facility] [address] [place] [address] [facility] Nurse [place] 09/13/2025 8:40 AM BUSINESS OWNER/ENGINEER Lab [facility] [address] [place] [address] [facility] 09/20/2025 9:30 AM BUSINESS OWNER/ENGINEER Office Visit [facility] [address] [place] [address] Yuni Resendiz APRN, CLOTHING PATTERN PREPARER [address] [place] [address] Health Maintenance Due Date Last Done Comments TdaP Immunization 1950 Cologuard 1995 Immunochemical Fecal Occult Blood 1995 Hepatitis B Immunization (1 of 3 - Risk 3-dose series) 2010 Respiratory Syncytial Virus (RSV) Immunization (Adult) (1 - 1-dose 75+ series) 2025 Influenza Immunization (#1) 2025 09/0 07/2024, 07/15/2023, 07/28/2022, Additional history exists DEXA Bone Density 02/06/2026 02/07/2024, , 12/03/2016, Additional history exists Colonoscopy 01/16/2029 01/16/2019 Colorectal Cancer Screening 01/16/2029 Pneumococcal Immunization (50+ years) Completed 07/26/2019, 11/30/2017, 02/06/2009 Pneumococcal Immunization Combined Discontinued 07/26/2019, 11/30/2017, 02/06/2009 Zoster Immunization Completed 03/01/2023, Hepatitis C Virus (HCV) Screening Completed 05/13/2023 Mammogram Discontinued 07/03/2024, 06/08, 06/17/2022, Additional history exists SARS-COV-2 Immunization Discontinued 07/28/20 [...] HIGH BLOOD PRESSURE MEDICATIONS) No Yuni Enciso, CEREAL POPPER, CLOTHING PATTERN PREPARER Procedures Procedure Name Priority Date/Time Associated Diagnosis [...] Chronic bilateral low back pain without sciatica MAMMOGRAM BILATERAL GENERIC 07/03/2024 12:00 AM CDT GUSTAVO BONE DENSITOMETRY AXIAL SKELETON Routine 02/07/2024 10:30 AM CDT Postmenopausal HEPATITIS C ANTIBODY Routine 05/13/2023 7:56 AM CDT Encounter for HCV screening test for low risk patient from Last 3 Months or Most Recently Relevant to Health Maintenance Results * VITAMIN D, 25 HYDROXY TOTAL (03/08/2025 8:24 AM CDT) Pathologist [facility] VITAMIN D, 25 HYDROX 43.8 ng/mL 03/08/2025 1:28 PM CDT [facility] Blood Venipuncture / Unknown 03/08/2025 8:24 AM CDT 03/08/2025 8:24 AM CDT Narrative [facility] - 03/08/2025 1:28 PM CDT Published reference ranges for Vitamin D vary depending on time and place and method of testing, and on patient's age, sex, ethnicity and levels of other measured analytes such as parathormone, calcium and phosphorus. The result should be evaluated in conjunction with clinical findings and suspicions. [place] of [employer] and Endocrine Clinical Practice Guidelines: Status Vitamin D levels (ng/mL) Deficient <=20 At risk of inadequacy 21-29 Sufficient 30-100 Centers of Disease Control and Prevention Guidelines: Status Vitamin D levels (ng/mL) Deficient <13 At risk of inadequacy 13-19 Sufficient 20-50 Possibly harmful >50 References: [employer] [employer], 2010 Dietary reference intakes for calcium and vitamin D. [place]: The National Academies Press. Yousif M, Lani N, Alexander-Scot ISBELL, et al., Evaluation, treatment, and prevention of Vitamin D deficiency: an Endocrinology Clinical Practice Guideline. JCEM 2011 96: 7 1271-1695. Leslie A, Jareth C, Fifi D, et al., Vitamin D Status: [place], 7790-0377, [facility] data brief, no. 59, MD Jerem[place]: National Center for Health Statistics. 2011. Yuni Resendiz APRN, CNP CHEMISTRY ORDER CHELI Final Result Performing Organization Address City/[facility]/ZIP Co de Phone Number [facility] [address] [place] [address] * HEMOGLOBIN A1C W/ ESTIMATED GLUCOSE (03/08/2025 8:24 AM CDT) HGB-A1C 6.0 4.0 - 6.0 % 03/08/2025 1:01 PM CDT [facility] Est Average Glucose 125.5 mg/dL 03/08/2025 1:01 PM CDT [facility] Blood Venipuncture / Unknown 03/08/2025 8:24 AM CDT 03/08/2025 8:24 AM CDT Narrative [facility] - 03/08/2025 1:01 PM CDT HEMOGLOBIN A1C: DIABETIC PATIENTS: WELL-CONTROLLED: 6.2 - 7.0 INTERMEDIATE WELL-CONTROLLED: 7.0 - 9.0 POORLY-CONTROLLED: >9.0 Specimens containing greater than 5% of Hemoglobin F may result in lower than expected % HbA1C results. Yuni Resendiz APRN, CNP CHEMISTRY ORDER CHELI Final Result Performing Organization Address [facility] Co de Phone Number [facility] [address] [place] [address] * (ABNORMAL) CBC WITH AUTO DIFFERENTIAL (03/08/2025 8:24 AM CDT) WBC 5.29 4.00 - 12.00 10(3)/mcL 03/08/2025 12:38 PM CDT [facility] RBC 4.74 3.80 - 5.30 10(6)/mcL 03/08/2025 12:38 PM CDT [facility] HEMOGLOBIN (HGB) 14.5 12.0 - 15.8 g/dL 03/08/2025 12:38 PM CDT [facility] HEMATOCRIT (HCT) 44.3 36.0 - 47.0 % 03/08/2025 12:38 PM CDT [facility] MCV 93.5 82.0 - 96.0 fL 03/08/2025 12:38 PM CDT [facility] MCH 30.6 26.0 - 34.0 pg 03/08/2025 12:38 PM CDT [facility] MCHC 32.7 31.0 - 36.0 g/dL 03/08/2025 12:38 PM CDT [facility] PLATELET COUNT 319 140 - 440 10(3)/mcL 03/08/2025 12:38 PM CDT [facility] RDW 12.7 11.8 - 15.5 % 03/08/2025 12:38 PM CDT [facility] MPV 9.6(L) 9.7 - 12.4 fL 03/08/2025 12:38 PM CDT [facility] NEUTROPHILS 65.2 47.0 - 73.0 % 03/08/2025 12:38 PM CDT [facility] LYMPHOCYTES 22.1 18.0 - 42.0 % 03/08/2025 12:38 PM CDT [facility] MONOCYTES 8.1 4.0 - 12.0 % 03/08/2025 12:38 PM CDT [facility] EOSINOPHILS 3.8 0.0 - 5.0 % 03/08/2025 12:38 PM CDT [facility] BASOPHILS 0.8 0.0 - 1.0 % 03/08/2025 12:38 PM CDT [facility] ABSOLUTE NEUTROPHILS 3.45 1.60 - 7.70 10(3)/mcL 03/08/2025 12:38 PM CDT [facility] ABSOLUTE LYMPHOCYTES 1.17(L) 1.30 - 3.20 10(3)/mcL 03/08/2025 12:38 PM CDT [facility] ABSOLUTE MONOCYTES 0.43 0.20 - 1.00 10(3)/mcL 03/08/2025 12:38 PM CDT [facility] ABSOLUTE EOSINOPHIL 0.20 0.00 - 0.40 10(3)/mcL 03/08/2025 12:38 PM CDT [facility] ABSOLUTE BASOPHILS 0.04 0.00 - 0.10 10(3)/mcL 03/08/2025 12:38 PM CDT [facility] NRBC PER 100 WBC 0 03/08/20 12:38 PM CDT [facility] Blood Venipuncture / Unknown 03/08/2025 8:24 AM CDT 03/08/2025 8:24 AM CDT Yuni Resendiz APRN, CNP HEMATOLOGY ORDE RABLES Final Result Performing Organization Address City/[facility]/ZIP Co de Phone Number [facility] [address] [place] [address] * (ABNORMAL) VITAMIN B12 (03/08/2025 8:24 AM CDT) VITAMIN B12 1,113(H) 213 - 816 pg/mL 03/08/2025 1:28 PM CDT [facility] Blood Venipuncture / Unknown 03/08/2025 8:24 AM CDT 03/08/2025 8:24 AM CDT Yuni Resendiz APRN, CNP CHEMISTRY ORDER CHELI Final Result [facility] [address] [place] [address] * THYROID STIMULATING HORMONE (TSH) (03/08/2025 8:24 AM CDT) TSH 2.572 0.300 - 5.000 mIU/L 03/08/2025 1:20 PM CDT [facility] Blood Venipuncture / Unknown 03/08/2025 8:24 AM CDT 03/08/2025 8:24 AM CDT Yuni Resendiz APRN, CNP CHEMISTRY ORDER CHELI Final Result [facility] [address] [place] [address] * (ABNORMAL) LIPID PANEL (03/08/2025 8:24 AM CDT) CHOLESTEROL 195 <200 mg/dL 03/08/2025 1:06 PM CDT [facility] TRIGLYCERIDES 106 <150 mg/dL 03/08/2025 1:06 PM CDT [facility] HDL CHOLESTEROL 53 >40 mg/dL 1:06 PM CDT [facility] LDL 121 <130 mg/dL 03/08/2025 1:06 PM CDT [facility] VLDL 21 10 - 50 mg/dL 03/08/2025 1:06 PM CDT [facility] CHOL/HDL RATIO 3.7 0.0 - 4.4 03/08/2025 1:06 PM CDT [facility] NON-HDL CHOLESTEROL 142(H) <130 mg/dL 03/08/2025 1:06 PM CDT [facility] IS THE PATIENT REQUIRED TO BE FASTING? Yes 03/08/2025 1:06 PM CDT [facility] HAS THE PATIENT BEEN FASTING? Yes 03/08/2025 1:06 PM CDT [facility] Blood Venipuncture / Unknown 03/08/2025 8:24 AM CDT 03/08/2025 8:24 AM CDT Yuni Resendiz APRN, CNP CHEMISTRY ORDER CHELI Final Result Performing Organization Address City/[facility]/ZIP Co de Phone Number [facility] [address] [place] [address] * (ABNORMAL) CMP (COMPREHENSIVE METABOLIC PANEL) (03/08/2025 8:24 AM CDT) SODIUM 137 136 - 145 mmol/L 03/08/2025 1:06 PM T [facility] POTASSIUM 4.2 3.5 - 5.1 mmol/L 03/08/2025 1:06 PM CDT [facility] CHLORIDE 105 98 - 107 mmol/L 03/08/2025 1:06 PM CDT [facility] CO2, VENOUS 25 22 - 30 mmol/L 03/08/2025 1:06 PM T [facility] ANION GAP 11.2 <18.0 mmol/L 03/08/2025 1:06 PM T [facility] GLUCOSE 120(H) 70 - 99 mg/dL 03/08/2025 1:06 PM T [facility] BUN 15 10 - 20 mg/dL 03/08/2025 1:06 PM T [facility] CREATININE, BLOOD 0.77 0.60 - 1.00 mg/dL 03/08/2025 1:06 PM T [facility] BUN/CREATININE RATIO 19 12 - 20 ratio 03/08/2025 1:06 PM T [facility] TOTAL PROTEIN 6.6 6.0 - 8.0 g/dL 03/08/2025 1:06 PM [facility] ALBUMIN 3.9 3.5 - 5.0 g/dL 03/08/2025 1:06 PM T [facility] A/G RATIO 1.4 1.0 - 2.2 03/08/2025 1:06 PM [facility] CALCIUM 8.9 8.7 - 10.5 mg/dL 03/08/2025 1:06 PM T [facility] T BILI 0.4 0.2 - 1.2 mg/dL 03/08/2025 1:06 PM T [facility] SGOT (AST) 25 <43 U/L 03/08/2025 1:06 PM CDT [facility] SGPT (ALT) 20 <56 U/L 03/08/2025 1:06 PM CDT [facility] ALKALINE PHOSPHATASE 67 40 - 150 U/L 03/08/2025 1:06 PM CDT [facility] IS THE PATIENT REQUIRED TO BE FASTING? No 03/08/2025 1:06 PM CDT [facility] GFR, ESTIMATED >60 >=60 03/08/2025 1:06 PM CDT [facility] Comment: Creatinine Clearance is the preferred criteria for selecting drug dose adjustments in renally impaired patients. The GFR is provided as additional pertinent clinical information. GFR is reported in mL/min/1.73 sq m. Calculation based on the Chronic Kidney Disease Epidemiology Collaboration (CKD- EPI) equation refit without adjustment for race. GFR, EST. >60 >=60 025 1:06 PM CDT [facility] GFR, EST. NONAFRICAN >60 >=60 03/08/2025 1:06 PM CDT [facility] Blood Venipuncture / Unknown 03/08/2025 8:24 AM CDT 03/08/2025 8:24 AM CDT us Yuni Resendiz CEREAL POPPER, CLOTHING PATTERN PREPARER CHEMISTRY ORDER CHELI Final Result [facility] [address] [place] [address] * MAMMOGRAM BILATERAL MISCELLANEOUS (07/03/2024 12:00 AM CDT) 07/03/2024 us Provider Scan IMG MAMMO ORDERABLES Final Resul t SCAN * GUSTAVO BONE DENSITOMETRY AXIAL SKELETON [...] has taken/is taking vitamin-D, multivitamin and calcium. Program Clinician/Model: [employer] (S/N [id number]) CLINICAL INFORMATION: Current height: 60 inches Maximum [...] Birgit Umaña M.D. TW: TW Report ID: [id number] Reading Location: [place] [address] Procedure Note Birgit Umaña MD - 02/07/2024 EXAM DESCRIPTION: GUSTAVO BONE DENSITOMETRY AXIAL SKELETON REASON FOR STUDY: 73 y/o year old F with given history of: Post menopausal status. Patient has taken/is taking vitamin-D, multivitamin and calcium. Program Clinician/Model: [employer] (S/N [id number]) CLINICAL INFORMATION: Current height: 60 inches Maximum [...] Birgit Umaña M.D. TW: TW Report ID: [id number] Reading Location: [place] [address] IMPRESSION: Low bone mass REFERENCE: Bone mineral [...] Treatment of Osteoporosis (http://www.nof.org/professionals/clinical-guidelines) Yuni Resendiz APRN, CLOTHING PATTERN PREPARER IMG DEXA ORDERA BLES Final Result * HEPATITIS C ANTIBODY (05/13/2023 7:56 AM CDT) hepatitis C antibody 0.07 <1 S/[facility] ARCH [id number] B 05/14/2023 12:33 PM CDT [facility] Comment: Signal/Cutoff ratio < 0.79 is Nondetected Signal/Cutoff ratio 0.80-0.99 is Grayzone Signal/Cutoff ratio > 0.99 is Detected Supplemental assays are recommended if signal/cutoff ratio is >/=1.00. Signal/cutoff ratio result >/= 5.00 is 97% predictive of positivity for recombinant immunoblot assay (RIBA) and will be reported to the [place] Department of Public Health as required. Blood Venipuncture / Unknown 05/13/2023 7:56 AM CDT 05/13/2023 7:56 AM CDT Yuni Resendiz APRN, VALE CHEMISTRY ORDER CHELI Final Result [facility] [address] [place] [address], from Last 3 Months or Most Recently Relevant to Health Maintenance Additional Health Concerns Active Problems Noted Date Diagnosed Date MCCP HYPERTENSION CONCERN (P ATIENT NOT ON HIGH BLOOD PRESSURE MEDICATIONS) 10/02/2024 [facility] [employer] [place] [employer] Care Teams Income Tax Administrator Relationship Specialty Start Date End Date Yuni Resendiz APRN, CLOTHING PATTERN PREPARER [address] [place] [address] PCP - General Advanced Practice Nurse 07/23/20
--- OUTSIDE RECORDS SUMMARY | 2025-05-22 00:52 | XMS_ITS | Clinical Summary ---
Author Organization [facility] Address [address] [place] [address] Care Team Providers Care Water Softener Installer Name Role Phone Jocelyn Vázquez MD Primary Care Provider [phone] Allergies Active Allergy Reactions Criticality Noted Date [...] back Discussed importance of core stability in [facility] relief of pain Handout given Refill flexeril [...] on file Legal Sex Female 5:09 PM GIS PROFESSOR Gender Identity Not on file Sexual [...] Not on file Insurance MEDICARE Care Teams Water Softener Installer Relationship Specialty Start Date End Date Jocelyn Vázquez [place] [address] [address] [address] PCP - General Family Medicine 05/28/17
--- OUTSIDE RECORDS SUMMARY | 2025-05-22 00:52 | XMS_ITS | Clinical Summary ---
Author Organization [facility] Address [address] [place] [address] Care Team Providers Care Digital Controls Technical Officer Name Role Phone Unavailable Primary Care Provider Unavailabl e Source Comments [facility],non-owned Affiliates and Associated Physician Practices is amultiple site organization consisting of ambulatory clinics and hospital sitesin [place], [place] and [place]. This disclosure is being madepursuant to the Care Everywhere program and may not contain all information available regarding this patient. Last updated 18.[facility] Allergies Active Allergy Reactions Criticality Noted Date [...] - 1-dose 75+ series) 2025 INFLUENZA VACCINE (#1) 2025 8, 08/11/2017, 08/18/2016, Additional history exists HEPATITIS B [...]
--- OUTSIDE RECORDS SUMMARY | 2025-05-22 00:52 | XMS_ITS | Encounter Summary ---
Author Organization [facility] Address [address] [place] [address] Phone Care Team Providers Care Marine Cargo Specialist Name Role Phone Yuni Resendiz APRN, CNP Primary Care P rojanes Encounter Details Date Type Department Care Team (Late st Contact Info) Description 11/25/2020 Telephone [facility] - [place] [address] [place] [address] Yuni Resendiz APRN, CNP [address] [place] [address] Social History Tobacco Use Types [...] COVID-19? No / Unsure 11/25/2020 1:12 PM CAR RENTAL MANAGER documented as of this encounter Miscellaneous Notes * Telephone Encounter - Alicia Sesay RN - 11/25/2020 2:20 PM CAR RENTAL MANAGER Attempted to call patient, no answer at this time. Left message to call back. RENTAL MANAGER * Telephone Encounter - Alicia Sesay RN - 11/25/2020 2:19 PM CAR RENTAL MANAGER Images from the original note were not included. Yuni Resendiz APN, THREAD SINGER You 19 minutes ago (1:56 PM) Increase amlodpine to 10mg. Start hctz 12.5mg daily Restart celebrex - she was on it and had elevated BP and it is still elevated when off of it, then it most likely wasn't caused by it RENTAL MANAGER documented in this encounter Plan of Treatment Upcoming Encounters Date Type Department Care Team (Late st Contact Info) Description 05/24/2025 9:00 AM CDT Education [facility] [place] [address] [place] [address] [facility] Nurse [place] 09/13/2025 8:40 AM CAR RENTAL MANAGER Lab [facility] [place] [address] [place] [address] [facility] 09/20/2025 9:30 AM CAR RENTAL MANAGER Office Visit [facility] [place] [address] [place] [address] Yuni Resendiz APRN, THREAD SINGER [address] [place] [address] documented as of this encounter Visit Diagnoses Not on filedocumented in this encounter Additional Health Concerns Infection Onset Date Last Indicated Resolved Time COVID - 19 01/16/2023 01/16/2023 01/26/2023 12:1 6 AM CDT COVID - 19 Confirmed 01/16/2023 01/16/2023 023 12:16 AM CDT Assessment Noted Time PHQ-9 Depression Total Score: 0 07/26/20 20 8:00 AM CDT documented as of this encounter Care Teams Marine Cargo Specialist Relationship Specialty Start Date End Date Yuni Resendiz APRN, THREAD SINGER [address] [place] [address] PCP - General Advanced Practice Nurse 07/23/20 documented as of this encounter
--- OUTSIDE RECORDS SUMMARY | 2025-05-22 00:52 | XMS_ITS | Clinical Summary ---
Author Organization [facility] Address [address] [place] [address] Phone Care Team Providers Care Laundry Press Operator Name Role Phone Roman Fragoso DO Primary [...] DO Referring Provider: Estella Fernandez MD [address] [address] Other: Problem Noted Date Diagnosed Date Abnormal [...] on file Legal Sex Female 5:42 AM PHYSICIAN ADVISOR Gender Identity Not on file Sexual Orientation [...] Q 5 years 1995 PNEUMOCOCCAL VACCINE 50+ YEARS (1 of 1 - PCV) 05/02/20 00 ZOSTER VACCINE (1 of 2) 2000 OSTEOPOROSIS SCREENING 2015 RSV VACCINE (60+ or ) (1 - 1-dose 75+ series) 2025 INFLUENZA VACCINE (#1) 2025 Insurance MEDICARE PART A AND B Care Teams Laundry Press Operator Relationship Specialty Start Date End Date Roman Fragoso DO PCP - General 06/14/09
[2025-08-09] VITALS (20 sets, daily range): BP systolic 112–165; BP diastolic 60–93; PULSE 62–94; RESP 12–20; TEMP 35.9–36.9; O2SAT 92–100; BMI 32.4; BMI 34.3
--- NOTE | ~2025-08-09 | XR_ITS ---
Examination: [id number] Clinical History: POST OP LEFT CUSTOM TKA Comparison: 07/27/2025 Technique: 2 views left knee Findings/impression: 1. Expected findings and appearance after left TKA. 2. No periprosthetic fracture or other complication noted. Reviewed, dictated and finalized at location R.
--- OUTSIDE RECORDS SUMMARY | 2025-08-09 00:53 | XMS_ITS | Clinical Summary ---
Author Organization [facility] Address [address] [place] [address] Phone Care Team Providers Care Early Childhood Name Role Phone Roman Fragoso DO Primary [...] DO Referring Provider: Estella Fernandez MD [address] [address] Other: Problem Noted Date Diagnosed Date Abnormal [...] on file Legal Sex Female 5:42 AM BUCKLE FRAME SHAPER Gender Identity Not on file Sexual Orientation [...] series) 2025 INFLUENZA VACCINE (#1) 2025 Insurance [facility] OPTIONS PPO [id number] MEDICARE PART A AND B Care Teams Early Childhood Relationship Specialty Start Date End Date Roman Fragoso DO PCP - General 06/14/09
--- OUTSIDE RECORDS SUMMARY | 2025-08-09 00:53 | XMS_ITS | Clinical Summary ---
Author Organization [facility] Address [address] [place] [address] Care Team Providers Care Member Service Representative Name Role Phone Jocelyn Vázquez MD Primary Care Provider [phone] Allergies Active Allergy Reactions Criticality Noted Date [...] back Discussed importance of core stability in assisted relief of pain Handout given Refill flexeril [...] on file Legal Sex Female 5:09 PM ELECTRONICS REPAIR TECHNICIAN Gender Identity Not on file Sexual Orientation [...] Not on file Insurance MEDICARE Care Teams Member Service Representative Relationship Specialty Start Date End Date Jocelyn Vázquez [place] [address] [address] [address] PCP - General Family Medicine 05/28/17
--- OUTSIDE RECORDS SUMMARY | 2025-08-09 00:53 | XMS_ITS | Encounter Summary ---
Author Organization [facility] Address [address] [place] [address] Phone Care Team Providers Care Rn Pacu Name Role Phone Yuni Resendiz APRN, CNP Primary Care P [facility] Antonio Bal RN Unavailable Unavailable Reason for Visit * Reason Comments Medication Refill Encounter Details Date Type Department Care Team (Late st Contact Info) Description 11/07/2023 Refill [facility] - Primary Care - [place] [address] [place] [address] Yuni Resendiz APRN, CNP [address] [place] [address] Medication Refill Social History Tobacco [...] 10:43 AM CST Refill requested too soon. GUN OPERATOR documented in this encounter Plan of Treatment Upcoming Encounters Date Type Department Care Team (Late st Contact Info) Description 09/13/2025 8:40 AM FOAM GUN OPERATOR Lab [facility] [place] [address] [place] [address] 09/20/2025 9:30 AM FOAM GUN OPERATOR Office Visit [facility] [place] [address] [place] [address] Yuni Resendiz, CERTIFIED DRUG COUNSELOR, CONCRETE SAW OPERATOR [address] [place] [address] documented as of this encounter Visit Diagnoses Diagnosis Seasonal allergic rhinitis, unspecified trigger documented in this encounter Additional Health Concerns Assessment Noted Time PHQ-9 Depression Total Score: 0 11/13/19 23 8:00 AM FOAM GUN OPERATOR documented as of this encounter Care Teams Rn Pacu Relationship Specialty Start Date End Date Yuni Resendiz, CERTIFIED DRUG COUNSELOR, CONCRETE SAW OPERATOR [address] [place] [address] PCP - General Advanced Practice Nurse 07/23/20 Antonio Bal, RN [place] Registered Nurse 05/24/25 documented as of this encounter
--- OUTSIDE RECORDS SUMMARY | 2025-08-09 00:53 | XMS_ITS | Encounter Summary ---
Author Organization [facility] Address [address] [place] [address] Phone Care Team Providers Care Paper And Pulp Mill Worker Name Role Phone Yuni Resendiz APRN, CNP Primary Care P [facility] Antonio Bal RN Unavailable Unavailable Reason for Visit * Reason Comments Medication Refill Encounter Details Date Type Department Care Team (Late st Contact Info) Description 03/30/2023 Refill [facility] - Primary Care - [place] [address] [place] [address] Yuni Resendiz APRN, CNP [address] [place] [address] Medication Refill Social History Tobacco [...] st Contact Info) Description 09/13/2025 8:40 AM ELECTRIC MOTOR CONTROL ASSEMBLER [facility] [address] [place] [address] 09/20/2025 9:30 AM ELECTRIC MOTOR CONTROL ASSEMBLER Office Visit [facility] [place] [address] [place] [address] Yuni Resendiz APRN, VALE [address] [place] [address] documented as of this encounter Visit Diagnoses Diagnosis Seasonal allergic rhinitis, unspecified trigger documented in this encounter Additional Health Concerns Assessment Noted Time PHQ-9 Depression Total Score: 0 11/13/19 23 8:00 AM ELECTRIC MOTOR CONTROL ASSEMBLER documented as of this encounter Care Teams Paper And Pulp Mill Worker Relationship Specialty Start Date End Date Yuni Resendiz APRN, NEGATIVE STRIPPER [address] [place] [address] PCP - General Advanced Practice Nurse 07/23/20 Antonio Bal RN [place] Registered Nurse 05/24/25 documented as of this encounter
--- OUTSIDE RECORDS SUMMARY | 2025-08-09 00:53 | XMS_ITS | Encounter Summary ---
Author Organization [facility] Address [address] [place] [address] Phone Care Team Providers Care Welder Shielded Metal Arc Name Role Phone Yuni Resendiz APRN, CNP Primary Care Chauncey espinal Antonio Bal RN Unavailable Unavailable Reason for Visit * Reason Comments Medication Refill Encounter Details Date Type Department Care Team (Late st Contact Info) Description 09/06/2020 Refill [facility] [address] [place] [address] Evita Cid Rosalie, PAC [address] [place] [address] Medication Refill Social History Tobacco Use Types [...] st Contact Info) Description 09/13/2025 8:40 AM PIPE OR STEAM FITTER FURNACE INSTALLER [facility] [place] [address] [place] [address] 09/20/2025 9:30 AM PIPE OR STEAM FITTER FURNACE INSTALLER [facility] [place] [address] [place] [address] Yuni Resendiz APRN, BRAILLE TRANSLATOR [address] [place] [address] documented as of this encounter Visit Diagnoses Not on filedocumented in this encounter Additional Health Concerns Infection Onset Date Last Indicated Resolved Time COVID - 19 01/16/2023 01/16/2023 01/26/2023 12:1 6 AM CDT COVID - 19 Confirmed 01/16/2023 01/16/2023 023 12:16 AM CDT Assessment Noted Time PHQ-9 Depression Total Score: 0 07/26/20 20 8:00 AM CDT documented as of this encounter Care Teams Welder Shielded Metal Arc Relationship Specialty Start Date End Date Yuni Resendiz APRN, BRAILLE TRANSLATOR [address] [place] [address] PCP - General Advanced Practice Nurse 07/23/20 Antonio Bal, RN [place] Registered Nurse 05/24/25 documented as of this encounter
--- OUTSIDE RECORDS SUMMARY | 2025-08-09 00:53 | XMS_ITS ---
Author Organization [facility] Address [address] [facility], [address] [address] Phone Care Team Providers Care Optical Laboratory Manager Name Role Phone Yuni Resendiz APRN, VALE Primary Care Chauncey espinal Antonio Bal RN Unavailable Unavailable Nurse Clinic Status:Enrolled (Active) Start date:05/24/2025 Enrollment date:05/24/2025 Enrollment reason:Referred by provider Current support & services provided:Hypertension Management Case Team Name Relationship Phone Antonio Bal RN(Responsible Staff) Registered Nurse Continued Care and Services Coordination
--- OUTSIDE RECORDS SUMMARY | 2025-08-09 00:53 | XMS_ITS | Encounter Summary ---
Author Organization [facility] Address [address] [place] [address] Phone Care Team Providers Care Rotary Drill Rig Operator Name Role Phone Yuni Resendiz APRN, CNP Primary Care [facility] Antonio Bal RN Unavailable Unavailable Reason for Visit * Reason Comments Medication Refill Encounter Details Date Type Department Care Team (Late st Contact Info) Description 12/24/2021 Refill [facility] - Primary Care - [place] [address] [place] [address] Yuni Resendiz APRN, CNP [address] [place] [address] Medication Refill Social History Tobacco [...] st Contact Info) Description 09/13/2025 8:40 AM PROJECTOR OPERATOR [facility] [place] [address] [place] [address] 09/20/2025 9:30 AM PROJECTOR OPERATOR Office [facility] [place] [address] [place] [address] Yuni Resendiz APRN, DIRECT MAIL COORDINATOR [address] [place] [address] documented as of this encounter Visit Diagnoses Diagnosis Seasonal allergic rhinitis, unspecified trigger documented in this encounter Additional Health Concerns Infection Onset Date Last Indicated Resolved Time COVID - 19 01/16/2023 01/16/2023 01/26/2023 12:1 6 AM CDT COVID - 19 Confirmed 01/16/2023 01/16/2023 023 12:16 AM CDT Assessment Noted Time PHQ-9 Depression Total Score: 1 12/03/19 21 8:00 AM PROJECTOR OPERATOR documented as of this encounter Care Teams Rotary Drill Rig Operator Relationship Specialty Start Date End Date Yuni Resendiz APRN, DIRECT MAIL COORDINATOR [address] [place] [address] PCP - General Advanced Practice Nurse 07/23/20 Antonio Bal, RN [place] Registered Nurse 05/24/25 documented as of this encounter
--- OUTSIDE RECORDS SUMMARY | 2025-08-09 00:53 | XMS_ITS | Encounter Summary ---
Author Organization [facility] Address [address] [place] [address] Phone Care Team Providers Care Outplacement Consultant Name Role Phone Yuni Resendiz APRN, CNP Primary Care P [facility] Antonio Bal RN Unavailable Unavailable Reason for Visit * Reason Comments Medication Refill Encounter Details Date Type Department Care Team (Late st Contact Info) Description 02/15/2022 Refill [facility] - Primary Care - [place] [address] [place] [address] Yuni Resendiz APRN, CNP [address] [place] [address] Medication Refill Social History Tobacco [...] st Contact Info) Description 09/13/2025 8:40 AM PRODUCTION UTILITY WORKER Lab [facility] [place] [address] [place] [address] 09/20/2025 9:30 AM PRODUCTION UTILITY WORKER Office Visit [facility] [place] [address] [place] [address] Yuni Resendiz APRN, OFFICE REP [address] [place] [address] documented as of this encounter Visit Diagnoses Diagnosis Seasonal allergic rhinitis, unspecified trigger documented in this encounter Additional Health Concerns Infection Onset Date Last Indicated Resolved Time COVID - 19 01/16/2023 01/16/2023 01/26/2023 12:1 6 AM CDT COVID - 19 Confirmed 01/16/2023 01/16/2023 023 12:16 AM CDT Assessment Noted Time PHQ-9 Depression Total Score: 1 12/03/19 21 8:00 AM PRODUCTION UTILITY WORKER documented as of this encounter Care Teams Outplacement Consultant Relationship Specialty Start Date End Date Yuni Resendiz APRN, OFFICE REP [address] [place] [address] PCP - General Advanced Practice Nurse 07/23/20 Antonio Bal RN [place] Registered Nurse 05/24/25 documented as of this encounter
--- OUTSIDE RECORDS SUMMARY | 2025-08-09 00:53 | XMS_ITS | Clinical Summary ---
Author Organization [facility] Address [address] [place] [address] Care Team Providers Care Fnps Name Role Phone Unavailable Primary Care Provider Unavailabl e Source Comments [facility],non-owned Affiliates and Associated Physician Practices is amultiple site organization consisting of ambulatory clinics and hospital sitesin [place], [place], [place] and [place]. This disclosure is being madepursuant to the Care Everywhere program and may not contain all information available regarding this patient. Last updated 18.[facility] [employer] Allergies Active Allergy Reactions Criticality Noted Date [...]
--- OUTSIDE RECORDS SUMMARY | 2025-08-09 00:53 | XMS_ITS | Encounter Summary ---
Author Organization [facility] Address [address] [place] [address] Phone Care Team Providers Care Practice Administrator Name Role Phone Yuni Resendiz APRN, CNP Primary Care P [facility] Antonio Bal RN Unavailable Unavailable Reason for Visit * Reason Comments Medication Refill Encounter Details Date Type Department Care Team (Late st Contact Info) Description 01/21/2024 Refill [facility] - Primary Care - [place] [address] [place] [address] Yuni Resendiz APRN, CNP [address] [place] [address] Medication Refill Social History Tobacco [...] 12/06/23 Office Visit Yuni Resendiz APRN, VALE [facility] 07/29/23 Office Visit Yuni Resendiz APRN, CNP [facility] 05/20/23 Office Visit Yuni Resendiz APRN, CNP [facility] 04/09/23 Office Visit Yuni Resendiz APRN, CNP [facility] 03/24/23 Office Visit Yuni Resendiz APRN, VALE [facility] Showing recent visits within past 365 days [...] 12/06/23 Office Visit Yuni Resendiz APRN, CNP [facility] 07/29/23 Office Visit Yuni Resendiz APRN, CNP [facility] 05/20/23 Office Visit Yuni Resendiz APRN, CNP [facility] [place] 04/09/23 Office Visit Yuni Resendiz APRN, CNP [facility] 03/24[facility]23 [facility] Visit [facility] Show[facility] recent visits within past 365 days and meeting all other requirements Future Appointments No visits were found meeting these conditions. Showing future appointments within next 90 days and meeting all other requirements documented in this encounter Plan of Treatment Upcoming Encounters Date Type Department Care Team (Late st Contact Info) Description 09/13/2025 8:40 AM ACCOUNT SUPPORT REP Lab [facility] [place] [address] [place] [address] 09/20/2025 9:30 AM ACCOUNT SUPPORT REP Office Visit [facility] [place] [address] [place] [address] Yuni Resendiz APRN, CNP [address] [place] [address] documented as of this encounter Visit Diagnoses Diagnosis Essential hypertension Unspecified essential hypertension Gastroesophageal reflux disease, unspecified whether esophagitis present documented in this encounter Additional Health Concerns Assessment Noted Time PHQ-9 Depression Total Score: 0 12/06/19 3:04 PM ACCOUNT SUPPORT REP documented as of this encounter Care Teams Practice Administrator Relationship Specialty Start Date End Date Yuni Resendiz APRN, CNP [address] [place] [address] PCP - General Advanced Practice Nurse 07/23/20 Antonio Bal, RN [place] Registered Nurse 05/24/25 documented as of this encounter
--- OUTSIDE RECORDS SUMMARY | 2025-08-09 00:53 | XMS_ITS | Encounter Summary ---
Author Organization [facility] Address [address] [place] [address] Care Team Providers Care Automotive Design Drafter Name Role Phone Unavailable Primary Care Provider Unavailabl e Encounter Details Date Type Department Care Team (Late st Contact Info) Description 05/13/2020 Lab Requisition [facility] [address] [place] [address] [place] [address] [place] [address] Social History Tobacco Use Types Packs/Day Years [...] AM CDT) Case Report Dermatopathology Report Case: [id number] Authorizing Provider: Kathya Thomas MD Collected: 05/09/2020 12:00 AM Ordering Location: [facility] Received: 05/13/2020 01:12 PM [...] specimen consists of a shave biopsy measuring [id number]. Jar 0. 0 1:01 PM CDT DERMATOPATHOLOGY [...] characteristic determined by the Dermatopathology Laboratory at [facility], directed by Dr. Nicky Smith. These tests need not be, and therefore are not, approved by the [place] Food and Drug Administration. The tests are used for clinical purposes. Billing Codes Specimen Charges Stain Charges 01211 1 0 1:01 PM CDT DERMATOPATHOLOGY LABORATORY Embedded Images 0 1:01 PM CDT DERMATOPATHOLOGY LABORATORY Pathology/Cytolog y TISSUE SPECIMEN FROM SKIN / Unknown 05/09/2020 05/13/2020 1:12 PM CDT Kathya Thomas MD LAB - PATHOLOGY/CYTOLOGY ORDERABLES Final Result DERMATOPATHOLOGY LABORATORY [facility] - Department of Dermatology [facility]/[address] [phone] documented in this encounter Visit Diagnoses Not on filedocumented in this encounter
--- OUTSIDE RECORDS SUMMARY | 2025-08-09 00:53 | XMS_ITS | Encounter Summary ---
Author Organization [facility] Address [address] [place] [address] Phone Care Team Providers Care Grain Scooper Name Role Phone Yuni Resendiz APRN, CNP Primary Care P [facility] Antonio Bal RN Unavailable Unavailable Reason for Visit * Reason Comments Medication Refill Encounter Details Date Type Department Care Team (Late st Contact Info) Description 06/20/2022 Refill [facility] - Primary Care - [place] [address] [place] [address] Yuni Resendiz APRN, CNP [address] [place] [address] Medication Refill Social History Tobacco [...] st Contact Info) Description 09/13/2025 8:40 AM FOOD SERVICE REPRESENTATIVE Lab [facility] [place] [address] [place] [address] 09/20/2025 9:30 AM FOOD SERVICE REPRESENTATIVE Office Visit [facility] [place] [address] [facility] [place] [address] Yuni Resendiz APRN, ADVERTISING ANALYST [address] [place] [address] documented as of this encounter Visit Diagnoses Diagnosis Seasonal allergic rhinitis, unspecified trigger documented in this encounter Additional Health Concerns Infection Onset Date Last Indicated Resolved Time COVID - 19 01/16/2023 01/16/2023 01/26/2023 12:1 6 AM CDT COVID - 19 Confirmed 01/16/2023 01/16/2023 023 12:16 AM CDT Assessment Noted Time PHQ-9 Depression Total Score: 1 12/03/19 21 8:00 AM FOOD SERVICE REPRESENTATIVE documented as of this encounter Care Teams Grain Scooper Relationship Specialty Start Date End Date Yuni Resendiz APRN, ADVERTISING ANALYST [address] [place] [address] PCP - General Advanced Practice Nurse 07/23/20 Antonio Bal, RN [place] Registered Nurse 05/24/25 documented as of this encounter
--- OUTSIDE RECORDS SUMMARY | 2025-08-09 00:54 | XMS_ITS | Encounter Summary ---
Author Organization [facility] Address [address] [place] [address] Phone Care Team Providers Care Branch Examiner Name Role Phone Yuni Resendiz APRN, CNP Primary Care [facility] Antonio Bal RN Unavailable Unavailable Reason for Visit * Reason Comments Medication Refill Encounter Details Date Type Department Care Team (Late st Contact Info) Description 05/14/2021 Refill [facility] [address] [place] [address] Yuni Resendiz APRN, FACILITIES MAINTENANCE ASSISTANT [address] [place] [address] Medication Refill Social History Tobacco [...] st Contact Info) Description 09/13/2025 8:40 AM SUPERVISOR FISH PROCESSING Lab [facility] [place] [address] [place] [address] 09/20/2025 9:30 AM SUPERVISOR FISH PROCESSING Office Visit [facility] [place] [address] [place] [address] Yuni Resendiz APRN, CNP [address] [place] [address] documented as of this encounter Visit Diagnoses Diagnosis Seasonal allergic rhinitis, unspecified trigger documented in this encounter Additional Health Concerns Infection Onset Date Last Indicated Resolved Time COVID - 19 01/16/2023 01/16/2023 01/26/2023 12:1 6 AM CDT COVID - 19 Confirmed 01/16/2023 01/16/2023 023 12:16 AM CDT Assessment Noted Time PHQ-9 Depression Total Score: 1 12/03/19 21 8:00 AM SUPERVISOR FISH PROCESSING documented as of this encounter Care Teams Branch Examiner Relationship Specialty Start Date End Date Yuni Resendiz APRN, CNP [address] [place] [address] PCP - General Advanced Practice Nurse 07/23/20 Antonio Bal RN [place] Registered Nurse 05/24/25 documented as of this encounter
--- OUTSIDE RECORDS SUMMARY | 2025-08-09 00:54 | XMS_ITS ---
Care Plan Created on: August 09, 2025 Lucy Nair : 1950 Sex: Female Author Organization [facility] Address [address], [address] [address] Phone Care Team Providers Care Wastewater Treatment Plant Instructor Name Role Phone Yuni Resendiz APRN, [...]
--- OUTSIDE RECORDS SUMMARY | 2025-08-09 00:54 | XMS_ITS | Encounter Summary ---
Author Organization [facility] Address [address] [place] [address] Phone Care Team Providers Care Integrated Campaign Manager Name Role Phone Yuni Resendiz APRN, CNP Primary Care [facility] Antonio Bal RN Unavailable Unavailable Reason for Visit * Reason Comments Medication Refill Encounter Details Date Type Department Care Team (Late st Contact Info) Description 05/13/2021 Refill [facility] [address] [place], [place] [id number] Evita Cid Rosalie, PAC [address] [place] [address] Medication Refill Social History Tobacco Use Types [...] 03/07/21 Office Visit Yuni Resendiz APN, VALE [facility] 12/20/20 Office Visit Yuni Resendiz APN, VALE [facility] 12/03/20 Office Visit Yuni Resendiz APN, VALE [facility] 07/26/20 Office Visit Yuni Resendiz APN, VALE [facility] [address] Showing recent visits within past 365 [...] st Contact Info) Description 09/13/2025 8:40 AM DOOR BUILDER Lab [facility] [place] [address] [place] [address] 09/20/2025 9:30 AM DOOR BUILDER Office Visit [facility] [place] [address] [place] [address] Yuni Resendiz APRN, REHABILITATION CONSTRUCTION SPECIALIST [address] [place] [address] documented as of this encounter Visit Diagnoses Not on filedocumented in this encounter Additional Health Concerns Infection Onset Date Last Indicated Resolved Time COVID - 19 01/16/2023 01/16/2023 01/26/2023 12:1 6 AM CDT COVID - 19 Confirmed 01/16/2023 01/16/202302/05/ 023 12:16 AM CDT Assessment Noted Time PHQ-9 Depression Total Score: 1 12/03/19 21 8:00 AM DOOR BUILDER documented as of this encounter Care Teams Integrated Campaign Manager Relationship Specialty Start Date End Date Yuni Resendiz APRN, REHABILITATION CONSTRUCTION SPECIALIST [address] [place] [address] PCP - General Advanced Practice Nurse 07/23/20 Antonio Bal, RN [place] Registered Nurse 05/24/25 documented as of this encounter
--- OUTSIDE RECORDS SUMMARY | 2025-08-09 00:54 | XMS_ITS | Encounter Summary ---
Author Organization [facility] Address [address] [place] [address] Phone Care Team Providers Care Color Buffer Name Role Phone Yuni Resendiz APRN, CNP Primary Care P [facility] Antonio Bal RN Unavailable Unavailable Reason for Visit * Reason Comments Medication Refill Encounter Details Date Type Department Care Team (Late st Contact Info) Description 02/01/2024 Refill [facility] - Primary Care - [place] [address] [place] [address] Yuni Resendiz APRN, CNP [address] [place] [address] Medication Refill Social History Tobacco [...] st Contact Info) Description 09/13/2025 8:40 AM FUNCTIONAL SUPPORT ANALYST [facility] [place] [address] [facility] [place] [address] 09/20/2025 9:30 AM FUNCTIONAL SUPPORT ANALYST Office Visit [facility] [address] [facility] [place] [address] Yuni Resendiz APRN, PAINTINGS CONSERVATOR [address] [facility] [place] [address] documented as of this encounter Visit Diagnoses Diagnosis Dyslipidemia Other and unspecified hyperlipidemia documented in this encounter Additional Health Concerns Assessment Noted Time PHQ-9 Depression Total Score: 0 12/06/19 24 3:04 PM FUNCTIONAL SUPPORT ANALYST documented as of this encounter Care Teams Color Buffer Relationship Specialty Start Date End Date Yuni Resendiz APRN, PAINTINGS CONSERVATOR [address] [place] [address] PCP - General Advanced Practice Nurse 07/23/20 Antonio Bal, RN [place] Registered Nurse 05/24/25 documented as of this encounter
--- OUTSIDE RECORDS SUMMARY | 2025-08-09 00:54 | XMS_ITS | Clinical Summary ---
Author Organization [facility] Address [address], [address] [address] Phone Care Team Providers Care Mechanical Integrity Specialist Name Role Phone Yuni Resendiz APRN, [...] mouth daily. 90 Tablet 1 4 Active [place]-3 Fatty Acids (FISH OIL PO) Take by mouth daily. Active MAGNESIUM PO Take by mouth daily. Active Calcium Carbonate (CALCIUM 500 PO) Take by mouth in the morning and at bedtime. Active nystatin (MYCOSTATIN) 987352 UNIT/GM OintmentIndicatio ns:Candidiasis of breast Apply 4 [...] back Discussed importance of core stability in halfway relief of pain Handout given Refill flexeril Osteopenia 04/09/2014 Overview (07/26/2020): Note: Dexa - pcp Dyslipidemia Seasonal allergic rhinitis Arthritis HTN (hypertension) Resolved Problems Problem Noted Date Diagnosed Date Resolved Date Arthralgia 12/06/2023 Encounters Date Type Department Care Team Description 08/07/2025 9:00 AM CDT Clinical Support [facility] Primary Care - [place] [address] [place] [address] Primary hypertension (Primary Dx) Discharge Disposition: Discharged to home or Selfcare 08/07/2025 Travel 07/17/2025 10:15 AM CDT Office Visit [facility] Primary Care - [place] [address] [place] [address] Yuni Resendiz APRN, VALE Primary hypertension (Primary Dx); Encounter for immunization; Type 2 diabetes mellitus without complication, without long-term current use of insulin; Arthritis; Anxiety with depression; Dyslipidemia Discharge Disposition: Discharged to home or Selfcare 07/17/2025 Travel 06/15/2025 9:00 AM CDT Clinical Support [facility] [place] [address] [facility] [place] [place] [address] Primary hypertension (Primary Dx) Discharge Disposition: Discharged to home or Selfcare 06/15/2025 Travel 06/15/2025 Refill [facility] [place] [address] [facility] [place] [address] Yuni Resendiz APRN, VALE Medication Refill 05/26/2025 Refill [facility] [place] [address] [facility] [place] [address] Yuni Resendiz APRN, VALE Medication Refill 05/24/2025 9:00 AM CDT Clinical Support [place] [address] [place] [address] Primary hypertension Discharge Disposition: Discharged to home [...] drink = 0.6 oz pur e alcohol) [facility] Utilities Answer Date Recorded In the past 12 months has [employer], gas, oil, or water [employer] threatened to shut off services in your home? Patient declined 12/30/2024 Social Connection and Isolation Panel Answer Date Recorded In a typical week, how many times do you talk on the phone with family, friends, or neighbors? Patient declined 03/13/2025 How often do you get togethe r with friends or relatives? Patient declined 03/13/2025 How often do you attend voodoo or jehovah's witness serv ices? Patient declined 03/13/2025 Do you [...] Score - Questions 1-9 0 /0 07/2025 [facility] - Occupational Stress Questionnaire Answer Date Recorded [...] place to sleep or slept in a [place] health care facility (including now)? No 02/10/2024 Housing Stability Vital Sign Answer Noé e Recorded In the last 12 months, was t here a time when you were not able to pay the mortgage or rent on time? No 04/01/2025 Number of Times Moved in the Last Year Not on fi le 04/01/2025 At any time in the past 12 m [facility], were you homeless or living in a [place] health [place] facility (including now)? No 04/01/2025 Education Answer Date [...] Sign Reading Time Taken Comments Blood Pressure 122/56 08/07/2025 8:59 AM CDT Pulse 65 08/07/2025 8:59 AM CDT Temperature 36.4 C (97.5 F) 07/17/2025 10:10 AM CDT Respiratory Rate 16 08/07/2025 8:59 AM CDT Oxygen Saturation 95% 08/07/2025 8:59 AM CDT Inhaled Oxygen Concentration - - Weight 72.6 kg (160 lb) 07/17/2025 10:10 AM CDT Height 152.4 cm (5') 07/17/2025 10:10 AM CDT Body Mass Index 31.25 07/17/2025 10:10 AM CDT Plan of Treatment Upcoming Encounters Date Type Department Care Team (Late st Contact Info) Description 09/13/2025 8:40 AM PRN OCCUPATIONAL THERAPIST Lab [facility] - Primary Care - [place] [address] [place] [address] 09/20/2025 9:30 AM PRN OCCUPATIONAL THERAPIST Office Visit [facility] - Primary Care - [place] [address] [place] [address] Yuni Resendiz APRN, COMPRESSOR HOUSE OPERATOR [address] [place] [address] Health Maintenance Due Date Last Done Comments [...] - 6.0 % 03/08/2025 1:01 PM CDT [facility] Est Average Glucose 125.5 mg/dL 03/08/2025 1:01 PM CDT [facility] Blood Venipuncture / Unknown 03/08/2025 8:24 AM CDT 03/08/2025 8:24 AM CDT Narrative [facility] - 03/08/2025 1:01 PM CDT HEMOGLOBIN A1C: DIABETIC PATIENTS: WELL-CONTROLLED: 6.2 - 7.0 INTERMEDIATE WELL-CONTROLLED: 7.0 - 9.0 POORLY-CONTROLLED: >9.0 Specimens containing greater than 5% of Hemoglobin F may result in lower than expected % HbA1C results. Yuni Resendiz APRN, CNP CHEMISTRY ORDER CHELI Final Result [facility] [address] [place] [address] * (ABNORMAL) CMP (COMPREHENSIVE METABOLIC PANEL) (03/08/2025 8:24 AM CDT) Pathologist [facility] SODIUM 137 136 - 145 mmol/L 03/08/2025 1:06 PM CDT [facility] POTASSIUM 4.2 3.5 - 5.1 mmol/L 03/08/2025 1:06 PM CDT [facility] CHLORIDE 105 98 - 107 mmol/L 03/08/2025 1:06 PM CDT [facility] CO2, VENOUS 25 22 - 30 mmol/L 03/08/2025 1:06 PM CDT [facility] ANION GAP 11.2 <18.0 mmol/L 03/08/2025 1:06 PM CDT [facility] GLUCOSE 120(H) 70 - 99 mg/dL 03/08/2025 1:06 PM CDT [facility] BUN 15 10 - 20 mg/dL 03/08/2025 1:06 PM [facility] CREATININE, BLOOD 0.77 0.60 - 1.00 mg/dL 03/08/2025 1:06 PM [facility] BUN/CREATININE RATIO 19 12 - 20 ratio 03/08/2025 1:06 PM [facility] TOTAL PROTEIN 6.6 6.0 - 8.0 g/dL 03/08/2025 1:06 PM [facility] ALBUMIN 3.9 3.5 - 5.0 g/dL 03/08/2025 1:06 PM [facility] A/G RATIO 1.4 1.0 - 2.2 03/08/2025 1:06 PM [facility] CALCIUM 8.9 8.7 - 10.5 mg/dL 03/08/2025 1:06 PM [facility] T BILI 0.4 0.2 - 1.2 mg/dL 03/08/2025 1:06 PM [facility] SGOT (AST) 25 <43 U/L 03/08/2025 1:06 PM [facility] SGPT (ALT) 20 <56 U/L 03/08/2025 1:06 PM [facility] ALKALINE PHOSPHATASE 67 40 - 150 U/L 03/08/2025 1:06 PM [facility] IS THE PATIENT REQUIRED TO BE FASTING? No 03/08/2025 1:06 PM [facility] GFR, ESTIMATED >60 >=60 03/08/2025 1:06 PM [facility] Comment: Creatinine Clearance is the preferred criteria for selecting drug dose adjustments in renally impaired patients. The GFR is provided as additional pertinent clinical information. GFR is reported in mL/min/1.73 sq m. Calculation based on the Chronic Kidney Disease Epidemiology Collaboration (CKD- EPI) equation refit without adjustment for race. GFR, EST. >60 >=60 025 1:06 PM [facility] GFR, EST. NONAFRICAN >60 >=60 03/08/2025 1:06 PM CDT [facility] Blood Venipuncture / Unknown 03/08/2025 8:24 AM CDT 03/08/2025 8:24 AM CDT us Yuni Resendiz APRN, CNP CHEMISTRY ORDER CHELI Final Result [facility] [address] [place] [address] * [facility] BONE DENSITOMETRY AXIAL SKELETON (02/07/2024 10:30 AM [...] 02/07/2024 11:05 AM CDT EXAM DESCRIPTION: [facility] BONE DENSITOMETRY AXIAL SKELETON REASON FOR STUDY: 73 y/o year old F with given history of: Post menopausal status. Patient has taken/is taking vitamin-D, multivitamin and calcium. Prenatal Nurse/Model: [employer] (S/N [id number]) CLINICAL INFORMATION: Current height: 60 inches Maximum [...] Birgit Umaña M.D. TW: TW Report ID: [id number] Reading Location: [place] [address] Procedure Note iBrgit Umaña MD - 02/07/2024 EXAM DESCRIPTION: [facility] BONE DENSITOMETRY AXIAL SKELETON REASON FOR STUDY: 73 y/o year old F with given history of: Post menopausal status. Patient has taken/is taking vitamin-D, multivitamin and calcium. Prenatal Nurse/Model: [employer] (S/N [id number]) CLINICAL INFORMATION: Current height: 60 inches Maximum [...] Birgit Umaña M.D. TW: TW Report ID: [id number] Reading Location: [place] [address] IMPRESSION: Low bone mass REFERENCE: Bone mineral [...] CDT) hepatitis C antibody 0.07 <1 S/[facility] [id number] B 05/14/2023 12:33 PM CDT [facility] Comment: Signal/Cutoff ratio < 0.79 is Nondetected Signal/Cutoff ratio 0.80-0.99 is Grayzone Signal/Cutoff ratio > 0.99 is Detected Supplemental assays are recommended if signal/cutoff ratio is >/=1.00. Signal/cutoff ratio result >/= 5.00 is 97% predictive of positivity for recombinant immunoblot assay (RIBA) and will be reported to the [place] [facility] as required. Blood Venipuncture / Unknown 05/13/2023 7:56 AM CDT 05/13/2023 7:56 AM CDT us Yuni Resendiz APRN, CNP CHEMISTRY ORDER CHELI Final Result Performing Organization Address City/State/[facility] Co de Phone Number [facility] [address] [place] [address], from Last 3 Months or Most Recently Relevant to Health Maintenance Additional Health Concerns Active Problems Noted Date Diagnosed Date Hypertension (Hypertension) 05/24/2025 Disease Progression (Hypertension) 05/24/2025 Insurance MEDICARE [facility] Care Teams Mechanical Integrity Specialist Relationship Specialty Start Date End Date Yuni Resendiz APRN, COMPRESSOR HOUSE OPERATOR [address] [place] [address] PCP - General Advanced Practice Nurse 07/23/20 Antonio Bal, RN [place] Registered Nurse 05/24/25
--- OUTSIDE RECORDS SUMMARY | 2025-08-09 00:54 | XMS_ITS | Encounter Summary ---
Author Organization [facility] Address [address] [place] [address] Phone Care Team Providers Care Repairer Recreational Vehicle Name Role Phone Yuni Resendiz APRN, CNP Primary Care P kylie Antonio Bal RN Unavailable Unavailable Encounter Details Date Type Department Care Team (Late st Contact Info) Description 11/25/2020 Telephone [facility] - [facility] - [place] [address] [place] [address] Yuni Resendiz APRN, CNP [address] [place] [address] Social History Tobacco Use Types [...] COVID-19? No / Unsure 11/25/2020 1:12 PM CLINICAL SAFETY SPECIALIST documented as of this encounter Miscellaneous Notes * Telephone Encounter - Alicia Sesay RN - 11/25/2020 2:20 PM CLINICAL SAFETY SPECIALIST Attempted to call patient, no answer at this time. Left message to call back. ICAL SAFETY SPECIALIST * Telephone Encounter - Alicia Sesay RN - 11/25/2020 2:19 PM CLINICAL SAFETY SPECIALIST Images from the original note were not included. Yuni Resendiz APN, COMMERCIAL LOAN ASSISTANT You 19 minutes ago (1:56 PM) Increase amlodpine to 10mg. Start hctz 12.5mg daily Restart celebrex - she was on it and had elevated BP and it is still elevated when off of it, then it most likely wasn't caused by it ICAL SAFETY SPECIALIST documented in this encounter Plan of Treatment Upcoming Encounters Date Type Department Care Team (Late st Contact Info) Description 09/13/2025 8:40 AM CLINICAL SAFETY SPECIALIST Lab [facility] [place] [address] [place] [address] 09/20/2025 9:30 AM CLINICAL SAFETY SPECIALIST Office Visit [facility] [place] [address] [place] [address] Yuni Resendiz, CHILD LIFE SPECIALIST, COMMERCIAL LOAN ASSISTANT [address] [place] [address] documented as of this encounter Visit Diagnoses Not on filedocumented in this encounter Additional Health Concerns Infection Onset Date Last Indicated Resolved Time COVID - 19 01/16/2023 01/16/2023 01/26/2023 12:1 6 AM CDT COVID - 19 Confirmed 01/16/2023 01/16/2023 023 12:16 AM CDT Assessment Noted Time PHQ-9 Depression Total Score: 0 07/26/20 20 8:00 AM CDT documented as of this encounter Care Teams Repairer Recreational Vehicle Relationship Specialty Start Date End Date Yuni Resendiz APRN, COMMERCIAL LOAN ASSISTANT [address] [place] [address] PCP - General Advanced Practice Nurse 07/23/20 Antonio Bal, RN [place] Registered Nurse 05/24/25 documented as of this encounter
--- OUTSIDE RECORDS SUMMARY | 2025-08-09 00:54 | XMS_ITS | Encounter Summary ---
Author Organization [facility] Address [address] [place] [address] Phone Care Team Providers Care Ice Cream Freezer Assistant Name Role Phone Yuni Resendiz APRN, CNP Primary Care P [facility] Antonio Bal RN Unavailable Unavailable Reason for Visit * Reason Comments Medication Refill Encounter Details Date Type Department Care Team (Late st Contact Info) Description 04/27/2024 Refill [facility] - [place] [address] [place] [address] Yuni Resendiz APRN, CNP [address] [place] [address] Medication Refill Social History Tobacco Use Types Packs/Day Years Used Date Smoking Tobacco: Former Cigarettes 0.5 27 1 - 11/07/2004 Smokeless Tobacco: Never Comments:chews nicorette gum Alcohol Use Standard Drinks/Week Comments No 0 (1 standard drink = 0.6 oz pur e alcohol) [facility] Utilities Answer Date Recorded In the past 12 months has [employer] electric, gas, oil, or water company threatened [...] How often do you attend chur or yarsani services? 1 to 4 times per year 02/10/2024 Do you belong to any clubs o r organizations such as methodist groups, unions, fraternal or athletic groups, or [...] Total Score - Questions 1-9 0 11/09 [facility] - Occupational Stress Questionnaire Answer Date [...] place to sleep or slept in a assisted (including now)? No 02/10/2024 Education Answer Date [...] 04/20/24 Office Visit Antonella Gupta APRN, [facility] 02/10/24 Office Visit Yuni Resendiz APRN, C[facility] 12/06/23 Office Visit Yuni Resendiz APRN, [facility] Showing recent visits within past 182 days and meeting all other requirements Future Appointments Date Type Provider Dept 05/15/24 Appointment Clinic, [facility] Nurse [facility] 05/29/24 Appointment Lab, [facility] 06/05/24 Appointment Yuni Resendiz APRN, [facility] Showing future appointments within next 90 days and meeting all other requirements Passed - Patient has established therapy with Bupropion for at least 6 months documented in this encounter Plan of Treatment Upcoming Encounters Date Type Department Care Team (Late st Contact Info) Description 09/13/2025 8:40 AM DIESEL ENGINE II PIPE FITTER Lab [facility] [place] [address] [place] [address] 09/20/2025 9:30 AM DIESEL ENGINE II PIPE FITTER Office Visit [facility] [place] [address] [place] [address] Yuni Resnediz APRN, CNP [address] [place] [address] documented as of this encounter Visit Diagnoses Diagnosis Anxiety with depression documented in this encounter Additional Health Concerns Assessment Noted Time PHQ-9 Depression Total Score: 0 12/06/19 3:04 PM DIESEL ENGINE II PIPE FITTER documented as of this encounter Care Teams Ice Cream Freezer Assistant Relationship Specialty Start Date End Date Yuni Resendiz, CHEMIST INTERN, [employer] TECHNICAL ARCHITECT [address] [place] [address] PCP - General Advanced Practice Nurse 07/23/20 Antonio Bal, RN [place] Registered Nurse 05/24/25 documented as of this encounter
--- NOTE | 2025-08-09 07:14 | WPDHPUPDATE1 ---
History and Physical Update Update Date/Time: 08/09/25 07:14 History and Physical has been reviewed, including an updated exam of the patient. There are NO changes in the patient's condition. Risks, benefits, and alternatives have been discussed and questions answered. Patient agrees to proceed with procedure.
[2025-08-09] MEDS: ACETAMINOPHEN 500 MG TABLET 1000 MG PO (08:15)
[2025-08-09] MEDS: LACTATED RINGERS 1,000 ML 30 ML IV CONT ×2 (08:15→11:58)
[2025-08-09] MEDS: TRANEXAMIC ACID 1,000MG/ISO100 1,000 MG/100 ML BAG 200 MG IVPB (08:30)
--- NOTE | 2025-08-09 09:58 | WPDANESEPPF ---
Anes - Initial Pre Proc Eval Procedure: Operation Date: 08/09/25 10:00 Proposed Procedures p Left Custom Total Knee Arthroplasty - Wood Kim MD Date/Time: 08/09/25 09:58 Surgeon: Wood Kim MD Pre Op Diagnosis: Prim O A Lt Knee Patient Data Age: 75 Gender: F Height: 1.5 m Weight: 72.8 kg Last Vital Signs Temp 98.3 F 08/09/25 08:08 Pulse 62 08/09/25 08:08 Resp 18 08/09/25 08:08 BP 131/61 08/09/25 08:08 Pulse Ox 98 08/09/25 08:08 O2 Del Method Room Air 08/09/25 08:08 Allergies Allergy/AdvReac Type Severity Reaction Status Date / Time paroxetine (From Paxil) AdvReac Intermediate hallucinati Verified 07/27/25 15:06 ons Sulfa (Sulfonamide AdvReac Intermediate unknown Verified 07/27/25 15:06 Antibiotics) lisinopril AdvReac Unknown unknown Verified 07/27/25 15:06 Home Medications ?Medication ?Instructions ?Recorded ?Confirmed ?Type aspirin 81 mg tablet,delayed 81 mg PO DAILY 09/11/22 07/27/25 History release (Adult Aspirin Regimen) bupropion HCl 150 mg tablet,12 hr 150 mg PO QAM 09/11/22 07/27/25 History sustained-release (Wellbutrin SR) cetirizine 10 mg tablet 10 mg PO DAILY PRN allergy symptoms 09/11/22 07/27/25 History cholecalciferol (vitamin D3) 50 50 mcg PO DAILY 09/11/22 07/27/25 History mcg (2,000 unit) capsule fluticasone propionate 50 1 spray intranasal DAILY 09/11/22 07/27/25 History mcg/actuation nasal spray,suspension (Flonase Allergy Relief) montelukast 10 mg tablet 10 mg PO DAILY 09/11/22 07/27/25 History (Singulair) omeprazole 20 mg capsule,delayed 20 mg PO DAILY 09/11/22 07/27/25 History release vit C 250 mg-vit E 90 mg-zinc 40 1 tablet PO BID 09/11/22 07/27/25 History mg-copper 1 [id number]-qvoqyv capsule (PreserVision AREDS-2) latanoprost 0.005 % eye drops 1 drp EACH EYE DAILY 12/09/22 07/27/25 History carvedilol 12.5 mg tablet 12.5 mg PO Q12H 09/27/24 07/27/25 History magnesium 250 mg tablet 250 mg PO DAILY 09/27/24 07/27/25 History omega 4-kdi-ifn-fish oil 1,000 mg 1 cap PO DAILY 09/27/24 07/27/25 History (120 mg-180 mg) capsule (Fish Oil) rosuvastatin 10 mg tablet (Crestor) 20 mg PO DAILY 09/27/24 07/27/25 History celecoxib 50 mg capsule (Celebrex) 200 mg PO BID 04/25/25 07/27/25 History amlodipine 10 mg tablet 10 mg PO DAILY 07/27/25 07/27/25 History bupropion HCl 300 mg 24 hr tablet, 300 mg PO DAILY 07/27/25 07/27/25 History extended release guaifenesin 600 mg tablet, 600 mg PO BID 07/27/25 07/27/25 History extended release 12 hr (Mucinex) olmesartan 20 mg tablet 10 mg PO DAILY 07/27/25 07/27/25 History turmeric (bulk) 95 % powder 1 ea miscellaneous DAILY 07/27/25 07/27/25 History (Curcumin) aspirin 81 mg tablet,delayed 81 mg PO BID 14 days #28 tabs 08/09/25 Rx release oxycodone-acetaminophen 5 mg-325 1 - 2 tablet PO Q4-6H PRN pain 7 08/09/25 Rx mg tablet days #30 tabs prednisone 5 mg tablet 5 mg PO DAILY 3 weeks #21 tabs 08/09/25 Rx Patient hx anesthesia problems: post op nausea/vomiting Family hx anesthesia problems: none Results Review: All pre-operative results and documents have been reviewed as part of the pre-operative evaluation. REPLACED BY [facility] Past Medical History Medical History History of stress test Osteopenia Hyperlipidemia Hypertension Surgical History Surgical History History of tubal ligation (~1983) Family History Family History Mother Uterine cancer Degenerative disc disease Social History Social History Smoking packs per day: 1 Smoking cigarettes per day: 20.0 Years smoked: 30 Smoking pack-years: 30.00 Smoking status: Never smoker Tobacco type: cigarettes Smoking end date: 11/08/03 Additional smoking assessment comments: Nicorette gum uses , son in hospital Alcohol intake: never Substance use: never Substance use type: does not use Do You Feel Safe in your Home?: Yes Lack of Transportation: No Lack of Food: Never True Current Housing: I Have Housing Concerned About Future Housing: No Difficulty Paying Gas/Electric Bills: No Difficulty Paying for Meds: No Currently Unemployed: No Education: High School Diploma/GED Difficulty w/ Childcare or Family Care: No Living arrangements: with family Additional living arrangements comments: Spiritual care concerns: No Anes - Eval Final PreProcedure Day of Procedure 08/09/25 09:58 Patient weight: obese Heart: regular rate and rhythm Lungs: clear to auscultation Airway: Mallampati scale class II Neurological: alert and oriented Last oral intake: >/= 8 hours ASA classification: III Emergent: no Anesthetic plan: proceed Anesthesia type and monitoring: general LMA and standard monitoring Results Review: All pre-operative results and documents have been reviewed as part of the pre-operative evaluation. Informed Consent: The patient's anesthetic plan and its attendant risks and benefits were discussed with the patient/family/POA. Questions were solicited and answers provided to the satisfaction of the patient/family/POA.
[2025-08-09] MEDS: ceFAZolin 2 GM in SODIUM CHLORIDE 0.9% IV 50 ML 100 ML IVPB ×2 (10:04→17:36)
[2025-08-09] MEDS: SODIUM CHLORIDE 0.9% IV 37.7 ML, MORPHINE SULFATE INJ (*CRX) 2 MG, ROPivacaine HCL 1% 2... INFILTRATE (10:35)
[2025-08-09] MEDS: TRANEXAMIC ACID 1,000 MG/10 ML AMPUL 1000 MG IV PUSH (11:26)
[2025-08-09] MEDS: fentaNYL CITRATE INJ (*CRX) 100 MCG/2 ML VIAL 25 MCG IV PUSH ×2 (13:13→13:29)
--- NOTE | 2025-08-09 13:35 | W.PM.PROC2 ---
Procedure Note - Detailed Date of Procedure 08/09/25 Pre-op Diagnosis Left knee degenerative arthritis. Post-op Diagnosis Same Procedure Performed Custom total knee arthroplasty, left. Surgeon Wood Kim MD Vehicle And Equipment Cleaner Jennifer Morales PA-C Anesthesia General Findings Good bone quality. Small stature. No ligament releases. Custom implant optimal fit. Description of Procedure Preoperative antibiotics were given. The limb was prepped and draped in the usual sterile fashion with a well-padded tourniquet high on the thigh. The limb was exsanguinated and the tourniquet inflated to 300 mmHg during exposure and cementation. A longitudinal incision was created just medial to the patella. A sub vastus approach to the knee was performed. Arthrotomy was taken down through the joint capsule. No significant releases were initially taken. The femur was exposed and the F1 jig was applied. The coring tool was used to remove the cartilage for the F2 jig to sit flush with the bone. The jig was pinned and the distal cut carefully taken. Caliper measurements confirmed appropriate bony resections according to the preoperative templated plan. The F4 cutting jig for the femur was applied, at the standard rotation. The AP and anterior chamfer cuts were taken. The F5 jig was applied and the posterior chamfer cuts were taken. The tibia was prepared using the T1 jig, after removing cartilage for the jig contact points. Proper alignment was checked with the alignment carrie. The tibia was cut using the T1u guide. Gap balancing was performed. Gap measurements were taken and the knee was trialed. Excellent alignment and soft tissue balancing was confirmed. The posterior cruciate ligament was recessed along the proximal tibia. The patella was cut for resurfacing. Three lug holes were drilled. Meniscal remnants were removed. The trial components were assembled. Excellent range of motion and proper soft tissue balancing were confirmed throughout the full range of motion. Patellar tracking was excellent. The knee was copiously irrigated periodically throughout the procedure. The real implants were cemented into position. Excess cement was carefully removed. The wound was closed in layers with interrupted #1 Vicryl suture, 2-0 strata fix suture, 0 strata fix suture, 2-0 strata fix suture. Steri-Strips placed on the skin with the knee flexed. Sterile bulky dressing applied. The patient was brought to the recovery room in stable condition. There were no complications. Implants Conformis Custom total knee arthroplasty. Cemented. Cruciate retaining. 7B insert. 29 mm round patella. Estimated Blood Loss 50 Drains No Complications No immediate complications Condition Stable Disposition PACU [facility] Billing Surgery - Charge Forward: Surgery Billing
[2025-08-09] MEDS: ONDANSETRON INJ 4 MG/2 ML VIAL IV PUSH ×3 (13:37→20:41)
--- NOTE | 2025-08-09 14:20 | SUR.PREOP ---
1000 mL LR was infused in pre-op. finished infusing at 1000
--- NOTE | 2025-08-09 15:12 | ADMGEN ---
This patient, Lucy Nair, was admitted to Medical Room 348-01. Patient/family oriented to hospital policies and general routines including ID bracelet, bed and alarms, visiting hours, pain management, procedures, bathroom and other care routines, personal items, smoking policy, room service/diet, and visiting hours. Information on how to activate the Rapid Response Team has been discussed. Patient/Family are encouraged to report perceived risks to care and to ask questions if they do not understand what they are told or what they should do.
[2025-08-09] MEDS: HYDROmorphone HCL INJ (*CRX) 2 MG/ML VIAL 0.5 MG IV PUSH (16:29)
[2025-08-09] MEDS: SODIUM CHLORIDE 0.9% IV 1,000 ML 125 ML IV CONT (16:36)
--- NOTE | 2025-08-09 16:37 | PC.NURSE ---
Pt n/v does not want medication at this time.
[2025-08-09] MEDS: LATANOPROST 0.005% OP SOLN 2.5 ML BTL 1 DROP EACH EYE (17:35)
[2025-08-09] MEDS: FAMOTIDINE 20 MG TABLET PO (20:48)
[2025-08-10 00:20] VITALS: BP 130/61; PULSE 78; RESP 16; TEMP 36.5; O2SAT 92
[2025-08-10] MEDS: ACETAMINOPHEN 325 MG TABLET 650 MG PO ×2 (00:35→04:38)
[2025-08-10] MEDS: ceFAZolin 2 GM in SODIUM CHLORIDE 0.9% IV 50 ML 100 ML IVPB ×2 (01:49→10:01)
[2025-08-10 04:20] VITALS: BP 150/66; PULSE 74; RESP 16; TEMP 36.7; O2SAT 98
[2025-08-10] MEDS: CYCLOBENZAPRINE HCL 10 MG TABLET PO (04:38)
[2025-08-10 05:45] LABS: Hematocrit 37.3 % (37.0-47.0); Hemoglobin 12.3 g/dL (12.0-15.0); Immature Granulocyte Percent A 0.4 % (0-0.5); Lymphocytes Absolute Auto 1.10 K/mm3 (0.9-3.2); Mean Corpuscular HGB Conc 33.0 g/dl (32-36); Mean Corpuscular Hemoglobin 30.4 pg (26-34); Mean Corpuscular Volume 92.1 fl (80-100); Nucleated Red Blood Cells Absolute Auto 0.000 K/mm3 (0.0-0.012); Nucleated Red Blood Cells Perc 0.0 % (0.0-0.2); Platelet Count Result 277 k/mm3 (150-375); Red Blood Count 4.05 M/mm3 (4.2-5.4); White Blood Count 13.6 K/mm3 (4.5-10.0)
[2025-08-10 05:56] LABS: Anion Gap 9 mmol/L (4-12); Blood Urea Nitrogen 11 mg/dL (7-17); Calcium 8.7 mg/dL (8.4-10.2); Carbon Dioxide 21 mmol/L (22-30); Chloride 101 mmol/L (98-107); Estimated Glomerular Filt Rate > 60; Glucose 123 mg/dL (65-110); Potassium 4.2 mmol/L (3.4-5.0); Sodium 131 mmol/L (137-145)
[2025-08-10 08:20] VITALS: BP 124/61; PULSE 68; RESP 16; TEMP 36.8; O2SAT 100
[2025-08-10 08:40] VITALS: PULSE 74
[2025-08-10] MEDS: PANTOPRAZOLE 40 MG TABLET PO (08:40)
[2025-08-10] MEDS: buPROPion HCL SR (12 HR) 150 MG TAB PO (08:40)
[2025-08-10] MEDS: guaiFENesin 12 HR 600 MG TABCR PO (08:40)
[2025-08-10] MEDS: SENNA/DOCUSATE SODIUM TABLET 2 TAB PO (08:40)
[2025-08-10] MEDS: ASPIRIN 81 MG ENTERIC TABLET PO (08:41)
[2025-08-10] MEDS: OLMESARTAN MEDOXOMIL 10 MG TABLET PO (08:41)
[2025-08-10] MEDS: FAMOTIDINE 20 MG TABLET PO (08:41)
[2025-08-10] MEDS: IBUPROFEN IV 800 MG/200 ML 800 MG/200 ML BAG 400 MG IVPB (08:41)
[2025-08-10] MEDS: FLUTICASONE PROPIONATE 0.05% NA SPR 16 GM BTL (*BKC) 1 SPRAY NASAL (08:42)
[2025-08-10] MEDS: LATANOPROST 0.005% OP SOLN 2.5 ML BTL 1 DROP EACH EYE (08:43)
== END 2025-08-10 11:30 | disposition home or self-care (01) ==
LOC: ANHSURGERY 07:38 → ANH3MED 14:42
PROVIDERS: Physician Assistant Surgical; Visit Provider Orthopaedic Surgery
PROC: (CPT 27447; principal; 2025-08-09 10:00)
DX: M17.12 Unilateral primary osteoarthritis, left knee (principal); M65.862 Other synovitis and tenosynovitis, left lower leg; M25.462 Effusion, left knee; E78.5 Hyperlipidemia, unspecified; I10 Essential (primary) hypertension; M85.88 Other specified disorders of bone density and structure, other site; F17.290 Nicotine dependence, other tobacco product, uncomplicated; E66.9 Obesity, unspecified; Z68.34 Body mass index [BMI] 34.0-34.9, adult; Z79.82 Long term (current) use of aspirin; Z79.891 Long term (current) use of opiate analgesic; Z79.52 Long term (current) use of systemic steroids; Z79.1 Long term (current) use of non-steroidal anti-inflammatories (NSAID); Z98.51 Tubal ligation status; Z80.49 Family history of malignant neoplasm of other genital organs
CPT/HCPCS: 27447; 36415; 73560; 80048; 85025; 97110; 97161; 97165; J0690; A9270; C1713; C1776; J0166; J1100; J1171; J1741; J1885; J2003; J2270; J2405; J2704; J2795; J3010; J3290; J7030; J7120